=== PATIENT | female | born 1985 | race Caucasian/White ===

== ENCOUNTER → 2021-08-19 07:53 | Outpatient (BNVA) | payer BC, SELFPAY | PROVIDERS: Visit Provider Internal Medicine ==

== ENCOUNTER 2021-08-19 08:29 | Outpatient (REF) | payer BC, SELFPAY ==
[2021-08-19 10:55] LABS: Free T4 (Free Thyroxine) 0.94 ng/dL (0.71-1.85); Thyroid Stimulating Hormone 3.57 uIU/mL (0.32-4.0); Vitamin D 25-OH Total 35.8 ng/mL (>30)
[2021-08-20 10:11] LABS: Thyroglobulin Antibodies 13 IU/mL (< or = 1); Thyroid Peroxidase Antibodies 111 IU/mL (<9)
== END 2021-08-19 08:30 | disposition home or self-care (01) ==
LOC: HO.10HDL 08:29
PROVIDERS: Visit Provider Internal Medicine
DX: E03.9 Hypothyroidism, unspecified (principal); E55.9 Vitamin D deficiency, unspecified
CPT/HCPCS: 36415; 82306; 84439; 84443; 86376; 86800

== ENCOUNTER 2022-01-11 09:02 | Outpatient (REF) | payer BC, SELFPAY ==
[2022-01-11 19:19] LABS: CT PCR NOT DETECTED (Not Detect.); NG PCR NOT DETECTED (Not Detect.)
[2022-01-14 14:32] LABS: HPV mRNA E6/E7 rflx Not Detected (Not Detected)
== END 2022-01-11 09:03 | disposition home or self-care (01) ==
LOC: HO.LAB 09:02
PROVIDERS: Visit Provider Advanced Practice Midwife
DX: Z01.419 Encounter for gynecological examination (general) (routine) without abnormal findings (principal); R10.2 Pelvic and perineal pain; Z11.51 Encounter for screening for human papillomavirus (HPV); Z11.59 Encounter for screening for other viral diseases; Z11.4 Encounter for screening for human immunodeficiency virus [HIV]; Z11.3 Encounter for screening for infections with a predominantly sexual mode of transmission; Z11.8 Encounter for screening for other infectious and parasitic diseases
CPT/HCPCS: 87491; 87591; 87624; 88142

== ENCOUNTER 2022-01-25 08:08 | Outpatient (REF) | payer BC, SELFPAY ==
--- NOTE | ~2022-01-25 | US_ITS ---
EXAMINATION: US THYROID CLINICAL INFORMATION: Hypothyroidism, unspecified. COMPARISON: Previous thyroid ultrasound June 2019 TECHNIQUE: Linear transducer grayscale and color Doppler examination with attention to the region of the thyroid. FINDINGS: SIZE: Measurements of the thyroid lobes and nodules are given in sagittal, anteroposterior and transverse dimensions respectively. Right Thyroid Lobe: 4.2 x 1.9 x 1.8 cm, volume 7.1 mL. Parenchyma: The gland echotexture is heterogeneous. Thyroid vascularity is normal. Left Thyroid Lobe: 4.4 x 1.6 x 1.4 cm, volume 5.2 mL. Parenchyma: The gland echotexture is heterogeneous. Thyroid vascularity is normal. Isthmus: 0.4 cm in maximum AP dimension. There is question of numerous small hypoechoic nodules versus areas of gland heterogeneity. Estimated total number of nodules greater than or equal to 1 cm: 0. Refrigeration Installer nodules are described as follows: 1. Location: Left superior. Size: 0.6 x 0.2 x 0.4 cm, volume 0.03 mL. Nodule characteristics: Composition: Solid (2). Echogenicity: Isoechoic (1). Shape: Not taller than wide (0). Margins: Ill-defined (0). Echogenic Foci: None (0). ACR TI-RADS total points: 3 ACR TI-RADS category: 3 2. Location: Right mid. Size: 0.7 x 0.3 x 0.4 cm, volume 0.04 mL. Nodule characteristics: Composition: Solid (2). Echogenicity: Isoechoic (1). Shape: Not taller than wide (0). Margins: Ill-defined (0). Echogenic Foci: None (0). ACR TI-RADS total points: 3 ACR TI-RADS category: 3 NODES: No lymphadenopathy is seen in the tissue surrounding the thyroid gland. US/US thyroid IMPRESSION: Heterogeneous thyroid gland. Thyroid gland appears more heterogeneous than seen June 2019. Two newly appreciated small thyroid nodules. Previously identified small lymph nodes not appreciated. ACR TI-RADS RECOMMENDATION REFERENCE: Ultrasound-guided fine-needle aspiration, followup ultrasound, no further follow up. * TR1 (0 point) and TR 2 (2 points): No FNA or follow up * TR3 (3 points): FNA if more than or equal to 2.5 cm in maximum dimension, followup ultrasound in 1, 3 and 5 years if 1.5 to 2.4 cm in maximum dimension. * TR4 (4-6 points): FNA if more than or equal to 1.5 cm in maximum dimension, followup ultrasound in 1, 2, 3 and 5 years if 1 to 1.4 cm in maximum dimension. * TR5 (more than or equal to 7 points): FNA if more than or equal to 1 cm in maximum dimension, followup ultrasound every year for 5 years if 0.5 to 0.9 cm in maximum dimension. * TR3, TR4 or TR5 nodules that are below the size threshold for follow up receive no follow up.
== END 2022-01-25 08:09 | disposition home or self-care (01) ==
LOC: HO.US 08:08
PROVIDERS: Visit Provider Internal Medicine
DX: E03.9 Hypothyroidism, unspecified (principal)
CPT/HCPCS: 76536

== ENCOUNTER 2022-06-21 08:41 | Outpatient (REF) | payer BC, SELFPAY ==
[2022-06-21 12:36] LABS: Free T4 (Free Thyroxine) 0.89 ng/dL (0.71-1.85)
== END 2022-06-21 08:42 | disposition home or self-care (01) ==
LOC: HO.WFDLDS 08:41
PROVIDERS: Visit Provider Internal Medicine
DX: E03.9 Hypothyroidism, unspecified (principal)
CPT/HCPCS: 36415; 84439; 84443

== ENCOUNTER → 2022-06-28 07:58 | Outpatient (BNVA) | payer BC, SELFPAY | PROVIDERS: Visit Provider Internal Medicine | DX: E03.9 Hypothyroidism, unspecified (principal) ==

== ENCOUNTER 2022-09-07 10:08 | Outpatient (REF) | payer BC, SELFPAY ==
[2022-09-07 14:03] LABS: Free T4 (Free Thyroxine) 0.94 ng/dL (0.71-1.85); Thyroid Stimulating Hormone 3.49 uIU/mL (0.32-4.0)
== END 2022-09-07 10:09 | disposition home or self-care (01) ==
LOC: HO.WFDLDS 10:08
PROVIDERS: Visit Provider Internal Medicine
DX: E03.9 Hypothyroidism, unspecified (principal)
CPT/HCPCS: 36415; 84439; 84443

== ENCOUNTER → 2022-09-08 07:40 | Outpatient (BNVA) | payer BC, SELFPAY | PROVIDERS: Visit Provider Internal Medicine | DX: Z13.89 Encounter for screening for other disorder (principal) ==

== ENCOUNTER 2022-12-21 16:16 | Outpatient (REF) | payer BC, SELFPAY ==
[2022-12-21 18:39] LABS: Free T4 (Free Thyroxine) 0.88 ng/dL (0.71-1.85); Thyroid Stimulating Hormone 1.74 uIU/mL (0.32-4.0)
== END 2022-12-21 16:17 | disposition home or self-care (01) ==
LOC: HO.LAB 16:16
PROVIDERS: Visit Provider Internal Medicine
DX: E03.9 Hypothyroidism, unspecified (principal)
CPT/HCPCS: 36415; 84439; 84443

== ENCOUNTER 2022-12-22 07:22 | Outpatient (AMB) | payer BC, SELFPAY ==
--- NOTE | 2022-12-22 07:22 | MHC.OFFVIS ---
Intake Intake Visit Reasons: F/U Hypothyroidism Intake Note: Patient following up on Hypothyroidism. Allergies clindamycin [CLINDAMYCIN] Allergy (Unknown, Verified 12/22/22 07:36) UNKNOWN Medication List - Last Reconciled 12/22/22 by Anne Marie Koch DO cholecalciferol (vitamin D3) 2,000 units PO DAILY clobetasol 0.05% grams topical dextroamphetamine-amphetamine 50 mg ER (Mydayis) 50 mg PO DAILY levothyroxine (Tirosint) 50 mcg PO DAILY serdexmethylphen-dexmethylphen 52.3 mg- 10.4 mg (Azstarys) 1 tab PO QAM spironolactone 25 mg PO DAILY tapinarof 1% (Vtama) 1 appl topical DAILY HPI HPI Comments History of Present Illness Details 37 YO Female with PMHx Hypothyroidism who is seen in F/U. First diagnosed with Hypothyroidism in approximately 2011. After our initial visit we checked antibodies with both TPO and TG antibodies being positive. She had an US of the thyroid which was consistent with a jeanmarie gland, with no true nodules visualized, only pseudonodules. She was switched to Tirosint 50 mcg PO daily and labs reveal TSH at goal. She has no specific complaints today. Menses: She has the paraguard IUD, and reports heavy menses. Prior to paraguard menses were regular. Biotin: Denies Labs: Laboratory Tests 12/21/22 16:45 TSH 1.74 Free T4 0.88 PFSH Medical History Abnormal Pap smear of cervix ADD (attention deficit disorder) Depression Hypothyroidism IUD surveillance Psoriatic arthritis Vitamin D deficiency Surgical History H/O breast augmentation H/O LEEP Hx of knee surgery Family History Father Heart disease High cholesterol HTN (hypertension) Mother High cholesterol Hypothyroidism Social History Alcohol intake: current Alcohol intake frequency: holidays/special occasions only Patient Tobacco Use Status: Never used Tobacco Current occupational status: employed 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 TSH at goal on Tirosint 50 mcg PO daily, will continue. She will F/U with her PCP for further management of her hypothyroidism. We did review that if she is to become she must notify us immediately as her dose of levothyroxine will need to be increased by 25%, and that this is important for the cognitive development of the baby. She verbalizes understanding. US reveals only pseudnodules. No indication for repeat surveillance unless she develops a change in symptomatology. All of her questions were answered. She is in agreement with this plan of care. I spent 20 minutes in reviewing the record, seeing the patient and documenting in the medical record, including 5 minutes on the phone with the Patient. Telehealth Telehealth Location of provider rendering services: practice address Location of patient: address on file Patient Identification confirmed using: Name, : Yes Telehealth method: voice only Patient verbally consented to treatment: Yes Patient verbally consented to billing insurance company: Yes Patient informed of any privacy concerns related to visit: Yes Coding Level of Care Code Tele Est Pt Level 3 (53201) Diagnoses Hypothyroidism E03.9
== END 2022-12-22 08:12 | disposition home or self-care (01) ==
LOC: HO.ENCR 07:22
PROVIDERS: Visit Provider Internal Medicine
DX: E03.9 Hypothyroidism, unspecified (principal)
CPT/HCPCS: 99443

== ENCOUNTER → 2022-12-22 07:22 | Outpatient (BNVA) | payer BC, SELFPAY | PROVIDERS: Visit Provider Internal Medicine ==

== ENCOUNTER 2023-07-13 08:10 | Outpatient (AMB) | payer BC, SELFPAY ==
--- NOTE | 2023-07-13 08:12 | MHC.OFFVIS ---
Intake Vital Signs 07/13/23 08:18 Height 5 ft 2 in Weight 170 lb BMI 31.1 BP 100/62 Intake Visit Reasons: Annual Intake Note: 11/21 ramez 1 01/21 colpo ramez 1+2 05/23 neg 01/22 neg 08/23 neg 02/23 hgsil 07/27 leep ramez 2 01/24 colpo, pap lgsil 10/25 ascus neg hpv 02/25 colpo ramez 1 04/28 colpo Tank Terminal Gauger: Tank Terminal Gauger Present (Florecita) Allergies clindamycin [CLINDAMYCIN] Allergy (Unknown, Verified 07/13/23 08:18) UNKNOWN Is last menstrual period known: Yes Last menstrual period: 07/09/23 HPI HPI Comments History of Present Illness Details She is a premenopausal woman presenting for annual examination. Doing well with no concerns. She tries to eat healthy, includes vitamin-D supplements, and stays active with exercise. Regular monthly menses. Cycles are approximately 24 days apart, lasting 7 days heavy at times. Currently using a ParaGard IUD, not interested in hormonal options at this time. Admits to fatigue at times. Currently is sexually active. She denies vaginal itching and irritation. Currently has her menses. STI screening offered; she accepts. Denies family history of breast, ovarian or colon cancer. Last pap smear 2021, negative. Prior was 2017. History of RAMEZ 2, with LEEP. 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 Sexually active: Yes Sexual orientation: Straight/Heterosexual Gender identity: Female Female Reproductive History Menstrual Age of Menarche: 15 Duration of menses: 6-7 days Date of last menstrual period: 07/09/23 control method: copper IUCD (Paragard 09/2017) Total pregnancies: 0 Date of last pap smear: 01/11/22 (neg pap and hpv) History of abnormal pap smear: Yes (see intake note) Review of Systems Const All systems reviewed & are unremarkable except as noted in HPI and below Reports as per HPI Eyes Reports no additional complaints ENT Reports no additional complaints Card Reports no additional complaints Resp Reports no additional complaints GI Reports as per HPI and Reports no additional complaints Reports as per HPI Musc Reports no additional complaints Skin/Breast Reports as per HPI Neuro Reports no additional complaints Psych Reports no additional complaints Endo Reports no additional complaints Bhupendra/Lymph Reports no additional complaints Aller/Immun Reports no additional complaints Physical Exam Vital Signs: Last Vital Signs BP 100/62 07/13/23 08:18 BMI result Body Mass Index 31.1 Const General: cooperative, healthy appearing, no acute distress, well developed and alert Orientation/consciousness: patient oriented x3 HEENT Head: Yes normal to inspection Eyes General: appearance normal, both eyes and all related structures Neck Neck: Yes normal visual inspection Thyroid: Thyroid normal Chest Other: Bilateral implants and scars. Chest palpation & inspection: normal inspection of the chest and other (no puckering, dimpling, peau de orange, retraction, discharge, masses) Breast/axilla inspection: normal inspection of the breasts Breast/axilla palpation: normal palpation of the breasts Resp Effort & Inspection: normal respiratory effort GI Inspection: Yes normal to inspection Palpation (GI): Soft to palpation Rectal Exam - Female: deferred General: Yes bladder normal to palpation External Female Exam: normal external appearance and normal appearance of the urethra Speculum Exam - Vagina: normal appearance of the vagina, normal palpation, normal vaginal discharge and vaginal bleeding Speculum Exam - Cervix: normal appearance of the cervix, normal palpation and Other cervical findings present (ParaGard strings visible, post LEEP appearance) Bimanual exam- vagina & uterus: normal bimanual exam, normal palpation, uterine size normal, bladder normal to palpation, normal palpation and non-tender Bimanual Exam- Adnexa, other: no masses OB/external & speculum: vaginal bleeding Skin General skin exam: no rashes or lesions noted Rashes: no rashes Neuro General: patient oriented x3 Cognition (Neuro): normal cognition Extrem General: Yes normal to inspection Psych Attitude: cooperative Thought process: Normal thought process present Assessment & Plan Assessment & Plan (1) Encounter for well woman exam with routine gynecological exam: Code(s): Z01.419 - Encounter for gynecological examination (general) (routine) without abnormal findings (2) History of abnormal cervical Pap smear: Code(s): Z87.42 - Personal history of other diseases of the female genital tract Plan Discussed: Current recommendations for pap smears per ASCCP guidelines. Breast awareness and periodic breast exams. Maintain a healthy lifestyle including a well balanced diet and routine exercise. Plan ultrasound, lab work and follow-up tele visit for test results. Monitor menstrual cycles, report any unscheduled bleeding, bleeding episodes <21 days apart or heavy/prolonged menstrual bleeding. Call the office for a follow up for any concerns. Patient verbalizes understanding and agrees to the plan of care. She was given opportunity to ask questions and all questions were answered to the best of my ability. RTO in one year for annual sewing machine operator floorperson examination. This note is constructed using voice recognition software. While every effort has been made to ensure accuracy, building tech errors may have been included. Orders: Orders Complete Blood Count no Diff Today N92.0 - Excessive and frequent menstruation with regular cycle TSH reflex Free T4 Today N92.0 - Excessive and frequent menstruation with regular cycle US pelvic and transvaginal Today N92.0 - Excessive and frequent menstruation with regular cycle Pap Smear Today Z01.419 - Encounter for gynecological examination (general) (routine) without abnormal findings, Z87.42 - Personal history of other diseases of the female genital tract HIV Ab/Ag Today Z20.2 - Contact with and (suspected) exposure to infections with a predominantly sexual mode of transmission CT NG by PCR Today N92.0 - Excessive and frequent menstruation with regular cycle, T83.89XA - Other specified complication of genitourinary prosthetic devices, implants and grafts, initial encounter, Z20.2 - Contact with and (suspected) exposure to infections with a predominantly sexual mode of transmission Hepatitis C Antibody Today Z20.2 - Contact with and (suspected) exposure to infections with a predominantly sexual mode of transmission Hepatitis B Core Antibody Today Z20.2 - Contact with and (suspected) exposure to infections with a predominantly sexual mode of transmission Syphilis Screen Today Z20.2 - Contact with and (suspected) exposure to infections with a predominantly sexual mode of transmission Coding Level of Care Code Est Pt Prev Care 18-39y(27243) Diagnoses Encounter for well woman exam with routine gynecological exam Z01.419 History of abnormal cervical Pap smear Z87.42
[2023-07-13 08:18] VITALS: BP 100/62; BMI 31.1
== END 2023-07-13 08:52 | disposition home or self-care (01) ==
PROVIDERS: Visit Provider Advanced Practice Midwife
DX: Z01.419 Encounter for gynecological examination (general) (routine) without abnormal findings (principal); Z87.42 Personal history of other diseases of the female genital tract
CPT/HCPCS: 99395

== ENCOUNTER 2023-07-13 08:10 | Outpatient (REF) | payer BC, SELFPAY ==
[2023-07-13 14:30] LABS: CT PCR DETECTED (Not Detect.); NG PCR NOT DETECTED (Not Detect.)
[2023-07-18 23:49] LABS: HPV mRNA E6/E7 rflx Not Detected (Not Detected)
== END 2023-07-13 08:11 | disposition home or self-care (01) ==
LOC: HO.LNP 08:10
PROVIDERS: Visit Provider Advanced Practice Midwife
DX: Z01.419 Encounter for gynecological examination (general) (routine) without abnormal findings (principal); Z11.51 Encounter for screening for human papillomavirus (HPV); Z20.2 Contact with and (suspected) exposure to infections with a predominantly sexual mode of transmission; N92.0 Excessive and frequent menstruation with regular cycle
CPT/HCPCS: 0353U; 87624; 88142

== ENCOUNTER 2023-07-29 16:25 | Outpatient (REF) | payer BC, SELFPAY ==
--- NOTE | ~2023-07-29 | US_ITS ---
EXAMINATION: US PELVIS CLINICAL INFORMATION: Heavy menses, right pelvic pain, last menstrual period 07/09/2023. COMPARISON: None available. TECHNIQUE: Ultrasound of the pelvis is performed using both transabdominal and transvaginal transducers along with Doppler. Transvaginal imaging is performed due to inadequate visualization transabdominally. FINDINGS: The uterus measures 7.8 x 2.4 x 3.5 cm. 0.7 x 0.5 x 0.6 cm posterior uterine hypoechoic lesion is characteristic of a fibroid. IUD present in the endometrial cavity. Visualization of the endometrium is limited due to shadowing from the IUD. No significant free fluid. Left ovary measures 2.2 x 1.3 x 1.1 cm, volume 1.6 mL. Left ovary is grossly unremarkable, although visualization is severely limited due to bowel gas. Right ovary measures 3.5 x 2.8 x 2.1 cm, volume 10.8 mL. Limited visualization. Right ovarian 2.4 x 2.1 x 1.8 cm complex cyst with thick nodular hopkins and diffuse internal echoes. US/US pelvic and transvaginal IMPRESSION: 0.7 cm posterior uterine hypoechoic lesion is characteristic of a fibroid. IUD present in the endometrial cavity. Visualization of the endometrium is limited due to shadowing from the IUD. No significant free fluid. Left ovary is grossly unremarkable, although visualization is severely limited due to bowel gas. Right ovarian 2.4 x 2.1 x 1.8 cm complex cyst with thick nodular hopkins and diffuse internal echoes. Recommend follow-up ultrasound in 6-8 weeks.
== END 2023-07-29 16:26 | disposition home or self-care (01) ==
LOC: HO.US 16:25
PROVIDERS: PCP Internal Medicine; Visit Provider Advanced Practice Midwife
DX: N92.0 Excessive and frequent menstruation with regular cycle (principal)
CPT/HCPCS: 76830; 76856

== ENCOUNTER 2023-08-10 13:50 | Outpatient (REF) | payer BC, SELFPAY ==
[2023-08-10 17:35] LABS: Hematocrit 40.3 % (37.0-47.0); Hemoglobin 13.5 g/dl (12.0-16.0); Mean Corpuscular HGB Conc 33.5 g/dl (31.0-35.0); Mean Corpuscular Hemoglobin 30.3 pg (27.0-33.0); Mean Corpuscular Volume 90.4 fL (80.0-98.0); Mean Platelet Volume 9.4 fL (9.4-12.3); Platelet Count 362 X10*3/uL (160-400); Red Blood Count 4.46 X10*6/uL (4.20-5.50); Red Cell Distribution Width 12.8 % (11.0-16.0); White Blood Count 7.2 X10*3/uL (4.8-10.8)
[2023-08-10 18:15] LABS: TSH reflex Free T4 2.04 uIU/mL (0.32-4.0)
[2023-08-10 18:19] LABS: Free T4 (Free Thyroxine) 0.94 ng/dL (0.71-1.85)
[2023-08-11 04:11] LABS: Syphilis Screen Nonreactive (Nonreactive)
[2023-08-11 04:27] LABS: HBc Num1 0.08 S/CO (0.00-0.79); HIV AB/AG Nonreactive (Nonreactive); HIV Num 1 0.05 S/CO (0.00-0.99); Hepatitis B Core Antibody Nonreactive (Nonreactive); ~HepC Num1 0.12 S/CO (0.00-0.79); ~Hepatitis C Antibody Nonreactive (Nonreactive)
[2023-08-15 15:34] LABS: Thyroid Stimulating Immunoglob <89 % baseline (<140)
== END 2023-08-10 13:51 | disposition home or self-care (01) ==
LOC: HO.HKASLDS 13:50
PROVIDERS: Internal Medicine; Visit Provider Advanced Practice Midwife
DX: E03.9 Hypothyroidism, unspecified (principal); N92.0 Excessive and frequent menstruation with regular cycle; Z20.2 Contact with and (suspected) exposure to infections with a predominantly sexual mode of transmission
CPT/HCPCS: 36415; 84439; 84443; 84445; 85027; 86704; 86780; 86803; 87389

== ENCOUNTER 2023-08-12 12:47 | Outpatient (AMB) | payer BC, SELFPAY ==
--- NOTE | 2023-08-12 12:48 | A.OFFVIS_ITS ---
Intake Intake Visit Reasons: TV/US follow up Inbound Telemarketer Required: No Information Interpreted: non-clinical & clinical Plant Health Manager: Plant Health Manager Present Allergies clindamycin [CLINDAMYCIN] Allergy (Unknown, Verified 08/12/23 12:49) UNKNOWN Is last menstrual period known: Yes Last menstrual period: 08/06/23 HPI HPI Comments History of Present Illness Details Tele fields landing visit 1:00-1:07. Phone call due to Covid 19 Pandemic. I spent 7 minutes speaking with the patient on the phone plus an additional 5 minutes reviewing the chart and 5 minutes updating the medical record for a total of 17minutes. Patient presents via phone to discuss: Ultrasound finding, has a history of sharp right-sided pain with her menses, uses ParaGard IUD. [facility] Medical History (Updated 08/12/23 @ 13:08 by Mandie Houser CNM) Complex ovarian cyst Abnormal Pap smear of cervix IUD surveillance ADD (attention deficit disorder) Depression Vitamin D deficiency Psoriatic arthritis Hypothyroidism Surgical History H/O breast augmentation H/O LEEP Hx of knee surgery Family History Father Heart disease High cholesterol HTN (hypertension) Mother High cholesterol Hypothyroidism Social History Alcohol intake: current Alcohol intake frequency: holidays/special occasions only Patient Tobacco Use Status: Never used Tobacco Current occupational status: employed 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 Diagnostics Subcategory All Activity ??:?? All Time ??:?? All Subcategories Filter Laboratory Imaging Microbiology Pathology Blood Bank Tests Cardiovascular Other Specialty DATE TYPE STATUS REF RANGE/AUTHOR Hx 07/29/23 16:39 Pelvic/Transvag US Signed Lita Powers 08/15/22 08:26 Thyroid Ultrasound Signed Libby Martinez Katarzyna Amb 38, F?1985 MRN#? [id number] Exam video ok REG AMB,?HO.HWS??? Visit Date: 08/12/23 Resus Status Not Addressed No Hx Avail Historical Visits Allergies clindamycin (CLINDAMYCIN) UNKNOWN Medications Prescription Monitoring Program Active cholecalciferol (vitamin D3) 2,000 unitsPODAILY clobetasol 0.05% topical dextroamphetamine-amphetamine 30 mg ER 1 capPODAILY dextromethorphan-bupropion 45-105 mg ER(Auvelity) PO levothyroxine(Tirosint) 50 mcgPODAILY doxycycline hyclate 100 mgPOBID7 days Discontinued 08/12/23 Problems HCC IUD surveillance Depression Vitamin D deficiency Psoriatic arthritis 0.421 Hypothyroidism Vitals ? 09/08/22 07:41 07/13/23 08:18 Temp ? ? BP 100/60 100/62 Pulse 93 ? Resp Rate ? ? O2 Sat ? ? Height 5 ft 2 in 5 ft 2 in Weight 156 lb 8.451 oz 170 lb BMI 28.6 31.1 Outstanding Orders [facility] Body Mass Index (BMI) 31.1 kg/m? 07/13/23 Blood Pressure 100/62 mmHg (90/60 - 139/89) 07/13/23 Lab Results Last Value Most Recent Hematology WBC (4.8-10.8) 7.2 X10*3/uL 08/10/23 RBC (4.20-5.50) 4.46 X10*6/uL 08/10/23 Hgb (12.0-16.0) 13.5 g/dl 08/10/23 Hct (37.0-47.0) 40.3 % 08/10/23 MCV (80.0-98.0) 90.4 fL 08/10/23 MCH (27.0-33.0) 30.3 pg 08/10/23 MCHC (31.0-35.0) 33.5 g/dl 08/10/23 RDW (11.0-16.0) 12.8 % 08/10/23 Plt Count (160-400) 362 X10*3/uL 08/10/23 MPV (9.4-12.3) 9.4 fL 08/10/23 Absolute Nucleated RBC (0.0-0.012) 0.000 X10*3/uL 08/10/23 Nucleated RBC % (auto) (0.0-0.2) 0.0 /100WBC 08/10/23 Chemistry TSH (0.32-4.0) 2.04 uIU/mL 08/10/23 Free T4 (0.71-1.85) 0.94 ng/dL 08/10/23 Thyroid Stim Immunoglob Pending 08/10/23 Serology T.pallidum Ab (EIA) (Nonreactive) Nonreactive 08/10/23 Chlam trachomat DNA PCR (Not Detect.) DETECTED A 07/13/23 Hep B Core Total Ab (Nonreactive) Nonreactive 08/10/23 Hepatitis C Ab (EIA) (Nonreactive) Nonreactive? 08/10/23 HIV 1&2 Ab/P24 Ag 4thGn (Nonreactive) Nonreactive? 08/10/23 N.gonorrhoeae DNA (PCR) (Not Detect.) NOT DETECTED? 07/13/23 HPV E6/E7 mRNA (Not Detected) Not Detected? 07/13/23 HPV Type 16 TNP? 07/13/23 HPV Type 18/45 TNP? 07/13/23 Pathology Reports PTH Cytology Specimen 07/14/23 Lab Scanned Documents Most Recent No Data to Display Documents Most Recent Departmental Office Visit Today Consult Notes, External 07/08/21 Imaging Pelvic/Transvag US 07/29/23 Special Indicators Pharmacies Diagnostics Reports Angela Encarnacion??38??F??1985 ? Allergy/Adv: clindamycin Close Pelvic/Transvag US (Signed) Lita Powers - 07/29/23 Thyroid Ultrasound (Signed) Libby Martinez - 01/25/22 Launch?Image [address] [address] Ultrasound Report Signed Patient: Angela Encarnacion MR#: [id number] : 1985 Acct:[id number] Age/Sex: 38 / F ADM Date: 07/29/23 Loc: HO.US Attending Dr: Mandie Houser CNM Ordering Physician: Mandie Houser CNM Date of Service: 07/29/23 Procedure(s): US pelvic and transvaginal Accession Number(s): [id number] cc: Mandie Houser CNM; Christine Pack EXAMINATION: US PELVIS CLINICAL INFORMATION: Heavy menses, right pelvic pain, last menstrual period 07/09/2023. COMPARISON: None available. TECHNIQUE: Ultrasound of the pelvis is performed using both transabdominal and transvaginal transducers along with Doppler. Transvaginal imaging is performed due to inadequate visualization transabdominally. FINDINGS: The uterus measures 7.8 x 2.4 x 3.5 cm. 0.7 x 0.5 x 0.6 cm posterior uterine hypoechoic lesion is characteristic of a fibroid. IUD present in the endometrial cavity. Visualization of the endometrium is limited due to shadowing from the IUD. No significant free fluid. Left ovary measures 2.2 x 1.3 x 1.1 cm, volume 1.6 mL. Left ovary is grossly unremarkable, although visualization is severely limited due to bowel gas. Right ovary measures 3.5 x 2.8 x 2.1 cm, volume 10.8 mL. Limited visualization. Right ovarian 2.4 x 2.1 x 1.8 cm complex cyst with thick nodular hopkins and diffuse internal echoes. US/US pelvic and transvaginal IMPRESSION: 0.7 cm posterior uterine hypoechoic lesion is characteristic of a fibroid. IUD present in the endometrial cavity. Visualization of the endometrium is limited due to shadowing from the IUD. No significant free fluid. Left ovary is grossly unremarkable, although visualization is severely limited due to bowel gas. Right ovarian 2.4 x 2.1 x 1.8 cm complex cyst with thick nodular hopkins and diffuse internal echoes. Recommend follow-up ultrasound in 6-8 weeks. Assessment & Plan Assessment & Plan (1) Complex cyst of right ovary: Code(s): N83.291 - Other ovarian cyst, right side (2) Encounter to discuss test results: Code(s): Z71.2 - Person consulting for explanation of examination or test findings Plan Counseled regarding findings of: Complex ovarian cyst (right), which is often benign, and most resolve on their own overtime. Some develop into premalignant or malignant tumors. Further monitoring and evaluation is recommended with US, possible CT, or MRI study. If persists, or is indicated (Ca-125, Carbohydrate Antigen 19-9, & Carcinoembryonic Antigen) labs will be ordered and referral to [facility] or general gynecology for MD care if indicated for possible surgical consult. Repeat ultrasound in 6 weeks, Follow up in person for test results. Advised if any increase in pelvic pain to notify the office immediately for sooner evaluation. All of her questions and concerns were addressed to the best of my ability and shared decision making. She is agreeable to the plan of care. This note is constructed using voice recognition software. While every effort has been made to ensure accuracy, grain trimmer errors may have been included. Orders: Orders US pelvic and transvaginal 09/09/23 N83.291 - Other ovarian cyst, right side Telehealth Telehealth Location of provider rendering services: practice address Location of patient: address on file Patient Identification confirmed using: Name, : Yes Telehealth method: video Patient verbally consented to treatment: Yes Patient verbally consented to billing insurance company: Yes Patient informed of any privacy concerns related to visit: Yes Coding Level of Care Code Tele Est Pt Level 2 (33488) Diagnoses Complex cyst of right ovary N83.291 Encounter to discuss test results Z71.2
== END 2023-08-12 13:59 | disposition home or self-care (01) ==
LOC: HO.HWS 12:48
PROVIDERS: Visit Provider Advanced Practice Midwife
DX: N83.291 Other ovarian cyst, right side (principal); Z71.2 Person consulting for explanation of examination or test findings
CPT/HCPCS: 99212

== ENCOUNTER → 2023-08-12 12:47 | Outpatient (BNVA) | payer BC, SELFPAY | PROVIDERS: Visit Provider Advanced Practice Midwife ==

== ENCOUNTER 2023-09-09 10:53 | Outpatient (REF) | payer BC, SELFPAY ==
--- NOTE | ~2023-09-09 | US_ITS ---
EXAMINATION: US PELVIS CLINICAL INFORMATION: Ovarian cyst right side, last menstrual period a week ago. COMPARISON: 07/29/2023 TECHNIQUE: Ultrasound of the pelvis is performed using both transabdominal and transvaginal transducers along with Doppler. Transvaginal imaging is performed due to inadequate visualization transabdominally. FINDINGS: The uterus is anteverted and measures 6.8 x 2.6 x 3.[address] within the endometrial cavity. Endometrium poorly visualized due to shadowing from the IUD and uterine heterogeneity. No significant free fluid. Nabothian cyst is identified. 0.7 x 0.4 x 0.6 cm posterior uterine lesion characteristic of fibroid previously measured 0.7 x 0.5 x 0.6 cm. 0.4 x 0.4 x 0.4 cm left uterine hypoechoic lesion was not previously appreciated and is also characteristic of a fibroid. US/US pelvic and transvaginal IMPRESSION: Small uterine fibroids. IUD in place within the endometrial cavity. Unremarkable bilateral ovaries. Interval resolution of previously identified right ovarian cyst.
== END 2023-09-09 10:54 | disposition home or self-care (01) ==
LOC: HO.US 10:53
PROVIDERS: Visit Provider Advanced Practice Midwife
DX: N83.291 Other ovarian cyst, right side (principal)
CPT/HCPCS: 76830; 76856

== ENCOUNTER 2023-09-14 11:15 | Outpatient (AMB) | payer BC, SELFPAY ==
--- NOTE | 2023-09-14 11:15 | MHC.OFFVIS ---
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 Phone call due to Covid 19 Pandemic. I spent 4 minutes speaking with the patient on the phone plus an additional 5 minutes reviewing the chart and 5 minutes updating the medical record for a total of 14minutes. Patient presents via phone to discuss: Ultrasound test results, history of prior right ovarian complex cyst. [facility] Medical History (Updated 08/12/23 @ 13:08 by Mandie Houser CNM) Complex ovarian cyst Abnormal Pap smear of cervix IUD surveillance ADD (attention deficit disorder) Depression Vitamin D deficiency Psoriatic arthritis Hypothyroidism Surgical History H/O breast augmentation H/O LEEP Hx of knee surgery Family History Father Heart disease High cholesterol HTN (hypertension) Mother High cholesterol Hypothyroidism Social History Alcohol intake: current Alcohol intake frequency: holidays/special occasions only Patient Tobacco Use Status: Never used Tobacco Current occupational status: employed 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 Sexual orientation: Straight/Heterosexual Gender identity: Female Female Reproductive History Menstrual Age of Menarche: 15 Review of Systems Const All systems reviewed & are unremarkable except as noted in HPI and below Endo Reports no additional complaints Physical Exam Const General: cooperative, healthy appearing and no acute distress Psych Appearance: well kempt Attitude: cooperative Thought process: Normal thought process present Results Reviewed Results Reviewed: [address] [address] Ultrasound Report Signed Patient: Angela Encarnacion MR#: [id number] : 1985 Acct:[id number] Age/Sex: 38 / F ADM Date: 09/09/23 Loc: HO.US Attending Dr: Mandie Houser CNM Ordering Physician: Mandie Houser CNM Date of Service: 09/09/23 Procedure(s): US pelvic and transvaginal Accession Number(s): [id number] cc: Mandie Houser CNM~ EXAMINATION: US PELVIS CLINICAL INFORMATION: Ovarian cyst right side, last menstrual period a week ago. COMPARISON: 07/29/2023 TECHNIQUE: Ultrasound of the pelvis is performed using both transabdominal and transvaginal transducers along with Doppler. Transvaginal imaging is performed due to inadequate visualization transabdominally. FINDINGS: The uterus is anteverted and measures 6.8 x 2.6 x 3.[address] within the endometrial cavity. Endometrium poorly visualized due to shadowing from the IUD and uterine heterogeneity. No significant free fluid. Nabothian cyst is identified. 0.7 x 0.4 x 0.6 cm posterior uterine lesion characteristic of fibroid previously measured 0.7 x 0.5 x 0.6 cm. 0.4 x 0.4 x 0.4 cm left uterine hypoechoic lesion was not previously appreciated and is also characteristic of a fibroid. US/US pelvic and transvaginal IMPRESSION: Small uterine fibroids. IUD in place within the endometrial cavity. Unremarkable bilateral ovaries. Interval resolution of previously identified right ovarian cyst. Dictated By: Lita Powers MD Signed By: <Electronically signed by Lita Powers MD in OV> 09/14/23 0531 DD/ 1113 TD/TT: Steam Service Inspector: Assessment & Plan Assessment & Plan (1) Encounter to discuss test results: Code(s): Z71.2 - Person consulting for explanation of examination or test findings Plan Discussed: Ultrasound findings revealed right ovarian cyst was resolved. Small stable fibroid noted. Can plan to follow up as needed yearly for fibroid check for stability. Advised to call if any unusual bleeding patterns, pelvic pain bloating are experienced. All of her questions and concerns were addressed to the best of my ability and shared decision making. She is agreeable to the plan of care. This note is constructed using voice recognition software. While every effort has been made to ensure accuracy, loan processing supervisor errors may have been included. Telehealth Telehealth Location of provider rendering services: practice address Location of patient: other Patient Identification confirmed using: Name, : Yes Telehealth method: video Patient verbally consented to treatment: Yes Patient verbally consented to billing insurance company: Yes Patient informed of any privacy concerns related to visit: Yes Coding Level of Care Code Tele Est Pt Level 3 (89545) Diagnoses Encounter to discuss test results Z71.2
== END 2023-09-14 13:05 | disposition home or self-care (01) ==
LOC: HO.HWS 11:15
PROVIDERS: PCP Internal Medicine; Visit Provider Advanced Practice Midwife
DX: Z71.2 Person consulting for explanation of examination or test findings (principal)
CPT/HCPCS: 99213

== ENCOUNTER → 2023-09-14 11:15 | Outpatient (BNVA) | payer BC, SELFPAY | PROVIDERS: PCP Internal Medicine; Visit Provider Advanced Practice Midwife ==

== ENCOUNTER 2024-01-31 11:30 | Outpatient (REF) | payer BC, SELFPAY ==
[2024-01-31 16:36] LABS: Bacterial Vaginosis PCR POSITIVE (Negative); Candida Group PCR DETECTED (Not Detect); Candida glab krusei PCR NOT DETECTED (Not Detect); Trichomonas vaginalis PCR NOT DETECTED (Not Detect)
[2024-01-31 17:00] LABS: CT PCR NOT DETECTED (Not Detect.); NG PCR NOT DETECTED (Not Detect.)
== END 2024-01-31 11:31 | disposition home or self-care (01) ==
LOC: HO.LNP 11:30
PROVIDERS: PCP Internal Medicine; Visit Provider Advanced Practice Midwife
DX: D21.9 Benign neoplasm of connective and other soft tissue, unspecified (principal); Z20.2 Contact with and (suspected) exposure to infections with a predominantly sexual mode of transmission; Z97.5 Presence of (intrauterine) contraceptive device
CPT/HCPCS: 0352U; 87491; 87591

== ENCOUNTER 2024-01-31 11:30 | Outpatient (AMB) | payer BC, SELFPAY ==
[2024-01-31 11:32] VITALS: BMI 31.1
--- NOTE | 2024-01-31 11:32 | MHC.OFFVIS ---
Vital Signs 01/31/24 11:32 Height 5 ft 2 in Weight 170 lb BMI 31.1 Intake Visit Reasons: 3 month follow up Intake Note: Patient here for std check Outside Upholsterer Required: No Information Interpreted: non-clinical & clinical Maintenance Advisor: Maintenance Advisor Present (Jerri DEL ANGEL) Accompanied by: Self / Same As Patient Allergies clindamycin [CLINDAMYCIN] Allergy (Unknown, Verified 01/31/24 11:35) UNKNOWN Is last menstrual period known: Yes Last menstrual period: 01/19/24 HPI Comments Details: Patient is here today for LAZARO chlamydia. Completed all but one dose of medication due to nausea. Currently not sexually active, denies any discharge. Admits to pain on the right pelvis, ? midcyle and cylic. History of fibroids. [facility] Medical History (Updated 01/31/24 @ 12:33 by Mandie Houser CNM) IUD (intrauterine device) in place Fibroids Abnormal Pap smear of cervix ADD (attention deficit disorder) Depression Vitamin D deficiency Psoriatic arthritis Hypothyroidism Surgical History H/O breast augmentation H/O LEEP Hx of knee surgery Family History Father Heart disease High cholesterol HTN (hypertension) Mother High cholesterol Hypothyroidism Social History Alcohol intake: current Alcohol intake frequency: holidays/special occasions only Patient Tobacco Use Status: Never used Tobacco Current occupational status: employed 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 Sexual orientation: Straight/Heterosexual Gender identity: Female Female Reproductive History Menstrual Age of Menarche: 15 Duration of menses: 6-7 days Date of last menstrual period: 01/19/24 control method: copper IUCD (09/30/2017) Review of Systems Const All systems reviewed & are unremarkable except as noted in HPI and below Physical Exam Vital Signs: BMI result Body Mass Index 31.1 Const General: cooperative, healthy appearing and no acute distress Orientation/consciousness: patient oriented x3 GI Inspection: Yes normal to inspection Palpation (GI): Soft to palpation and Other GI palpation findings present (Nontender) Rectal Exam - Female: visual inspection normal General: Yes bladder normal to palpation External Female Exam: normal external appearance (psoriasis on vulva) and normal appearance of the urethra Speculum Exam - Vagina: normal appearance of the vagina, normal palpation and normal vaginal discharge Speculum Exam - Cervix: normal appearance of the cervix, normal palpation and Other cervical findings present (IUD strings at the os) Bimanual exam- vagina & uterus: normal bimanual exam, normal palpation, uterine size normal, bladder normal to palpation, normal palpation, uterine shape normal and non-tender Bimanual Exam- Adnexa, other: normal adnexae Neuro General: patient oriented x3 Results Reviewed Results Reviewed: [address] [address] Ultrasound Report Signed Patient: Angela Encarnacion MR#: [id number] : 1985 Acct:[id number] Age/Sex: 38 / F ADM Date: 09/09/23 Loc: .US Attending Dr: Mandie Houser CNM Ordering Physician: Mandie Houser CNM Date of Service: 09/09/23 Procedure(s): US pelvic and transvaginal Accession Number(s): [id number] cc: Mandie Houser CNM~ EXAMINATION: US PELVIS CLINICAL INFORMATION: Ovarian cyst right side, last menstrual period a week ago. COMPARISON: 07/29/2023 TECHNIQUE: Ultrasound of the pelvis is performed using both transabdominal and transvaginal transducers along with Doppler. Transvaginal imaging is performed due to inadequate visualization transabdominally. FINDINGS: The uterus is anteverted and measures 6.8 x 2.6 x 3.[address] within the endometrial cavity. Endometrium poorly visualized due to shadowing from the IUD and uterine heterogeneity. No significant free fluid. Nabothian cyst is identified. 0.7 x 0.4 x 0.6 cm posterior uterine lesion characteristic of fibroid previously measured 0.7 x 0.5 x 0.6 cm. 0.4 x 0.4 x 0.4 cm left uterine hypoechoic lesion was not previously appreciated and is also characteristic of a fibroid. US/US pelvic and transvaginal IMPRESSION: Small uterine fibroids. IUD in place within the endometrial cavity. Unremarkable bilateral ovaries. Interval resolution of previously identified right ovarian cyst. Dictated By: Lita Powers MD Signed By: <Electronically signed by Lita Powers MD in OV> 09/14/23 0531 DD/ 1113 TD/TT: Funeral Home Makeup Artist: Assessment & Plan Assessment & Plan (1) Fibroid: Code(s): D21.9 - Benign neoplasm of connective and other soft tissue, unspecified (2) IUD (intrauterine device) in place: Code(s): Z97.5 - Presence of (intrauterine) contraceptive device Category: Medical (3) Chlamydia contact, treated: Code(s): Z20.2 - Contact with and (suspected) exposure to infections with a predominantly sexual mode of transmission Plan Discussed: Ultrasound findings-complex ovarian cyst resolved, IUD in placed, new onset of fibroid. 0.7 x 0.4 x 0.6 cm posterior uterine lesion characteristic of fibroid previously measured 0.7 x 0.5 x 0.6 cm. 0.4 x 0.4 x 0.4 cm left uterine hypoechoic lesion was not previously appreciated and is also characteristic of a fibroid. Counseled re: Leiomyoma: common pelvic neoplasm. Differential diagnosis-may include but not limited to- leiomyosarcoma which is a rare uterine sarcoma 3-7/100,000, difficult to distinguish from fibroids on ultrasound from uterine sarcoma's. Unlikely any single test will have a highly positive predictive value. Hysterectomy is not recommended for sole purpose of excluding malignant neoplasm. Consult for surgical exploration, medical treatment, other treatments, verses expectant management, pros and cons, risks and benefits. Report any AUB. Pelvic pressure, bloating, or pain. Plan yearly follow up for stability check. Follow up pending results. Referral to MD if indicated for level of care if indicated. Test of cure for chlamydia completed and BV panel taken. Monitor symptoms for correlation whether timing of ovulation, if pain increases or persist to return to the office for immediate evaluation. Plan follow up to see your veneer sander for vulvar skin care treatment. Annual exam an ultrasound follow up in 2024. All of her questions and concerns were addressed to the best of my ability and shared decision making. She is agreeable to the plan of care. This note is constructed using voice recognition software. While every effort has been made to ensure accuracy, medical staff coordinator errors may have been included. Orders: Orders Bacterial Vaginosis Panel Today D21.9 - Benign neoplasm of connective and other soft tissue, unspecified, Z20.2 - Contact with and (suspected) exposure to infections with a predominantly sexual mode of transmission US pelvic and transvaginal 08/13/24 D21.9 - Benign neoplasm of connective and other soft tissue, unspecified CT NG by PCR Today D21.9 - Benign neoplasm of connective and other soft tissue, unspecified, Z20.2 - Contact with and (suspected) exposure to infections with a predominantly sexual mode of transmission Coding Level of Care Code Est Pt Level 3 (44689) Diagnoses Fibroid D21.9 IUD (intrauterine device) in place Z97.5 Chlamydia contact, treated Z20.2
== END 2024-01-31 12:13 | disposition home or self-care (01) ==
LOC: HO.HWS 11:30
PROVIDERS: PCP Internal Medicine; Visit Provider Advanced Practice Midwife
DX: D21.9 Benign neoplasm of connective and other soft tissue, unspecified (principal); Z97.5 Presence of (intrauterine) contraceptive device; Z20.2 Contact with and (suspected) exposure to infections with a predominantly sexual mode of transmission
CPT/HCPCS: 99213

== ENCOUNTER → 2024-07-19 13:56 | Outpatient (BNVA) | payer BC, SELFPAY | PROVIDERS: PCP Internal Medicine; Visit Provider Internal Medicine | DX: R00.0 Tachycardia, unspecified (principal); R00.2 Palpitations; G47.33 Obstructive sleep apnea (adult) (pediatric) | CPT/HCPCS: 93005 ==

== ENCOUNTER 2024-08-10 08:23 | Outpatient (REF) | payer OTHER, SELFPAY ==
--- OUTSIDE RECORDS SUMMARY | 2024-08-10 08:33 | XMS_ITS ---
Author Organization [facility] Address [address] [place] [address] Care Team Providers Care Hydraulic Strainer Operator Name Role Phone NIRANJANMARTHA GHASSAN Unavailable [phone] REASON FOR VISIT fax coronary calcium CT MEDICATIONS Medication SIG (Take, Route, Frequency, Duration) Notes Start Date End Date Status Rosuvastatin Calcium 5 MG 1 tablet Orall y Once a day for 90 days 08/07/2024 Active Encounters Encounter Location Date Provider Diagnosis [address] [place] [id number] 08/06/2024 GHASSAN LICEA PLAN OF TREATMENT Medication Medication Name Sig Start Date Stop Date Notes Rosuvastatin Calcium 5 MG 1 tablet Orall y Once a day for 90 days 08/07/2024 Next Appt Details Provider Name:GHASSAN LICEA , 10/02/2024 11:15:00 AM, [address] [facility], [facility] [address], [phone], Provider Name:GHASSAN LICEA , 04/16/2025 11:15:00 AM, [address] [facility], [facility] [address], [place], [address], Progress Notes * Сергей GARNERB:1984 (39 yo F)Acc No.[id number]:08/06/2024 Patient:??Angela GARNER :1985?Age:39 Y?Sex:Fe male Address:[address] [place] [id number] * Refills?? Start Rosuvastatin Calcium Tablet, 5 MG, Orally, 90 Tablet, 1 tablet, Once a day, 90 days, Refills=1 * true * Date:??
--- OUTSIDE RECORDS SUMMARY | 2024-08-10 08:33 | XMS_ITS | Data Portability ---
Author Organization [facility] [employer] Address [address] [address] Assessment No assessment recorded. Plan of Treatment Reminders Order Date Submit Date Provider Last Modified By Organization Details Last Modified Time Details Appointments FOLLOW UP 2024 02:00P M DR. URRUTIA Not available Not available Not available Lab None recorded . Referral None recorded . Procedures None recorded . Surgeries None recorded . Imaging None recorded . Medication Orders None recorded . Patient TargetsNo targets recorded. Patient InstructionsNo instructions recorded. Reason for Referral None Reported. Problems Name Problem SNOMED Code Status Onset Date Resolution Date Notes Provider Name and Address Organization Details Recorded Time Hypothyroidism [id number] Active 2020 Not Available [facility] 19:26:20 Attention deficit hyperactivity disorder, combined type [id number] Active 2020 Not Available [facility] 19:26:20 Problem Notes None recorded. Medical Equipment None Reported. Medications Name Sig Start Date Stop Date Status Note LastModified by Organization Details LastModified Time doxycycline hyclate 100 mg capsule TAKE 1 CAPSULE BY MOUTH TWICE A DAY FOR 7 DAYS 07/28 completed Not Available Not Available Not Available fluconazole 150 mg tablet TAKE 1 TABLET BY MOUTH ONCE FOR 1 DAY active Not Available Not Available No t Available tretinoin 0.025 % topical cream Apply ONCE DAILY AT BEDTIME three times WEEKLY, THEN increase TO nightly if tolerated active Not Available Not Available No t Available metronidazo le 0.75 % (37.5 mg/5 gram) vaginal gel INSERT 1 APPLICATO RFUL VAGINALLY AT BEDTIME FOR 5 DAYS active Not Available Not Available No t Available prednisone 20 mg tablet TAKE 2 TABLETS BY MOUTH EVERY DAY FOR 5 DAYS 09/03 completed Not Available Not Available Not Available dextroamphe tamine-amph etamine 10 mg tablet Take 1 tablet every day by oral route. 09/20 completed Not Available Not Available Not Available metronidazo le 500 mg tablet TAKE 1 TABLET BY MOUTH TWICE A DAY FOR 7 DAYS active Not Available Not Available No t Available spironolact one 25 mg tablet TAKE 1 TABLET BY MOUTH EVERY DAY active Not Available Not Available No t Available levothyroxi ne 25 mcg tablet TAKE 1 TABLET BY MOUTH EVERY DAY active Not Available Not Available No t Available dextroamphe tamine-amph etamine 30 mg tablet TAKE 1 TABLET BY MOUTH EVERY DAY DIRECTED active Not Available Not Available No t Available T[place]ord Thyroid 15 mg tablet TAKE 1 TABLET BY MOUTH EVERY DAY 08/20 completed Not Available Not Available Not Available amoxicillin 875 mg tablet TAKE 1 TABLET BY MOUTH EVERY 12 HOURS 09/03 completed Not Available Not Available Not Available methotrexat e sodium 2.5 mg tablet TAKE 6 TABLETS BY MOUTH WEEKLY 09/20 completed Not Available Not Available Not Available ciprofloxac in 0.3 % eye drops INSTILL TWO DROPS TO AFFECTED EYE EVERY FOUR HOURS FOR 10 DAYS 09/20 completed Not Available Not Available Not Available folic acid 1 mg tablet TAKE 1 TABLET BY MOUTH EVERY DAY 09/20 completed Not Available Not Available Not Available clobetasol 0.05 % topical ointment APPLY TWICE A DAY X 7 DAYS , OFF FOR 7 DAYS THEN REPEAT active Not Available Not Available No t Available hydroxychlo roquine 200 mg tablet TAKE 1 TABLET BY MOUTH EVERY DAY DIRECTED 2020 active Not Available Not Available Not Avai lable dextroamphe tamine-amph etamine ER 30 mg 24hr capsule,ext end release TAKE 1 CAPSULE BY MOUTH EVERY DAY DIRECTED FOR 30 DAYS active Not Available Not Available No t Available clobetasol 0.05 % scalp solution APPLY TO SCALP DAILY X 2 WEEKS THEN REDUCE TO 2-3 X WEEKLY FOR MAINTENAN CE active Not Available Not Available No t Available amoxicillin 875 mg-potassiu m clavulanate 125 mg tablet TAKE 1 TABLET BY MOUTH EVERY 12 HOURS FOR 7 DAYS 09/20 completed Not Available Not Available Not Available azithromyci n 500 mg tablet TAKE 2 TABLETS BY MOUTH AT ONCE active Not Available Not Available No t Available escitalopra m 10 mg tablet TAKE 1 TABLET BY MOUTH EVERY DAY 2023 active Not Available Not Available Not Avai lable rosuvastati n 10 mg tablet Take 1 tablet every day by oral route. 09/20 completed Not Available Not Available Not Available bupropion HCl XL 300 mg 24 hr tablet, extended release TAKE 1 TABLET BY MOUTH EVERY DAY WITH MEALS 09/20 completed Not Available Not Available Not Available bupropion HCl XL 150 mg 24 hr tablet, extended release TAKE 1 TABLET BY MOUTH EVERY DAY 09/03 completed Not Available Not Available Not Available fluocinolon e 0.01 % scalp oil and shower cap APPLY OIL TWICE A DAY 09/03 completed Not Available Not Available Not Available cyclosporin e modified 50 mg capsule TAKE 1 CAPSULE BY MOUTH TWICE DAILY DIRECTED 09/03 completed Not Available Not Available Not Available Vyvanse 30 mg capsule TAKE 1 CAPSULE BY MOUTH EVERY DAY 08/25 completed Not Available Not Available Not Available Vyvanse 50 mg capsule Take 1 capsule every day by oral route in the morning for 30 days. 09/20 completed Not Available Not Available Not Available Tirosint 50 mcg capsule TAKE ONE Capsule BY MOUTH EVERY DAY active Not Available Not Available No t Available Tirosint 75 mcg capsule TAKE ONE Capsule BY MOUTH EVERY DAY active Not Available Not Available No t Available Tirosint 25 mcg capsule Take 1 capsule every day by oral route. 2022 active Not Available Not Available Not Avai lable Trintellix 5 mg tablet Take 1 tablet every day by oral route. 09/20 completed Not Available Not Available Not Available Trintellix 20 mg tablet TAKE 1 TABLET BY MOUTH EVERY DAY 09/20 completed Not Available Not Available Not Available Mydayis 50 mg capsule extended release 24 hr TAKE 1 CAPSULE BY MOUTH EVERY DAY 07/28 completed Not Available Not Available Not Available Skyrizi 150 mg/mL subcutaneou s pen injector active Not Available Not Available Not Available Azstarys 52.3 mg-10.4 mg capsule TAKE 1 CAPSULE BY MOUTH EVERY DAY active Not Available Not Available No t Available Paxlovid 300 mg (150 mg x 2)-100 mg tablets in a dose pack TAKE 3 TABLETS BY MOUTH TWICE A DAY FOR 5 DAYS 09/20 completed Not Available Not Available Not Available Vtama 1 % topical cream APPLY TO AFFECTED AREA(S) ONCE A DAY active Not Available Not Available No t Available Auvelity 45 mg-105 mg tablet, extended release TAKE 1 TABLET BY MOUTH TWICE A DAY 07/17 completed Not Available Not Available Not Available Vitals None Recorded Social History None recorded. Functional Status None recorded. Mental Status None recorded. Family History Nothing Reported. Medical History No medical history recorded. Gynecological HistoryNo gynecological history recorded. Obstetrics History GPAL:G 0 P 0 0 0 0 Immunizations Vaccine Type Date Status Note Provider Nam e and Address Organization Details Recorded Time COVID-19, mRNA, LNP-S, PF, 30 mcg/0.3 mL dose 09/20/2020 completed Harpreet miranda [place] [facility] 11/07/2020 13:36:37 Past Encounters Encounter ID Performer Location Encounter Start Date Encounter Closed Date Diagnosis/Indication Diagnosis SNOMED-CT Code Diagnosis ICD10 Code Diagnosis Note [id number] Herson Urrutia MD Main Office [address] [address] 09/19/2023 10:35:09 09/19/2023 13:27:03 Attention deficit hyperactivity disorder, combined type [id number] F90.2 Patient has no complaints her ADHD is well managed. Depressive disorder [id number] F32.9 Patient states since starting Auvelity she noticed a major lack in sleep and weight gain. She has discontinu ed taking Auvelity. Patient states she has been on Lexapro in her early 20s which helped her depression . I will be starting her on 10 mg of Lexapro and then titrating to 20mg in 3-4 weeks. Patient states her depression has improved she feels it may be more seasonal depression . Health Concerns Section Related Observation LastModified by Organization Detai ls LastModified Time None Recorded Concern Status LastModified by Organization Details LastModified Time None Recorded Advance Directives Directive None Recorded Payers Encounter Date Sequence Insurance Name Policy Number Policy Jones Covered Member ID Jones Member ID Guarantor Name 09/19/2023 1 [place] [employer] [place] [id number] A Angela Encarnacion [id number] Angela Encarnacion Notes Date Note Type Note Provider Name and Address Organization Details Recorded Time 09/19/2023 text/html ADHD ([facility])Reported bypatient.Organiza tion:good organization Appetite:normal appetite; no binge eating Mood:stable Sleep:good; adequate sleep, not tired at school/work Attention:able to focus Hyperactivity:is not hyperactive; does not fidget/squirm Impulsivity:is not impulsive Tasking:able to initiate tasks; able to complete tasks; able to move on to the next task; multi-tasking Medication Side Effects:no fainting; no dizziness; no chest pain; no shortness of breath; no seizures; no change in exercise tolerance; no headaches; no tics Impairment(normal) activities of daily living; (normal) poor work performanceAnxiety /DepressionReporte d bypatient.Quality: symptoms improved Severity:denies suicidal ideations; able to maintain relationships; does not interfere with activities of daily living Duration:stablizin g Context:no major life stressors Modifying Factors:counsellin g; social support; medications as directed Associated Symptoms:denies homicidal ideations; no significant weight loss; no visual/auditory hallucinations; no delusions; no shortness of breath; mood good; no anxiety; no crying spells; no panic; no isolation; appetite good; energy good; no apathy; maintaining functionality;weig ht gain ( lbs)(Patient states after starting Auvelity she has noticed some minor weight gain.);insomnia(Pa mahinnt states since starting Auvelity she has been lacking sleep.) Herson Urrutia MD [address], [address], [facility] 09/21/2023 08:01:08 OBGyn Episode No OBEpisode recorded.
--- OUTSIDE RECORDS SUMMARY | 2024-08-10 08:33 | XMS_ITS ---
Author Name [facility] Organization Unknown History of Medication Use Medication Directions Dispensed Refills Start Date End Date Stat Tirosint 50 MCG Cap Take 1 capsule by mouth daily. 12/22/2022 active metroNIDAZOLE (FLAGYL) 500 MG tablet Take 1 tablet (500 mg total) by mouth 2 (two) times a day. Take with meals or food to reduce stomach upset. 11/25/2021 active thyroid (ARMOUR) 15 MG tablet Take 15 mg by mouth daily. 12/24/2022 aborted triamcinolone acetonide 40 mg/mL suspension for injection Take 20 mg by injection route. 02/09/2024 active lidocaine (PF) 10 mg/mL (1 %) injection solution Take 0.5 mL by injection route. 06/04/2024 active [facility] D3 1000 units capsule Take by mouth daily. 01/18/2019 active ciprofloxacin (CILOXAN) 0.3 % ophthalmic solution INSTILL 1-2 DROPS EVERY 4 HOURS INTO AFFECTED EYE 12/08/2018 12/24/2022 aborted Fluocinolone Acetonide Scalp 0.01 % Oil APPLY OIL TWICE A DAY 01/18/2019 12/24/2022 aborted cycloSPORINE MODIFIED (NEORAL) 100 MG capsule 03/10/2019 12/24/2022 aborted Azstarys 52.3-10.4 MG Cap Take 1 tablet by mouth daily. 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
--- OUTSIDE RECORDS SUMMARY | 2024-08-10 08:33 | XMS_ITS | Clinical Summary ---
Author Organization [facility] Address [address] [place] [address] Care Team Providers Care Medical Director Occupational Health Name Role Phone Herson Pack MD Primary Care Provide r Allergies Active Allergy Reactions Criticality Noted Date Comments Clindamycin Anaphylaxis,Hives High 12/19/2009 hives Medications Medication Sig Dispensed Refills Start Date End Date Status Cholecalciferol 50 MCG (1999) CHEW Chew by mouth. 0 Active Mydayis 50 MG CP24 Take 1 capsule by mouth daily. 0 09/16/2022 Active spironolactone (ALDACTONE) tablet 25 mg Take 1 tablet (25 mg total) by mouth daily. 0 08/17/2022 Active Levothyroxine Sodium 25 MCG CAPS 50 mg. 0 Active thyroid (ARMOUR) 15 MG tablet Take 50 mg by mouth. 0 Active Social History Tobacco Use Types Packs/Day Years Used Date Smoking Tobacco: Never Smokeless Tobacco: Never Alcohol Use Standard Drinks/Week Comments Yes 0 (1 standard drink = 0.6 oz pur e alcohol) twice a month Sex and Gender Information Value Date Recorded Sex Assigned at Not on file Gender Identity Not on file Sexual Orientation Not on file Job Start Date Occupation Industry Not on file Not on file Not on file Last Filed Vital Signs Vital Sign Reading Time Taken Comments Blood Pressure 173/100 09/20/2022 2:42 PM EDT Pulse - - Temperature - - Respiratory Rate - - Oxygen Saturation - - Inhaled Oxygen Concentration - - Weight 66.7 kg (147 lb) 09/20/2022 2:42 PM EDT Height 157.5 cm (5' 2 ) 09/20/2022 2:42 PM EDT Body Mass Index 26.89 09/20/2022 2:42 PM EDT Plan of Treatment Health Maintenance Due Date Last Done Comments Hepatitis B Vaccines (1 of 3 - 3-dose series) 1987 Hepatitis C Screening 1987 COVID-19 Vaccine (#1) 1987 Depression Screening 1999 Preventative Health Evaluation 2005 Cervical Cancer Screening (P ap Smear) 2008 DTap / Tdap / Td (2 - Td or Tdap) 09/20/2021 012 Influenza Vaccine (#1) 2024 Pneumococcal Vaccine Aged Out No long er eligible based on patient's age to complete this topic RSV Ped < 20 months Aged Out No longe r eligible based on patient's age to complete this topic Care Teams Medical Director Occupational Health Relationship Specialty Start Date End Date Herson Pack MD [address] [place] [id number] PCP - General License Distributor 09/20/22
--- OUTSIDE RECORDS SUMMARY | 2024-08-10 08:33 | XMS_ITS | Clinical Summary ---
Author Organization [facility] Address [address] [place] [address] Phone Care Team Providers Care Telecommunications Line Installer Name Role Phone Brenna Pack MD Primary Care Provider Allergies Active Allergy Reactions Criticality Noted Date Comments Clindamycin Anaphylaxis,Hives High 12/19/2009 hives Medications cholecalciferol , vitamin D3, 50 mcg (2,000 unit) tablet,chewable Chew by mouth. Active levothyroxine sodium (TIROSINT) 25 mcg capsule 50 mg. Active dextroamphetami ne-amphetamine (Mydayis) 50 mg 3-bead ER capsule Take 1 capsule (50 mg total) by mouth 1 (one) time each day. Max Daily Amount: 50 mg 09/16/2022 Active spironolactone (ALDACTONE) 25 mg tablet Take 1 tablet (25 mg total) by mouth 1 (one) time each day. 08/17/2022 Active thyroid, pork, (ARMOUR THYROID) 15 mg tablet Take 50 mg by mouth. Active Surgical History Surgery Date Site/Laterality Comments COLONOSCOPY 08/30/2007 PROCEDURE: [place] COLONOSCOPY FLX DX W/COLLJ SPEC WHEN PFRMD; COMMENT: Negative, for rectal bleeding OTHER SURGICAL HISTORY PROCEDURE: IMPLANT BREAST SILICONE/EQ; COMMENT: saline - b/l COLONOSCOPY PROCEDURE:COLONOSCOPY KNEE SURGERY PROCEDURE:KNEE SURGERY Medical History Medical History Date Comments Psoriasis DX:Psoriasis; CO MMENT: mild Papanicolaou smear of cervix with low grade squamous intraepithelial lesion (LGSIL) 01/13/2011 DX:Papanicolaou smear of cer vix with low grade squamous intraepithelial lesion (LGSIL) Historical Medical DX 02/23/13 DX:HSIL on Pap smear; COMMENT: LEEP shows RAMEZ II Hypothyroid DX:Hypothyroid ADD (attention deficit disorder) DX:ADD (attention deficit disorder) Family History Medical History Relation Name Comments Heart attack Father has had multipl e mis - 3 times since age 42 Hypertension Father Other: hyperlipidemia Father Other: hyperlipidemia Mother Other: kidney problems Paternal Grandfather Heart attack Paternal Grandmother Hypertension Paternal Grandmother Blindness Neg Hx Breast cancer Neg Hx Cataracts Neg Hx Glaucoma Neg Hx Macular degeneration Neg Hx Ovarian cancer Neg Hx Strabismus Neg Hx Uterine cancer Neg Hx Relation Name Status Comments Father Alive htn.mi Mother Alive Paternal Grandfather Paternal Grandmother Social History Tobacco Use Types Packs/Day Years Used Date Smoking Tobacco: Never Smokeless Tobacco: Never Alcohol Use Standard Drinks/Week Comments Yes 0 (1 standard drink = 0.6 oz pur e alcohol) Comments Unknown Sex and Gender Information Value Date Recorded Sex Assigned at Not on file Legal Sex Female 8:48 PM EST Gender Identity Not on file Sexual Orientation Not on file Obstetrics History Last Filed Vital Signs Vital Sign Reading [...] Hepatitis B Vaccines (1 of 3 - 19+ 3-dose series) 2006 Cervical Cancer Screening: P ap Smear 2008 DTaP,Tdap,and Td Vaccines (2 - Td or Tdap) 09/20/2021 09/21/2011 Depression Screening 07/15/2023 HIV Screening 07/15/2023 Hepatitis C Screening 07/15/2023 Social Influencers of Health Screening 07/15/2023 COVID-19 Vaccine (2023-2 5 season) 2024 Influenza Vaccine (#1) 2024 HPV Vaccines Completed 04/01/2008, 11/24/2007, 09/22/2007 MMR Vaccines Aged Out 10/13/2011 No longer eligi ble based on patient's age to complete this topic HIB Vaccines Aged Out No longer eligi ble based on patient's age to complete this topic Hepatitis A Vaccines Aged Out No long er eligible based on patient's age to complete this topic IPV Vaccines Aged Out No longer eligi ble based on patient's age to complete this topic Meningococcal ACWY Vaccine Aged Out N o longer eligible based on patient's age to complete this topic Meningococcal B Vacine Aged Out No lo nger eligible based on patient's age to complete this topic Pneumococcal Vaccine: Pediatrics (0 to 5 Years) and At-Risk Patients (6 to 64 Years) Aged Out No longer eligible b ased on patient's age to complete this topic RSV Immunization Patients Under 20 months Aged Out No longer eligible b ased on patient's age to complete this topic Varicella Vaccines Aged Out No longer eligible based on patient's age to complete this topic Care Teams Telecommunications Line Installer Relationship Specialty Start Date End Date Brenna Pack MD [address] [place] [id number] [place] [address] PCP - General 09/20/22
--- OUTSIDE RECORDS SUMMARY | 2024-08-10 08:33 | XMS_ITS ---
Author Organization [facility] Address [address] [place] [address] Care Team Providers Care Floor Plan Adjuster Name Role Phone GHASSAN LICEA Unavailable [phone] ALLERGIES Allergen (clinical drug ingredient) Drug/Non Drug Allergy documented on EMR Reaction Allergy Type Onset Date Status clindamycin Clindamycin hives Drug Allergy Act manfred REASON FOR VISIT pt here for wt mgt follow up MEDICATIONS Medication SIG (Take, Route, Frequency, Duration) Notes Start Date End Date Status Adderall 30 MG 1 tablet Orally Twice a day Active Tirosint 75 MCG 1 capsule in the mor kendy on an empty stomach Orally Once a day Active Clobetasol Propionate 0.05 % 1 application Externally Twice a day Active Vitamin D3 2400 UNIT/ML as directed Active Skyrizi 150 MG/ML 1 mL Subcutaneous Active SOCIAL HISTORY Sex Assigned At : Social History Observation Description Sex Assigned At Unknown Tobacco use other than smoking: Question Answer Notes Are you an other tobacco user? Yes PROBLEMS Problem Type ICD Code Onset Dates Problem Status W/U Status Risk SNOMED Code Notes Problem Moderate mixed hyperlipidemia not requiring statin therapy (E78.2) Active confirmed 046607693 Problem Psoriatic arthritis (L40.50) Active confirmed 467027128 VITAL SIGNS Heart Rate 95 /min 04/12/2024 Blood pressure systolic 120 mm Hg 04/12/20 24 Blood pressure diastolic 82 mm Hg 024 Weight 180 lbs 04/12/2024 BMI 34.01 kg/m2 04/12/2024 Height 61 in 04/12/2024 Oximetry 97 % 04/12/2024 Encounters Encounter Location Date Provider Diagnosis [facility] [address] [facility] [address] [place] [address] 04/12/2024 GHASSAN LICEA Adult general medica l exam Z00.00 ; Attention deficit disorder (ADD) in adult F98.8 ; Acquired hypothyroidism E03.9 ; Obesity (BMI 30-39.9) E66.9 ; Left upper quadrant pain R10.12 ; Moderate mixed hyperlipidemia not requiring statin therapy E78.2 and Psoriatic arthritis L40.50 ASSESSMENTS Encounter Date Diagnosis Assessment Notes Treatment Notes Treatment Clinical Notes Section Notes 04/12/2024 Adult general medical exam (ICD-10 - Z00.00) Patient seen and examined. Comprehensive discussion was done on the following. # Left upper quadrant pain: At previous visit patient reporting left upper side pain that began a few weeks ago in her abdomen described as a dull intermittent ache, no trauma or injury to the area, pain exacerbated with sitting up and moving [id number] while she is supine. Physical exam at that time demonstrated mild tenderness to palpation left upper quadrant. CT of the abdomen pelvis with contrast obtained which demonstrated no acute abnormality and no etiology for left upper quadrant pain. No evidence of abdominal wall hernia. Some generalized fatty changes of liver however no suspicious liver lesions. No gallstones or biliary dilation. No splenic lesions. No renal mass or stones or urinary dilation. At this time patient reports she feels better and has reduced occurrence of abdominal pain. Reports the pain is no longer waking her up from sleep. Will continue to monitor at this time for recurrence of pain. # Hyperlipidemia: Recent lipid panel obtained with values including cholesterol 261, HDL 72, triglycerides 98, and LDL 168. Patient reports strong family history of myocardial infarction in her father, he had his AR when he was 42 and to repeat heart attacks in his 50s. Patient will undergo coronary calcium CT scanning given hyperlipidemia and family history of heart disease. Educated on importance of diet and lifestyle and lowering cholesterol levels and preventing other cardiovascular disease. Discussed importance of omega-3 fatty acids to maintain high levels of HDL and lower LDL levels. According to ASCVD risk algorithm no recommendation for statin therapy at this time due to low risk of cardiovascular event and due to age being less than 40. Will continue to monitor at this time. # Psoriatic arthritis: Patient follows with [facility] in [place]. Recently started on Skyrizi 150 mg injection. Will continue to monitor. Please follow-up with dermatology. # Hypothyroidism: The patient follows with [facility] in [facility]. TSH drawn through endocrinology and is within normal limits. Continue Tirosint 75 mcg in the morning on an empty stomach. Advised on proper use of medication and expected side effect profile including but not limited to palpitations, increased appetite, tachycardia, nervousness, and tremor. Will continue to monitor. # ADD: Patient is prescribed Adderall through her previous PCP. Patient states that this practice also had a psychiatry facility and she would like to stay with this provider in terms of prescribing this medication. Will request records. Continue Adderall at this time, advised on proper use of medication and expected side effect profile including but not limited to low appetite, dry mouth, insomnia, headache, and weight loss. Controlled substance contract discussed with the patient and appropriately signed. Patient will follow-up in the office in 6 months. # Vitamin D deficiency: Will get repeated labs including vitamin D level. At this time continue vitamin D supplement once daily. Will continue to monitor. # Obesity: Weight 177.6 pounds, BMI 33.55. We discussed importance of diet and lifestyle including 1 that is high-protein, low carbohydrate, high-fiber, and includes a variety of fruits and vegetables. Discussed importance of exercise including cardio to reduce fat mass and resistance training to maintain a build muscle mass. Advised that this practice is also weight loss and obesity medicine trained. Will continue to monitor. 1. Nutrition: It is important to follow a healthy diet based on lots of vegetables and legumes and good fat. Avoid processed food and processed carbohydrates. Prepare your own meals. Read labels and avoid high fructose corn syrup, processed chemicals added to increase shelf life and preprepared meals. Avoid fast foods. Eat slowly and plan meals for a week. Try to count calories and be mindful off daily calorie intake. Get into the habit of keeping an eye on your weight by using an appropriate scale. Learn to log exercise and discussed fitness Apps like Lingueepal or HiFiKiddoometer which can help keep log off calories taken versus calories burned. Local food should be preferred. Discussed Dirty Dozen Versus Clean Fifteen. Discussed healthy supplements like fish oil, Tumeric, Curcumin, Melatonin, Resveratrol, Probiotics, Vitamin-D, Alpha-Lipoic acid, Vitamin-D and coconut oil. 2. It is important to exercise regularly. Is a good habit to walk at least 30 minutes a day. Gentle weightlifting with standard precautions to protect the back. Finding activity like cycling or hiking and get into the habit of engaging in it. Stretching before and after the exercises important. It is also important to contact me if there are any problems like shortness of breath, chest pain, back pain and joint or muscle pain associated with the exercise. 3. Discussed age appropriate screening guidelines. Colonoscopy needs to start at age 50 with stool for occult blood as appropriate. There is a new test that can test for genetic abnormalities in the stool sample, Cologuard. This would not replace a colonoscopy but could be used as a screening tool for patients who do not want a colonoscopy. We discussed the importance of early detection of colon cancer. 4. Discussed current guidelines with respect to breast examination, mammogram and pap smear for early detection of breast and cervical cancer. Patient advised to follow up with these appointments. 5. Discussed safe driving and no use of smart phone while driving 6. Age-appropriate immunizations were discussed. A tetanus booster is needed every 10 years. Flu vaccine is recommended every year just before the start of the flu season. Shingles vaccine is recommended after age 50 but not all insurances cover it. Pneumonia vaccine is given after age 65 unless there are certain comorbidities for which it is started earlier. 7. Diagnostic labs were discussed. These could include/not limited to CBC CMP and lipids with fasting blood glucose and insulin levels. Vitamin D and hemoglobin A1c testing might be appropriate. All questions have been answered to patient's satisfaction. Patient verbalized understanding of diagnosis and treatments explained. Advised to call sooner prior to next visit it any questions/concerns arise. Case discussed with collaborating physician Kelly Velázquez who reviewed the assessment and plan. Chart, medications, labs, vital signs reviewed. Dictation was accomplished with the use of [employer] voice recognition software, which is prone to medical misidentifications and grammatical errors. This are unintentional and the practitioner does try to identify and correct these, but some could still be present. Please do not hesitate to contact practitioner for clarification. 04/12/2024 Attention deficit disorder (ADD) in adult (ICD-10 - F98.8) Patient seen and examined. Comprehensive discussion was done on the following. # Left upper quadrant pain: At previous visit patient reporting left upper side pain that began a few weeks ago in her abdomen described as a dull intermittent ache, no trauma or injury to the area, pain exacerbated with sitting up and moving [id number] while she is supine. Physical exam at that time demonstrated mild tenderness to palpation left upper quadrant. CT of the abdomen pelvis with contrast obtained which demonstrated no acute abnormality and no etiology for left upper quadrant pain. No evidence of abdominal wall hernia. Some generalized fatty changes of liver however no suspicious liver lesions. No gallstones or biliary dilation. No splenic lesions. No renal mass or stones or urinary dilation. At this time patient reports she feels better and has reduced occurrence of abdominal pain. Reports the pain is no longer waking her up from sleep. Will continue to monitor at this time for recurrence of pain. # Hyperlipidemia: Recent lipid panel obtained with values including cholesterol 261, HDL 72, triglycerides 98, and LDL 168. Patient reports strong family history of myocardial infarction in her father, he had his AR when he was 42 and to repeat heart attacks in his 50s. Patient will undergo coronary calcium CT scanning given hyperlipidemia and family history of heart disease. Educated on importance of diet and lifestyle and lowering cholesterol levels and preventing other cardiovascular disease. Discussed importance of omega-3 fatty acids to maintain high levels of HDL and lower LDL levels. According to ASCVD risk algorithm no recommendation for statin therapy at this time due to low risk of cardiovascular event and due to age being less than 40. Will continue to monitor at this time. # Psoriatic arthritis: Patient follows with [facility] in [place]. Recently started on Skyrizi 150 mg injection. Will continue to monitor. Please follow-up with dermatology. # Hypothyroidism: The patient follows with [facility] in [facility]. TSH drawn through endocrinology and is within normal limits. Continue Tirosint 75 mcg in the morning on an empty stomach. Advised on proper use of medication and expected side effect profile including but not limited to palpitations, increased appetite, tachycardia, nervousness, and tremor. Will continue to monitor. # ADD: Patient is prescribed Adderall through her previous PCP. Patient states that this practice also had a psychiatry facility and she would like to stay with this provider in terms of prescribing this medication. Will request records. Continue Adderall at this time, advised on proper use of medication and expected side effect profile including but not limited to low appetite, dry mouth, insomnia, headache, and weight loss. Controlled substance contract discussed with the patient and appropriately signed. Patient will follow-up in the office in 6 months. # Vitamin D deficiency: Will get repeated labs including vitamin D level. At this time continue vitamin D supplement once daily. Will continue to monitor. # Obesity: Weight 177.6 pounds, BMI 33.55. We discussed importance of diet and lifestyle including 1 that is high-protein, low carbohydrate, high-fiber, and includes a variety of fruits and vegetables. Discussed importance of exercise including cardio to reduce fat mass and resistance training to maintain a build muscle mass. Advised that this practice is also weight loss and obesity medicine trained. Will continue to monitor. 1. Nutrition: It is important to follow a healthy diet based on lots of vegetables and legumes and good fat. Avoid processed food and processed carbohydrates. Prepare your own meals. Read labels and avoid high fructose corn syrup, processed chemicals added to increase shelf life and preprepared meals. Avoid fast foods. Eat slowly and plan meals for a week. Try to count calories and be mindful off daily calorie intake. Get into the habit of keeping an eye on your weight by using an appropriate scale. Learn to log exercise and discussed fitness Apps like GeaCom or Cronometer which can help keep log off calories taken versus calories burned. Local food should be preferred. Discussed Dirty Dozen Versus Clean Fifteen. Discussed healthy supplements like fish oil, Tumeric, Curcumin, Melatonin, Resveratrol, Probiotics, Vitamin-D, Alpha-Lipoic acid, Vitamin-D and coconut oil. 2. It is important to exercise regularly. Is a good habit to walk at least 30 minutes a day. Gentle weightlifting with standard precautions to protect the back. Finding activity like cycling or hiking and get into the habit of engaging in it. Stretching before and after the exercises important. It is also important to contact me if there are any problems like shortness of breath, chest pain, back pain and joint or muscle pain associated with the exercise. 3. Discussed age appropriate screening guidelines. Colonoscopy needs to start at age 50 with stool for occult blood as appropriate. There is a new test that can test for genetic abnormalities in the stool sample, Cologuard. This would not replace a colonoscopy but could be used as a screening tool for patients who do not want a colonoscopy. We discussed the importance of early detection of colon cancer. 4. Discussed current guidelines with respect to breast examination, mammogram and pap smear for early detection of breast and cervical cancer. Patient advised to follow up with these appointments. 5. Discussed safe driving and no use of smart phone while driving 6. Age-appropriate immunizations were discussed. A tetanus booster is needed every 10 years. Flu vaccine is recommended every year just before the start of the flu season. Shingles vaccine is recommended after age 50 but not all insurances cover it. Pneumonia vaccine is given after age 65 unless there are certain comorbidities for which it is started earlier. 7. Diagnostic labs were discussed. These could include/not limited to CBC CMP and lipids with fasting blood glucose and insulin levels. Vitamin D and hemoglobin A1c testing might be appropriate. All questions have been answered to patient's satisfaction. Patient verbalized understanding of diagnosis and treatments explained. Advised to call sooner prior to next visit it any questions/concerns arise. Case discussed with collaborating physician Kelly Velázquez who reviewed the assessment and plan. Chart, medications, labs, vital signs reviewed. Dictation was accomplished with the use of [employer] voice recognition software, which is prone to medical misidentifications and grammatical errors. This are unintentional and the practitioner does try to identify and correct these, but some could still be present. Please do not hesitate to contact practitioner for clarification. 04/12/2024 Acquired hypothyroidism (ICD-10 - E03.9) Patient seen and examined. Comprehensive discussion was done on the following. # Left upper quadrant pain: At previous visit patient reporting left upper side pain that began a few weeks ago in her abdomen described as a dull intermittent ache, no trauma or injury to the area, pain exacerbated with sitting up and moving [id number] while she is supine. Physical exam at that time demonstrated mild tenderness to palpation left upper quadrant. CT of the abdomen pelvis with contrast obtained which demonstrated no acute abnormality and no etiology for left upper quadrant pain. No evidence of abdominal wall hernia. Some generalized fatty changes of liver however no suspicious liver lesions. No gallstones or biliary dilation. No splenic lesions. No renal mass or stones or urinary dilation. At this time patient reports she feels better and has reduced occurrence of abdominal pain. Reports the pain is no longer waking her up from sleep. Will continue to monitor at this time for recurrence of pain. # Hyperlipidemia: Recent lipid panel obtained with values including cholesterol 261, HDL 72, triglycerides 98, and LDL 168. Patient reports strong family history of myocardial infarction in her father, he had his AR when he was 42 and to repeat heart attacks in his 50s. Patient will undergo coronary calcium CT scanning given hyperlipidemia and family history of heart disease. Educated on importance of diet and lifestyle and lowering cholesterol levels and preventing other cardiovascular disease. Discussed importance of omega-3 fatty acids to maintain high levels of HDL and lower LDL levels. According to ASCVD risk algorithm no recommendation for statin therapy at this time due to low risk of cardiovascular event and due to age being less than 40. Will continue to monitor at this time. # Psoriatic arthritis: Patient follows with [facility] in [place]. Recently started on Skyrizi 150 mg injection. Will continue to monitor. Please follow-up with dermatology. # Hypothyroidism: The patient follows with [facility] in [facility]. TSH drawn through endocrinology and is within normal limits. Continue Tirosint 75 mcg in the morning on an empty stomach. Advised on proper use of medication and expected side effect profile including but not limited to palpitations, increased appetite, tachycardia, nervousness, and tremor. Will continue to monitor. # ADD: Patient is prescribed Adderall through her previous PCP. Patient states that this practice also had a psychiatry facility and she would like to stay with this provider in terms of prescribing this medication. Will request records. Continue Adderall at this time, advised on proper use of medication and expected side effect profile including but not limited to low appetite, dry mouth, insomnia, headache, and weight loss. Controlled substance contract discussed with the patient and appropriately signed. Patient will follow-up in the office in 6 months. # Vitamin D deficiency: Will get repeated labs including vitamin D level. At this time continue vitamin D supplement once daily. Will continue to monitor. # Obesity: Weight 177.6 pounds, BMI 33.55. We discussed importance of diet and lifestyle including 1 that is high-protein, low carbohydrate, high-fiber, and includes a variety of fruits and vegetables. Discussed importance of exercise including cardio to reduce fat mass and resistance training to maintain a build muscle mass. Advised that this practice is also weight loss and obesity medicine trained. Will continue to monitor. 1. Nutrition: It is important to follow a healthy diet based on lots of vegetables and legumes and good fat. Avoid processed food and processed carbohydrates. Prepare your own meals. Read labels and avoid high fructose corn syrup, processed chemicals added to increase shelf life and preprepared meals. Avoid fast foods. Eat slowly and plan meals for a week. Try to count calories and be mindful off daily calorie intake. Get into the habit of keeping an eye on your weight by using an appropriate scale. Learn to log exercise and discussed fitness Apps like GeaCom or HiFiKiddoometer which can help keep log off calories taken versus calories burned. Local food should be preferred. Discussed Dirty Dozen Versus Clean Fifteen. Discussed healthy supplements like fish oil, Tumeric, Curcumin, Melatonin, Resveratrol, Probiotics, Vitamin-D, Alpha-Lipoic acid, Vitamin-D and coconut oil. 2. It is important to exercise regularly. Is a good habit to walk at least 30 minutes a day. Gentle weightlifting with standard precautions to protect the back. Finding activity like cycling or hiking and get into the habit of engaging in it. Stretching before and after the exercises important. It is also important to contact me if there are any problems like shortness of breath, chest pain, back pain and joint or muscle pain associated with the exercise. 3. Discussed age appropriate screening guidelines. Colonoscopy needs to start at age 50 with stool for occult blood as appropriate. There is a new test that can test for genetic abnormalities in the stool sample, Cologuard. This would not replace a colonoscopy but could be used as a screening tool for patients who do not want a colonoscopy. We discussed the importance of early detection of colon cancer. 4. Discussed current guidelines with respect to breast examination, mammogram and pap smear for early detection of breast and cervical cancer. Patient advised to follow up with these appointments. 5. Discussed safe driving and no use of smart phone while driving 6. Age-appropriate immunizations were discussed. A tetanus booster is needed every 10 years. Flu vaccine is recommended every year just before the start of the flu season. Shingles vaccine is recommended after age 50 but not all insurances cover it. Pneumonia vaccine is given after age 65 unless there are certain comorbidities for which it is started earlier. 7. Diagnostic labs were discussed. These could include/not limited to CBC CMP and lipids with fasting blood glucose and insulin levels. Vitamin D and hemoglobin A1c testing might be appropriate. All questions have been answered to patient's satisfaction. Patient verbalized understanding of diagnosis and treatments explained. Advised to call sooner prior to next visit it any questions/concerns arise. Case discussed with collaborating physician Kelly Velázquez who reviewed the assessment and plan. Chart, medications, labs, vital signs reviewed. Dictation was accomplished with the use of [employer] voice recognition software, which is prone to medical misidentifications and grammatical errors. This are unintentional and the practitioner does try to identify and correct these, but some could still be present. Please do not hesitate to contact practitioner for clarification. 04/12/2024 Obesity (BMI 30-39.9) (ICD-10 - E66.9) Patient seen and examined. Comprehensive discussion was done on the following. # Left upper quadrant pain: At previous visit patient reporting left upper side pain that began a few weeks ago in her abdomen described as a dull intermittent ache, no trauma or injury to the area, pain exacerbated with sitting up and moving [id number] while she is supine. Physical exam at that time demonstrated mild tenderness to palpation left upper quadrant. CT of the abdomen pelvis with contrast obtained which demonstrated no acute abnormality and no etiology for left upper quadrant pain. No evidence of abdominal wall hernia. Some generalized fatty changes of liver however no suspicious liver lesions. No gallstones or biliary dilation. No splenic lesions. No renal mass or stones or urinary dilation. At this time patient reports she feels better and has reduced occurrence of abdominal pain. Reports the pain is no longer waking her up from sleep. Will continue to monitor at this time for recurrence of pain. # Hyperlipidemia: Recent lipid panel obtained with values including cholesterol 261, HDL 72, triglycerides 98, and LDL 168. Patient reports strong family history of myocardial infarction in her father, he had his AR when he was 44 and to repeat heart attacks in his 50s. Patient will undergo coronary calcium CT scanning given hyperlipidemia and family history of heart disease. Educated on importance of diet and lifestyle and lowering cholesterol levels and preventing other cardiovascular disease. Discussed importance of omega-3 fatty acids to maintain high levels of HDL and lower LDL levels. According to ASCVD risk algorithm no recommendation for statin therapy at this time due to low risk of cardiovascular event and due to age being less than 40. Will continue to monitor at this time. # Psoriatic arthritis: Patient follows with [facility] in [place]. Recently started on Skyrizi 150 mg injection. Will continue to monitor. Please follow-up with dermatology. # Hypothyroidism: The patient follows with [facility] in [facility]. TSH drawn through endocrinology and is within normal limits. Continue Tirosint 75 mcg in the morning on an empty stomach. Advised on proper use of medication and expected side effect profile including but not limited to palpitations, increased appetite, tachycardia, nervousness, and tremor. Will continue to monitor. # ADD: Patient is prescribed Adderall through her previous PCP. Patient states that this practice also had a psychiatry facility and she would like to stay with this provider in terms of prescribing this medication. Will request records. Continue Adderall at this time, advised on proper use of medication and expected side effect profile including but not limited to low appetite, dry mouth, insomnia, headache, and weight loss. Controlled substance contract discussed with the patient and appropriately signed. Patient will follow-up in the office in 6 months. # Vitamin D deficiency: Will get repeated labs including vitamin D level. At this time continue vitamin D supplement once daily. Will continue to monitor. # Obesity: Weight 177.6 pounds, BMI 33.55. We discussed importance of diet and lifestyle including 1 that is high-protein, low carbohydrate, high-fiber, and includes a variety of fruits and vegetables. Discussed importance of exercise including cardio to reduce fat mass and resistance training to maintain a build muscle mass. Advised that this practice is also weight loss and obesity medicine trained. Will continue to monitor. 1. Nutrition: It is important to follow a healthy diet based on lots of vegetables and legumes and good fat. Avoid processed food and processed carbohydrates. Prepare your own meals. Read labels and avoid high fructose corn syrup, processed chemicals added to increase shelf life and preprepared meals. Avoid fast foods. Eat slowly and plan meals for a week. Try to count calories and be mindful off daily calorie intake. Get into the habit of keeping an eye on your weight by using an appropriate scale. Learn to log exercise and discussed fitness Apps like Lingueepal or Cronometer which can help keep log off calories taken versus calories burned. Local food should be preferred. Discussed Dirty Dozen Versus Clean Fifteen. Discussed healthy supplements like fish oil, Tumeric, Curcumin, Melatonin, Resveratrol, Probiotics, Vitamin-D, Alpha-Lipoic acid, Vitamin-D and coconut oil. 2. It is important to exercise regularly. Is a good habit to walk at least 30 minutes a day. Gentle weightlifting with standard precautions to protect the back. Finding activity like cycling or hiking and get into the habit of engaging in it. Stretching before and after the exercises important. It is also important to contact me if there are any problems like shortness of breath, chest pain, back pain and joint or muscle pain associated with the exercise. 3. Discussed age appropriate screening guidelines. Colonoscopy needs to start at age 50 with stool for occult blood as appropriate. There is a new test that can test for genetic abnormalities in the stool sample, Cologuard. This would not replace a colonoscopy but could be used as a screening tool for patients who do not want a colonoscopy. We discussed the importance of early detection of colon cancer. 4. Discussed current guidelines with respect to breast examination, mammogram and pap smear for early detection of breast and cervical cancer. Patient advised to follow up with these appointments. 5. Discussed safe driving and no use of smart phone while driving 6. Age-appropriate immunizations were discussed. A tetanus booster is needed every 10 years. Flu vaccine is recommended every year just before the start of the flu season. Shingles vaccine is recommended after age 50 but not all insurances cover it. Pneumonia vaccine is given after age 65 unless there are certain comorbidities for which it is started earlier. 7. Diagnostic labs were discussed. These could include/not limited to CBC CMP and lipids with fasting blood glucose and insulin levels. Vitamin D and hemoglobin A1c testing might be appropriate. All questions have been answered to patient's satisfaction. Patient verbalized understanding of diagnosis and treatments explained. Advised to call sooner prior to next visit it any questions/concerns arise. Case discussed with collaborating physician Kelly Velázquez who reviewed the assessment and plan. Chart, medications, labs, vital signs reviewed. Dictation was accomplished with the use of [employer] voice recognition software, which is prone to medical misidentifications and grammatical errors. This are unintentional and the practitioner does try to identify and correct these, but some could still be present. Please do not hesitate to contact practitioner for clarification. 04/12/2024 Left upper quadrant pain (ICD-10 - R10.12) Patient seen and examined. Comprehensive discussion was done on the following. # Left upper quadrant pain: At previous visit patient reporting left upper side pain that began a few weeks ago in her abdomen described as a dull intermittent ache, no trauma or injury to the area, pain exacerbated with sitting up and moving [id number] while she is supine. Physical exam at that time demonstrated mild tenderness to palpation left upper quadrant. CT of the abdomen pelvis with contrast obtained which demonstrated no acute abnormality and no etiology for left upper quadrant pain. No evidence of abdominal wall hernia. Some generalized fatty changes of liver however no suspicious liver lesions. No gallstones or biliary dilation. No splenic lesions. No renal mass or stones or urinary dilation. At this time patient reports she feels better and has reduced occurrence of abdominal pain. Reports the pain is no longer waking her up from sleep. Will continue to monitor at this time for recurrence of pain. # Hyperlipidemia: Recent lipid panel obtained with values including cholesterol 261, HDL 72, triglycerides 98, and LDL 168. Patient reports strong family history of myocardial infarction in her father, he had his AR when he was 42 and to repeat heart attacks in his 50s. Patient will undergo coronary calcium CT scanning given hyperlipidemia and family history of heart disease. Educated on importance of diet and lifestyle and lowering cholesterol levels and preventing other cardiovascular disease. Discussed importance of omega-3 fatty acids to maintain high levels of HDL and lower LDL levels. According to ASCVD risk algorithm no recommendation for statin therapy at this time due to low risk of cardiovascular event and due to age being less than 40. Will continue to monitor at this time. # Psoriatic arthritis: Patient follows with [facility] in [place]. Recently started on Skyrizi 150 mg injection. Will continue to monitor. Please follow-up with dermatology. # Hypothyroidism: The patient follows with [facility] in [facility]. TSH drawn through endocrinology and is within normal limits. Continue Tirosint 75 mcg in the morning on an empty stomach. Advised on proper use of medication and expected side effect profile including but not limited to palpitations, increased appetite, tachycardia, nervousness, and tremor. Will continue to monitor. # ADD: Patient is prescribed Adderall through her previous PCP. Patient states that this practice also had a psychiatry facility and she would like to stay with this provider in terms of prescribing this medication. Will request records. Continue Adderall at this time, advised on proper use of medication and expected side effect profile including but not limited to low appetite, dry mouth, insomnia, headache, and weight loss. Controlled substance contract discussed with the patient and appropriately signed. Patient will follow-up in the office in 6 months. # Vitamin D deficiency: Will get repeated labs including vitamin D level. At this time continue vitamin D supplement once daily. Will continue to monitor. # Obesity: Weight 177.6 pounds, BMI 33.55. We discussed importance of diet and lifestyle including 1 that is high-protein, low carbohydrate, high-fiber, and includes a variety of fruits and vegetables. Discussed importance of exercise including cardio to reduce fat mass and resistance training to maintain a build muscle mass. Advised that this practice is also weight loss and obesity medicine trained. Will continue to monitor. 1. Nutrition: It is important to follow a healthy diet based on lots of vegetables and legumes and good fat. Avoid processed food and processed carbohydrates. Prepare your own meals. Read labels and avoid high fructose corn syrup, processed chemicals added to increase shelf life and preprepared meals. Avoid fast foods. Eat slowly and plan meals for a week. Try to count calories and be mindful off daily calorie intake. Get into the habit of keeping an eye on your weight by using an appropriate scale. Learn to log exercise and discussed fitness Apps like [employer] or HiFi[employer]iddoometer which can help keep log off calories taken versus calories burned. Local food should be preferred. Discussed Dirty Dozen Versus Clean Fifteen. Discussed healthy supplements like fish oil, Tumeric, Curcumin, Melatonin, Resveratrol, Probiotics, Vitamin-D, Alpha-Lipoic acid, Vitamin-D and coconut oil. 2. It is important to exercise regularly. Is a good habit to walk at least 30 minutes a day. Gentle weightlifting with standard precautions to protect the back. Finding activity like cycling or hiking and get into the habit of engaging in it. Stretching before and after the exercises important. It is also important to contact me if there are any problems like shortness of breath, chest pain, back pain and joint or muscle pain associated with the exercise. 3. Discussed age appropriate screening guidelines. Colonoscopy needs to start at age 50 with stool for occult blood as appropriate. There is a new test that can test for genetic abnormalities in the stool sample, Cologuard. This would not replace a colonoscopy but could be used as a screening tool for patients who do not want a colonoscopy. We discussed the importance of early detection of colon cancer. 4. Discussed current guidelines with respect to breast examination, mammogram and pap smear for early detection of breast and cervical cancer. Patient advised to follow up with these appointments. 5. Discussed safe driving and no use of smart phone while driving 6. Age-appropriate immunizations were discussed. A tetanus booster is needed every 10 years. Flu vaccine is recommended every year just before the start of the flu season. Shingles vaccine is recommended after age 50 but not all insurances cover it. Pneumonia vaccine is given after age 65 unless there are certain comorbidities for which it is started earlier. 7. Diagnostic labs were discussed. These could include/not limited to CBC CMP and lipids with fasting blood glucose and insulin levels. Vitamin D and hemoglobin A1c testing might be appropriate. All questions have been answered to patient's satisfaction. Patient verbalized understanding of diagnosis and treatments explained. Advised to call sooner prior to next visit it any questions/concerns arise. Case discussed with collaborating physician Kelly Velázquez who reviewed the assessment and plan. Chart, medications, labs, vital signs reviewed. Dictation was accomplished with the use of [employer] voice recognition software, which is prone to medical misidentifications and grammatical errors. This are unintentional and the practitioner does try to identify and correct these, but some could still be present. Please do not hesitate to contact practitioner for clarification. 04/12/2024 Moderate mixed hyperlipidemia not requiring statin therapy (ICD-10 - E78.2) Patient seen and examined. Comprehensive discussion was done on the following. # Left upper quadrant pain: At previous visit patient reporting left upper side pain that began a few weeks ago in her abdomen described as a dull intermittent ache, no trauma or injury to the area, pain exacerbated with sitting up and moving [id number] while she is supine. Physical exam at that time demonstrated mild tenderness to palpation left upper quadrant. CT of the abdomen pelvis with contrast obtained which demonstrated no acute abnormality and no etiology for left upper quadrant pain. No evidence of abdominal wall hernia. Some generalized fatty changes of liver however no suspicious liver lesions. No gallstones or biliary dilation. No splenic lesions. No renal mass or stones or urinary dilation. At this time patient reports she feels better and has reduced occurrence of abdominal pain. Reports the pain is no longer waking her up from sleep. Will continue to monitor at this time for recurrence of pain. # Hyperlipidemia: Recent lipid panel obtained with values including cholesterol 261, HDL 72, triglycerides 98, and LDL 168. Patient reports strong family history of myocardial infarction in her father, he had his AR when he was 42 and to repeat heart attacks in his 50s. Patient will undergo coronary calcium CT scanning given hyperlipidemia and family history of heart disease. Educated on importance of diet and lifestyle and lowering cholesterol levels and preventing other cardiovascular disease. Discussed importance of omega-3 fatty acids to maintain high levels of HDL and lower LDL levels. According to ASCVD risk algorithm no recommendation for statin therapy at this time due to low risk of cardiovascular event and due to age being less than 40. Will continue to monitor at this time. # Psoriatic arthritis: Patient follows with [facility] in [place]. Recently started on Skyrizi 150 mg injection. Will continue to monitor. Please follow-up with dermatology. # Hypothyroidism: The patient follows with [facility] in [facility]. TSH drawn through endocrinology and is within normal limits. Continue Tirosint 75 mcg in the morning on an empty stomach. Advised on proper use of medication and expected side effect profile including but not limited to palpitations, increased appetite, tachycardia, nervousness, and tremor. Will continue to monitor. # ADD: Patient is prescribed Adderall through her previous PCP. Patient states that this practice also had a psychiatry facility and she would like to stay with this provider in terms of prescribing this medication. Will request records. Continue Adderall at this time, advised on proper use of medication and expected side effect profile including but not limited to low appetite, dry mouth, insomnia, headache, and weight loss. Controlled substance contract discussed with the patient and appropriately signed. Patient will follow-up in the office in 6 months. # Vitamin D deficiency: Will get repeated labs including vitamin D level. At this time continue vitamin D supplement once daily. Will continue to monitor. # Obesity: Weight 177.6 pounds, BMI 33.55. We discussed importance of diet and lifestyle including 1 that is high-protein, low carbohydrate, high-fiber, and includes a variety of fruits and vegetables. Discussed importance of exercise including cardio to reduce fat mass and resistance training to maintain a build muscle mass. Advised that this practice is also weight loss and obesity medicine trained. Will continue to monitor. 1. Nutrition: It is important to follow a healthy diet based on lots of vegetables and legumes and good fat. Avoid processed food and processed carbohydrates. Prepare your own meals. Read labels and avoid high fructose corn syrup, processed chemicals added to increase shelf life and preprepared meals. Avoid fast foods. Eat slowly and plan meals for a week. Try to count calories and be mindful off daily calorie intake. Get into the habit of keeping an eye on your weight by using an appropriate scale. Learn to log exercise and discussed fitness Apps like [employer] or HiFiKiddoometer which can help keep log off calories taken versus calories burned. Local food should be preferred. Discussed Dirty Dozen Versus Clean Fifteen. Discussed healthy supplements like fish oil, Tumeric, Curcumin, Melatonin, Resveratrol, Probiotics, Vitamin-D, Alpha-Lipoic acid, Vitamin-D and coconut oil. 2. It is important to exercise regularly. Is a good habit to walk at least 30 minutes a day. Gentle weightlifting with standard precautions to protect the back. Finding activity like cycling or hiking and get into the habit of engaging in it. Stretching before and after the exercises important. It is also important to contact me if there are any problems like shortness of breath, chest pain, back pain and joint or muscle pain associated with the exercise. 3. Discussed age appropriate screening guidelines. Colonoscopy needs to start at age 50 with stool for occult blood as appropriate. There is a new test that can test for genetic abnormalities in the stool sample, Cologuard. This would not replace a colonoscopy but could be used as a screening tool for patients who do not want a colonoscopy. We discussed the importance of early detection of colon cancer. 4. Discussed current guidelines with respect to breast examination, mammogram and pap smear for early detection of breast and cervical cancer. Patient advised to follow up with these appointments. 5. Discussed safe driving and no use of smart phone while driving 6. Age-appropriate immunizations were discussed. A tetanus booster is needed every 10 years. Flu vaccine is recommended every year just before the start of the flu season. Shingles vaccine is recommended after age 50 but not all insurances cover it. Pneumonia vaccine is given after age 65 unless there are certain comorbidities for which it is started earlier. 7. Diagnostic labs were discussed. These could include/not limited to CBC CMP and lipids with fasting blood glucose and insulin levels. Vitamin D and hemoglobin A1c testing might be appropriate. All questions have been answered to patient's satisfaction. Patient verbalized understanding of diagnosis and treatments explained. Advised to call sooner prior to next visit it any questions/concerns arise. Case discussed with collaborating physician Kelly Velázquez who reviewed the assessment and plan. Chart, medications, labs, vital signs reviewed. Dictation was accomplished with the use of [employer] voice recognition software, which is prone to medical misidentifications and grammatical errors. This are unintentional and the practitioner does try to identify and correct these, but some could still be present. Please do not hesitate to contact practitioner for clarification. 04/12/2024 Psoriatic arthritis (ICD-10 - L40.50) Patient seen and examined. Comprehensive discussion was done on the following. # Left upper quadrant pain: At previous visit patient reporting left upper side pain that began a few weeks ago in her abdomen described as a dull intermittent ache, no trauma or injury to the area, pain exacerbated with sitting up and moving [id number] while she is supine. Physical exam at that time demonstrated mild tenderness to palpation left upper quadrant. CT of the abdomen pelvis with contrast obtained which demonstrated no acute abnormality and no etiology for left upper quadrant pain. No evidence of abdominal wall hernia. Some generalized fatty changes of liver however no suspicious liver lesions. No gallstones or biliary dilation. No splenic lesions. No renal mass or stones or urinary dilation. At this time patient reports she feels better and has reduced occurrence of abdominal pain. Reports the pain is no longer waking her up from sleep. Will continue to monitor at this time for recurrence of pain. # Hyperlipidemia: Recent lipid panel obtained with values including cholesterol 261, HDL 72, triglycerides 98, and LDL 168. Patient reports strong family history of myocardial infarction in her father, he had his AR when he was 42 and to repeat heart attacks in his 50s. Patient will undergo coronary calcium CT scanning given hyperlipidemia and family history of heart disease. Educated on importance of diet and lifestyle and lowering cholesterol levels and preventing other cardiovascular disease. Discussed importance of omega-3 fatty acids to maintain high levels of HDL and lower LDL levels. According to ASCVD risk algorithm no recommendation for statin therapy at this time due to low risk of cardiovascular event and due to age being less than 40. Will continue to monitor at this time. # Psoriatic arthritis: Patient follows with [facility] in [place]. Recently started on Skyrizi 150 mg injection. Will continue to monitor. Please follow-up with dermatology. # Hypothyroidism: The patient follows with [facility] in [facility]. TSH drawn through endocrinology and is within normal limits. Continue Tirosint 75 mcg in the morning on an empty stomach. Advised on proper use of medication and expected side effect profile including but not limited to palpitations, increased appetite, tachycardia, nervousness, and tremor. Will continue to monitor. # ADD: Patient is prescribed Adderall through her previous PCP. Patient states that this practice also had a psychiatry facility and she would like to stay with this provider in terms of prescribing this medication. Will request records. Continue Adderall at this time, advised on proper use of medication and expected side effect profile including but not limited to low appetite, dry mouth, insomnia, headache, and weight loss. Controlled substance contract discussed with the patient and appropriately signed. Patient will follow-up in the office in 6 months. # Vitamin D deficiency: Will get repeated labs including vitamin D level. At this time continue vitamin D supplement once daily. Will continue to monitor. # Obesity: Weight 177.6 pounds, BMI 33.55. We discussed importance of diet and lifestyle including 1 that is high-protein, low carbohydrate, high-fiber, and includes a variety of fruits and vegetables. Discussed importance of exercise including cardio to reduce fat mass and resistance training to maintain a build muscle mass. Advised that this practice is also weight loss and obesity medicine trained. Will continue to monitor. 1. Nutrition: It is important to follow a healthy diet based on lots of vegetables and legumes and good fat. Avoid processed food and processed carbohydrates. Prepare your own meals. Read labels and avoid high fructose corn syrup, processed chemicals added to increase shelf life and preprepared meals. Avoid fast foods. Eat slowly and plan meals for a week. Try to count calories and be mindful off daily calorie intake. Get into the habit of keeping an eye on your weight by using an appropriate scale. Learn to log exercise and discussed fitness Apps like Lingueepal or Cronometer which can help keep log off calories taken versus calories burned. Local food should be preferred. Discussed Dirty Dozen Versus Clean Fifteen. Discussed healthy supplements like fish oil, Tumeric, Curcumin, Melatonin, Resveratrol, Probiotics, Vitamin-D, Alpha-Lipoic acid, Vitamin-D and coconut oil. 2. It is important to exercise regularly. Is a good habit to walk at least 30 minutes a day. Gentle weightlifting with standard precautions to protect the back. Finding activity like cycling or hiking and get into the habit of engaging in it. Stretching before and after the exercises important. It is also important to contact me if there are any problems like shortness of breath, chest pain, back pain and joint or muscle pain associated with the exercise. 3. Discussed age appropriate screening guidelines. Colonoscopy needs to start at age 50 with stool for occult blood as appropriate. There is a new test that can test for genetic abnormalities in the stool sample, Cologuard. This would not replace a colonoscopy but could be used as a screening tool for patients who do not want a colonoscopy. We discussed the importance of early detection of colon cancer. 4. Discussed current guidelines with respect to breast examination, mammogram and pap smear for early detection of breast and cervical cancer. Patient advised to follow up with these appointments. 5. Discussed safe driving and no use of smart phone while driving 6. Age-appropriate immunizations were discussed. A tetanus booster is needed every 10 years. Flu vaccine is recommended every year just before the start of the flu season. Shingles vaccine is recommended after age 50 but not all insurances cover it. Pneumonia vaccine is given after age 65 unless there are certain comorbidities for which it is started earlier. 7. Diagnostic labs were discussed. These could include/not limited to CBC CMP and lipids with fasting blood glucose and insulin levels. Vitamin D and hemoglobin A1c testing might be appropriate. All questions have been answered to patient's satisfaction. Patient verbalized understanding of diagnosis and treatments explained. Advised to call sooner prior to next visit it any questions/concerns arise. Case discussed with collaborating physician Kelly Velázquez who reviewed the assessment and plan. Chart, medications, labs, vital signs reviewed. Dictation was accomplished with the use of [employer] voice recognition software, which is prone to medical misidentifications and grammatical errors. This are unintentional and the practitioner does try to identify and correct these, but some could still be present. Please do not hesitate to contact practitioner for clarification. PLAN OF TREATMENT Next Appt Details Provider Name:GHASSAN LICEA , 10/02/2024 11:15:00 AM, [facility], [address], [id number], Provider Name:GHASSAN LICEA , 04/16/2025 11:15:00 AM, [facility], [facility], [place], [id number], Progress Notes * Сергей GARNERB:1984 (38 yo F)Acc No.[id number]:04/12/2024 CPE Patient:??Angela GARNER Provider:??GHASSAN LICEA :1985?Age:38 Y?Sex:Fe male Date:04/12/2024 Address:[address] [place], [place] [id number] Subjective: * Chief Complaints: * ?1. Pt here for wt mgt follow up. * HPI: ?Constitutional:? Angela is a 38-year-old female history of ADD, hypothyroidism, and vitamin D deficiency who presents for routine CPE. ?Medications, medical history, surgical history, allergies, hospitalizations, and changes in family history since time of last visit reviewed. ?Patient reports she feels well today and offers no acute concerns. Recently started on Skyrizi by dermatology for psoriatic arthritis. ?Labs obtained on 03/15/2024 including CMP within normal limits and CBC within normal limits. TSH within normal limits 1.64. Lipid panel obtained with values including cholesterol 261, HDL 72, triglycerides 98, and LDL 168. Patient is interested in a coronary calcium CT scanning given hyperlipidemia and strong family history of myocardial infarction, patient reports that her father has had 3 myocardial infarctions with the first occurring at age 42 and 2 heart attacks in his 50s. ?Patient had CT of abdomen pelvis with contrast on 03/28/2024 which showed generalized fatty changes in the liver however no suspicious liver lesion, no gallstones or biliary dilation, no splenic lesion, no pancreas abnormality. No suspicious renal mass or dilation of urinary collecting systems bilaterally. No urinary calculus. Contrast is present within normal caliber small bowel. There is some fluid in the distal small bowel which is nonspecific. Gas and fecal residue in the colon. Appendix is normal. No localized stranding in the abdomen or pelvis. No significant hernias appreciated. No obvious etiology for left upper quadrant pain appreciated. ?Specialists-- ?Dentist: Every 6-month cleanings ?Ophthalmology: Wears contact lenses, possible fractures once annually ?Women's health: [facility], Mandie Houser CNM ?Endocrine: [facility] in [place], [place] for management of hypothyroidism ?Dermatology: [facility] in [place], just started Elian. ?Other concerns addressed today: ?Immunizations-- ?Influenza: Due ?COVID: Primary series and 1 booster ?Tetanus: UTD ?Screening-- ?Mammogram: Not applicable. No history of breast cancer in first-degree relative. ?Colonoscopy: Underwent colonoscopy in 2020 rectal bleeding for rectal hemorrhoids. No history of colon cancer in first-degree relative. ?PAP: UTD ?Social History-- ?ETOH Use: Social use ?Tob Use: Denies use. Patient is never been a smoker. 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 She is currently living in [place] with her boyfriend. She feels safe in her relationship. * ROS:?Constitutional: Patient denies any excessive fatigue with exercise, no weight loss, no fever, no night sweats, no changes in sleep. ???Eyes: No eye discharge, no itching, no redness, no vision changes. Advised the significance of regular eye exams to screen for glaucoma and other eye problems. ???Ear nose throat: No ear pain, No sore throat, no postnasal drip, no runny nose, no sneezing, no hearing changes ???Cardiovascular: No chest pain, no dyspnea on exertion, no PND, no orthopnea, no irregular pulse, no palpitations, no claudication, no diaphoresis, no claudication. ???Respiratory: No chronic cough, no hemoptysis, no sputum, no wheezing, no SOB, no pleuritic pain. ???GI: No diarrhea, no constipation, no blood in the stools, no pain associated with eating, no indigestion, no difficulty swallowing, no appetite change. ???Genitourinary: No painful urination, no hesitancy, no blood in the urine, no incontinence, no frequency, no urgency, no abnormal discharge. ???Musculoskeletal: No back pain, no joint pain, no limitations to walking and running, no joint deformity, no joint stiffness, no muscle weakness ???Integumentary: No new skin rash. No new changes in skin moles, no pruritis, no color change. ???Neurological: No history of seizures, no memory loss, no language dysfunction, no inability to concentrate, no localized weakness, no sensation loss, no confusion, no dizziness, no tremor, no numbness, no tingling. ???Psychiatric: no anxiety, no depression, no suicidal thoughts, feels safe at home. ???Endocrine: No polyuria, no polyphagia, no polydipsia. No heat/cold intolerance, no excesss thirst. ???Hematological: No easy bruising or bleeding, no lymph node swelling. * Medical History:??High carol sterol, Weight gain/loss, Thyroid disease, Skin disease. * Surgical History:??Husseinies Vazquez escalante Surgical History. * Hospitalization/Major Diagno stic Procedure:??right knee arthroscopy 2014, breast argumentation 2012. * Family History:??Father: ali ve 60 yrs, type II diabetes, congestive heart failure, hypertension, diagnosed with Diabetes mellitus without mention of complication, type II or unspecified type, not stated as uncontrolled.??Mother: alive 60 yrs, migraines, hypertension.??1 brother(s) - healthy. .?? cancer; granfather heart diaease ; dad hypertension; mom and dad. * Social History:?Tobacco Use:??Tobacco use other than smoking??Are you an other tobacco user???Yes.?? * Medications:??Taking Skyrizi 150 MG/ML Solution Prefilled Syringe 1 mL Subcutaneous , Taking Clobetasol Propionate 0.05 % Ointment 1 application Externally Twice a day , Taking Vitamin D3 2400 UNIT/ML Liquid as directed , Taking Tirosint 75 MCG Capsule 1 capsule in the morning on an empty stomach Orally Once a day , Taking Adderall 30 MG Tablet 1 tablet Orally Twice a day , Medication List reviewed and reconciled with the patient * Allergies:??Clindamycin: hiv es. Objective: * Vitals:??HR:95/min, BP:120/8 2mm Hg, Wt:180lbs, BMI:34.01Index, Ht: 61 in, Oxygen sat %:97%. * Physical Examination:?General: Age appropriate 38-year-old female, well appearing, no acute distress, speaking in full sentences without respiratory compromise. Well groomed, well developed. Alert, Interactive. ?Skin: Warm, dry and intact. No lesions/rashes/erythema. ?HEENT: Normocephalic/atraumatic. EOMI intact. PERRLA. Vision intact. No ptosis or lid lag. Nares without discharge or inflammation. Oral cavity free of plaques or exudates. Dentition well maintained. No pharyngeal erythema. Ear canal without cerumen or discharge. Tympanic membrane visualized including bony structures and cone of light. ?Neck/Thyroid: Supple, with no lymphadenopathy. Full ROM. No carotid artery bruits auscultated. Thyroid free of nodules and nonenlarged. ?Lung: Clear to auscultation bilaterally, no wheezes, rales or rhonchi. No barrel chest. Equal chest rise and fall bilaterally. ?Cardiac: S1 and S2 appreciated. No murmurs/rubs or gallops. DP pulses intact 2+ bilaterally. Capillary refill <2 seconds. ?Abdomen: Soft, nontender, normoactive bowel sounds. No rebound/guarding. No CVA tenderness. No Masses. ?Extremities: Bilateral lower extremities with no edema or rubor. No evidence of varicose veins. Equal tone bilaterally. ?MSK: Bilateral upper and lower extremities 5/5 strength with flexion/extension. Lan Specialist strength 5/5. Sensation intact. ?Neuro: CN II-XI grossly intact. Steady gait with ambulation observed. Symmetric reflexes. ?Psych: Stable mood and affect. Assessment: * Assessment: 1.??Adult general medical ex am - Z00.00 (Primary)??2.??Attention deficit disorder (ADD) in adult - F98.8??3.??Acquired hypothyroidism - E03.9??4.??Obesity (BMI 30-39.9) - E66.9??5.??Left upper quadrant pain - R10.12??6.??Moderate mixed hyperlipidemia not requiring statin therapy - E78.2??7.??Psoriatic arthritis - L40.50?? Patient seen and examined. C omprehensive discussion was done on the following. # Left upper quadrant pain: At previous visit patient reporting left upper side pain that began a few weeks ago in her abdomen described as a dull intermittent ache, no trauma or injury to the area, pain exacerbated with sitting up and moving [id number] while she is supine. Physical exam at that time demonstrated mild tenderness to palpation left upper quadrant. CT of the abdomen pelvis with contrast obtained which demonstrated no acute abnormality and no etiology for left upper quadrant pain. No evidence of abdominal wall hernia. Some generalized fatty changes of liver however no suspicious liver lesions. No gallstones or biliary dilation. No splenic lesions. No renal mass or stones or urinary dilation. At this time patient reports she feels better and has reduced occurrence of abdominal pain. Reports the pain is no longer waking her up from sleep. Will continue to monitor at this time for recurrence of pain. # Hyperlipidemia: Recent lipid panel obtained with values including cholesterol 261, HDL 72, triglycerides 98, and LDL 168. Patient reports strong family history of myocardial infarction in her father, he had his AR when he was 42 and to repeat heart attacks in his 50s. Patient will undergo coronary calcium CT scanning given hyperlipidemia and family history of heart disease. Educated on importance of diet and lifestyle and lowering cholesterol levels and preventing other cardiovascular disease. Discussed importance of omega-3 fatty acids to maintain high levels of HDL and lower LDL levels. According to ASCVD risk algorithm no recommendation for statin therapy at this time due to low risk of cardiovascular event and due to age being less than 40. Will continue to monitor at this time. # Psoriatic arthritis: Patient follows with [facility] in [place]. Recently started on Skyrizi 150 mg injection. Will continue to monitor. Please follow-up with dermatology. # Hypothyroidism: The patient follows with [facility] in [facility]. TSH drawn through endocrinology and is within normal limits. Continue Tirosint 75 mcg in the morning on an empty stomach. Advised on proper use of medication and expected side effect profile including but not limited to palpitations, increased appetite, tachycardia, nervousness, and tremor. Will continue to monitor. # ADD: Patient is prescribed Adderall through her previous PCP. Patient states that this practice also had a psychiatry facility and she would like to stay with this provider in terms of prescribing this medication. Will request records. Continue Adderall at this time, advised on proper use of medication and expected side effect profile including but not limited to low appetite, dry mouth, insomnia, headache, and weight loss. Controlled substance contract discussed with the patient and appropriately signed. Patient will follow-up in the office in 6 months. # Vitamin D deficiency: Will get repeated labs including vitamin D level. At this time continue vitamin D supplement once daily. Will continue to monitor. # Obesity: Weight 177.6 pounds, BMI 33.55. We discussed importance of diet and lifestyle including 1 that is high-protein, low carbohydrate, high-fiber, and includes a variety of fruits and vegetables. Discussed importance of exercise including cardio to reduce fat mass and resistance training to maintain a build muscle mass. Advised that this practice is also weight loss and obesity medicine trained. Will continue to monitor. 1. Nutrition: It is important to follow a healthy diet based on lots of vegetables and legumes and good fat. Avoid processed food and processed carbohydrates. Prepare your own meals. Read labels and avoid high fructose corn syrup, processed chemicals added to increase shelf life and preprepared meals. Avoid fast foods. Eat slowly and plan meals for a week. Try to count calories and be mindful off daily calorie intake. Get into the habit of keeping an eye on your weight by using an appropriate scale. Learn to log exercise and discussed fitness Apps like Lingueepal or Cronometer which can help keep log off calories taken versus calories burned. Local food should be preferred. Discussed Dirty Dozen Versus Clean Fifteen. Discussed healthy supplements like fish oil, Tumeric, Curcumin, Melatonin, Resveratrol, Probiotics, Vitamin-D, Alpha-Lipoic acid, Vitamin-D and coconut oil. 2. It is important to exercise regularly. Is a good habit to walk at least 30 minutes a day. Gentle weightlifting with standard precautions to protect the back. Finding activity like cycling or hiking and get into the habit of engaging in it. Stretching before and after the exercises important. It is also important to contact me if there are any problems like shortness of breath, chest pain, back pain and joint or muscle pain associated with the exercise. 3. Discussed age appropriate screening guidelines. Colonoscopy needs to start at age 50 with stool for occult blood as appropriate. There is a new test that can test for genetic abnormalities in the stool sample, Cologuard. This would not replace a colonoscopy but could be used as a screening tool for patients who do not want a colonoscopy. We discussed the importance of early detection of colon cancer. 4. Discussed current guidelines with respect to breast examination, mammogram and pap smear for early detection of breast and cervical cancer. Patient advised to follow up with these appointments. 5. Discussed safe driving and no use of smart phone while driving 6. Age-appropriate immunizations were discussed. A tetanus booster is needed every 10 years. Flu vaccine is recommended every year just before the start of the flu season. Shingles vaccine is recommended after age 50 but not all insurances cover it. Pneumonia vaccine is given after age 65 unless there are certain comorbidities for which it is started earlier. 7. Diagnostic labs were discussed. These could include/not limited to CBC CMP and lipids with fasting blood glucose and insulin levels. Vitamin D and hemoglobin A1c testing might be appropriate. All questions have been answered to patient's satisfaction. Patient verbalized understanding of diagnosis and treatments explained. Advised to call sooner prior to next visit it any questions/concerns arise. Case discussed with collaborating physician Kelly Velázquez who reviewed the assessment and plan. Chart, medications, labs, vital signs reviewed. Dictation was accomplished with the use of [employer] voice recognition software, which is prone to medical misidentifications and grammatical errors. This are unintentional and the practitioner does try to identify and correct these, but some could still be present. Please do not hesitate to contact practitioner for clarification. Plan: * Treatment: * Images: Billing Information: * Visit Code:?? 52820 Preventive Care Est Pt. Age 18-39. * Procedure Codes:?? Care Plan Details* * Sign off status: Completed true * Provider:??GHASSAN LICEA Date:?? 024 History and Physical Notes * HPI (History of Present Illness) Category Sub-Category Detail Notes Category Not es Constitutional Angela is a 38-year-old female history of ADD, hypothyroidism, and vitamin D deficiency who presents for routine CPE. Medications, medical history, surgical history, allergies, hospitalizations, and changes in family history since time of last visit reviewed. Patient reports she feels well today and offers no acute concerns. Recently started on Skyrizi by dermatology for psoriatic arthritis. Labs obtained on 03/15/2024 including CMP within normal limits and CBC within normal limits. TSH within normal limits 1.64. Lipid panel obtained with values including cholesterol 261, HDL 72, triglycerides 98, and LDL 168. Patient is interested in a coronary calcium CT scanning given hyperlipidemia and strong family history of myocardial infarction, patient reports that her father has had 3 myocardial infarctions with the first occurring at age 42 and 2 heart attacks in his 50s. Patient had CT of abdomen pelvis with contrast on 03/28/2024 which showed generalized fatty changes in the liver however no suspicious liver lesion, no gallstones or biliary dilation, no splenic lesion, no pancreas abnormality. No suspicious renal mass or dilation of urinary collecting systems bilaterally. No urinary calculus. Contrast is present within normal caliber small bowel. There is some fluid in the distal small bowel which is nonspecific. Gas and fecal residue in the colon. Appendix is normal. No localized stranding in the abdomen or pelvis. No significant hernias appreciated. No obvious etiology for left upper quadrant pain appreciated. Specialists-- Dentist: Every 6-month cleanings Ophthalmology: Wears contact lenses, possible fractures once annually Women's health: [facility], Mandie Houser CNM Endocrine: [facility] in [place], [place] for management of hypothyroidism Dermatology: [facility] in [place], just started Elian. Other concerns addressed today: Immunizations-- Influenza: Due COVID: Primary series and 1 booster Tetanus: UTD Screening-- Mammogram: Not applicable. No history of breast cancer in first-degree relative. Colonoscopy: Underwent colonoscopy in 2020 rectal bleeding for rectal hemorrhoids. No history of colon cancer in first-degree relative. PAP: UTD Social History-- ETOH Use: Social use Tob Use: Denies use. Patient is never been a smoker. 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 She feels safe in her relationship. Physical Examination Category Sub-Category Detail Notes Section Note s General: Age appropriate 38-year-old female, well appearing, no acute distress, speaking in full sentences without respiratory compromise. Well groomed, well developed. Alert, Interactive. Skin: Warm, dry and intact. No lesions/rashes/erythema. HEENT: Normocephalic/atraumatic. EOMI intact. PERRLA. Vision intact. No ptosis or lid lag. Nares without discharge or inflammation. Oral cavity free of plaques or exudates. Dentition well maintained. No pharyngeal erythema. Ear canal without cerumen or discharge. Tympanic membrane visualized including bony structures and cone of light. Neck/Thyroid: Supple, with no lymphadenopathy. Full ROM. No carotid artery bruits auscultated. Thyroid free of nodules and nonenlarged. Lung: Clear to auscultation bilaterally, no wheezes, rales or rhonchi. No barrel chest. Equal chest rise and fall bilaterally. Cardiac: S1 and S2 appreciated. No murmurs/rubs or gallops. DP pulses intact 2+ bilaterally. Capillary refill <2 seconds. Abdomen: Soft, nontender, normoactive bowel sounds. No rebound/guarding. No CVA tenderness. No Masses. Extremities: Bilateral lower extremities with no edema or rubor. No evidence of varicose veins. Equal tone bilaterally. MSK: Bilateral upper and lower extremities 5/5 strength with flexion/extension. Lan Specialist strength 5/5. Sensation intact. Neuro: CN II-XI grossly intact. Steady gait with ambulation observed. Symmetric reflexes. Psych: Stable mood and affect
--- OUTSIDE RECORDS SUMMARY | 2024-08-10 08:33 | XMS_ITS | Patient Health Record ---
Author Organization [facility] Address [address] [place] [address] Care Team Providers Care Addictions Counselor Name Role Phone GHASSAN LICEA Unavailable [phone] ALLERGIES Allergen (clinical drug ingredient) Drug/Non Drug Allergy documented on EMR Reaction Allergy Type Onset Date Status clindamycin Clindamycin hives Drug Allergy Act manfred RESULTS Component Value Reference Range Notes COMPREHENSIVE METABOLIC PANE L Reviewed date:03/15/2024 01:10:23 PM Interpretation: Performing Lab:NL2, [facility] [id number] [place], [place] [id number] Julian Lemon Notes/Report: PATIENT UNABLE TO VOID; ADVISED TO RETURN FOR COLLECTION. GLUCOSE 83 65-99 mg/dL Fasting reference interval UREA NITROGEN (BUN) 13 7-25 mg/dL CREATININE 0.78 0.50-0.97 mg/dL EGFR 101 > OR = 60 mL/min/1.73m2 BUN/CREATININE RATIO SEE NOTE: 6-22 (calc) Not Reported: BUN and Creatinine are within reference range. SODIUM 135 135-146 mmol/L POTASSIUM 4.1 3.5-5.3 mmol/L CHLORIDE 100 98-110 mmol/L CARBON DIOXIDE 29 20-32 mmol/L CALCIUM 9.4 8.6-10.2 mg/dL PROTEIN, TOTAL 6.6 6.1-8.1 g/dL ALBUMIN 4.3 3.6-5.1 g/dL GLOBULIN 2.3 1.9-3.7 g/dL (calc) ALBUMIN/GLOBULIN RATIO 1.9 1.0-2.5 (calc) BILIRUBIN, TOTAL 0.5 0.2-1.2 mg/dL ALKALINE PHOSPHATASE 61 31-125 U/L AST 19 10-30 U/L ALT 19 6-29 U/L CBC (INCLUDES DIFF/PLT) Reviewed date:03/15/2024 01:10:03 PM Interpretation: Performing Lab:NL2, [facility] [id number] [id number] Julian Lemon Notes/Report: PATIENT UNABLE TO VOID; ADVISED TO RETURN FOR COLLECTION. WHITE BLOOD CELL COUNT 6.8 3.8-10.8 Thousand/ uL RED BLOOD CELL COUNT 4.70 3.80-5.10 Million/uL HEMOGLOBIN 13.9 11.7-15.5 g/dL HEMATOCRIT 42.8 35.0-45.0 % MCV 91.1 80.0-100.0 fL MCH 29.6 27.0-33.0 pg MCHC 32.5 32.0-36.0 g/dL For adults, a slight decrease in the calculated MCHC value (in the range of 30 to 32 g/dL) is most likely not clinically significant; however, it should be interpreted with caution in correlation with other red cell parameters and the patient's clinical condition. RDW 13.1 11.0-15.0 % PLATELET COUNT 377 140-400 Thousand/uL MPV 9.5 7.5-12.5 fL ABSOLUTE NEUTROPHILS 3686 3733-1189 cells/uL ABSOLUTE LYMPHOCYTES 2298 850-3900 cells/uL ABSOLUTE MONOCYTES 571 200-950 cells/uL ABSOLUTE EOSINOPHILS 184 15-500 cells/uL ABSOLUTE BASOPHILS 61 0-200 cells/uL NEUTROPHILS 54.2 LYMPHOCYTES 33.8 MONOCYTES 8.4 EOSINOPHILS 2.7 BASOPHILS 0.9 COPY(IES) SENT TO: Reviewed date:03/15/2024 01:10:29 PM Interpretation: Performing Lab: Notes/Report: PATIENT UNABLE TO VOID; ADVISED TO RETURN FOR COLLECTION. COPY(IES) SENT TO: PATSY CHAVEZ [address] [place] [address] CT Abdomen Pelvis W Cont Reviewed date:03/28/2024 02:21:20 PM Interpretation: Performing Lab: Notes/Report: Original Ordering Provider: GHASSAN LICEA PA-C [facility] REASON FOR REFERRAL Reason [facility] [place] Diagnosis 1 Tachycardia (R00.0) Referral Organization [place] [address] Referring Provider First Name GHASSAN Referring Provider Last Name ANUJA Referring Provider Speciality Internal M edicine Referred Provider Specialty Cardiology General Notes Jacquelyn Ortega 03/14/2024 01:22:21 PM > Referral faxed to [facility] [place], p: [phone] f: [phone] Clinical Notes Cristopher Mora 05/2024 04:19:39 PM > Scheduled for 05/21 at 4 pm. Pt aware Referral Priority Routine MEDICATIONS Medication SIG (Take, Route, Frequency, Duration) Notes Start Date End Date Status Adderall 30 MG 1 tablet Orally Twic e a day Active Tirosint 75 MCG 1 capsule in the mor kendy on an empty stomach Orally Once a day Active Clobetasol Propionate 0.05 % 1 application Externally Twice a day Active Vitamin D3 2400 UNIT/ML as directed Active Skyrizi 150 MG/ML 1 mL Subcutaneous Active Rosuvastatin Calcium 5 MG 1 tablet Orall y Once a day for 90 days 08/07/2024 Active SOCIAL HISTORY Sex Assigned At : Social History Observation Description Sex Assigned At Unknown Tobacco use other than smoking: Question Answer Notes Are you an other tobacco user? Yes PROBLEMS Problem Type ICD Code Onset Dates Problem Status W/U Status Risk SNOMED Code Notes Problem Left upper quadrant pain (R10.12) Active confirmed Left upper quadrant pain (418650518) Problem Encounter for screening for lipoid disorders (Z13.220) Active confirmed Lipid screening (032921470) Problem Acquired hypothyroidism (E03.9) Active confirmed 101860322 Problem Psoriatic arthritis (L40.50) Active confirmed 318798261 Problem Adult general medical exam (Z00.00) Active confirmed Adult health examination (638204981) Problem Vitamin D deficiency (E55.9) Active confirmed 26410498 Problem Obesity (BMI 30-39.9) (E66.9) Active confirmed 221488618 Problem Moderate mixed hyperlipidemia not requiring statin therapy (E78.2) Active confirmed 045381431 Problem Attention deficit disorder (ADD) in adult (F98.8) Active confirmed 276937906 Problem Tachycardia (R00.0) Active confirmed Tachycardia (5514153) Problem Encounter for screening for endocrine disorder (Z13.29) Active confirmed Endocrine/meta bolic screening (622611444) VITAL SIGNS Heart Rate 95 /min 04/12/2024 Oximetry 97 % 04/12/2024 Blood pressure diastolic 82 mm Hg 04/12/2024 Height 61 in 04/12/2024 Blood pressure systolic 120 mm Hg 04/12/2024 Weight 180 lbs 04/12/2024 BMI 34.01 kg/m2 04/12/2024 Encounters Encounter Location Date Provider Diagnosis [address] [facility] [address] [place] [address] 03/13/2024 GHASSAN LICAE Left upper quadrant pain R10.12 ; Attention deficit disorder (ADD) in adult F98.8 ; Acquired hypothyroidism E03.9 ; Vitamin D deficiency E55.9 and Obesity (BMI 30-39.9) E66.[address] [facility] [address] [place] [address] 04/12/2024 GHASSAN LICEA Adult general medica l exam Z00.00 ; Attention deficit disorder (ADD) in adult F98.8 ; Acquired hypothyroidism E03.9 ; Obesity (BMI 30-39.9) E66.9 ; Left upper quadrant pain R10.12 ; Moderate mixed hyperlipidemia not requiring statin therapy E78.2 and Psoriatic arthritis L40.50 [address] [facility] [facility] [address] [place] [address] 03/28/2024 GHASSAN UREÑAWV [address] [facility] [address] [place] [address] 05/02/2024 GHASSAN LICEA [address] [facility] [facility] [address] [place] [address] 08/06/2024 GHASSAN LICEA ASSESSMENTS Encounter Date Diagnosis Assessment Notes Treatment Notes Treatment Clinical Notes Section Notes 03/13/2024 Left upper quadrant pain (ICD-10 - R10.12) Angela is a [id number] who presents to the office today for new patient evaluation. Patient is welcomed to the practice. They are coming from [facility] in [place], [place]. Last complete physical exam with labs over 1 year ago. Medications, medical history, allergies, surgeries, hospitalizations, family history, and social history were reviewed. Problem list updated. Cardiopulmonary and abdominal exam unremarkable. Patient will follow-up in office. All patient questions answered at this time. # Left upper quadrant pain: Patient reports experiencing left upper side pain that began a few weeks ago in her abdomen. Describes a dull intermittent ache, denies any trauma or injury to the area, pain is exacerbated with sitting up and moving quzq-zg-zjse when she is lying down in bed. On physical exam the abdomen is soft and mildly tender to palpation in the left upper quadrant. Upon inspection there is a noticeable protuberance on the left upper quadrant as well that is soft and mildly tender to palpation. She denies fever, chills, chest pain, shortness of breath, vomiting, nausea, diarrhea, fatigue, or weakness. Will order CT of the abdomen and pelvis with contrast to evaluate for any hernia or other abdominal pathology. Will continue to monitor. # Hypothyroidism: The patient follows with [facility] in [facility]. Will order new TSH at this time and will request last office note. Continue Tirosint 75 mcg in the morning on an empty stomach. Advised on proper use of medication and expected side effect profile. Will continue to monitor. # ADD: Patient is prescribed Adderall through her previous PCP. Patient states that this practice also had a psychiatry facility and she would like to stay with this provider in terms of prescribing this medication. Will request records. Continue Adderall at this time, advised on proper use of medication and expected side effect profile. At next visit we will discuss controlled substance license. Will continue to follow. # Vitamin D deficiency: Will get repeated [...] obesity medicine trained. Will continue to monitor. All questions have been answered to patient's satisfaction. Patient verbalized understanding of diagnosis and treatments explained. Advised to call sooner prior to next visit it any questions/concerns arise. Case discussed with collaborating physician Kelly Velázquez who reviewed the assessment and plan. Chart, medications, labs, vital signs reviewed. Dictation was accomplished with the use of [employer] voice recognition software, which is prone to medical misidentifications and grammatical errors. This are unintentional and the practitioner does try to identify and correct these, but some could still be present. Please do not hesitate to contact practitioner for clarification. 03/13/2024 Attention deficit disorder (ADD) in adult (ICD-10 - F98.8) Angela is a [id number] who presents to the office today for new patient evaluation. Patient is welcomed to the practice. They are coming from [facility] in [place], [place]. Last complete physical exam with labs over 1 year ago. Medications, medical history, allergies, surgeries, hospitalizations, family history, and social history were reviewed. Problem list updated. Cardiopulmonary and abdominal exam unremarkable. Patient will follow-up in office. All patient questions answered at this time. # Left upper quadrant pain: Patient reports experiencing left upper side pain that began a few weeks ago in her abdomen. Describes a dull intermittent ache, denies any trauma or injury to the area, pain is exacerbated with sitting up and moving jbep-vc-[id number] when she is lying down in bed. On physical exam the abdomen is soft and mildly tender to palpation in the left upper quadrant. Upon inspection there is a noticeable protuberance on the left upper quadrant as well that is soft and mildly tender to palpation. She denies fever, chills, chest pain, shortness of breath, vomiting, nausea, diarrhea, fatigue, or weakness. Will order CT of the abdomen and pelvis with contrast to evaluate for any hernia or other abdominal pathology. Will continue to monitor. # Hypothyroidism: The patient follows with [facility] in [facility]. Will order new TSH at this time and will request last office note. Continue Tirosint 75 mcg in the morning on an empty stomach. Advised on proper use of medication and expected side effect profile. Will continue to monitor. # ADD: Patient is prescribed Adderall through her previous PCP. Patient states that this practice also had a psychiatry facility and she would like to stay with this provider in terms of prescribing this medication. Will request records. Continue Adderall at this time, advised on proper use of medication and expected side effect profile. At next visit we will discuss controlled substance license. Will continue to follow. # Vitamin D deficiency: Will get repeated [...] obesity medicine trained. Will continue to monitor. All questions have been answered to patient's satisfaction. Patient verbalized understanding of diagnosis and treatments explained. Advised to call sooner prior to next visit it any questions/concerns arise. Case discussed with collaborating physician Kelly Velázquez who reviewed the assessment and plan. Chart, medications, labs, vital signs reviewed. Dictation was accomplished with the use of [employer] voice recognition software, which is prone to medical misidentifications and grammatical errors. This are unintentional and the practitioner does try to identify and correct these, but some could still be present. Please do not hesitate to contact practitioner for clarification. 04/12/2024 Adult general medical exam (ICD-10 - Z00.00) Patient seen and examined. Comprehensive discussion was done on the following. # Left upper quadrant pain: At previous visit patient reporting left upper side pain that began a few weeks ago in her abdomen described as a dull intermittent ache, no trauma or injury to the area, pain exacerbated with sitting up and moving tiwc-an-qnpw while she is supine. Physical exam at [...] infarction in her father, he had his [place] when he was 42 and to repeat [...] time. # Psoriatic arthritis: Patient follows with [facility] in [place]. Recently started on Skyrizi 150 mg injection. Will continue to monitor. Please follow-up with dermatology. # Hypothyroidism: The patient follows with [facility] in [facility]. TSH drawn through endocrinology and [...] log exercise and discussed fitness Apps like [employer] or [employer] which can help keep log off calories [...] Dictation was accomplished with the use of [employer] voice recognition software, which is prone to [...] pain exacerbated with sitting up and moving tuch-rc-jfzg while she is supine. Physical exam at [...] infarction in her father, he had his [place] when he was 42 and to repeat [...] time. # Psoriatic arthritis: Patient follows with [facility] in [place]. Recently started on Skyrizi 150 mg injection. Will continue to monitor. Please follow-up with dermatology. # Hypothyroidism: The patient follows with [facility] in [facility]. TSH drawn through endocrinology and [...] log exercise and discussed fitness Apps like [employer] or [employer] which can help keep log [...] Dictation was accomplished with the use of [employer] voice recognition software, which is prone to [...] pain exacerbated with sitting up and moving vjil-pl-rljr while she is supine. Physical exam at [...] infarction in her father, he had his [place] when he was 44 and to repeat [...] time. # Psoriatic arthritis: Patient follows with [facility] in [place]. Recently started on Skyrizi 150 mg injection. Will continue to monitor. Please follow-up with dermatology. # Hypothyroidism: The patient follows with [facility] in [facility]. TSH drawn through endocrinology and [...] log exercise and discussed fitness Apps like [employer] or [employer] which can help keep log off calories [...] Dictation was accomplished with the use of [employer] voice recognition software, which is prone to medical misidentifications and grammatical errors. This are unintentional and the practitioner does try to identify and correct these, but some could still be present. Please do not hesitate to contact practitioner for clarification. 03/13/2024 Acquired hypothyroidism (ICD-10 - E03.9) Angela is a -fatw-giv who presents to the office today for new patient evaluation. Patient is welcomed to the practice. They are coming from [facility] in [place], [place]. Last complete physical exam with labs over 1 year ago. Medications, medical history, allergies, surgeries, hospitalizations, family history, and social history were reviewed. Problem list updated. Cardiopulmonary and abdominal exam unremarkable. Patient will follow-up in office. All patient questions answered at this time. # Left upper quadrant pain: Patient reports experiencing left upper side pain that began a few weeks ago in her abdomen. Describes a dull intermittent ache, denies any trauma or injury to the area, pain is exacerbated with sitting up and moving ppee-ub-psjq when she is lying down in bed. On physical exam the abdomen is soft and mildly tender to palpation in the left upper quadrant. Upon inspection there is a noticeable protuberance on the left upper quadrant as well that is soft and mildly tender to palpation. She denies fever, chills, chest pain, shortness of breath, vomiting, nausea, diarrhea, fatigue, or weakness. Will order CT of the abdomen and pelvis with contrast to evaluate for any hernia or other abdominal pathology. Will continue to monitor. # Hypothyroidism: The patient follows with [facility] in [facility]. Will order new TSH at this time and will request last office note. Continue Tirosint 75 mcg in the morning on an empty stomach. Advised on proper use of medication and expected side effect profile. Will continue to monitor. # ADD: Patient is prescribed Adderall through her previous PCP. Patient states that this practice also had a psychiatry facility and she would like to stay with this provider in terms of prescribing this medication. Will request records. Continue Adderall at this time, advised on proper use of medication and expected side effect profile. At next visit we will discuss controlled substance license. Will continue to follow. # Vitamin D deficiency: Will get repeated [...] obesity medicine trained. Will continue to monitor. All questions have been answered to patient's satisfaction. Patient verbalized understanding of diagnosis and treatments explained. Advised to call sooner prior to next visit it any questions/concerns arise. Case discussed with collaborating physician Kelly Velázquez who reviewed the assessment and plan. Chart, medications, labs, vital signs reviewed. Dictation was accomplished with the use of [employer] voice recognition software, which is prone to medical misidentifications and grammatical errors. This are unintentional and the practitioner does try to identify and correct these, but some could still be present. Please do not hesitate to contact practitioner for clarification. 03/13/2024 Vitamin D deficiency (ICD-10 - E55.9) Angela is a [id number]-luw who presents to the office today for new patient evaluation. Patient is welcomed to the practice. They are coming from [email or web address] in [place], [place]. Last complete physical exam with labs over 1 year ago. Medications, medical history, allergies, surgeries, hospitalizations, family history, and social history were reviewed. Problem list updated. Cardiopulmonary and abdominal exam unremarkable. Patient will follow-up in office. All patient questions answered at this time. # Left upper quadrant pain: Patient reports experiencing left upper side pain that began a few weeks ago in her abdomen. Describes a dull intermittent ache, denies any trauma or injury to the area, pain is exacerbated with sitting up and moving nhjb-co-xhgh when she is lying down in bed. On physical exam the abdomen is soft and mildly tender to palpation in the left upper quadrant. Upon inspection there is a noticeable protuberance on the left upper quadrant as well that is soft and mildly tender to palpation. She denies fever, chills, chest pain, shortness of breath, vomiting, nausea, diarrhea, fatigue, or weakness. Will order CT of the abdomen and pelvis with contrast to evaluate for any hernia or other abdominal pathology. Will continue to monitor. # Hypothyroidism: The patient follows with [facility] in [facility]. Will order new TSH at this time and will request last office note. Continue Tirosint 75 mcg in the morning on an empty stomach. Advised on proper use of medication and expected side effect profile. Will continue to monitor. # ADD: Patient is prescribed Adderall through her previous PCP. Patient states that this practice also had a psychiatry facility and she would like to stay with this provider in terms of prescribing this medication. Will request records. Continue Adderall at this time, advised on proper use of medication and expected side effect profile. At next visit we will discuss controlled substance license. Will continue to follow. # Vitamin D deficiency: Will get repeated [...] obesity medicine trained. Will continue to monitor. All questions have been answered to patient's satisfaction. Patient verbalized understanding of diagnosis and treatments explained. Advised to call sooner prior to next visit it any questions/concerns arise. Case discussed with collaborating physician Kelly Velázquez who reviewed the assessment and plan. Chart, medications, labs, vital signs reviewed. Dictation was accomplished with the use of [employer] voice recognition software, which is prone to [...] pain exacerbated with sitting up and moving rltl-bm-ygie while she is supine. Physical exam at [...] infarction in her father, he had his [place] when he was 42 and to repeat [...] time. # Psoriatic arthritis: Patient follows with [facility] in [place]. Recently started on Skyrizi 150 mg injection. Will continue to monitor. Please follow-up with dermatology. # Hypothyroidism: The patient follows with [facility] in [facility]. TSH drawn through endocrinology and [...] log exercise and discussed fitness Apps like [employer] or [employer] which can help keep log [...] Dictation was accomplished with the use of [employer] voice recognition software, which is prone to medical misidentifications and grammatical errors. This are unintentional and the practitioner does try to identify and correct these, but some could still be present. Please do not hesitate to contact practitioner for clarification. 03/13/2024 Obesity (BMI 30-39.9) (ICD-10 - E66.9) Angela is a rxgihg44-jruu-exk who presents to the office today for new patient evaluation. Patient is welcomed to the practice. They are coming from [facility] in [place], [place]. Last complete physical exam with labs over 1 year ago. Medications, medical history, allergies, surgeries, hospitalizations, family history, and social history were reviewed. Problem list updated. Cardiopulmonary and abdominal exam unremarkable. Patient will follow-up in office. All patient questions answered at this time. # Left upper quadrant pain: Patient reports experiencing left upper side pain that began a few weeks ago in her abdomen. Describes a dull intermittent ache, denies any trauma or injury to the area, pain is exacerbated with sitting up and moving athx-mj-zcpo when she is lying down in bed. On physical exam the abdomen is soft and mildly tender to palpation in the left upper quadrant. Upon inspection there is a noticeable protuberance on the left upper quadrant as well that is soft and mildly tender to palpation. She denies fever, chills, chest pain, shortness of breath, vomiting, nausea, diarrhea, fatigue, or weakness. Will order CT of the abdomen and pelvis with contrast to evaluate for any hernia or other abdominal pathology. Will continue to monitor. # Hypothyroidism: The patient follows with [facility] in [facility]. Will order new TSH at this time and will request last office note. Continue Tirosint 75 mcg in the morning on an empty stomach. Advised on proper use of medication and expected side effect profile. Will continue to monitor. # ADD: Patient is prescribed Adderall through her previous PCP. Patient states that this practice also had a psychiatry facility and she would like to stay with this provider in terms of prescribing this medication. Will request records. Continue Adderall at this time, advised on proper use of medication and expected side effect profile. At next visit we will discuss controlled substance license. Will continue to follow. # Vitamin D deficiency: Will get repeated [...] obesity medicine trained. Will continue to monitor. All questions have been answered to patient's satisfaction. Patient verbalized understanding of diagnosis and treatments explained. Advised to call sooner prior to next visit it any questions/concerns arise. Case discussed with collaborating physician Kelly Velázquez who reviewed the assessment and plan. Chart, medications, labs, vital signs reviewed. Dictation was accomplished with the use of [employer] voice recognition software, which is prone to [...] pain exacerbated with sitting up and moving [id number] while she is supine. Physical exam at [...] infarction in her father, he had his [place] when he was 44 and to repeat [...] time. # Psoriatic arthritis: Patient follows with [facility] in [place]. Recently started on Skyrizi 150 mg injection. Will continue to monitor. Please follow-up with dermatology. # Hypothyroidism: The patient follows with [facility] in [facility]. TSH drawn through endocrinology and [...] log exercise and discussed fitness Apps like [employer] Networkspal or Swiftcourtometer which can help keep log off calories [...] Dictation was accomplished with the use of [employer] voice recognition software, which is prone to [...] pain exacerbated with sitting up and moving [id number] while she is supine. Physical exam at [...] infarction in her father, he had his [place] when he was 42 and to repeat [...] time. # Psoriatic arthritis: Patient follows with [facility] in [place]. Recently started on Skyrizi 150 mg injection. Will continue to monitor. Please follow-up with dermatology. # Hypothyroidism: The patient follows with [facility] in [facility]. TSH drawn through endocrinology and [...] log exercise and discussed fitness Apps like We[employer] or Swiftcourtometer which can help keep log off calories [...] Dictation was accomplished with the use of [employer] voice recognition software, which is prone to [...] pain exacerbated with sitting up and moving [id number]-[id number] while she is supine. Physical exam at [...] infarction in her father, he had his [place] when he was 44 and to repeat [...] time. # Psoriatic arthritis: Patient follows with [facility] in [place]. Recently started on Skyrizi 150 mg injection. Will continue to monitor. Please follow-up with dermatology. # Hypothyroidism: The patient follows with [facility] in [facility]. TSH drawn through endocrinology and [...] log exercise and discussed fitness Apps like [employer] or Cronometer which can help keep log [...] Dictation was accomplished with the use of [employer] voice recognition software, which is prone to medical misidentifications and grammatical errors. This are unintentional and the practitioner does try to identify and correct these, but some could still be present. Please do not hesitate to contact practitioner for clarification. PLAN OF TREATMENT Pending Test Test Name Order Date CT Abd and Pelvis w Contrast 03/13/2024 LIPID PANEL, STANDARD 03/13/2024 URINALYSIS, COMPLETE 03/13/2024 TSH 03/13/2024 VITAMIN D,25-OH,TOTAL,IA 03/13/2024 Next Appt Details Provider Name:GHASSAN LICEA , 10/02/2024 11:15:00 AM, [address], [address], [place], [address], Provider Name:HGASSAN LICEA , 04/16/2025 11:15:00 AM, [address] [facility], [facility] [address], [place], [address], Insurance Providers Payer Name Payer Address Payer Phone Subscriber Number Group Number Insured Name Patient Relationship to Insured Coverage Start Date Coverage End Date [facility] [address] [place] [address] [phone] [id number] Angela Encarnacion Self - patient is the insured MEDICAL (GENERAL) HISTORY Medical History History ICD Code high cholesterol weight gain/loss thyroid disease skin disease Hospitalization History Reason Date(Month/Year) breast argumentation 2012 right knee arthroscopy 2014
--- OUTSIDE RECORDS SUMMARY | 2024-08-10 08:33 | XMS_ITS | Clinical Summary ---
Author Organization [facility] Address [address] [place] [address] Care Team Providers Care Supplemental Nurse Name Role Phone Herson Pack MD Primary Care Provide r Allergies Active Allergy Reactions Criticality Noted Date Comments Clindamycin Hives,Anaphylaxis High 12/19/2009 hives Medications Medication Sig Dispensed Refills Start Date End Date Status [facility] D3 1000 units capsule Take by mouth daily. 11 01/18/2019 Active fluconazole (diFLUcan) 150 MG tabletIndications:Can dida vaginitis Take 1 tablet (150 mg total) by mouth once. 1 tablet 11/25/2021 Active metroNIDAZOLE (FLAGYL) 500 MG tabletIndications:BV (bacterial vaginosis) Take 1 tablet (500 mg total) by mouth 2 (two) times a day. Take with meals or food to reduce stomach upset. 14 tablet 11/25/2021 Active Tirosint 50 MCG Cap Take 1 capsule by mouth daily. 12/22/2022 Active Azstarys 52.3-10.4 MG Cap Take 1 tablet by mouth daily. 12/09/2022 Active spironolactone (ALDACTONE) 25 MG tablet 12/23/2022 Active Social History Tobacco Use Types Packs/Day Years Used Date Smoking Tobacco: Never Assessed Sex and Gender Information Value Date Recorded Sex Assigned at Not on file Gender Identity Not on file Sexual Orientation Not on file Last Filed Vital Signs Vital Sign Reading Time Taken Comments Blood Pressure 142/91 12/24/2022 4:15 PM EDT Pulse 113 12/24/2022 4:15 PM EDT Temperature 36.9 ??C (98.4 ??F) 12/24/2022 4:15 PM ED T Respiratory Rate - - Oxygen Saturation 99% 12/24/2022 4:15 PM EDT Inhaled Oxygen Concentration - - Weight - - Height - - Body Mass Index - - Plan of Treatment Health Maintenance Due Date Last Done Comments Hepatitis C Virus Screening 1987 HIV Screening 2000 DTaP/Tdap/Td Vaccines (1 - Tdap) 2006 Hepatitis B Vaccines (1 of 3 - 19+ 3-dose series) 2006 Pap Smear (Ages 21-65) 2008 Influenza Vaccine 01/12/2024 COVID-19 Vaccine (2 - 2023-2 5 season) 2024 08/29/2020 HPV Vaccines Aged Out No longer eligi ble based on patient's age to complete this topic Pneumococcal Vaccine: Pediat jovanna (0-5 Years) and At-Risk Patients (6 to 49 Years) Aged Out No longer eligible b ased on patient's age to complete this topic Care Teams Supplemental Nurse Relationship Specialty Start Date End Date Herson Pack MD [address] [place] [address] [place] [id number] PCP - General 06/22/22
--- OUTSIDE RECORDS SUMMARY | 2024-08-10 08:34 | XMS_ITS | Data Portability ---
Author Organization [place] [facility] Address [address] [place] [address] Care Team Providers Care Diesel Bus Mechanic Name Role Phone DANIEL URRUTIA Primary Care Provider Assessment Encounter Date Assessment Date Assessment LastModified by Organization Details LastModified Time 02/09/2024 02/09/2024 38-year-old female with posttraumatic right knee osteoarthritis. She is 8 years status post right knee arthroscopy with patellar chondroplasty and lateral release. Findings today are consistent with acute flare. I reviewed all of this with her and treatment options were discussed. She was given a referral to return to physical therapy as she would like to work on strengthening and endurance. I also offered her a cortisone injection which she accepted. She tolerated this very well. Postinjection instructions reviewed. Icing protocol reviewed. She would prefer to return to the office as needed. Questions invited and answered. Patient verbalizes understanding and agreement with plan. Patient was seen and evaluated by Kei iFsher PA-C in indirect conjunction with Documenting Provider: Brandt Rojas MD He/She agrees with history, physical examination, tests/diagnostic imaging, and treatment plan. Not available 02/09/2024 14:19:15 06/04/2024 06/04/2024 Patient symptoms are consistent with trigger finger. The anatomy was discussed in detail. She responded to a corticosteroid injection in the past and eager for an injection on today's visit. We also discussed her previous trial of Voltaren gel, splinting and oral anti-inflammatori es. She was eager for the injection under ultrasound guidance. Patient tolerated the injection well. Postinjection instructions given. Frequency of injection was reviewed. Patient will follow-up in 3 to 4 weeks if symptoms have not improved, sooner for any complications. All questions answered to their satisfaction. Patient was seen and evaluated by Christiano Vergara PA-C in indirect conjunction with Dr. Milian. The provider agrees with the history, physical examination, recommended tests/diagnostic imaging, and treatment plan. [email or web address] Not available 06/04/2024 14:39:13 Plan of Treatment Reminders Order Date Submit Date Provider Last Modified By Organization Details Last Modified Time Details Appointments None recorded. Lab None recorded. Referral None recorded. Procedures None recorded. Surgeries None recorded. Imaging XR, knee, 3 view 2023 sol 2 [facility], [address], [place] [address], [place], [address], 4 12:22:04 Medication Orders lidocaine (PF) 10 mg/mL (1 %) injection solution [address]/Pharmacy #[id number], [address] [place], [address], 4 16:10:20 triamcinolo ne acetonide 40 mg/mL suspension for injection 2023 [facility] 21 [facility]/Pharmacy #[id number], [address] [place], [address], 4 16:10:20 lidocaine (PF) 100 mg/5 mL (2 %) injection syringe 2023 024 [facility]/Pharmacy #[id number], [address] [place], [address], 4 15:36:32 triamcinolo ne acetonide 40 mg/mL suspension for injection 2023 024 [facility]/Pharmacy #[id number], [address] [place], [address], 4 15:36:34 Patient TargetsNo targets recorded. Patient Instructions Encounter Date Encounter Id Patient Instructions Last Modified By Organization Details Last Modified Time 02/09/2024 [id number] views of the right knee were obtained today 02/09/2024 in the [facility] office. There are moderate degenerative postsurgical changes In the patellofemoral and medial compartments. Perhaps slight patella andrea. Patella tracks centrally. No acute fracture or dislocation appreciated. 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 Interpreted by: Kei Fisher PA-C Not available 02/09/2024 14:16:30 Reason for Referral None Reported. Results Created Date Observation Date Name Description Value Unit Range Abnormal Flag Note LastModifiedBy Organization Detail LastModifiedTime 02/10/20 24 MRI, knee, w/o contr ast No observ ation record ed. aamoro Not Available 2023 15:44:16 Result Notes None recorded. 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 Procedures Surgical History Date Name Laterality Status Provider Name and Address Organization Details Recorded Time 4 LES trigger finger/De Quervain's injection completed CHRISTIANO VERGARA PA-C [address], [place], [address], [place] [facility] 06/04/2024 14:37:49 4 SAB Knee Inj w/o-US completed KEI FISHER PA-C [address], [place], [address], [place] [facility] 02/09/2024 10:55:09 operative procedure on knee completed Lacy Suarez [place] [facility] 06/04/2024 14:05:00 Imaging Results Imaging Date Name Status LastModified by Organiz ation Details LastModified Time 02/10/2024 MRI, knee, w/o contrast completed aamoro Information not available 02/10/2024 15:44:16 Procedure Notes None recorded. Medical Equipment None Reported. Allergies Allergen ID Allergen Name Allergen Category Reaction Reaction Severity Criticality Documentation Date Start Date Code Code System Note Provider Name and Address Organization Details Recorded Time clindamyc in Not available Not available Not available Not available 06/04/2024 2582 [facility], 14:00:06 Medications Name Sig Start Date Stop Date Status Note LastModified by Organization Details LastModified Time triamcinolo ne acetonide 40 mg/mL suspension for injection Take 20 mg by injection route. 06/04 completed Not Available Not Available Not Available lidocaine (PF) 10 mg/mL (1 %) injection solution Take 0.5 mL by injection route. 06/04 completed Not Available Not Available Not Available lidocaine (PF) 100 mg/5 mL (2 %) injection syringe Take 3 mL by injection route. 06/04 completed Not Available Not Available Not Available Vitals None Recorded Social History Question Answer Notes LastModified by Organizat ion Details LastModified Time Tobacco Smoking Status Never Smoker [facility], 06/04/2024 14:00:50 What Is Your Level Of Alcohol Consumption? None Information not available 06/04/2024 Do You Use Any Illicit Or Recreational Drugs? No Information not available 06/04/2024 Do You Or Have You Ever Used Any Other Forms Of Tobacco Or Nicotine? No Information not available 06/04/2024 Sex: Unknown Functional Status None recorded. Mental Status None recorded. Family History Relationship Description Onset Age of this Age Resolved Age Notes LastModified by Organization Details LastModified Time Mother Arthritis Not available 06/04/2024 14:03:07 Mother Hypercholest erolemia Not available 2023 14:03:41 Father Diabetes mellitus Not available 2023 14:03:16 Father Heart disease Not available 2023 14:03:30 Father Hypercholest erolemia Not available 2023 14:03:41 Father Hypertensive disorder Not available 2023 14:03:56 Medical History No medical history recorded. Gynecological HistoryNo gynecological history recorded. Obstetrics History GPAL:G 0 P 0 0 0 0 Past Encounters Encounter ID Performer Location Encounter Start Date Encounter Closed Date Diagnosis/Indication Diagnosis SNOMED-CT Code Diagnosis ICD10 Code Diagnosis Note [id number] Brandt Rojas MD [facility] [address] [address] 02/09/2024 10:20:49 02/09/2024 11:00:35 Pain of right knee region 4537979759 82983 M25.561 Gonarthros is of right knee due to and following trauma 6131631657 M17.31 History of operative procedure on knee 838298536 Z98.890 right knee arthroscop ic lateral release, chondropla sty 2016, Dr. Zimmerman, [facility] [id number] Katie Milian MD [facility] 113 [facility],[address] [address] 06/04/2024 12:55:33 06/04/2024 14:24:56 Triggering of digit 448673554 M65.332 Health Concerns Section Related Observation LastModified by Organization Detai ls LastModified Time None Recorded Concern Status LastModified by Organization Details LastModified Time None Recorded Advance Directives Directive None Recorded Payers Encounter Date Sequence Insurance Name Policy Number Policy Jones Covered Member ID Jones Member ID Guarantor Name 02/09/2024 1 [place]: [facility] [id number] A Angela Encarnacion [id number] 35 Angela Encarnacion 06/04/2024 1 [place]: SAM[place]EL [place] [id number] A Angela Encarnacion [id number] Angela Alysha Notes Date Note Type Note Provider Name and Address Organization Details Recorded Time 02/09/2024 text/html Pleasant 38-year -old female presents to the urgent care today for evaluation of acute on chronic right knee pain and swelling. 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 She had surgery for this in [address] Zimmerman at [facility]. Operative report indicates a right knee arthroscopic chondroplasty and lateral release. She has done generally well since her surgery but she has pain that waxes and wanes depending on her activity level, however approximately 2-3 weeks ago she had a significantly worsened episode of pain that has improved however she continues to have notable nighttime pain and feels that it is difficult to straighten the knee in the morning. She notes she did recently 1 vacation and was walking a lot more than usual. She started treating with 600 mg of Advil twice daily over the last 3 days and notes this has been very helpful. She rates her pain as about a 1 throughout the day but can be as bad as a 7 or 8 in the morning for about 30 minutes. She denies instability. Endorses clicking and crunching. 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 Medical history includes psoriasis and thyroid disease. Never smoker. KEI FISHER PA-C [address], [place], [address], [place] [facility] 02/09/2024 14:20:18 06/04/2024 text/html Patient is a 39-year-old female who presents today with pain in the left long finger. Symptoms started approximately 1 month ago without specific injury or trauma. She admits that she does about [address] Day. She gets locking in her finger and at times have difficulty extending it. She will get a pop or a snap when her finger finally releases. She had trigger finger on her right hand in the past and did respond to an injection. She feels like her finger is slightly swollen and has discomfort on the dorsum of her long finger over the DIP joint. 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 Past medical history significant for psoriatic arthritis. She denies alcohol tobacco or recreational drug use. CHRISTIANO VERGARA PA-C [address], [place], [address], [facility] 06/04/2024 14:40:33 OBGyn Episode No OBEpisode recorded.
--- OUTSIDE RECORDS SUMMARY | 2024-08-10 08:34 | XMS_ITS ---
Author Organization [facility] Address [address] [place] [address] Care Team Providers Care Crna Name Role Phone NIRANJANMARTHAGHASSAN Unavailable [phone] REASON FOR VISIT close note Encounters Encounter Location Date Provider Diagnosis [address] [place] [address] 05/02/2024 GHASSAN LICEA PLAN OF TREATMENT Next Appt Details Provider Name:GHASSAN LICEA , 10/02/2024 11:15:00 AM, [address], [address], [place], [address], Provider Name:GHASSAN LICEA , 04/16/2025 11:15:00 AM, [address], [facility], [place], [address], Progress Notes * Carolina GARNERaDOB:1984 (38 yo F)Acc No.[id number]:05/02/2024 Patient:??Angela GARNER :1985?Age:38 Y?Sex:Fe male Address:[address] [place] [address] * true * Date:??
[2024-08-10 08:51] LABS: Alanine Aminotransferase 28 U/L (0-31); Albumin Level 4.3 g/dL (3.5-5.0); Alkaline Phosphatase 75 U/L (39-117); Aspartate Amino Transferase 22 U/L (5-31); Bilirubin Direct < 0.2 mg/dL (0.0-0.5); Bilirubin Total 0.2 mg/dL (0.0-1.0); Cholesterol 254 mg/dL (<200); HDL Cholesterol 56 mg/dL (>40); LDL Cholesterol Calculated 181 mg/dL (<100); Total Protein 7.6 g/dL (6.5-8.0); Triglycerides 87 mg/dL (<150)
== END 2024-08-10 08:24 | disposition home or self-care (01) ==
LOC: HO.LAB 08:23
PROVIDERS: PCP Internal Medicine; Visit Provider Internal Medicine
DX: R00.0 Tachycardia, unspecified (principal)
CPT/HCPCS: 36415; 80061; 80076

== ENCOUNTER → 2024-08-13 10:27 | Outpatient (REF) | payer OTHER, SELFPAY ==
--- OUTSIDE RECORDS SUMMARY | 2024-08-13 12:08 | XMS_ITS | Data Portability ---
Author Organization [facility]ut[facility] Address [address] [address] Assessment No assessment recorded. Plan of Treatment [...] and Address Organization Details Recorded Time Hypothyroidism 80946383 Active 2020 Not Available [facility] 19:26:20 Attention deficit hyperactivity disorder, combined type 20973151 Active 2020 Not Available [facility] 19:26:20 Problem Notes None recorded. Medical Equipment [...] Not Available Not Available No t Available [place] Thyroid 15 mg tablet TAKE 1 TABLET [...] mcg/0.3 mL dose 09/20/2020 completed Harpreet miranda [place] [facility] 11/07/2020 13:36:37 Past Encounters Encounter ID Performer Location Encounter Start Date Encounter Closed Date Diagnosis/Indication Diagnosis SNOMED-CT Code Diagnosis ICD10 Code Diagnosis Note [id number] Herson Urrutia MD Main Office [address] [address] 09/19/2023 10:35:09 09/19/2023 13:27:03 Attention deficit hyperactivity disorder, combined type 59860316 F90.2 Patient has no complaints her ADHD is well managed. Depressive disorder 7400 9005 F32.9 Patient states since starting Auvel[facility] she [...] Name 09/19/2023 1 [place]: [place]EL BCBS [place] [id number] A Angela Encarnacion [id number] 35 Angela Encarnacion Notes Date Note Type [...] lacking sleep.) Herson Urrutia MD [address], [address], [facility] [employer]one its learning 09/21/2023 08:01:08 OBGyn Episode No OBEpisode recorded.
--- OUTSIDE RECORDS SUMMARY | 2024-08-13 12:08 | XMS_ITS | Clinical Summary ---
Author Organization [facility] Address [address] [place] [address] Care Team Providers Care Construction Teacher Name Role Phone Herson Pack MD Primary [...] age to complete this topic Care Teams Construction Teacher Relationship Specialty Start Date End Date Herson Pack MD [address] [place] [address] PCP - General Casting Coordinator 09/20/22
--- OUTSIDE RECORDS SUMMARY | 2024-08-13 12:09 | XMS_ITS | Clinical Summary ---
Author Organization [facility] Address [address] [place] [address] Care Team Providers Care Ribbon Inker Name Role Phone Herson Pack MD Primary [...] age to complete this topic Care Teams Ribbon Inker Relationship Specialty Start Date End Date Herson Pack MD [address] [place] [address] [place] [address] PCP - General 06/22/22
--- OUTSIDE RECORDS SUMMARY | 2024-08-13 12:09 | XMS_ITS ---
Author Organization [facility] Address [address] [place] [address] Care Team Providers Care Emergency Response Officer Name Role Phone NIRANJANMARTHA GHASSAN Unavailable [phone] REASON FOR VISIT fax coronary calcium CT MEDICATIONS Medication SIG (Take, Route, Frequency, Duration) Notes Start Date End Date Status Rosuvastatin Calcium 5 MG 1 tablet Orall y Once a day for 90 days 08/07/2024 Active Encounters Encounter Location Date Provider Diagnosis [address] [place] [address] 08/06/2024 GHASSAN LICEA PLAN OF TREATMENT Medication Medication Name Sig Start Date Stop Date Notes Rosuvastatin Calcium 5 MG 1 tablet Orall y Once a day for 90 days 08/07/2024 Next Appt Details Provider Name:GHASSAN LICEA , 10/02/2024 11:15:00 AM, [address] [facility], [facility] [address], [place], [address], Provider Name:GHASSAN LICEA , 04/16/2025 11:15:00 AM, [address] [facility], [facility] [address], [place], [address], Progress Notes * Сергей GARNERB:1984 (39 yo F)Acc No.[id number]:08/06/2024 Patient:??Angela GARNER :1985?Age:39 Y?Sex:Fe male Address:[address] [place] [address] * Refills?? Start Rosuvastatin Calcium Tablet, 5 MG, Orally, 90 Tablet, 1 tablet, Once a day, 90 days, Refills=1 * true * Date:??
--- OUTSIDE RECORDS SUMMARY | 2024-08-13 12:09 | XMS_ITS | Clinical Summary ---
Author Organization [facility] Address [address] [place] [address] Phone Care Team Providers Care Private Branch Exchange Installer Name Role Phone Brenna Pack MD [...] Surgery Date Site/Laterality Comments COLONOSCOPY 08/30/2007 PROCEDURE: [place] COLONOSCOPY FLX DX W/COLLJ SPEC WHEN PFRMD; [...] age to complete this topic Care Teams Private Branch Exchange Installer Relationship Specialty Start Date End Date Brenna Pack MD [address] [place] [address] [place] [address] PCP - General 09/20/22
--- OUTSIDE RECORDS SUMMARY | 2024-08-13 12:09 | XMS_ITS ---
Author Organization [facility] Address [address] [place] [address] Care Team Providers Care Computer Systems Support Specialist Name Role Phone GHASSAN LICEA Unavailable [phone] ALLERGIES Allergen (clinical drug ingredient) Drug/Non Drug [...] not requiring statin therapy (E78.2) Active confirmed [id number] Problem Psoriatic arthritis (L40.50) Active confirmed [id number] VITAL SIGNS Blood pressure systolic 120 mm Hg 04/12/20 24 Blood pressure diastolic 82 mm Hg 024 Heart Rate 95 /min 04/12/2024 Height 61 in 04/12/2024 Weight 180 lbs 04/12/2024 BMI 34.01 kg/m2 04/12/2024 Oximetry 97 % 04/12/2024 Encounters Encounter Location Date Provider Diagnosis [facility] 119 [address] [facility] 119 [place] [address] 04/12/2024 GHASSAN LICEA Adult general medica l [...] pain exacerbated with sitting up and moving vrck-tf-zhjq while she is supine. Physical exam at [...] infarction in her father, he had his NV when he was 44 and to repeat [...] time. # Psoriatic arthritis: Patient follows with [facility] in [place]. Recently started on Skyrizi 150 mg injection. Will continue to monitor. Please follow-up with dermatology. # Hypothyroidism: The patient follows with [facility] in [facility]. TSH drawn through endocrinology and [...] log exercise and discussed fitness Apps like Jootapal or LeanWagonometer which can help keep log off calories [...] Dictation was accomplished with the use of [employer] voice recognition software, which is prone to [...] pain exacerbated with sitting up and moving hzvw-lr-omrw while she is supine. Physical exam at [...] infarction in her father, he had his NV when he was 42 and to repeat [...] time. # Psoriatic arthritis: Patient follows with [facility] in [place]. Recently started on Skyrizi 150 mg injection. Will continue to monitor. Please follow-up with dermatology. # Hypothyroidism: The patient follows with [facility] in [facility]. TSH drawn through endocrinology and [...] log exercise and discussed fitness Apps like MyGoodPoints or Cronometer which can help keep log [...] Dictation was accomplished with the use of [employer] voice recognition software, which is prone to [...] pain exacerbated with sitting up and moving dmyi-ez-xmfs while she is supine. Physical exam at [...] infarction in her father, he had his NV when he was 42 and to repeat [...] time. # Psoriatic arthritis: Patient follows with [facility] in [place]. Recently started on Skyrizi 150 mg injection. Will continue to monitor. Please follow-up with dermatology. # Hypothyroidism: The patient follows with [facility] in [facility]. TSH drawn through endocrinology and [...] log exercise and discussed fitness Apps like MyGoodPoints or LeanWagonometer which can help keep log off calories [...] Dictation was accomplished with the use of [employer] voice recognition software, which is prone to [...] pain exacerbated with sitting up and moving ilve-bl-bqam while she is supine. Physical exam at [...] infarction in her father, he had his NV when he was 44 and to repeat [...] time. # Psoriatic arthritis: Patient follows with [facility] in [place]. Recently started on Skyrizi 150 mg injection. Will continue to monitor. Please follow-up with dermatology. # Hypothyroidism: The patient follows with [facility] in [facility]. TSH drawn through endocrinology and [...] log exercise and discussed fitness Apps like Jootapal or Cronometer which can help keep log [...] Dictation was accomplished with the use of [employer] voice recognition software, which is prone to [...] pain exacerbated with sitting up and moving hnse-gb-xoih while she is supine. Physical exam at [...] infarction in her father, he had his NV when he was 42 and to repeat [...] time. # Psoriatic arthritis: Patient follows with [facility] in [place]. Recently started on Skyrizi 150 mg injection. Will continue to monitor. Please follow-up with dermatology. # Hypothyroidism: The patient follows with [facility] in [facility]. TSH drawn through endocrinology and [...] log exercise and discussed fitness Apps like MyGoodPoints or LeanWagonometer which can help keep log off calories [...] Dictation was accomplished with the use of [employer] voice recognition software, which is prone to [...] pain exacerbated with sitting up and moving vyzf-km-qyea while she is supine. Physical exam at [...] infarction in her father, he had his NV when he was 42 and to repeat [...] time. # Psoriatic arthritis: Patient follows with [facility] in [place]. Recently started on Skyrizi 150 mg injection. Will continue to monitor. Please follow-up with dermatology. # Hypothyroidism: The patient follows with [facility] in [facility]. TSH drawn through endocrinology and [...] log exercise and discussed fitness Apps like MyGoodPoints or LeanWagonometer which can help keep log off calories [...] Dictation was accomplished with the use of [employer] voice recognition software, which is prone to [...] pain exacerbated with sitting up and moving sofh-mg-sbrc while she is supine. Physical exam at [...] infarction in her father, he had his NV when he was 42 and to repeat [...] time. # Psoriatic arthritis: Patient follows with [facility] in [place]. Recently started on Skyrizi 150 mg injection. Will continue to monitor. Please follow-up with dermatology. # Hypothyroidism: The patient follows with [facility] in [facility]. TSH drawn through endocrinology and [...] log exercise and discussed fitness Apps like Jootapal or Cronometer which can help keep log [...] Dictation was accomplished with the use of [employer] voice recognition software, which is prone to medical misidentifications and grammatical errors. This are unintentional and the practitioner does try to identify and correct these, but some could still be present. Please do not hesitate to contact practitioner for clarification. PLAN OF TREATMENT Next Appt Details Provider Name:GHASSAN LICEA , 10/02/2024 11:15:00 AM, [address] [facility], [place], [address], [address], Provider Name:GHASSAN LICEA , 04/16/2025 11:15:00 AM, [address] [facility] [place], [facility] [address], [place], [address], Progress Notes * Сергей GARNERB:1984 (38 yo F)Acc No.[id number]:04/12/2024 CPE Patient:??Angela GARNER Provider:??GHASSAN LICEA :1985?Age:38 Y?Sex:Fe male Date:04/12/2024 Address:[address] [place], [place] [id number] Subjective: * Chief Complaints: * ?1. Pt [...] lenses, possible fractures once annually ?Women's health: [facility], Mandie Houser CNM ?Endocrine: [facility] in [place], [place] for management of hypothyroidism ?Dermatology: [facility] in [place], just started [facility]. 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 She feels safe in [...] and lower extremities 5/5 strength with flexion/extension. Electronic Imager strength 5/5. Sensation intact. ?Neuro: CN II-XI [...] pain exacerbated with sitting up and moving glcf-cd-ejgx while she is supine. Physical exam at [...] infarction in her father, he had his NV when he was 44 and to repeat [...] time. # Psoriatic arthritis: Patient follows with [facility] in [place]. Recently started on Skyrizi 150 mg injection. Will continue to monitor. Please follow-up with dermatology. # Hypothyroidism: The patient follows with [facility] in [facility]. TSH drawn through endocrinology and [...] log exercise and discussed fitness Apps like Jootapal or Cronometer which can help keep log [...] Dictation was accomplished with the use of [employer] voice recognition software, which is prone to medical misidentifications and grammatical errors. This are unintentional and the practitioner does try to identify and correct these, but some could still be present. Please do not hesitate to contact practitioner for clarification. Plan: * Treatment: * Images: Billing Information: * Visit Code:?? 37629 Preventive Care Est Pt. Age 18-39. * [...] lenses, possible fractures once annually Women's health: [facility], Mandie Houser CNM Endocrine: [facility] in [place], [place] for management of hypothyroidism Dermatology: [facility] in [place], just started [facility]. 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 She feels safe in [...] and lower extremities 5/5 strength with flexion/extension. Electronic Imager strength 5/5. Sensation intact. Neuro: CN II-XI grossly intact. Steady gait with ambulation observed. Symmetric reflexes. Psych: Stable mood and affect
--- OUTSIDE RECORDS SUMMARY | 2024-08-13 12:09 | XMS_ITS ---
Author Organization [facility] Address [address] [place] [address] Care Team Providers Care Hotel Or Motel Manager Name Role Phone NIRANJANMARTHAGHASSAN Unavailable [phone] REASON FOR VISIT close note Encounters Encounter Location Date Provider Diagnosis [address] [facility] [address] [place] [address] 05/02/2024 GHASSAN LICEA PLAN OF TREATMENT Next Appt Details Provider Name:GHASSAN LICEA , 10/02/2024 11:15:00 AM, [address], [facility] [address], [place], [address], Provider Name:GHASSAN LICEA , 04/16/2025 11:15:00 AM, [address], [facility] [address], [place], [address], Progress Notes * Carolina GARNERaDOB:1984 (38 yo F)Acc No.[id number]:05/02/2024 Patient:??Angela GARNER :1985?Age:38 Y?Sex:Fe male Address:[address] [place] [id number] * true * Date:??
== END ==
LOC: HO.CARD 10:27
PROVIDERS: PCP Internal Medicine; Visit Provider Internal Medicine
DX: R00.0 Tachycardia, unspecified (principal); R00.2 Palpitations
CPT/HCPCS: 93242

== ENCOUNTER → 2024-08-13 10:31 | Outpatient (BNV) | payer OTHER, SELFPAY | PROVIDERS: PCP Internal Medicine; Visit Provider Internal Medicine | DX: R00.0 Tachycardia, unspecified (principal) | CPT/HCPCS: 93244 ==

== ENCOUNTER → 2024-08-17 08:04 | Outpatient (REF) | payer OTHER, SELFPAY ==
--- NOTE | 2024-08-17 08:07 | CA_ITS ---
Transthoracic Echocardiogram Patient (Last, First, Middle): Angela Encarnacion, Gender: Female Date of : 1985 Age: 39 Procedure Date: 08/17/2024 Procedure Type: Transthoracic Echocardiogram Location: OP Height: 160.02 cm Weight: 81.65 kg BSA: 1.85 m2 Heart Rate: bpm BP: 124 / 80 mmHg Integrity Engineer: Anthony MD: Paolo Leiva MD Elementary Education Tutor: Rob Harper MD Symptoms: R00.0 - Tachycardia, unspecified Study Quality: Fair/contrast ECG Rhythm: Sinus Conclusions: - 1. Technically limited study 2. Hyperdynamic LVEF of greater than 70% 3. Normal cardiac valvular Dopplers Findings Procedure Information Contrast agent, definity, is being given per protocol without apparent complications. Left Ventricle The left ventricle was not well visualized. Normal left ventricular cavity size. The left ventricular systolic function is hyperdynamic. The visually estimated ejection fraction is >70%. Diastolic function is indeterminate on the basis of available data. Right Ventricle Normal right ventricular cavity size. Atria The left atrium was not well visualized. Interatrial shunt cannot be excluded. The right atrium was not well visualized. Aortic Valve The aortic valve structure and function is likely normal. There is no aortic valve stenosis. There is no aortic valve regurgitation. Mitral Valve Likely normal mitral valve structure and function. There is no mitral valve regurgitation. There is no mitral valve stenosis. Pulmonic Valve The pulmonic valve was not well visualized. Tricuspid Valve The tricuspid valve was not well visualized. Tricuspid regurgitation envelope is inadequate for calculation of right ventricular systolic pressure. Normal right atrial pressure. Great Vessels The aorta was not well visualized. The pulmonary artery was not well visualized. Venous The inferior vena cava was not well visualized. Pericardium/Pleural The pericardium was not well visualized. Prior Study Comparison No prior study available for comparison. Measurements 2D Linear Measurements IVSd: 1.12 0.6-0.9/0.6-1.0 cm LVIDd: 3.67 3.9-5.3/4.2-5.9 cm LVIDd Index: 1.98 2.4-3.2/2.2-3.1 cm/m2 LVIDs: 2.05 2.0-3.6 cm LVPWd: 1.02 0.7-1.1 cm Ao Root: 2.90 2.1-3.5 cm LA Diam: 3.70 2.7-3.8/3.0-4.0 cm LAIDs Index: 2.00 1.5-2.3 cm/m2 LV Mass: 152.56 67-162/88-224 g LV Mass Index: 82.46 43-95/49-115 g/m2 LVOT Diam: 2.20 3.0+(-)1.3 cm Mitral Valve MV Pk E: 0.95 MV Decel Time: 138.00 E'Lateral: 15.20 E'Medial: 18.30 E/E' Med: 5.20 E/E' Lat: 6.20 PHT: 40.00 MVA PHT: 5.50 Decel Cow[place]: 6.86 Aortic Valve AoV Pk Darron: 1.19 AoV Mn Darron: 0.78 AoV VTI: 0.22 AoV Pk Grad: 6.00 Aov Mn Grad: 3.00 ARELIS Cont.VTI: 2.77 LVOT LVOT Pk Darron: 0.86 LVOT Mn Darron: 0.56 LVOT VTI: 0.16 LVOT Pk Grad: 3.00 LVOT Mn Grad: 2.00 LVOT Diam: 2.20 LVOT Area: 3.80 Diastolic Function MV Pk E: 0.95 E'Medial: 18.30 E/E' Med: 5.20 E' Laterial: 15.20 E/E' Lat: 6.20 Right Ventricle TAPSE (mm): 26.40 TVS' Darron: 15.20 Tricuspid Valve TR Pk Darron: 1.57 TR Pk Grad: 10.00 Great Vessels Aorta Ao Root-2D: 2.90 2.0-3.7 cm Ao Asc: 3.20 2.1-3.4 cm Pulmonary Valve PV Pk Darron: 1.12 Peak PV Grad: 5.00 Updated in Other Vendor System with Status of Final Rob Harper MD electronically signed on 08/18/2024 1:40:38 PM with status of Final
--- OUTSIDE RECORDS SUMMARY | 2024-08-17 08:10 | XMS_ITS | Clinical Summary ---
Author Organization [facility] Address [address] [place] [address] Care Team Providers Care Laser Machine Operator Name Role Phone Herson Pack MD Primary [...] age to complete this topic Care Teams Laser Machine Operator Relationship Specialty Start Date End Date Herson Pack MD [address] [place] [address] [place] [address] PCP - General 06/22/22
--- OUTSIDE RECORDS SUMMARY | 2024-08-17 08:10 | XMS_ITS ---
[...] Dictation was accomplished with the use of [employer] voice recognition software, which is prone to [...] pain exacerbated with sitting up and moving gfsr-ki-kssh while she is supine. Physical exam at [...] infarction in her father, he had his NH when he was 42 and to repeat [...] time. # Psoriatic arthritis: Patient follows with [facility] in [place]. Recently started on Skyrizi 150 mg injection. Will continue to monitor. Please follow-up with dermatology. # Hypothyroidism: The patient follows with [facility] in [facility]. TSH drawn through endocrinology and is within [...] log exercise and discussed fitness Apps like zerobound or Liquid Stateometer which can help keep log off calories [...] Dictation was accomplished with the use of [employer] voice recognition software, which is prone to [...] pain exacerbated with sitting up and moving iiau-ya-blwj while she is supine. Physical exam at [...] infarction in her father, he had his NH when he was 42 and to repeat [...] time. # Psoriatic arthritis: Patient follows with [facility] in [place]. Recently started on Skyrizi 150 mg injection. Will continue to monitor. Please follow-up with dermatology. # Hypothyroidism: The patient follows with [facility] in [facility]. TSH drawn through endocrinology and is within [...] log exercise and discussed fitness Apps like [employer] or Cronometer which can help keep log [...] Dictation was accomplished with the use of [employer] voice recognition software, which is prone to [...] pain exacerbated with sitting up and moving rmdj-dr-cdol while she is supine. Physical exam at [...] infarction in her father, he had his NH when he was 42 and to repeat [...] time. # Psoriatic arthritis: Patient follows with [facility] in [place]. Recently started on Skyrizi 150 mg injection. Will continue to monitor. Please follow-up with dermatology. # Hypothyroidism: The patient follows with [facility] in [facility]. TSH drawn through endocrinology and is within [...] log exercise and discussed fitness Apps like zerobound or Liquid Stateometer which can help keep log off calories [...] Dictation was accomplished with the use of [employer] voice recognition software, which is prone to [...] pain exacerbated with sitting up and moving vwnf-sk-sxlb while she is supine. Physical exam at [...] infarction in her father, he had his NH when he was 42 and to repeat [...] time. # Psoriatic arthritis: Patient follows with [facility] in [place]. Recently started on Skyrizi 150 mg injection. Will continue to monitor. Please follow-up with dermatology. # Hypothyroidism: The patient follows with [facility] in [facility]. TSH drawn through endocrinology and is within [...] log exercise and discussed fitness Apps like [employer] or Liquid Stateometer which can help keep log off calories [...] Dictation was accomplished with the use of [employer] voice recognition software, which is prone to medical misidentifications and grammatical errors. This are unintentional and the practitioner does try to identify and correct these, but some could still be present. Please do not hesitate to contact practitioner for clarification. PLAN OF TREATMENT Next Appt Details Provider Name:GHASSAN LICEA , 10/02/2024 11:15:00 AM, [address] [facility], [facility] [address], [place], [address], Provider Name:GHASSAN LICEA , 04/16/2025 11:15:00 AM, [address] [facility], [facility] [address], [place], [address], Progress Notes * Carolina GARNERaDOB:1984 (38 yo F)Acc No.[id number]:04/12/2024 CPE Patient:??Angela GARNER Provider:??GHASSAN LICEA :1985?Age:38 Y?Sex:Fe male Date:04/12/2024 Address:[address] [place], [place] [id number] Subjective: * Chief Complaints: * ?1. Pt [...] lenses, possible fractures once annually ?Women's health: [facility], Mandie Houser, CNM ?Endocrine: [facility] in [place], [place] for management of hypothyroidism ?Dermatology: [facility] in [place], just started [facility]. 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 She feels safe in [...] gain/loss, Thyroid disease, Skin disease. * Surgical History:??Denies Vazquez escalante Surgical History. * Hospitalization/Major Diagno [...] and lower extremities 5/5 strength with flexion/extension. Magnet Placer strength 5/5. Sensation intact. ?Neuro: CN II-XI [...] pain exacerbated with sitting up and moving zvur-sh-omui while she is supine. Physical exam at [...] infarction in her father, he had his NH when he was 42 and to repeat [...] time. # Psoriatic arthritis: Patient follows with [facility] in [place]. Recently started on Skyrizi 150 mg injection. Will continue to monitor. Please follow-up with dermatology. # Hypothyroidism: The patient follows with [facility] in [facility]. TSH drawn through endocrinology and is within [...] log exercise and discussed fitness Apps like zerobound or Liquid Stateometer which can help keep log off calories [...] Dictation was accomplished with the use of [employer] voice recognition software, which is prone to medical misidentifications and grammatical errors. This are unintentional and the practitioner does try to identify and correct these, but some could still be present. Please do not hesitate to contact practitioner for clarification. Plan: * Treatment: * Images: Billing Information: * Visit Code:?? 61997 Preventive Care Est Pt. Age 18-39. * [...] lenses, possible fractures once annually Women's health: [facility], Mandie Houser CNM Endocrine: [facility] in [place], [place] for management of hypothyroidism Dermatology: [facility] in [place], just started [facility]. 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 She feels safe in [...] and lower extremities 5/5 strength with flexion/extension. Magnet Placer strength 5/5. Sensation intact. Neuro: CN II-XI grossly intact. Steady gait with ambulation observed. Symmetric reflexes. Psych: Stable mood and affect Progress note - 04/12/2024 Created on: August 17, 2024 Angela Garnre : 1985 Sex: Female Author Organization [facility] Address [address] [place] [address] Care Team Providers Care Sales Marketing Coordinator Name Role Phone GHASSAN LICEA Unavailable [phone] ALLERGIES Allergen (clinical drug ingredient) Drug/Non Drug [...] not requiring statin therapy (E78.2) Active confirmed [id number] Problem Psoriatic arthritis (L40.50) Active confirmed [id number] VITAL SIGNS Heart Rate 95 /min 04/12/2024 Blood pressure systolic 120 mm Hg 04/12/20 24 Blood pressure diastolic 82 mm Hg 024 Weight 180 lbs 04/12/2024 BMI 34.01 kg/m2 04/12/2024 Height 61 in 04/12/2024 Oximetry 97 % 04/12/2024 Encounters Encounter Location Date Provider Diagnosis [facility] [address] [facility] [address] [place] [address] [place] [address] 04/12/2024 GHASSAN LICEA Adult general medica l [...] pain exacerbated with sitting up and moving qnsn-ih-ybwo while she is supine. Physical exam at [...] infarction in her father, he had his NH when he was 42 and to repeat [...] time. # Psoriatic arthritis: Patient follows with [facility] in [place]. Recently started on Skyrizi 150 mg injection. Will continue to monitor. Please follow-up with dermatology. # Hypothyroidism: The patient follows with [facility] in [facility]. TSH drawn through endocrinology and is within [...] log exercise and discussed fitness Apps like [employer] or Cronometer which can help keep log [...] Dictation was accomplished with the use of [employer] voice recognition software, which is prone to [...] pain exacerbated with sitting up and moving enpf-tk-djwc while she is supine. Physical exam at [...] infarction in her father, he had his NH when he was 42 and to repeat [...] time. # Psoriatic arthritis: Patient follows with [facility] in [place]. Recently started on Skyrizi 150 mg injection. Will continue to monitor. Please follow-up with dermatology. # Hypothyroidism: The patient follows with [facility] in [facility]. TSH drawn through endocrinology and is within [...] log exercise and discussed fitness Apps like [employer] or Cronometer which can help keep log [...] Dictation was accomplished with the use of [employer] voice recognition software, which is prone to [...] pain exacerbated with sitting up and moving irfo-br-kqrs while she is supine. Physical exam at [...] infarction in her father, he had his NH when he was 44 and to repeat [...] time. # Psoriatic arthritis: Patient follows with [facility] in [place]. Recently started on Skyrizi 150 mg injection. Will continue to monitor. Please follow-up with dermatology. # Hypothyroidism: The patient follows with [facility] in [facility]. TSH drawn through endocrinology and is within [...] log exercise and discussed fitness Apps like zerobound or [employer] which can help keep log off calories [...]
--- OUTSIDE RECORDS SUMMARY | 2024-08-17 08:10 | XMS_ITS | Clinical Summary ---
Author Organization [facility] Address [address] [place] [address] Care Team Providers Care Bread Distributor Name Role Phone Herson Pack MD Primary [...] age to complete this topic Care Teams Bread Distributor Relationship Specialty Start Date End Date Herson Pack MD [address] [place] [id number] PCP - General Blueberry Grower 09/20/22
--- OUTSIDE RECORDS SUMMARY | 2024-08-17 08:10 | XMS_ITS | Data Portability ---
Author Organization GIBRAN - Ramone Lanyrd, [employer] Address [address] [address] Assessment No assessment recorded. Plan of Treatment [...] instructions recorded. Reason for Referral None Reported. Results Created Date Observation Date Name Description Value Unit Range Abnormal Flag Note LastModifiedBy Organization Detail LastModifiedTime Result Notes None recorded. Problems Name Problem SNOMED Code Status Onset Date Resolution Date Notes Provider Name and Address Organization Details Recorded Time Hypothyroidism 33163377 Active 2020 Not Available [facility] 19:26:20 Attention deficit hyperactivity disorder, combined type 23857562 Active 2020 Not Available [facility] 19:26:20 Problem Notes None recorded. Medical Equipment [...] BY MOUTH EVERY DAY FOR 5 DAYS 03/24 /2021 completed Not Available Not Available Not Available [...] Not Available Not Available No t Available [facility] 15 mg tablet TAKE 1 TABLET [...] PF, 30 mcg/0.3 mL dose 09/20/2020 completed GIBRAN Llamas Ramone Celletra 11/07/2020 13:36:37 Past Encounters Encounter ID Performer Location Encounter Start Date Encounter Closed Date Diagnosis/Indication Diagnosis SNOMED-CT Code Diagnosis ICD10 Code Diagnosis Note [id number] Herson Urrutia MD Main Office [address] [address] 09/19/2023 10:35:09 09/19/2023 13:27:03 Attention deficit hyperactivity disorder, combined type 66830400 F90.2 Patient has no complaints her ADHD is well managed. Depressive disorder 7995 4267 F32.9 Patient states since starting Au[facility] she [...] Name 09/19/2023 1 [place]: SAMUEL BCBS ([place]) [id number] A Angela Encarnacion [id number] 35 Angela Encarnacion Notes Date Note Type [...] she has noticed some minor weight gain.);insomnia(Pa mague states since starting [facility] she has been lacking sleep.) Herson Urrutia MD [address], [address], [facility] 09/21/2023 08:01:08 OBGyn Episode No OBEpisode recorded.
--- OUTSIDE RECORDS SUMMARY | 2024-08-17 08:11 | XMS_ITS | Data Portability ---
Author Organization [place] [facility] [place] Address [address] [place] [address] Care Team Providers Care Tank Crewmember Name Role Phone DANIEL URRUTIA Primary Care [...] Patient was seen and evaluated by Kei Fisher PA-C in indirect conjunction with Documenting Provider: [...] examination, recommended tests/diagnostic imaging, and treatment plan. [email or web address] Not available 06/04/2024 14:39:13 Plan of Treatment Reminders Order Date Submit Date Provider Last Modified By Organization Details Last Modified Time Details Appointments None recorded. Lab None recorded. Referral None recorded. Procedures None recorded. Surgeries None recorded. Imaging XR, knee, 3 view 2023 sol 2 [facility], [address], [place] [address], [place], [address], 4 12:22:04 Medication Orders lidocaine (PF) 10 mg/mL (1 %) injection solution [address]/Pharmacy #[id number], [address] [place], [address], 4 16:10:20 triamcinolo ne acetonide 40 mg/mL suspension for injection 2023 [facility] 21 [facility]/Pharmacy #[id number], [address] [place], [address], 4 16:10:20 lidocaine (PF) 100 mg/5 mL (2 %) injection syringe 2023 024 [facility]/Pharmacy #[id number], [address] [place], [address], 4 15:36:32 triamcinolo ne acetonide 40 mg/mL suspension for injection 2023 024 [facility]/Pharmacy #[id number], [address] [place], [address], 4 15:36:34 Patient TargetsNo targets recorded. Patient Instructions Encounter Date Encounter Id Patient Instructions Last Modified By Organization Details Last Modified Time 02/09/2024 [id number] views of the right knee were obtained today 02/09/2024 in the [place] office. There are moderate degenerative postsurgical changes [...] right knee due to and following trauma 5897882121 Active 2023 KEI FISHER PA-C [address], [place], [address], [place] [facility] 4 13:58:42 Problem Notes None recorded. Procedures Surgical History Date Name Laterality Status Provider Name and Address Organization Details Recorded Time 4 LES trigger finger/De Quervain's injection completed CHRISTIANO VERGARA PA-C [address], [place], [address], [place] [facility] 06/04/2024 14:37:49 4 SAB Knee Inj w/o-US completed KEI FISHER PA-C [address], [place], [address], [place] [facility] 02/09/2024 10:55:09 operative procedure on knee completed Lacy Suarez [place] [facility] 06/04/2024 14:05:00 Imaging Results Imaging Date [...] Not available Not available 06/04/2024 [id number] [facility], 14:[facility]:06 Medications Name Sig Start Date Stop [...] LastModified Time Tobacco Smoking Status Never Smoker [facility], 06/04/2024 14:00:50 What Is Your Level Of [...] SNOMED-CT Code Diagnosis ICD10 Code Diagnosis Note [id number] Brandt Rojas MD [facility] [address] [address] 02/09/2024 10:20:49 02/09/2024 11:00:35 Pain of right knee region 7572759135 76926 M25.561 Gonarthros is of right knee due to and following trauma 4350684667 M17.31 History of operative procedure on knee 032838765 Z98.890 right knee arthroscop ic lateral release, chondropla sty 2016, Dr. Zimmerman, [facility] [id number] Katie Milian MD [facility] 113 [facility],[address] [address] 06/04/2024 12:55:33 06/04/2024 14:24:56 Triggering of digit 879523981 M65.332 Health Concerns Section Related Observation LastModified by Organization Detai ls LastModified Time None Recorded Concern Status LastModified by Organization Details LastModified Time None Recorded Advance Directives Directive None Recorded Payers Encounter Date Sequence Insurance Name Policy Number Policy Jones Covered Member ID Jones Member ID Guarantor Name 02/09/2024 1 BS-[place]: SAMUEL [facility] [id number] A Angela Encarnacion [id number] Angela Encarnacion 06/04/2024 1 [place]: SAMUEL BS [id number] A Angela Encarnacion [id number] Angela Alysha Notes Date Note Type [...] this in [address] Zimmerman at [facility]. Operative report indicates a right knee [...] KEI FISHER PA-C [address], [place], [address], [place] [facility] 02/09/2024 14:20:18 06/04/2024 text/html Patient is [...] CHRISTIANO VERGARA PA-C [address], [place], [address], [facility] - [facility] 06/04/2024 14:40:33 OBGyn Episode No OBEpisode recorded.
--- OUTSIDE RECORDS SUMMARY | 2024-08-17 08:11 | XMS_ITS | Clinical Summary ---
Author Organization [facility] ter Address [address] [place] [address] Phone Care Team Providers Care Sales And Marketing Assistant Name Role Phone Brenna Pack MD Primary [...] Surgery Date Site/Laterality Comments COLONOSCOPY 08/30/2007 PROCEDURE: NC COLONOSCOPY FLX DX W/COLLJ SPEC WHEN PFRMD; [...] age to complete this topic Care Teams Sales And Marketing Assistant Relationship Specialty Start Date End Date Brenna Pack MD [address] [place] [address] [place] [address] PCP - General 09/20/22
--- OUTSIDE RECORDS SUMMARY | 2024-08-17 08:11 | XMS_ITS | Patient Health Record ---
Author Organization [facility] Address [address] [place] [address] Care Team Providers Care Seal Delivery Vehicle Officer Name Role Phone GHASSAN LICEA Unavailable [phone] ALLERGIES Allergen (clinical drug ingredient) Drug/Non Drug Allergy documented on EMR Reaction Allergy Type Onset Date Status clindamycin Clindamycin hives Drug Allergy Act manfred RESULTS Component Value Reference Range Notes COMPREHENSIVE METABOLIC PANE L Reviewed date:03/15/2024 01:10:23 PM Interpretation: Performing Lab:NL2, Activity [facility] [address] [place], [place] [address] Julian Lemon Notes/Report: PATIENT UNABLE TO VOID; [...] Reviewed date:03/15/2024 01:10:03 PM Interpretation: Performing Lab:NL2, Activity [facility] [address] [facility] Julian Lemon Notes/Report: PATIENT UNABLE TO VOID; [...] MPV 9.5 7.5-12.5 fL ABSOLUTE NEUTROPHILS 3686 6820-9711 cells/uL ABSOLUTE LYMPHOCYTES 2298 850-3900 cells/uL ABSOLUTE MONOCYTES 571 200-950 cells/uL ABSOLUTE EOSINOPHILS 184 15-500 cells/uL ABSOLUTE BASOPHILS 61 0-200 cells/uL NEUTROPHILS 54.2 LYMPHOCYTES 33.8 MONOCYTES 8.4 EOSINOPHILS 2.7 BASOPHILS 0.9 COPY(IES) SENT TO: Reviewed date:03/15/2024 01:10:29 PM Interpretation: Performing Lab: Notes/Report: PATIENT UNABLE TO VOID; ADVISED TO RETURN FOR COLLECTION. COPY(IES) SENT TO: PATSY CHAVEZ [address] [place] [address] CT Abdomen Pelvis W Cont Reviewed date:03/28/2024 02:21:20 PM Interpretation: Performing Lab: Notes/Report: Original Ordering Provider: GHASSAN LICEA PA-C [facility] REASON FOR REFERRAL Reason [facility] [place] Diagnosis 1 Tachycardia (R00.0) Referral Organization [place] [address] Referring Provider First Name GHASSAN Referring Provider Last Name ANUJA Referring Provider Speciality Internal M edicine Referred Provider Specialty Cardiology General Notes Jacquelyn Ortega 03/14/2024 01:22:21 PM > Referral faxed to [facility] [place], p: [phone] f: [phone] Clinical Notes Cristopher Mora 05/2024 04:19:39 PM [...] (R10.12) Active confirmed Left upper quadrant pain (982288960) Problem Encounter for screening for lipoid disorders (Z13.220) Active confirmed Lipid screening (112422133) Problem Acquired hypothyroidism (E03.9) Active confirmed 713967819 Problem Psoriatic arthritis (L40.50) Active confirmed 849033212 Problem Adult general medical exam (Z00.00) Active confirmed Adult health examination (434740646) Problem Vitamin D deficiency (E55.9) Active confirmed 78071835 Problem Obesity (BMI 30-39.9) (E66.9) Active confirmed 135712543 Problem Moderate mixed hyperlipidemia not requiring statin therapy (E78.2) Active confirmed 642586676 Problem Attention deficit disorder (ADD) in adult (F98.8) Active confirmed 153970294 Problem Tachycardia (R00.0) Active confirmed Tachycardia (5052150) Problem Encounter for screening for endocrine disorder (Z13.29) Active confirmed Endocrine/meta bolic screening (977406445) VITAL SIGNS Heart Rate 95 /min 04/12/2024 Oximetry 97 % 04/12/2024 Blood pressure diastolic 82 mm Hg 04/12/2024 Height 61 in 04/12/2024 Blood pressure systolic 120 mm Hg 04/12/2024 Weight 180 lbs 04/12/2024 BMI 34.01 kg/m2 04/12/2024 Encounters Encounter Location Date Provider Diagnosis [address] [facility] [address] [place] [address] 03/13/2024 GHASSAN LICEA Left upper quadrant pain R10.12 ; Attention deficit disorder (ADD) in adult F98.8 ; Acquired hypothyroidism E03.9 ; Vitamin D deficiency E55.9 and Obesity (BMI 30-39.9) E66.[address] [facility] [address] [place] [address] 04/12/2024 GHASSAN LICEA Adult general medica l exam Z00.00 ; Attention deficit disorder (ADD) in adult F98.8 ; Acquired hypothyroidism E03.9 ; Obesity (BMI 30-39.9) E66.9 ; Left upper quadrant pain R10.12 ; Moderate mixed hyperlipidemia not requiring statin therapy E78.2 and Psoriatic arthritis L40.50 [address] [facility] [address] [facility] [address] [place] [address] 03/28/2024 GHASSAN UREÑAUT [address] [facility] [address] [place] [address] 05/02/2024 GHASSAN LICEA [address] [facility] [address] [facility] [address] [place] [address] 08/06/2024 GHASSAN LICEA ASSESSMENTS Encounter Date Diagnosis Assessment Notes Treatment Notes Treatment Clinical Notes Section Notes 03/13/2024 Left upper quadrant pain (ICD-10 - R10.12) Angela is a -xlgf-rwm who presents to the office today for new patient evaluation. Patient is welcomed to the practice. They are coming from [facility] in [place], [place]. Last complete physical exam with labs [...] is exacerbated with sitting up and moving dssh-hp-wmqc when she is lying down in bed. [...] monitor. # Hypothyroidism: The patient follows with [facility] in [facility]. Will order new TSH at this time [...] Dictation was accomplished with the use of [employer] voice recognition software, which is prone to medical misidentifications and grammatical errors. This are unintentional and the practitioner does try to identify and correct these, but some could still be present. Please do not hesitate to contact practitioner for clarification. 03/13/2024 Attention deficit disorder (ADD) in adult (ICD-10 - F98.8) Angela is a pyqjll06-ajfx-aep who presents to the office today for new patient evaluation. Patient is welcomed to the practice. They are coming from [facility] in [place], [place]. Last complete physical exam with labs [...] is exacerbated with sitting up and moving oulq-yw-kmfm when she is lying down in bed. [...] monitor. # Hypothyroidism: The patient follows with [facility] in [facility]. Will order new TSH at this time [...] Dictation was accomplished with the use of [employer] voice recognition software, which is prone to [...] pain exacerbated with sitting up and moving dtlq-mj-tsxd while she is supine. Physical exam at [...] infarction in her father, he had his FL when he was 42 and to repeat [...] time. # Psoriatic arthritis: Patient follows with [facility] in [place]. Recently started on Skyrizi 150 mg injection. Will continue to monitor. Please follow-up with dermatology. # Hypothyroidism: The patient follows with [facility] in [facility]. TSH drawn through endocrinology and is [...] log exercise and discussed fitness Apps like [employer] or Medikidzometer which can help keep log off calories [...] Dictation was accomplished with the use of [employer] voice recognition software, which is prone to [...] pain exacerbated with sitting up and moving tixc-ew-ckqc while she is supine. Physical exam at [...] infarction in her father, he had his [place] when he was 42 and to repeat [...] time. # Psoriatic arthritis: Patient follows with [facility] in [place]. Recently started on Skyrizi 150 mg injection. Will continue to monitor. Please follow-up with dermatology. # Hypothyroidism: The patient follows with [facility] in [facility]. TSH drawn through endocrinology and is [...] log exercise and discussed fitness Apps like [employer] or Cronometer which can help keep log [...] Dictation was accomplished with the use of [employer] voice recognition software, which is prone to [...] pain exacerbated with sitting up and moving jnhb-fo-slaz while she is supine. Physical exam at [...] infarction in her father, he had his [place] when he was 42 and to repeat [...] time. # Psoriatic arthritis: Patient follows with [facility] in [place]. Recently started on Skyrizi 150 mg injection. Will continue to monitor. Please follow-up with dermatology. # Hypothyroidism: The patient follows with [facility] in [facility]. TSH drawn through endocrinology and is [...] log exercise and discussed fitness Apps like [employer] or Medikid[employer]ometer which can help keep log off calories [...] Dictation was accomplished with the use of [employer] voice recognition software, which is prone to medical misidentifications and grammatical errors. This are unintentional and the practitioner does try to identify and correct these, but some could still be present. Please do not hesitate to contact practitioner for clarification. 03/13/2024 Acquired hypothyroidism (ICD-10 - E03.9) Angela is a uycskn74-hygm-thg who presents to the office today for new patient evaluation. Patient is welcomed to the practice. They are coming from [facility] in [place], [place]. Last complete physical exam with labs [...] is exacerbated with sitting up and moving ozul-rs-chpp when she is lying down in bed. [...] monitor. # Hypothyroidism: The patient follows with [facility] in [facility]. Will order new TSH at this time [...] Dictation was accomplished with the use of [employer] voice recognition software, which is prone to medical misidentifications and grammatical errors. This are unintentional and the practitioner does try to identify and correct these, but some could still be present. Please do not hesitate to contact practitioner for clarification. 03/13/2024 Vitamin D deficiency (ICD-10 - E55.9) Angela is a lxewah76-rgyq-bhs who presents to the office today for new patient evaluation. Patient is welcomed to the practice. They are coming from [facility] in [place], [place]. Last complete physical exam with labs [...] is exacerbated with sitting up and moving fnxo-ce-nkwu when she is lying down in bed. [...] monitor. # Hypothyroidism: The patient follows with [facility] in [facility]. Will order new TSH at this time [...] Dictation was accomplished with the use of [employer] voice recognition software, which is prone to [...] pain exacerbated with sitting up and moving mpxb-oe-oyrq while she is supine. Physical exam at [...] infarction in her father, he had his [place] when he was 42 and to repeat [...] time. # Psoriatic arthritis: Patient follows with [facility] in [place]. Recently started on Skyrizi 150 mg injection. Will continue to monitor. Please follow-up with dermatology. # Hypothyroidism: The patient follows with [facility] in [facility]. TSH drawn through endocrinology and is [...] log exercise and discussed fitness Apps like [employer] or Cronometer which can help keep log [...] Dictation was accomplished with the use of [employer] voice recognition software, which is prone to medical misidentifications and grammatical errors. This are unintentional and the practitioner does try to identify and correct these, but some could still be present. Please do not hesitate to contact practitioner for clarification. 03/13/2024 Obesity (BMI 30-39.9) (ICD-10 - E66.9) Angela is a hnqjos99-tyre-het who presents to the office today for new patient evaluation. Patient is welcomed to the practice. They are coming from [facility] in [place], [place]. Last complete physical exam with labs [...] is exacerbated with sitting up and moving pszv-jl-bewr when she is lying down in bed. [...] monitor. # Hypothyroidism: The patient follows with [facility] in [facility]. Will order new TSH at this time [...] Dictation was accomplished with the use of [employer] voice recognition software, which is prone to [...] pain exacerbated with sitting up and moving fdkw-dg-wcbf while she is supine. Physical exam at [...] infarction in her father, he had his [place] when he was 44 and to repeat [...] time. # Psoriatic arthritis: Patient follows with [facility] in [place]. Recently started on Skyrizi 150 mg injection. Will continue to monitor. Please follow-up with dermatology. # Hypothyroidism: The patient follows with [facility] in [facility]. TSH drawn through endocrinology and is [...] log exercise and discussed fitness Apps like P[employer]Carepal or Medikidzometer which can help keep log off calories [...] Dictation was accomplished with the use of [employer] voice recognition software, which is prone to [...] pain exacerbated with sitting up and moving risq-od-rzdo while she is supine. Physical exam at [...] infarction in her father, he had his [place] when he was 44 and to repeat [...] time. # Psoriatic arthritis: Patient follows with [facility] in [place]. Recently started on Skyrizi 150 mg injection. Will continue to monitor. Please follow-up with dermatology. # Hypothyroidism: The patient follows with [facility] in [facility]. TSH drawn through endocrinology and is [...] log exercise and discussed fitness Apps like [employer] or Medikidzometer which can help keep log off calories [...] Dictation was accomplished with the use of [employer] voice recognition software, which is prone to [...] pain exacerbated with sitting up and moving wixz-yj-yoos while she is supine. Physical exam at [...] infarction in her father, he had his [place] when he was 44 and to repeat [...] time. # Psoriatic arthritis: Patient follows with [facility] in [place]. Recently started on Skyrizi 150 mg injection. Will continue to monitor. Please follow-up with dermatology. # Hypothyroidism: The patient follows with [facility] in [facility]. TSH drawn through endocrinology and is [...] log exercise and discussed fitness Apps like [employer] or Cronometer which can help keep log [...] Dictation was accomplished with the use of [employer] voice recognition software, which is prone to [...] Name:GHASSAN LICEA , 10/02/2024 11:15:00 AM, [address] [facility] [address], [address], [place], [address], Provider Name:GHASSAN LICEA , 04/16/2025 11:15:00 AM, [address] [facility], [facility], [place], [address], Insurance Providers Payer Name Payer Address Payer Phone Subscriber Number Group Number Insured Name Patient Relationship to Insured Coverage Start Date Coverage End Date [facility] [address] [place] [address] [phone] [id number] Angela Encarnacion Self - patient is the insured MEDICAL (GENERAL) HISTORY Medical History History ICD Code high cholesterol weight gain/loss thyroid disease skin disease Hospitalization History Reason Date(Month/Year) breast argumentation 2012 right knee arthroscopy 2014
--- OUTSIDE RECORDS SUMMARY | 2024-08-17 08:11 | XMS_ITS ---
Author Organization [facility] Address [address] [place] [address] Care Team Providers Care Finishing Wire Sawyer Name Role Phone NIRANJANMARTHAGHASSAN Unavailable [phone] REASON FOR VISIT close note Encounters Encounter Location Date Provider Diagnosis [address] [place] [address] 05/02/2024 GHASSAN LICEA PLAN OF TREATMENT Next Appt Details Provider Name:GHASSAN LICEA , 10/02/2024 11:15:00 AM, [address], [address], [place], [address], Provider Name:GHASSAN LICEA , 04/16/2025 11:15:00 AM, [address], [facility], [place], [address], Progress Notes * Carolina GARNERaDOB:1984 (38 yo F)Acc No.[id number]:05/02/2024 Patient:??Angela GARNER :1985?Age:38 Y?Sex:Fe male Address:[address] [place] [id number] * true * Date:??
--- OUTSIDE RECORDS SUMMARY | 2024-08-17 08:11 | XMS_ITS ---
Author Organization [facility] Address [address] [place] [address] Care Team Providers Care Marketer Name Role Phone NIRANJANMARTHA GHASSAN Unavailable [phone] REASON FOR VISIT fax coronary calcium CT MEDICATIONS Medication SIG (Take, Route, Frequency, Duration) Notes Start Date End Date Status Rosuvastatin Calcium 5 MG 1 tablet Orall y Once a day for 90 days 08/07/2024 Active Encounters Encounter Location Date Provider Diagnosis [address] [place] [address] 08/06/2024 GHASSAN LICEA PLAN OF TREATMENT Medication Medication Name Sig Start Date Stop Date Notes Rosuvastatin Calcium 5 MG 1 tablet Orall y Once a day for 90 days 08/07/2024 Next Appt Details Provider Name:GHASSAN LICEA , 10/02/2024 11:15:00 AM, [address] [facility], [facility] [address], [address], Provider Name:GHASSAN LICEA , 04/16/2025 11:15:00 AM, [address] [facility], [facility] [address], [place], [address], Progress Notes * Сергей GARNERB:1984 (39 yo F)Acc No.[id number]:08/06/2024 Patient:??Angela GARNER :1985?Age:39 Y?Sex:Fe male Address:[address] [place] [address] * Refills?? Start Rosuvastatin Calcium Tablet, 5 MG, Orally, 90 Tablet, 1 tablet, Once a day, 90 days, Refills=1 * true * Date:??
== END ==
LOC: HO.CARD 08:04
PROVIDERS: PCP Internal Medicine; Visit Provider Internal Medicine
DX: R00.0 Tachycardia, unspecified (principal)
CPT/HCPCS: 93306; Q9957

== ENCOUNTER → 2024-08-17 08:07 | Outpatient (BNV) | payer OTHER, SELFPAY | PROVIDERS: PCP Internal Medicine; Visit Provider Internal Medicine Cardiovascular Disease | DX: I42.8 Other cardiomyopathies (principal) | CPT/HCPCS: 93306 ==

== ENCOUNTER 2024-09-11 15:22 | Outpatient (REF) | payer OTHER, SELFPAY ==
--- NOTE | ~2024-09-11 | US_ITS ---
EXAMINATION: US PELVIS TRANSABDOMINAL AND TRANSVAGINAL HISTORY: D21.9 - Benign neoplasm of connective and other soft tissue, unspecified COMPARISON: Comparison is made with the prior examination dated 09/09/2023. TECHNIQUE: Transabdominal and endovaginal real-time 2D romo-scale ultrasound was performed. FINDINGS: Uterus: The uterus is normal in size, measuring 7.0 x 3.2 x 4.2 cm. Myometrium has a normal echotexture. There is a 7 x 7 x 6 mm left-sided fibroid without change. Endometrium: The endometrial stripe measures 4 mm in thickness. An IUD is seen in the appropriate position in the endometrial cavity. Right ovary: The right ovary measures 2.5 x 2.3 x 1.5 cm. The right ovary is normal in size and echotexture. Left ovary: The left ovary is not visualized. Pelvic fluid: none. US/US pelvic and transvaginal IMPRESSION: Subcentimeter left-sided uterine fibroid. IUD in the appropriate position in the endometrial cavity. The left ovary is not identified. Electronically signed by: Randy Lucero MD 09/12/2024 08:33 AM EDT
--- OUTSIDE RECORDS SUMMARY | 2024-09-11 18:13 | XMS_ITS | Clinical Summary ---
Author Organization [facility] Address [address] [place] [address] Care Team Providers Care Film Casting Operator Name Role Phone Herson Pack MD [...] age to complete this topic Care Teams Film Casting Operator Relationship Specialty Start Date End Date Herson Pack MD [address] [place] [id number] PCP - General Carbon Sequestration Plant Engineer 09/20/22
--- OUTSIDE RECORDS SUMMARY | 2024-09-11 18:14 | XMS_ITS ---
Author Organization [facility] Address [address] [place] [address] Care Team Providers Care Environmental Studies Program Director Name Role Phone GHASSAN LICEA Unavailable [phone] REASON FOR VISIT Follow up appointment Encounters Encounter Location Date Provider Diagnosis [address] [place] [address] 08/29/2024 GHASSAN LICEA PLAN OF TREATMENT Next Appt Details Provider Name:GHASSAN LICEA , 10/02/2024 11:15:00 AM, [address], [address], [place], [address], Provider Name:GHASSAN LICEA , 10/09/2024 09:30:00 AM, [address], [address], [place], [address], Provider Name:GHASSAN LICEA , 04/16/2025 11:15:00 AM, [address], [address], [place], [address], Progress Notes * Carolina GARNREaDOB:1984 (39 yo F)Acc No.[id number]:08/29/2024 Patient:??Angela GARNER :1985?Age:39 Y?Sex:Fe male Address:[address] [place] [address] * true * Date:??
--- OUTSIDE RECORDS SUMMARY | 2024-09-11 18:14 | XMS_ITS ---
Author Organization [facility] Address [address] [place] [address] Care Team Providers Care Hand Tapper Name Role Phone GHASSAN LICEA Unavailable [phone] REASON FOR VISIT RE:Follow up appointment Encounters Encounter Location Date Provider Diagnosis [address] [place] [address] 08/30/2024 GHASSAN LICEA PLAN OF TREATMENT Next Appt Details Provider Name:GHASSAN LICEA , 10/02/2024 11:15:00 AM, [address], [address], [place], [address], Provider Name:GHASSAN LICEA , 10/09/2024 09:30:00 AM, [address], [address], [place], [address], Provider Name:GHASSAN LICEA , 04/16/2025 11:15:00 AM, [address], [address], [place], [address], Progress Notes * Сергей GARNERB:1984 (39 yo F)Acc No.[id number]:08/30/2024 Patient:??Angela GARNER :1985?Age:39 Y?Sex:Fe male Address:[address] [place] [address] * true * Date:??
--- OUTSIDE RECORDS SUMMARY | 2024-09-11 18:14 | XMS_ITS ---
Author Organization [facility] Address [address] [place] [address] Care Team Providers Care Ux Consultant Name Role Phone ANUJA GHASSAN Unavailable [phone] MEDICATIONS Medication SIG (Take, Route, Frequency, Duration) Notes Start Date End Date Status Rosuvastatin Calcium 5 MG 1 tablet Orall y Once a day for 90 days 08/07/2024 Active Adderall 30 MG 1 tablet Orally Twic e a day Active Tirosint 75 MCG 1 capsule in the mor kendy on an empty stomach Orally Once a day Active Vitamin D3 2400 UNIT/ML as directed Active Clobetasol Propionate 0.05 % 1 application Externally Twice a day Active Skyrizi 150 MG/ML 1 mL Subcutaneous Active Encounters Encounter Location Date Provider Diagnosis [address] [address] 09/11/2024 GHASSAN LICEA ASSESSMENTS Encounter Date Diagnosis Assessment Notes Treatment Notes Treatment Clinical Notes Section Notes 09/11/2024 Angela is a 39-year-old female with history of ADD, hypothyroidism, hyperlipidemia, and vitamin D deficiency who presents today for routine follow-up. # Hyperlipidemia: Lipid panel on 03/15/2024 with total cholesterol 261, HDL 72, triglycerides 98, LDL 160. Patient has history of several myocardial infarctions in first-degree relative. Underwent coronary calcium CT scan on 07/24/2024 demonstrating score of 175.6 consistent with moderate evidence of coronary artery disease. Continue rosuvastatin 5 mg once daily. Discussed lifestyle modifications to lower cholesterol and prevent other comorbidities. # Psoriatic arthritis: Patient follows with [facility] in [place]. Recently started on Skyrizi 150 mg injection. Will continue to monitor. Please follow-up with dermatology. # Hypothyroidism: The patient follows with [facility] in [facility]. TSH drawn through endocrinology and is within [...] discussed with the patient and appropriately signed. All questions have been answered to patient's satisfaction. Patient verbalized understanding of diagnosis and treatments explained. Advised to call sooner prior to next visit it any questions/concerns arise. Case discussed with collaborating physician Kelly Velázquez who reviewed the assessment and plan. Chart, medications, labs, vital signs reviewed. Dictation was accomplished with the use of [employer] voice recognition software, which is prone to medical misidentifications and grammatical errors. This are unintentional and the practitioner does try to identify and correct these, but some could still be present. Please do not hesitate to contact practitioner for clarification. PLAN OF TREATMENT Next Appt Details Provider Name:GHASSAN ANUJA , 10/02/2024 11:15:00 AM, [address] , [address], [address], Provider Name:GHASSAN LICEA , 10/09/2024 09:30:00 AM, [address], [address], [address], Provider Name:GHASSAN LICEA , 04/16/2025 11:15:00 AM, [address], [address], [address], Progress Notes * Lavern GARNER:1984 (39 yo F)Acc No.[id number]:09/11/2024 Progress Notes Patient:??Angela GARNER Provider:??GHASSAN LICEA :1985?Age:39 Y?Sex:Fe male Date:09/11/2024 Address:[address] [place], [place] [id number] Subjective: * Chief Complaints: * ? * HPI: ?Constitutional:? Angela is a 39-year-old female with history of ADD, hypothyroidism, and vitamin D deficiency who presents today for follow-up. ? Labs obtained on 03/15/2024 including CMP within normal limits and CBC within normal limits. TSH within normal limits 1.64. Lipid panel obtained with values including cholesterol 261, HDL 72, triglycerides 98, and LDL 168. Patient reports strong family history of cardiovascular disease, reports that her father has suffered from 3 myocardial infarctions with the first incidence occurring at age 42 and 2 incidences during his 50s. Patient underwent coronary calcium CT scan on 07/24/2024 demonstrating a score of 175.6 consistent with moderate evidence of coronary artery disease. Has now been taking rosuvastatin 5 mg once daily. ?Patient has been following up with [facility] with Dr. Paolo Leiva for workup of tachycardia. * ROS:?Constitutional: Patient denies any excessive fatigue with exercise, no weight loss, no fever, no night sweats, no changes in sleep. Eyes: No eye discharge, no itching, no redness, no vision changes. Advised the significance of regular eye exams to screen for glaucoma and other eye problems. Ear nose throat: No ear pain, No sore throat, no postnasal drip, no runny nose, no sneezing, no hearing changes Cardiovascular: No chest pain, no dyspnea on exertion, no PND, no orthopnea, no irregular pulse, no palpitations, no claudication, no diaphoresis, no claudication. Respiratory: No chronic cough, no hemoptysis, no sputum, no wheezing, no SOB, no pleuritic pain. GI: No diarrhea, no constipation, no blood in the stools, no pain associated with eating, no indigestion, no difficulty swallowing, no appetite change. Genitourinary: No painful urination, no hesitancy, no blood in the urine, no incontinence, no frequency, no urgency, no abnormal discharge. Musculoskeletal: No back pain, no joint pain, no limitations to walking and running, no joint deformity, no joint stiffness, no muscle weakness Integumentary: No new skin rash. No new changes in skin moles, no pruritis, no color change. Neurological: No history of seizures, no memory loss, no language dysfunction, no inability to concentrate, no localized weakness, no sensation loss, no confusion, no dizziness, no tremor, no numbness, no tingling. Psychiatric: no anxiety, no depression, no suicidal thoughts, feels safe at home. Endocrine: No polyuria, no polyphagia, no polydipsia. No heat/cold intolerance, no excesss thirst. Hematological: No easy bruising or bleeding, no lymph node swelling. * Medical History:?? * Medications:??Taking Skyrizi 150 MG/ML Solution Prefilled [...] 1 tablet Orally Twice a day , Taking Rosuvastatin Calcium 5 MG Tablet 1 tablet Orally Once a day Objective: Assessment: * Assessment: Angela is a 39-year-old f emale with history of ADD, hypothyroidism, hyperlipidemia, and vitamin D deficiency who presents today for routine follow- up. # Hyperlipidemia: Lipid panel on 03/15/2024 with total cholesterol 261, HDL 72, triglycerides 98, LDL 160. Patient has history of several myocardial infarctions in first-degree relative. Underwent coronary calcium CT scan on 07/24/2024 demonstrating score of 175.6 consistent with moderate evidence of coronary artery disease. Continue rosuvastatin 5 mg once daily. Discussed lifestyle modifications to lower cholesterol and prevent other comorbidities. # Psoriatic arthritis: Patient follows with [facility] in [place]. Recently started on Skyrizi 150 mg injection. Will continue to monitor. Please follow-up with dermatology. # Hypothyroidism: The patient follows with [facility] in [facility]. TSH drawn through endocrinology and is within [...] discussed with the patient and appropriately signed. All questions have been answered to patient's satisfaction. Patient verbalized understanding of diagnosis and treatments explained. Advised to call sooner prior to next visit it any questions/concerns arise. Case discussed with collaborating physician Kelly Velázquez who reviewed the assessment and plan. Chart, medications, labs, vital signs reviewed. Dictation was accomplished with the use of [employer] voice recognition software, which is prone to medical misidentifications and grammatical errors. This are unintentional and the practitioner does try to identify and correct these, but some could still be present. Please do not hesitate to contact practitioner for clarification. Plan: * Treatment: * Procedure Codes:??37387 NO S HOW OFFICE VISIT * Images: Billing Information: * Visit Code:?? * Procedure Codes:?? 98079 NO SHOW OFFICE VISIT. Care Plan Details* * Sign off status: Pending * Provider:??GHASSAN LICEA Date:?? 025 History and Physical Notes * HPI (History of Present Illness) Category Sub-Category Detail Notes Category Not es Constitutional Angela is a 39-year-old female with history of ADD, hypothyroidism, and vitamin D deficiency who presents today for follow-up. Labs obtained on 03/15/2024 including CMP within normal limits and CBC within normal limits. TSH within normal limits 1.64. Lipid panel obtained with values including cholesterol 261, HDL 72, triglycerides 98, and LDL 168. Patient reports strong family history of cardiovascular disease, reports that her father has suffered from 3 myocardial infarctions with the first incidence occurring at age 42 and 2 incidences during his 50s. Patient underwent coronary calcium CT scan on 07/24/2024 demonstrating a score of 175.6 consistent with moderate evidence of coronary artery disease. Has now been taking rosuvastatin 5 mg once daily. Patient has been following up with [facility] with Dr. Paolo Leiva for workup of tachycardia.
--- OUTSIDE RECORDS SUMMARY | 2024-09-11 18:14 | XMS_ITS | Clinical Summary ---
Author Organization [facility] Address [address] [place] [address] Care Team Providers Care Mat Man Name Role Phone Herson Pack MD Primary [...] spironolactone (ALDACTONE) 25 MG tablet 12/23/2022 Active Encounters Date Type Department Care Team Description 08/27/2024 Scanned Document [facility] [address] [facility] [address] [place] [id number] Radiology, Scan from Last 3 Months Social History Tobacco Use Types Packs/Day Years [...] Mass Index - - Plan of Treatment Upcoming Encounters Date Type Department Care Team (Late st Contact Info) Description 10/09/2024 10:00 AM EDT Appointment [facility] [address] [place] [address] Health Maintenance Due Date Last Done Comments [...] on patient's age to complete this topic Procedures Procedure Name Priority Date/Time Associated Diagnosis Comments HX OUTSIDE ORDER 08/27/2024 12:19 PM EDT from Last 3 Months Results * OUTSIDE ORDER (08/27/2024 12:19 PM EDT) Scan Radiology HX AMB PROCEDURES from Last 3 Months Care Teams Mat Man Relationship Specialty Start Date End Date Herson Pack MD [address] [place] [address] [address] [facility] [place] [address] PCP - General 06/22/22
--- OUTSIDE RECORDS SUMMARY | 2024-09-11 18:14 | XMS_ITS | Data Portability ---
Author Organization [employer] Address [address] [address] Assessment No assessment recorded. Plan of Treatment Reminders Order Date Submit Date Provider Last Modified By Organization Details Last Modified Time Details Appointments None record ed. Lab None record ed. Referral None record ed. Procedures None record ed. Surgeries None record ed. Imaging None record ed. Medication Orders None record ed. Patient TargetsNo targets recorded. Patient InstructionsNo instructions recorded. Reason for Referral None Reported. Results Created Date Observation Date Name Description Value Unit Range Abnormal Flag Note LastModifiedBy Organization Detail LastModifiedTime Result Notes None recorded. Problems Name Problem SNOMED Code Status Onset Date Resolution Date Notes Provider Name and Address Organization Details Recorded Time Hypothyroidism 33130913 Active 2020 Not Available [facility] 19:26:20 Attention deficit hyperactivity disorder, combined type 13381207 Active 2020 Not Available [facility] 19:26:20 Problem Notes None recorded. Medical Equipment [...] Available dextroamphe tamine-amph etamine 30 mg tablet Take 1 tablet every day by oral route as directed for 30 days. 2024 active Not Available Not Available Not Avai lable [place] Thyroid 15 mg tablet TAKE 1 TABLET [...] ER 30 mg 24hr capsule,ext end release Take 1 capsule every day by oral route as directed for 30 days. 2024 active Not Available Not Available Not Avai lable clobetasol 0.05 % scalp solution APPLY TO [...] mcg/0.3 mL dose 09/20/2020 completed GIBRAN [facility]lam[facility] - [id number] 11/07/2020 13:36:37 Past Encounters Encounter ID Performer Location Encounter Start Date Encounter Closed Date Diagnosis/Indication Diagnosis SNOMED-CT Code Diagnosis ICD10 Code Diagnosis Note [id number] Herson Pack MD Main Office [address] [address] 09/19/2023 10:35:09 09/19/2023 13:27:03 Attention deficit hyperactivity disorder, combined type 63069559 F90.2 Patient has no complaints her ADHD is well managed. Depressive disorder 2769 9007 F32.9 Patient states since starting [employer] she [...] Name 09/19/2023 1 [place]: [place] [id number] A Angela Encarnacion [id number] 35 Angela Encarnacion Notes Date Note Type [...] she has noticed some minor weight gain.);insomnia(Pa tient states since starting [employer] she has been lacking sleep.) Herson Pack MD [address], [address], [facility] [employer] 09/21/2023 08:01:08 OBGyn Episode No OBEpisode recorded.
--- OUTSIDE RECORDS SUMMARY | 2024-09-11 18:14 | XMS_ITS | Clinical Summary ---
Author Organization [facility] Address [address] [place] [address] Phone Care Team Providers Care Gusset Edger Name Role Phone Brenna Pack MD Primary [...] Surgery Date Site/Laterality Comments COLONOSCOPY 08/30/2007 PROCEDURE: MS COLONOSCOPY FLX DX W/COLLJ SPEC WHEN PFRMD; [...] age to complete this topic Care Teams Gusset Edger Relationship Specialty Start Date End Date Brenna Pack MD [address] [place] [address] [place] [address] PCP - General 09/20/22
--- OUTSIDE RECORDS SUMMARY | 2024-09-11 18:14 | XMS_ITS | Patient Health Record ---
Author Organization [facility] Address [address] [place] [address] Care Team Providers Care Energy Specialist Name Role Phone GHASSAN LICEA Unavailable [phone] ALLERGIES Allergen (clinical drug ingredient) Drug/Non Drug Allergy documented on EMR Reaction Allergy Type Onset Date Status clindamycin Clindamycin hives Drug Allergy Act manfred RESULTS Component Value Reference Range Notes COMPREHENSIVE METABOLIC PANE L Reviewed date:03/15/2024 01:10:23 PM Interpretation: Performing Lab:NL2, [facility] [id number] [place], [place] [address] Julian Lemon Notes/Report: PATIENT UNABLE TO VOID; [...] Reviewed date:03/15/2024 01:10:03 PM Interpretation: Performing Lab:NL2, [facility] [id number] [facility] Julian Lemon Notes/Report: PATIENT UNABLE TO VOID; [...] MPV 9.5 7.5-12.5 fL ABSOLUTE NEUTROPHILS 3686 9414-6122 cells/uL ABSOLUTE LYMPHOCYTES 2298 850-3900 cells/uL ABSOLUTE MONOCYTES 571 200-950 cells/uL ABSOLUTE EOSINOPHILS 184 15-500 cells/uL ABSOLUTE BASOPHILS 61 0-200 cells/uL NEUTROPHILS 54.2 LYMPHOCYTES 33.8 MONOCYTES 8.4 EOSINOPHILS 2.7 BASOPHILS 0.9 COPY(IES) SENT TO: Reviewed date:03/15/2024 01:10:29 PM Interpretation: Performing Lab: Notes/Report: PATIENT UNABLE TO VOID; ADVISED TO RETURN FOR COLLECTION. COPY(IES) SENT TO: PATSY CHAVEZ [address] [place] [address] CT Abdomen Pelvis W Cont Reviewed date:03/28/2024 02:21:20 PM Interpretation: Performing Lab: Notes/Report: Original Ordering Provider: GHASSAN LICEA PA-C [facility] REASON FOR REFERRAL Reason [facility] [place] Diagnosis 1 Tachycardia (R00.0) Referral Organization [place] [address] Referring Provider First Name GHASSAN Referring Provider Last Name ANUJA Referring Provider Speciality Internal M edicine Referred Provider Specialty Cardiology General Notes Jacquelyn Ortega 03/14/2024 01:22:21 PM > Referral faxed to [facility] [place], p: [phone] f: [phone] Clinical Notes Cristopher Mora 05/2024 04:19:39 PM [...] (R10.12) Active confirmed Left upper quadrant pain (934916864) Problem Encounter for screening for lipoid disorders (Z13.220) Active confirmed Lipid screening (800559802) Problem Acquired hypothyroidism (E03.9) Active confirmed 104916957 Problem Psoriatic arthritis (L40.50) Active confirmed 991582376 Problem Adult general medical exam (Z00.00) Active confirmed Adult health examination (566782241) Problem Vitamin D deficiency (E55.9) Active confirmed 85787927 Problem Obesity (BMI 30-39.9) (E66.9) Active confirmed 890922881 Problem Moderate mixed hyperlipidemia not requiring statin therapy (E78.2) Active confirmed 107538708 Problem Attention deficit disorder (ADD) in adult (F98.8) Active confirmed 551937863 Problem Tachycardia (R00.0) Active confirmed Tachycardia (7260221) Problem Encounter for screening for endocrine disorder (Z13.29) Active confirmed Endocrine/meta bolic screening (969736278) VITAL SIGNS Heart Rate 95 /min 04/12/2024 Oximetry 97 % 04/12/2024 Blood pressure diastolic 82 mm Hg 04/12/2024 Height 61 in 04/12/2024 Blood pressure systolic 120 mm Hg 04/12/2024 Weight 180 lbs 04/12/2024 BMI 34.01 kg/m2 04/12/2024 Encounters Encounter Location Date Provider Diagnosis [address] [place] [address] 09/11/[address] [place] [address] 03/13/2024 GHASSAN LICEA Left upper quadrant pain R10.12 ; Attention deficit disorder (ADD) in adult F98.8 ; Acquired hypothyroidism E03.9 ; Vitamin D deficiency E55.9 and Obesity (BMI 30-39.9) E66.[address] [place] [address] 04/12/2024 GHASSAN LICEA Adult general medica l exam Z00.00 ; Attention deficit disorder (ADD) in adult F98.8 ; Acquired hypothyroidism E03.9 ; Obesity (BMI 30-39.9) E66.9 ; Left upper quadrant pain R10.12 ; Moderate mixed hyperlipidemia not requiring statin therapy E78.2 and Psoriatic arthritis L40.[address] [place] [address] 03/28/2024 GHASSAN NIRANJANMARTHA [address] [place] [address] 05/02/2024 GHASSAN LICEA [address] [place] [address] 08/06/2024 GHASSAN LICEA [address] [place] [address] 08/29/2024 GHASSAN UREÑAMARTHA [address] [place] [address] 08/30/2024 GHASSAN LICEA ASSESSMENTS Encounter Date Diagnosis Assessment Notes Treatment Notes Treatment Clinical Notes Section Notes 03/13/2024 Left upper quadrant pain (ICD-10 - R10.12) Angela is a -ofxm-wou who presents to the office today for new patient evaluation. Patient is welcomed to the practice. They are coming from [facility] in [place], [place]. Last complete physical exam with [...] is exacerbated with sitting up and moving vxod-sl-rqib when she is lying down in bed. [...] monitor. # Hypothyroidism: The patient follows with [facility] in [facility]. Will order new TSH at this [...] Dictation was accomplished with the use of [employer] voice recognition software, which is prone to medical misidentifications and grammatical errors. This are unintentional and the practitioner does try to identify and correct these, but some could still be present. Please do not hesitate to contact practitioner for clarification. 03/13/2024 Attention deficit disorder (ADD) in adult (ICD-10 - F98.8) Angela is a -nibe-cfx who presents to the office today for new patient evaluation. Patient is welcomed to the practice. They are coming from [facility] in [place], [place]. Last complete physical exam with [...] is exacerbated with sitting up and moving votb-sx-mgjm when she is lying down in bed. [...] monitor. # Hypothyroidism: The patient follows with [facility] in [facility]. Will order new TSH at this [...] Dictation was accomplished with the use of [employer] voice recognition software, which is prone to [...] pain exacerbated with sitting up and moving usut-pj-mgkb while she is supine. Physical exam at [...] infarction in her father, he had his CA when he was 42 and to repeat [...] time. # Psoriatic arthritis: Patient follows with [facility] in [place]. Recently started on Skyrizi 150 mg injection. Will continue to monitor. Please follow-up with dermatology. # Hypothyroidism: The patient follows with [facility] in [facility]. TSH drawn through endocrinology and is [...] log exercise and discussed fitness Apps like Appear or GT Solarometer which can help keep log off calories [...] Dictation was accomplished with the use of [employer] voice recognition software, which is prone to [...] pain exacerbated with sitting up and moving zkov-lo-yxiu while she is supine. Physical exam at [...] infarction in her father, he had his CA when he was 42 and to repeat [...] time. # Psoriatic arthritis: Patient follows with [facility] in [place]. Recently started on Skyrizi 150 mg injection. Will continue to monitor. Please follow-up with dermatology. # Hypothyroidism: The patient follows with [facility] in [facility]. TSH drawn through endocrinology and is [...] log exercise and discussed fitness Apps like M-DISCpal or GT Solarometer which can help keep log off calories [...] Dictation was accomplished with the use of [employer] voice recognition software, which is prone to [...] pain exacerbated with sitting up and moving bfsq-sf-uxoa while she is supine. Physical exam at [...] infarction in her father, he had his CA when he was 42 and to repeat [...] time. # Psoriatic arthritis: Patient follows with [facility] in [place]. Recently started on Skyrizi 150 mg injection. Will continue to monitor. Please follow-up with dermatology. # Hypothyroidism: The patient follows with [facility] in [facility]. TSH drawn through endocrinology and is [...] log exercise and discussed fitness Apps like M-DISCpal or Cronometer which can help keep log [...] Dictation was accomplished with the use of [employer] voice recognition software, which is prone to medical misidentifications and grammatical errors. This are unintentional and the practitioner does try to identify and correct these, but some could still be present. Please do not hesitate to contact practitioner for clarification. 03/13/2024 Acquired hypothyroidism (ICD-10 - E03.9) Angela is a hymuzv56-ngjo-pbq who presents to the office today for new patient evaluation. Patient is welcomed to the practice. They are coming from [facility] in [place]. Last complete physical exam with [...] is exacerbated with sitting up and moving twpi-vg-lrmj when she is lying down in bed. [...] monitor. # Hypothyroidism: The patient follows with [facility] in [facility]. Will order new TSH at this [...] Dictation was accomplished with the use of [employer] voice recognition software, which is prone to medical misidentifications and grammatical errors. This are unintentional and the practitioner does try to identify and correct these, but some could still be present. Please do not hesitate to contact practitioner for clarification. 03/13/2024 Vitamin D deficiency (ICD-10 - E55.9) Angela is a phoazi08-pglv-nfs who presents to the office today for new patient evaluation. Patient is welcomed to the practice. They are coming from [facility] in [place], [place]. Last complete physical exam with [...] is exacerbated with sitting up and moving bufi-og-kciy when she is lying down in bed. [...] monitor. # Hypothyroidism: The patient follows with [facility] in [facility]. Will order new TSH at this [...] Dictation was accomplished with the use of [employer] voice recognition software, which is prone to [...] pain exacerbated with sitting up and moving mdlr-mx-oygq while she is supine. Physical exam at [...] infarction in her father, he had his CA when he was 42 and to repeat [...] time. # Psoriatic arthritis: Patient follows with [facility] in [place]. Recently started on Skyrizi 150 mg injection. Will continue to monitor. Please follow-up with dermatology. # Hypothyroidism: The patient follows with [facility] in [facility]. TSH drawn through endocrinology and is [...] log exercise and discussed fitness Apps like Appear or GT Solarometer which can help keep log off calories [...] Dictation was accomplished with the use of [employer] voice recognition software, which is prone to medical misidentifications and grammatical errors. This are unintentional and the practitioner does try to identify and correct these, but some could still be present. Please do not hesitate to contact practitioner for clarification. 03/13/2024 Obesity (BMI 30-39.9) (ICD-10 - E66.9) Angela is a lefukz59-azro-fxw who presents to the office today for new patient evaluation. Patient is welcomed to the practice. They are coming from [facility] in [place]. Last complete physical exam with [...] is exacerbated with sitting up and moving ywiu-do-gkxf when she is lying down in bed. [...] monitor. # Hypothyroidism: The patient follows with [facility] in [facility]. Will order new TSH at this [...] Dictation was accomplished with the use of [employer] voice recognition software, which is prone to [...] pain exacerbated with sitting up and moving igeq-yj-bekx while she is supine. Physical exam at [...] infarction in her father, he had his CA when he was 42 and to repeat [...] time. # Psoriatic arthritis: Patient follows with [facility] in [place]. Recently started on Skyrizi 150 mg injection. Will continue to monitor. Please follow-up with dermatology. # Hypothyroidism: The patient follows with [facility] in [facility]. TSH drawn through endocrinology and is [...] log exercise and discussed fitness Apps like M-DISCpal or Cronometer which can help keep log [...] Dictation was accomplished with the use of [employer] voice recognition software, which is prone to [...] pain exacerbated with sitting up and moving vhhf-fk-mcge while she is supine. Physical exam at [...] infarction in her father, he had his CA when he was 42 and to repeat [...] time. # Psoriatic arthritis: Patient follows with [facility] in [place]. Recently started on Skyrizi 150 mg injection. Will continue to monitor. Please follow-up with dermatology. # Hypothyroidism: The patient follows with [facility] in [facility]. TSH drawn through endocrinology and is [...] log exercise and discussed fitness Apps like Appear or GT Solarometer which can help keep log off calories [...] Dictation was accomplished with the use of [employer] voice recognition software, which is prone to [...] pain exacerbated with sitting up and moving tsxw-os-xsvt while she is supine. Physical exam at [...] infarction in her father, he had his CA when he was 42 and to repeat [...] time. # Psoriatic arthritis: Patient follows with [facility] in [place]. Recently started on Skyrizi 150 mg injection. Will continue to monitor. Please follow-up with dermatology. # Hypothyroidism: The patient follows with [facility] in [facility]. TSH drawn through endocrinology and is [...] log exercise and discussed fitness Apps like Appear or GT Solarometer which can help keep log off calories [...] Dictation was accomplished with the use of [employer] voice recognition software, which is prone to medical misidentifications and grammatical errors. This are unintentional and the practitioner does try to identify and correct these, but some could still be present. Please do not hesitate to contact practitioner for clarification. 09/11/2024 Angela is a 39-year-old female with [...] comorbidities. # Psoriatic arthritis: Patient follows with [facility] in [place]. Recently started on Skyrizi 150 mg injection. Will continue to monitor. Please follow-up with dermatology. # Hypothyroidism: The patient follows with [facility] in [facility]. TSH drawn through endocrinology and is [...] Dictation was accomplished with the use of [employer] voice recognition software, which is prone to [...] , 10/02/2024 11:15:00 AM, [address], [address], [place], [address], Provider Name:GHASSAN LICEA , 10/09/2024 09:30:00 AM, [address], [address], [place], [address], Provider Name:GHASSAN LICEA , 04/16/2025 11:15:00 AM, [address], [address], [place], [address], Insurance Providers Payer Name Payer Address Payer Phone Subscriber Number Group Number Insured Name Patient Relationship to Insured Coverage Start Date Coverage End Date [facility] [address] [place] [address] [phone] [id number] Angela Encarnacion Self - patient is the insured MEDICAL (GENERAL) HISTORY Medical History History ICD Code high cholesterol weight gain/loss thyroid disease skin disease Hospitalization History Reason Date(Month/Year) breast argumentation 2012 right knee arthroscopy 2014
--- OUTSIDE RECORDS SUMMARY | 2024-09-11 18:15 | XMS_ITS | Encounter Summary ---
Author Organization [facility] Address [address] [place] [address] Care Team Providers Care Wind Energy Mechanic Name Role Phone Herson Pack MD Primary Care Provide r Encounter Details Date Type Department Care Team (Late Contact Info) Description 08/27/2024 Scanned Document [facility] HIM 80 [facility] [address] [place] [address] Radiology, Scan Social History Tobacco Use Types Packs/Day Years Used Date Smoking Tobacco: Never Assessed Sex and Gender Information Value Date Recorded Sex Assigned at Not on file Gender Identity Not on file Sexual Orientation Not on file documented as of this encounter Plan of Treatment Upcoming Encounters Date Type Department Care Team (Late st Contact Info) Description 10/09/2024 10:00 AM EDT Appointment [facility] Radiology [address] [place] [address] documented as of this encounter Procedures Procedure Name Priority Date/Time Associated Diagnosis Comments HX OUTSIDE ORDER 08/27/2024 12:19 PM EDT documented in this encounter Results * OUTSIDE ORDER (08/27/2024 12:19 PM EDT) Scan Radiology HX AMB PROCEDURES documented in this encounter Visit Diagnoses Not on filedocumented in this encounter Care Teams Wind Energy Mechanic Relationship Specialty Start Date End Date Herson Pack MD [address] [place] [address] 1 [facility] [place] [address] PCP - General 06/22/22 documented as of this encounter
--- OUTSIDE RECORDS SUMMARY | 2024-09-11 18:15 | XMS_ITS | Data Portability ---
Author Organization [place] [facility] Address [address] [place] [address] Care Team Providers Care Recreation Adviser Name Role Phone DANIEL URRUTIA Primary Care [...] examination, recommended tests/diagnostic imaging, and treatment plan. [email or web address] Not available 06/04/2024 14:39:13 Plan of Treatment Reminders Order Date Submit Date Provider Last Modified By Organization Details Last Modified Time Details Appointments None recorded. Lab None recorded. Referral None recorded. Procedures None recorded. Surgeries None recorded. Imaging XR, knee, 3 view 2023 sol 2 [facility], [address], [place] [address], [place], [address], 4 12:22:04 Medication Orders lidocaine (PF) 10 mg/mL (1 %) injection solution [address]/Pharmacy #2476, [address] [place], [address], 4 16:10:20 triamcinolo ne acetonide 40 mg/mL suspension for injection 2023 [facility] 21 [facility]/Ph[facility]acy #2476, [address] [place], [address], 4 16:10:20 lidocaine (PF) 100 mg/5 mL (2 %) injection syringe 2023 024 [facility]/Ph[facility]acy #2476, [address] [place], [address], 4 15:36:32 triamcinolo ne acetonide 40 mg/mL suspension for injection 2023 024 [facility]/Pharmacy #2476, [address] [place], [address], 4 15:36:34 Patient TargetsNo targets recorded. Patient Instructions Encounter Date Encounter Id Patient Instructions Last Modified By Organization Details Last Modified Time 02/09/2024 [id number] views of the right knee were obtained today 02/09/2024 in the [place] office. There are moderate degenerative postsurgical changes [...] right knee due to and following trauma [id number] Active 2023 KEI FISHER PA-C [address], [place], [address], [place] [facility] 4 13:58:42 Problem Notes None recorded. Procedures Surgical History Date Name Laterality Status Provider Name and Address Organization Details Recorded Time 4 LES trigger finger/De Quervain's injection completed CHRISTIANO VERGARA PA-C [address], [place], [address], [place] [facility] 06/04/2024 14:37:49 4 SAB Knee Inj w/o-US completed KEI FISHER PA-C [address], [place], [address], [place] [facility] 02/09/2024 10:55:09 operative procedure on knee completed Lacy Suarez [place] [facility] 06/04/2024 14:05:00 Imaging Results Imaging Date [...] Not available Not available 06/04/2024 [id number] 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 Zimmerman, [facility] [id number] Katie Milian MD [facility] 113 [facility],[address] [address] 06/04/2024 12:55:33 06/04/2024 14:24:56 Triggering of digit 776129728 M65.332 Health Concerns Section Related Observation LastModified by Organization Detai ls LastModified Time None Recorded Concern Status LastModified by Organization Details LastModified Time None Recorded Advance Directives Directive None Recorded Payers Encounter Date Sequence Insurance Name Policy Number Policy Jones Covered Member ID Jones Member ID Guarantor Name 02/09/2024 1 [place]: [facility] [id number] A Angela Encarnacion [id number] Angela Encarnacion 06/04/2024 1 [place]: SAMUEL BS [id number] A Angela Encarnacion [id number] Nagela Alysha Notes Date Note Type Note Provider Name and Address Organization Details Recorded Time 02/09/2024 text/html Pleasant 38-year -old female presents to the urgent care today for evaluation of acute on chronic right knee pain and swelling. 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 She had surgery for this in [address] Zimmerman at [facility]. Operative report indicates a right knee [...] KEI FISHER PA-C [address], [place], [address], [place] [facility] 02/09/2024 14:20:18 06/04/2024 text/html Patient is [...] CHRISTIANO VERGARA PA-C [address], [place], [address], [facility] - [facility] 06/04/2024 14:40:33 OBGyn Episode No OBEpisode recorded.
== END 2024-09-11 15:23 | disposition home or self-care (01) ==
LOC: HO.US 15:22
PROVIDERS: PCP Internal Medicine; Visit Provider Advanced Practice Midwife
DX: D21.9 Benign neoplasm of connective and other soft tissue, unspecified (principal)
CPT/HCPCS: 76830; 76856

== ENCOUNTER → 2024-09-11 15:24 | Outpatient (BNV) | payer OTHER, SELFPAY | PROVIDERS: PCP Internal Medicine; Visit Provider Radiology Diagnostic Radiology | DX: D25.9 Leiomyoma of uterus, unspecified (principal) | CPT/HCPCS: 76830; 76856 ==

== ENCOUNTER → 2024-09-19 07:34 | Outpatient (REF) | payer OTHER, SELFPAY ==
--- OUTSIDE RECORDS SUMMARY | 2024-09-19 07:37 | XMS_ITS ---
Author Organization [facility] Address [address] [place] [address] Care Team Providers Care Special Forces Communications Sergeant Name Role Phone GHASSAN LICEA Unavailable [phone] REASON FOR VISIT RE:Follow up appointment Encounters Encounter Location Date Provider Diagnosis [address] [place] [address] 08/30/2024 GHASSAN LICEA PLAN OF TREATMENT Next Appt Details Provider Name:GHASSAN LICEA , 10/02/2024 11:15:00 AM, [address], [place], [address], Provider Name:GHASSAN LIECA , 10/09/2024 09:30:00 AM, [address], [address], [place], [address], Provider Name:GHASSAN LICEA , 04/16/2025 11:15:00 AM, [address], [address], [place], [address], Progress Notes * Сергей GARNERB:1984 (39 yo F)Acc No.[id number]:08/30/2024 Patient:??Angela GARNER :1985?Age:39 Y?Sex:Fe male Address:[address] [place] [id number] * true * Date:??
--- OUTSIDE RECORDS SUMMARY | 2024-09-19 07:37 | XMS_ITS ---
Author Organization [facility] Address [address] [place] [address] Care Team Providers Care Land Resource Specialist Name Role Phone ANUJA GHASSAN Unavailable [phone] MEDICATIONS Medication SIG (Take, Route, Frequency, Duration) [...] Active Encounters Encounter Location Date Provider Diagnosis [address] [address] 09/11/2024 GHASSAN LICEA ASSESSMENTS Encounter Date Diagnosis [...] comorbidities. # Psoriatic arthritis: Patient follows with [facility] in [place]. Recently started on Skyrizi 150 mg injection. Will continue to monitor. Please follow-up with dermatology. # Hypothyroidism: The patient follows with [facility] in [facility]. TSH drawn through endocrinology and [...] Dictation was accomplished with the use of [employer] voice recognition software, which is prone to medical misidentifications and grammatical errors. This are unintentional and the practitioner does try to identify and correct these, but some could still be present. Please do not hesitate to contact practitioner for clarification. PLAN OF TREATMENT Next Appt Details Provider Name:GHASSAN ANUJA , 10/02/2024 11:15:00 AM, [address] , [address], [address], Provider Name:GHASSAN LICEA , 10/09/2024 09:30:00 AM, [address], [address], [address], Provider Name:GHASSAN LICEA , 04/16/2025 11:15:00 AM, [address], [address], [address], Progress Notes * Lavern GARNER:1984 (39 yo F)Acc No.[id number]:09/11/2024 Progress Notes Patient:??Angela GARNER Provider:??GHASSAN LICEA :1985?Age:39 Y?Sex:Fe male Date:09/11/2024 Address:[address] [place], [place] [id number] Subjective: * Chief Complaints: * ? * [...] daily. ?Patient has been following up with [facility] with Dr. Paolo Leiva for workup [...] comorbidities. # Psoriatic arthritis: Patient follows with [facility] in [place]. Recently started on Skyrizi 150 mg injection. Will continue to monitor. Please follow-up with dermatology. # Hypothyroidism: The patient follows with [facility] in [facility]. TSH drawn through endocrinology and [...] Dictation was accomplished with the use of [employer] voice recognition software, which is prone to medical misidentifications and grammatical errors. This are unintentional and the practitioner does try to identify and correct these, but some could still be present. Please do not hesitate to contact practitioner for clarification. Plan: * Treatment: * Procedure Codes:??09733 NO S HOW OFFICE VISIT * Images: Billing Information: * Visit Code:?? * Procedure Codes:?? 94765 NO SHOW OFFICE VISIT. Care Plan Details* [...] daily. Patient has been following up with [facility] with Dr. Paolo Leiva for workup of tachycardia.
--- OUTSIDE RECORDS SUMMARY | 2024-09-19 07:37 | XMS_ITS | Clinical Summary ---
Author Organization [facility] Address [address] [place] [address] Care Team Providers Care Medical Sociologist Name Role Phone Herson Pack MD Primary [...] Document [facility] [address] [facility] [address] [place] [address] Radiology, Scan from Last 3 Months Social [...] Info) Description 10/09/2024 10:00 AM EDT Appointment [facility] Radiology [address] [place] [address] Health Maintenance Due Date Last [...] PROCEDURES from Last 3 Months Care Teams Medical Sociologist Relationship Specialty Start Date End Date Herson Pack MD [address] [place] [address] 1 [facility] [place] [address] PCP - General 06/22/22
--- OUTSIDE RECORDS SUMMARY | 2024-09-19 07:37 | XMS_ITS | Patient Health Record ---
Author Organization [facility] Address [address] [place] [address] Care Team Providers Care Managed Care Director Name Role Phone GHASSAN LICEA Unavailable [phone] ALLERGIES Allergen (clinical drug ingredient) Drug/Non Drug Allergy documented on EMR Reaction Allergy Type Onset Date Status clindamycin Clindamycin hives Drug Allergy Act manfred RESULTS Component Value Reference Range Notes COMPREHENSIVE METABOLIC PANE L Reviewed date:03/15/2024 01:10:23 PM Interpretation: Performing Lab:NL2, [facility] [id number] [place], [place] [address] Julian Lemon Notes/Report: PATIENT UNABLE TO VOID; [...] Reviewed date:03/15/2024 01:10:03 PM Interpretation: Performing Lab:NL2, [facility] [id number] [facility] Julian Lemon Notes/Report: PATIENT UNABLE [...] MPV 9.5 7.5-12.5 fL ABSOLUTE NEUTROPHILS [phone] cells/uL ABSOLUTE LYMPHOCYTES 2298 850-3900 cells/uL ABSOLUTE MONOCYTES 571 200-950 cells/uL ABSOLUTE EOSINOPHILS 184 15-500 cells/uL ABSOLUTE BASOPHILS 61 0-200 cells/uL NEUTROPHILS 54.2 LYMPHOCYTES 33.8 MONOCYTES 8.4 EOSINOPHILS 2.7 BASOPHILS 0.9 COPY(IES) SENT TO: Reviewed date:03/15/2024 01:10:29 PM Interpretation: Performing Lab: Notes/Report: PATIENT UNABLE TO VOID; ADVISED TO RETURN FOR COLLECTION. COPY(IES) SENT TO: PATSY CHAVEZ [address] [place] [address] CT Abdomen Pelvis W Cont Reviewed date:03/28/2024 02:21:20 PM Interpretation: Performing Lab: Notes/Report: Original Ordering Provider: GHASSAN LICEA PA-C [facility] REASON FOR REFERRAL Reason [facility] [place] Diagnosis 1 Tachycardia (R00.0) Referral Organization [place] [address] Referring Provider First Name GHASSAN Referring Provider Last Name ANUJA Referring Provider Speciality Internal M edicine Referred Provider Specialty Cardiology General Notes Jacquelyn Ortega 03/14/2024 01:22:21 PM > Referral faxed to [facility] [place], p: [phone] f: [phone] Clinical Notes Cristopher Mora 05/2024 04:19:39 PM [...] (R10.12) Active confirmed Left upper quadrant pain (806543025) Problem Encounter for screening for lipoid disorders (Z13.220) Active confirmed Lipid screening (117587184) Problem Acquired hypothyroidism (E03.9) Active confirmed 954672433 Problem Psoriatic arthritis (L40.50) Active confirmed 616281754 Problem Adult general medical exam (Z00.00) Active confirmed Adult health examination (951800359) Problem Vitamin D deficiency (E55.9) Active confirmed 99484483 Problem Obesity (BMI 30-39.9) (E66.9) Active confirmed 026618842 Problem Moderate mixed hyperlipidemia not requiring statin therapy (E78.2) Active confirmed 436914286 Problem Attention deficit disorder (ADD) in adult (F98.8) Active confirmed 021183671 Problem Tachycardia (R00.0) Active confirmed Tachycardia (9894467) Problem Encounter for screening for endocrine disorder (Z13.29) Active confirmed Endocrine/meta bolic screening (555497929) VITAL SIGNS Heart Rate 95 /min 04/12/2024 Oximetry 97 % 04/12/2024 Blood pressure diastolic 82 mm Hg 04/12/2024 Height 61 in 04/12/2024 Blood pressure systolic 120 mm Hg 04/12/2024 Weight 180 lbs 04/12/2024 BMI 34.01 kg/m2 04/12/2024 Encounters Encounter Location Date Provider Diagnosis [address] [place] [address] 03/28/2024 GHASSANGRETCHEN UREÑAMARTHA [address] [place] [address] 05/02/2024 GHASSAN LICEA [address] [place] [address] 08/06/2024 GHASSAN LICEA [address] [place] [address] 08/29/2024 GHASSAN LICEA [address] [place] [address] 08/30/[address] [place] [address] 03/13/2024 GHASSAN LICEA Left upper quadrant pain R10.12 ; Attention deficit disorder (ADD) in adult F98.8 ; Acquired hypothyroidism E03.9 ; Vitamin D deficiency E55.9 and Obesity (BMI 30-39.9) E66.[address] [place] [address] 09/11/[address] [place] [address] 04/12/2024 GHASSAN LICEA Adult general medica l [...] pain (ICD-10 - R10.12) Angela is a kkjatd28-karn-ltp who presents to the office today for new patient evaluation. Patient is welcomed to the practice. They are coming from [facility] in [place], [place]. Last complete physical exam with labs [...] is exacerbated with sitting up and moving fpir-oh-wiub when she is lying down in bed. [...] monitor. # Hypothyroidism: The patient follows with [facility] in [facility]. Will order new TSH at this [...] Dictation was accomplished with the use of [employer] voice recognition software, which is prone to medical misidentifications and grammatical errors. This are unintentional and the practitioner does try to identify and correct these, but some could still be present. Please do not hesitate to contact practitioner for clarification. 03/13/2024 Attention deficit disorder (ADD) in adult (ICD-10 - F98.8) Angela is a ojrptz68-keei-qzp who presents to the office today for new patient evaluation. Patient is welcomed to the practice. They are coming from [facility] in [place], [place]. Last complete physical exam with labs [...] is exacerbated with sitting up and moving oskc-sn-dynt when she is lying down in bed. [...] monitor. # Hypothyroidism: The patient follows with [facility] in [facility]. Will order new TSH at this [...] Dictation was accomplished with the use of [employer] voice recognition software, which is prone to [...] pain exacerbated with sitting up and moving hcnd-yc-apeq while she is supine. Physical exam at [...] infarction in her father, he had his IA when he was 42 and to repeat [...] time. # Psoriatic arthritis: Patient follows with [facility] in [place]. Recently started on Skyrizi 150 mg injection. Will continue to monitor. Please follow-up with dermatology. # Hypothyroidism: The patient follows with [facility] in [facility]. TSH drawn through endocrinology and is [...] log exercise and discussed fitness Apps like [employer] or [employer] which can help keep log off calories [...] Dictation was accomplished with the use of Kindara voice recognition software, which is prone to [...] pain exacerbated with sitting up and moving enxb-jm-xluq while she is supine. Physical exam at [...] infarction in her father, he had his IA when he was 42 and to repeat [...] time. # Psoriatic arthritis: Patient follows with [facility] in [place]. Recently started on Skyrizi 150 mg injection. Will continue to monitor. Please follow-up with dermatology. # Hypothyroidism: The patient follows with [facility] in [facility]. TSH drawn through endocrinology and is [...] log exercise and discussed fitness Apps like [employer] or [employer] which can help keep log off calories [...] Dictation was accomplished with the use of Kindara voice recognition software, which is prone to [...] pain exacerbated with sitting up and moving fydg-bv-kqow while she is supine. Physical exam at [...] infarction in her father, he had his IA when he was 42 and to repeat [...] time. # Psoriatic arthritis: Patient follows with [facility] in [place]. Recently started on Skyrizi 150 mg injection. Will continue to monitor. Please follow-up with dermatology. # Hypothyroidism: The patient follows with [facility] in [facility]. TSH drawn through endocrinology and is [...] log exercise and discussed fitness Apps like [employer] or [employer] which can help keep log [...] Dictation was accomplished with the use of Kindara voice recognition software, which is prone to medical misidentifications and grammatical errors. This are unintentional and the practitioner does try to identify and correct these, but some could still be present. Please do not hesitate to contact practitioner for clarification. 03/13/2024 Acquired hypothyroidism (ICD-10 - E03.9) Angela is a cjhean04-usku-rdl who presents to the office today for new patient evaluation. Patient is welcomed to the practice. They are coming from [facility] in [place], [place]. Last complete physical exam with labs [...] is exacerbated with sitting up and moving fsee-iz-zszl when she is lying down in bed. [...] monitor. # Hypothyroidism: The patient follows with [facility] in [facility]. Will order new TSH at this [...] Dictation was accomplished with the use of Kindara voice recognition software, which is prone to medical misidentifications and grammatical errors. This are unintentional and the practitioner does try to identify and correct these, but some could still be present. Please do not hesitate to contact practitioner for clarification. 03/13/2024 Vitamin D deficiency (ICD-10 - E55.9) Angela is a agwsun98-bzws-dnw who presents to the office today for new patient evaluation. Patient is welcomed to the practice. They are coming from [facility] in [place], [place]. Last complete physical exam with labs [...] is exacerbated with sitting up and moving teyh-ce-idet when she is lying down in bed. [...] monitor. # Hypothyroidism: The patient follows with [facility] in [facility]. Will order new TSH at this [...] Dictation was accomplished with the use of Kindara voice recognition software, which is prone to [...] pain exacerbated with sitting up and moving ewls-nh-jjgn while she is supine. Physical exam at [...] infarction in her father, he had his IA when he was 42 and to repeat [...] time. # Psoriatic arthritis: Patient follows with [facility] in [place]. Recently started on Skyrizi 150 mg injection. Will continue to monitor. Please follow-up with dermatology. # Hypothyroidism: The patient follows with [facility] in [facility]. TSH drawn through endocrinology and is [...] log exercise and discussed fitness Apps like [employer] or [employer] which can help keep log off calories [...] Dictation was accomplished with the use of Kindara voice recognition software, which is prone to medical misidentifications and grammatical errors. This are unintentional and the practitioner does try to identify and correct these, but some could still be present. Please do not hesitate to contact practitioner for clarification. 03/13/2024 Obesity (BMI 30-39.9) (ICD-10 - E66.9) Angela is a bouqlh16-srbv-cid who presents to the office today for new patient evaluation. Patient is welcomed to the practice. They are coming from [facility] in [place], [place]. Last complete physical exam with labs [...] is exacerbated with sitting up and moving qlte-fx-jfkw when she is lying down in bed. [...] monitor. # Hypothyroidism: The patient follows with [facility] in [facility]. Will order new TSH at this [...] Dictation was accomplished with the use of [employer] voice recognition software, which is prone to [...] pain exacerbated with sitting up and moving afpw-gx-schn while she is supine. Physical exam at [...] infarction in her father, he had his IA when he was 42 and to repeat [...] time. # Psoriatic arthritis: Patient follows with [facility] in [place]. Recently started on Skyrizi 150 mg injection. Will continue to monitor. Please follow-up with dermatology. # Hypothyroidism: The patient follows with [facility] in [facility]. TSH drawn through endocrinology and is [...] log exercise and discussed fitness Apps like [employer] or [employer] which can help keep log [...] Dictation was accomplished with the use of Kindara voice recognition software, which is prone to [...] pain exacerbated with sitting up and moving uokd-qf-udfk while she is supine. Physical exam at [...] infarction in her father, he had his IA when he was 42 and to repeat [...] time. # Psoriatic arthritis: Patient follows with [facility] in [place]. Recently started on Skyrizi 150 mg injection. Will continue to monitor. Please follow-up with dermatology. # Hypothyroidism: The patient follows with [facility] in [facility]. TSH drawn through endocrinology and is [...] log exercise and discussed fitness Apps like [employer] or [employer] which can help keep log off calories [...] Dictation was accomplished with the use of Kindara voice recognition software, which is prone to [...] pain exacerbated with sitting up and moving ffwg-qv-csio while she is supine. Physical exam at [...] infarction in her father, he had his IA when he was 42 and to repeat [...] time. # Psoriatic arthritis: Patient follows with [facility] in [place]. Recently started on Skyrizi 150 mg injection. Will continue to monitor. Please follow-up with dermatology. # Hypothyroidism: The patient follows with [facility] in [facility]. TSH drawn through endocrinology and is [...] log exercise and discussed fitness Apps like [employer] or [employer] which can help keep log off calories [...] Dictation was accomplished with the use of Kindara voice recognition software, which is prone to [...] comorbidities. # Psoriatic arthritis: Patient follows with [facility] in [place]. Recently started on Skyrizi 150 mg injection. Will continue to monitor. Please follow-up with dermatology. # Hypothyroidism: The patient follows with [facility] in [facility]. TSH drawn through endocrinology and is [...] Dictation was accomplished with the use of [employer] voice recognition software, which is prone to [...] 11:15:00 AM, [address], [address], [place], [address], Provider Name:GHASSAN LICEA , 10/09/2024 09:30:00 AM, [address], [address], [place], [address], Provider Name:GHASSAN LICEA , 04/16/2025 11:15:00 AM, [address], [address], [place], [address], Insurance Providers Payer Name Payer Address Payer Phone Subscriber Number Group Number Insured Name Patient Relationship to Insured Coverage Start Date Coverage End Date [facility] [address] [place] [address] [phone] [id number] Angela Encarnacion Self - patient is the insured MEDICAL (GENERAL) HISTORY Medical History History ICD Code high cholesterol weight gain/loss thyroid disease skin disease Hospitalization History Reason Date(Month/Year) breast argumentation 2012 right knee arthroscopy 2014
--- OUTSIDE RECORDS SUMMARY | 2024-09-19 07:37 | XMS_ITS ---
Author Organization [facility] Address [address] [place] [address] Care Team Providers Care Jacker Name Role Phone GHASSAN LICEA Unavailable [phone] REASON FOR VISIT Follow up appointment Encounters Encounter Location Date Provider Diagnosis [address] [place] [address] 08/29/2024 GHASSAN LICEA PLAN OF TREATMENT Next Appt Details Provider Name:GHASSAN LICEA , 10/02/2024 11:15:00 AM, [address], [address], [place], [address], Provider Name:GHASSAN LICEA , 10/09/2024 09:30:00 AM, [address], [address], [place], [address], Provider Name:GHASSAN LICEA , 04/16/2025 11:15:00 AM, [address], [address], [place], [address], Progress Notes * Сергей GARNERB:1984 (39 yo F)Acc No.[id number]:08/29/2024 Patient:??Angela GARNER :1985?Age:39 Y?Sex:Fe male Address:[address] [place] [id number] * true * Date:??
--- OUTSIDE RECORDS SUMMARY | 2024-09-19 07:37 | XMS_ITS | Clinical Summary ---
Author Organization [facility] Address [address] [place] [address] Care Team Providers Care Tower Control Operator Name Role Phone Herson Pack MD [...] age to complete this topic Care Teams Tower Control Operator Relationship Specialty Start Date End Date Herson Pack MD [address] [place] [address] PCP - General Loan Review Manager 09/20/22
--- OUTSIDE RECORDS SUMMARY | 2024-09-19 07:37 | XMS_ITS | Clinical Summary ---
Author Organization [facility] Address [address] [place] [address] Phone Care Team Providers Care Inside Sales Consultant Name Role Phone Brenna Pack MD Primary [...] Surgery Date Site/Laterality Comments COLONOSCOPY 08/30/2007 PROCEDURE: WA COLONOSCOPY FLX DX W/COLLJ SPEC WHEN PFRMD; [...] Vaccine (2023-2 5 season) 2024 Influenza Vaccine (Season Ended) 2025 HPV Vaccines Completed 04/01/2008, 11/24/2007, 09/22/2007 MMR [...] age to complete this topic Meningococcal B Vaccine Aged Out No l onger eligible based on patient's age to complete [...] age to complete this topic Care Teams Inside Sales Consultant Relationship Specialty Start Date End Date Brenna Pack MD [address] [place] [address] [place] [address] PCP - General 09/20/22
--- OUTSIDE RECORDS SUMMARY | 2024-09-19 07:37 | XMS_ITS | Data Portability ---
Author Organization [facility] [employer] Address [address] [address] Assessment No assessment recorded. Plan of Treatment [...] Abnormal Flag Note LastModifiedBy Organization Detail LastModifiedTime 09/13/1909/11/2024 US, pelvi s No observ ation record ed. [address], [address], 09/17/2024 15:15:22 Result Notes None recorded. Problems Name Problem SNOMED Code Status Onset Date Resolution Date Notes Provider Name and Address Organization Details Recorded Time Hypothyroidism 81295352 Active 2020 Not Available [facility] 19:26:20 Attention deficit hyperactivity disorder, combined type 90278027 Active 2020 Not Available [facility] 19:26:20 Problem Notes None recorded. Procedures Surgical History None recorded. Imaging Results Imaging Date Name Status LastModified by Organiz ation Details LastModified Time 09/11/2024 US, pelvis completed [address], [address], 09/17/2024 15:15:22 Procedure Notes None recorded. Medical Equipment None [...] Not Available Not Available Not Avai lable Ragland Thyroid 15 mg tablet TAKE 1 TABLET [...] TABLET BY MOUTH EVERY 12 HOURS FOR 10 DAYS active Not Available Not Available No t Available azithromyci n 500 mg tablet TAKE [...] mcg/0.3 mL dose 09/20/2020 completed [facility]IB[facility] 11/07/2020 13:36:37 Past Encounters Encounter ID Performer Location Encounter Start Date Encounter Closed Date Diagnosis/Indication Diagnosis SNOMED-CT Code Diagnosis ICD10 Code Diagnosis Note [id number] Herson Pack MD Main Office [address] [address] 09/19/2023 10:35:09 09/19/2023 13:27:03 Attention deficit hyperactivity disorder, combined type 33133145 F90.2 Patient has no complaints her ADHD is well managed. Depressive disorder 6901 0914 F32.9 Patient states since starting [employer] she [...] Name 09/19/2023 1 [place]: [place]EL [place]BS [place] [id number] A Angela Robertsjamarcus [id number] Angela Alysha Notes Date Note Type [...] Auvelity she has noticed some minor weight gain.);insomnia(Vazquez bowser states since starting [employer] she has been lacking sleep.) Herson Pack MD [address], [place], [address], [facility] 09/21/2023 08:01:08 OBGyn Episode No OBEpisode recorded.
--- OUTSIDE RECORDS SUMMARY | 2024-09-19 07:38 | XMS_ITS | Encounter Summary ---
Author Organization [facility] Address [address] [place] [address] Care Team Providers Care Dye Range Feeder Name Role Phone Herson Pack MD Primary Care Provide r Encounter Details Date Type Department Care Team (Late Contact Info) Description 08/27/2024 Scanned Document [facility] HIM 80 [facility] [address] [place] [address] Radiology, Scan Social History Tobacco Use [...] Info) Description 10/09/2024 10:00 AM EDT Appointment [facility] [address] [place] [address] documented as of this encounter Procedures Procedure Name Priority Date/Time Associated Diagnosis Comments HX OUTSIDE ORDER 08/27/2024 12:19 PM EDT documented in this encounter Results * OUTSIDE ORDER (08/27/2024 12:19 PM EDT) Scan Radiology HX AMB PROCEDURES documented in this encounter Visit Diagnoses Not on filedocumented in this encounter Care Teams Dye Range Feeder Relationship Specialty Start Date End Date Herson Pack MD [address] [place] [address] 1 [facility] [place] [address] PCP - General 06/22/22 documented as of this encounter
== END ==
LOC: HO.SL 07:34
PROVIDERS: PCP Internal Medicine; Visit Provider Internal Medicine
DX: G47.33 Obstructive sleep apnea (adult) (pediatric) (principal)
CPT/HCPCS: 95806

== ENCOUNTER 2024-09-20 08:04 | Outpatient (REF) | payer OTHER, SELFPAY ==
--- OUTSIDE RECORDS SUMMARY | 2024-09-20 08:53 | XMS_ITS | Clinical Summary ---
Author Organization [facility] Address [address] [place] [address] Care Team Providers Care Shell Grader Name Role Phone Herson Pack MD Primary [...] Department Care Team Description 08/27/2024 Scanned Document [facility] 80 [facility] [address] [place] [address] Radiology, Scan from Last 3 Months Social [...] Info) Description 10/09/2024 10:00 AM EDT Appointment [facility] Radiology [address] [place] [address] Health Maintenance Due Date Last [...] PROCEDURES from Last 3 Months Care Teams Shell Grader Relationship Specialty Start Date End Date Herson Pack MD [address] [place] [address] 1 [facility] [place] [address] PCP - General 06/22/22
--- OUTSIDE RECORDS SUMMARY | 2024-09-20 08:53 | XMS_ITS | Clinical Summary ---
Author Organization [facility] Address [address] [place] [address] Care Team Providers Care Labeling Associate Name Role Phone Herson Pack MD Primary [...] age to complete this topic Care Teams Labeling Associate Relationship Specialty Start Date End Date Herson Pack MD [address] [place] [address] PCP - General Physician Advisor 09/20/22
--- OUTSIDE RECORDS SUMMARY | 2024-09-20 08:53 | XMS_ITS | Clinical Summary ---
Author Organization [facility] Address [address] [place] [address] Phone Care Team Providers Care Animal Caregiver Name Role Phone Brenna Pack MD Primary [...] Surgery Date Site/Laterality Comments COLONOSCOPY 08/30/2007 PROCEDURE: TX COLONOSCOPY FLX DX W/COLLJ SPEC WHEN PFRMD; [...] age to complete this topic Care Teams Animal Caregiver Relationship Specialty Start Date End Date Brenna Pack MD [address] [place] [address] [place] [address] PCP - General 09/20/22
--- OUTSIDE RECORDS SUMMARY | 2024-09-20 08:54 | XMS_ITS | Data Portability ---
Author Organization [facility] Address [address] [place] [address] Care Team Providers Care Judge Name Role Phone DANIEL URRUTIA Primary Care [...] examination, recommended tests/diagnostic imaging, and treatment plan. [email or web address] Not available 06/04/2024 14:39:13 Plan of Treatment Reminders Order Date Submit Date Provider Last Modified By Organization Details Last Modified Time Details Appointments None recorded. Lab None recorded. Referral None recorded. Procedures None recorded. Surgeries None recorded. Imaging XR, knee, 3 view 2023 sol 2 [facility], [address], [place] [address], [place], [address], 4 12:22:04 Medication Orders lidocaine (PF) 10 mg/mL (1 %) injection solution [address]/Pharmacy #[id number], [address] [place], [address], 4 16:10:20 triamcinolo ne acetonide 40 mg/mL suspension for injection 2023 [facility] 21 [facility]/Pharmacy #[id number], [address] [place], [address], 4 16:10:20 lidocaine (PF) 100 mg/5 mL (2 %) injection syringe 2023 024 [facility]/Pharmacy #[id number], [address] [place], [address], 4 15:36:32 triamcinolo ne acetonide 40 mg/mL suspension for injection 2023 024 [facility]/Pharmacy #[id number], [address] [place], [address], 4 15:36:34 Patient TargetsNo targets recorded. Patient Instructions Encounter Date Encounter Id Patient Instructions Last Modified By Organization Details Last Modified Time 02/09/2024 [id number] views of the right knee were obtained today 02/09/2024 in the [place] office. There are moderate degenerative postsurgical changes [...] right knee due to and following trauma [id number] Active 2023 KEI FISHER PA-C [address], [place], [address], [place] [facility] 4 13:58:42 Problem Notes None recorded. Procedures Surgical History Date Name Laterality Status Provider Name and Address Organization Details Recorded Time 4 LES trigger finger/De Quervain's injection completed CHRISTIANO VERGARA PA-C [address], [place], [address], [place] [facility] 06/04/2024 14:37:49 4 SAB Knee Inj w/o-US completed KEI FISHER PA-C [address], [place], [address], [place] [facility] 02/09/2024 10:55:09 operative procedure on knee completed Lacy Suarez [place] - [facility] 06/04/2024 14:05:00 Imaging Results Imaging Date [...] Not available Not available 06/04/2024 [id number] 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 Zimmerman, [facility] [address] Katie Milian MD [facility] 113 [facility],[address] [address] 06/04/2024 12:55:33 06/04/2024 14:24:56 Triggering of digit 683450083 M65.332 Health Concerns Section Related Observation LastModified by Organization Detai ls LastModified Time None Recorded Concern Status LastModified by Organization Details LastModified Time None Recorded Advance Directives Directive None Recorded Payers Encounter Date Sequence Insurance Name Policy Number Policy Jones Covered Member ID Jones Member ID Guarantor Name 02/09/2024 1 [place]: [facility] [id number] A Angela Encarnacion [id number] 35 Angela Encarnacion 06/04/2024 1 [place]: [place]EL [place] [id number] A Angela Encarnacion [id number] Angela Alysha Notes Date Note Type [...] this in [address] Zimmerman at [facility]. Operative report indicates a right knee [...] KEI FISHER PA-C [address], [place], [address], [place] [facility] 02/09/2024 14:20:18 06/04/2024 text/html Patient is [...] CHRISTIANO VERGARA PA-C [address], [place], [address], [facility] - [facility] 06/04/2024 14:40:33 OBGyn Episode No OBEpisode recorded.
--- OUTSIDE RECORDS SUMMARY | 2024-09-20 08:54 | XMS_ITS | Encounter Summary ---
Author Organization [facility] Address [address] [place] [address] Care Team Providers Care Coating Machine Operator Name Role Phone Herson Pack MD Primary Care Provide r Encounter Details Date Type Department Care Team (Late Contact Info) Description 08/27/2024 Scanned Document [facility] HIM 80 [facility] [address] [place] [address] Radiology, Scan Social History Tobacco Use [...] Info) Description 10/09/2024 10:00 AM EDT Appointment [facility] Radiology [address] [place] [address] documented as of this encounter Procedures Procedure Name Priority Date/Time Associated Diagnosis Comments HX OUTSIDE ORDER 08/27/2024 12:19 PM EDT documented in this encounter Results * OUTSIDE ORDER (08/27/2024 12:19 PM EDT) Scan Radiology HX AMB PROCEDURES documented in this encounter Visit Diagnoses Not on filedocumented in this encounter Care Teams Coating Machine Operator Relationship Specialty Start Date End Date Herson Pack MD [address] [place] [address] 1 [facility] [place] [address] PCP - General 06/22/22 documented as of this encounter
[2024-09-20 13:21] LABS: Bacterial Vaginosis PCR NEGATIVE (Negative); Candida Group PCR DETECTED (Not Detect); Candida glab krusei PCR NOT DETECTED (Not Detect); Trichomonas vaginalis PCR NOT DETECTED (Not Detect)
== END 2024-09-20 08:05 | disposition home or self-care (01) ==
LOC: HO.LAB 08:04
PROVIDERS: PCP Internal Medicine; Visit Provider Advanced Practice Midwife
DX: N89.8 Other specified noninflammatory disorders of vagina (principal)
CPT/HCPCS: 81515

== ENCOUNTER 2024-09-20 08:04 | Outpatient (AMB) | payer OTHER, SELFPAY ==
--- OUTSIDE RECORDS SUMMARY | 2024-09-20 08:07 | XMS_ITS | Clinical Summary ---
Author Organization [facility] Address [address] [place] [address] Phone Care Team Providers Care Filter Tender Jelly Name Role Phone Brenna Pack MD Primary Care Provider [phone] Allergies Active Allergy Reactions Criticality Noted Date [...] Surgery Date Site/Laterality Comments COLONOSCOPY 08/30/2007 PROCEDURE: MT COLONOSCOPY FLX DX W/COLLJ SPEC WHEN PFRMD; [...] age to complete this topic Care Teams Filter Tender Jelly Relationship Specialty Start Date End Date Brenna Pack MD [address] [place] [address] [place] [address] PCP - General 09/20/22
--- OUTSIDE RECORDS SUMMARY | 2024-09-20 08:07 | XMS_ITS ---
Author Organization [facility] Address [address] [place] [address] Care Team Providers Care Brake Repair Mechanic Name Role Phone GHASSAN LICEA Unavailable [phone] REASON FOR VISIT Follow up appointment Encounters Encounter Location Date Provider Diagnosis [address] [place] [address] 08/29/2024 GHASSAN LICEA PLAN OF TREATMENT Next Appt Details Provider Name:GHASSAN LICEA , 10/02/2024 11:15:00 AM, [address], [address], [place], [address], Provider Name:GHASSAN LICEA , 10/09/2024 09:30:00 AM, [address], [address], [place], [address], Provider Name:GHASSAN LICEA , 04/16/2025 11:15:00 AM, [address], [address], [place], [address], Progress Notes * Carolina GARNERaDOB:1984 (39 yo F)Acc No.[id number]:08/29/2024 Patient:??Angela GARNER :1985?Age:39 Y?Sex:Fe male Address:[address] [place] [address] * true * Date:??
--- OUTSIDE RECORDS SUMMARY | 2024-09-20 08:07 | XMS_ITS | Data Portability ---
Author Organization [employer] Address [address] [address] Assessment No assessment recorded. Plan of Treatment [...] pelvi s No observ ation record ed. [address], [address], 09/17/2024 15:15:22 Result Notes None recorded. Problems Name Problem SNOMED Code Status Onset Date Resolution Date Notes Provider Name and Address Organization Details Recorded Time Hypothyroidism 05443642 Active 2020 Not Available [facility] 19:26:20 Attention deficit hyperactivity disorder, combined type 62422001 Active 2020 Not Available [facility] 19:26:20 Problem Notes None recorded. Procedures Surgical History None recorded. Imaging Results Imaging Date Name Status LastModified by Organiz ation Details LastModified Time 09/11/2024 US, pelvis completed [address], [address], 09/17/2024 15:15:22 Procedure Notes None recorded. Medical [...] Not Available Not Available Not Avai lable [place] Thyroid 15 mg tablet TAKE 1 TABLET [...] mcg/0.3 mL dose 09/20/2020 completed GIBRAN Llamas [facility] 11/07/2020 13:36:37 Past Encounters Encounter ID Performer Location Encounter Start Date Encounter Closed Date Diagnosis/Indication Diagnosis SNOMED-CT Code Diagnosis ICD10 Code Diagnosis Note [id number] Herson Pack MD Main Office [address] [address] 09/19/2023 10:35:09 09/19/2023 13:27:03 Attention deficit hyperactivity disorder, combined type 82711488 F90.2 Patient has no complaints her ADHD is well managed. Depressive disorder 2496 1695 F32.9 Patient states since starting [facility] she [...] Name 09/19/2023 1 [place]: [place] BCBS [place]) [id number] A Angela Robertsjamarcus [id number] Angela Alysha Notes Date Note Type [...] Pack MD [address], [place], [address], [facility] Ramone [facility] 09/21/2023 08:01:08 OBGyn Episode No OBEpisode recorded.
--- OUTSIDE RECORDS SUMMARY | 2024-09-20 08:07 | XMS_ITS | Clinical Summary ---
Author Organization [facility] Address [address] [place] [address] Care Team Providers Care Garnett Mechanic Name Role Phone Herson Pack MD [...] Document [facility] 80 [facility] [address] [place] [address] Radiology, Scan from Last 3 Months Social [...] Description 10/09/2024 10:00 AM EDT Appointment [facility] Radiology [address] [place] [address] Health Maintenance Due Date Last [...] PROCEDURES from Last 3 Months Care Teams Garnett Mechanic Relationship Specialty Start Date End Date Herson Pack MD [address] [place] [address] 1 [place] [address] PCP - General 06/22/22
--- OUTSIDE RECORDS SUMMARY | 2024-09-20 08:07 | XMS_ITS | Clinical Summary ---
Author Organization [facility] Address [address] [place] [address] Care Team Providers Care Remote Broadcast Engineer Name Role Phone Herson Pack MD Primary [...] age to complete this topic Care Teams Remote Broadcast Engineer Relationship Specialty Start Date End Date Herson Pack MD [address] [place] [address] PCP - General Cloth Booker 09/20/22
--- OUTSIDE RECORDS SUMMARY | 2024-09-20 08:08 | XMS_ITS ---
Author Organization [facility] Address [address] [place] [address] Care Team Providers Care Sub Plant Manager Name Role Phone GHASSAN LICEA Unavailable [phone] REASON FOR VISIT RE:Follow up appointment Encounters Encounter Location Date Provider Diagnosis [address] [place] [address] 08/30/2024 GHASSAN LICEA PLAN OF TREATMENT Next Appt Details Provider Name:GHASSAN LICEA , 10/02/2024 11:15:00 AM, [address], [address], [place], [address], Provider Name:GHASSAN LICEA , 10/09/2024 09:30:00 AM, [address], [address], [place], [address], Provider Name:GHASSAN LICEA , 04/16/2025 11:15:00 AM, [address], [address], [place], [address], Progress Notes * Сергей GARNERB:1984 (39 yo F)Acc No.[id number]:08/30/2024 Patient:??Angela GARNER :1985?Age:39 Y?Sex:Fe male Address:[address] [place] [id number] * true * Date:??
--- OUTSIDE RECORDS SUMMARY | 2024-09-20 08:08 | XMS_ITS | Patient Health Record ---
Author Organization [facility] Address [address] [place] [address] Care Team Providers Care Electric Drill Operator Name Role Phone GHASSAN LICEA Unavailable [phone] ALLERGIES Allergen (clinical drug ingredient) Drug/Non Drug Allergy documented on EMR Reaction Allergy Type Onset Date Status clindamycin Clindamycin hives Drug Allergy Act manfred RESULTS Component Value Reference Range Notes COMPREHENSIVE METABOLIC PANE L Reviewed date:03/15/2024 01:10:23 PM Interpretation: Performing Lab:NL2, [facility] [id number] [place], [place] [address] Julian Lemon Notes/Report: PATIENT UNABLE TO VOID; [...] Reviewed date:03/15/2024 01:10:03 PM Interpretation: Performing Lab:NL2, [facility] [id number] [facility] Julian Lemon Notes/Report: PATIENT UNABLE [...] MPV 9.5 7.5-12.5 fL ABSOLUTE NEUTROPHILS 3686 6158-2064 cells/uL ABSOLUTE LYMPHOCYTES 2298 850-3900 cells/uL ABSOLUTE MONOCYTES 571 200-950 cells/uL ABSOLUTE EOSINOPHILS 184 15-500 cells/uL ABSOLUTE BASOPHILS 61 0-200 cells/uL NEUTROPHILS 54.2 LYMPHOCYTES 33.8 MONOCYTES 8.4 EOSINOPHILS 2.7 BASOPHILS 0.9 COPY(IES) SENT TO: Reviewed date:03/15/2024 01:10:29 PM Interpretation: Performing Lab: Notes/Report: PATIENT UNABLE TO VOID; ADVISED TO RETURN FOR COLLECTION. COPY(IES) SENT TO: PATSY CHAVEZ [address] [place] [address] CT Abdomen Pelvis W Cont Reviewed date:03/28/2024 02:21:20 PM Interpretation: Performing Lab: Notes/Report: Original Ordering Provider: GHASSAN LICEA PA-C REASON FOR REFERRAL Reason [facility] [place] Diagnosis 1 Tachycardia (R00.0) Referral Organization [place] [address] Referring Provider First Name GHASSAN Referring Provider Last Name ANUJA Referring Provider Speciality Internal M edicine Referred Provider Specialty Cardiology General Notes Jacquelyn Ortega 03/14/2024 01:22:21 PM > Referral faxed to [facility] [place], p: [phone] f: [phone] Clinical Notes Cristopher Mora 05/2024 04:19:39 PM [...] (R10.12) Active confirmed Left upper quadrant pain (512524012) Problem Encounter for screening for lipoid disorders (Z13.220) Active confirmed Lipid screening (274171802) Problem Acquired hypothyroidism (E03.9) Active confirmed 188726921 Problem Psoriatic arthritis (L40.50) Active confirmed 073248378 Problem Adult general medical exam (Z00.00) Active confirmed Adult health examination (989176858) Problem Vitamin D deficiency (E55.9) Active confirmed 47006409 Problem Obesity (BMI 30-39.9) (E66.9) Active confirmed 305411056 Problem Moderate mixed hyperlipidemia not requiring statin therapy (E78.2) Active confirmed 692512184 Problem Attention deficit disorder (ADD) in adult (F98.8) Active confirmed 323158370 Problem Tachycardia (R00.0) Active confirmed Tachycardia (1595544) Problem Encounter for screening for endocrine disorder (Z13.29) Active confirmed Endocrine/meta bolic screening (653671921) VITAL SIGNS Heart Rate 95 /min 04/12/2024 Blood pressure diastolic 82 mm Hg 04/12/2024 Oximetry 97 % 04/12/2024 Height 61 in 04/12/2024 Blood pressure systolic 120 mm Hg 04/12/2024 Weight 180 lbs 04/12/2024 BMI 34.01 kg/m2 04/12/2024 Encounters Encounter Location Date Provider Diagnosis [address] [place] [address] 09/11/[address] [place] [address] 03/13/2024 GHASSAN LICEA Left upper quadrant pain R10.12 ; Attention deficit disorder (ADD) in adult F98.8 ; Acquired hypothyroidism E03.9 ; Vitamin D deficiency E55.9 and Obesity (BMI 30-39.9) E66.[address] [place] [address] 04/12/2024 GHASSAN LICEA Adult general medica l exam Z00.00 ; Attention deficit disorder (ADD) in adult F98.8 ; Acquired hypothyroidism E03.9 ; Obesity (BMI 30-39.9) E66.9 ; Left upper quadrant pain R10.12 ; Moderate mixed hyperlipidemia not requiring statin therapy E78.2 and Psoriatic arthritis L40.50 [address] [place] [address] 03/28/2024 GHASSAN NIRANJANMARTHA [address] [place] [address] 05/02/2024 GHASSAN LICEA [address] [place] [address] 08/06/2024 GHASSAN LICEA [address] [place] [address] 08/29/2024 GHASSAN UREÑAMARTHA [address] [place] [address] 08/30/2024 GHASSAN LICEA ASSESSMENTS Encounter Date Diagnosis Assessment Notes Treatment Notes Treatment Clinical Notes Section Notes 03/13/2024 Left upper quadrant pain (ICD-10 - R10.12) Angela is a -uolh-qoe who presents to the office today for new patient evaluation. Patient is welcomed to the practice. They are coming from [facility] in [place], [place]. Last complete physical exam with labs [...] is exacerbated with sitting up and moving ziyh-ml-zxhf when she is lying down in bed. [...] monitor. # Hypothyroidism: The patient follows with [facility] in [facility]. Will order new TSH at this [...] Dictation was accomplished with the use of [employer] voice recognition software, which is prone to medical misidentifications and grammatical errors. This are unintentional and the practitioner does try to identify and correct these, but some could still be present. Please do not hesitate to contact practitioner for clarification. 03/13/2024 Attention deficit disorder (ADD) in adult (ICD-10 - F98.8) Angela is a -rbfx-oro who presents to the office today for new patient evaluation. Patient is welcomed to the practice. They are coming from [facility] in [place], [place]. Last complete physical exam with labs [...] is exacerbated with sitting up and moving kagw-rm-krfu when she is lying down in bed. [...] monitor. # Hypothyroidism: The patient follows with [facility] in [facility]. Will order new TSH at this [...] Dictation was accomplished with the use of [employer] voice recognition software, which is prone to [...] pain exacerbated with sitting up and moving yvlh-rq-nfmn while she is supine. Physical exam at [...] infarction in her father, he had his GA when he was 42 and to repeat [...] time. # Psoriatic arthritis: Patient follows with [facility] in [place]. Recently started on Skyrizi 150 mg injection. Will continue to monitor. Please follow-up with dermatology. # Hypothyroidism: The patient follows with [facility] in [facility]. TSH drawn through endocrinology and is [...] log exercise and discussed fitness Apps like [employer] or [employer] which can help keep log off calories [...] Dictation was accomplished with the use of [employer] voice recognition software, which is prone to [...] pain exacerbated with sitting up and moving xxow-hp-vygs while she is supine. Physical exam at [...] infarction in her father, he had his GA when he was 42 and to repeat [...] time. # Psoriatic arthritis: Patient follows with [facility] in [place]. Recently started on Skyrizi 150 mg injection. Will continue to monitor. Please follow-up with dermatology. # Hypothyroidism: The patient follows with [facility] in [facility]. TSH drawn through endocrinology and is [...] log exercise and discussed fitness Apps like [employer] or [employer] which can help keep log off calories [...] Dictation was accomplished with the use of [employer] voice recognition software, which is prone to [...] pain exacerbated with sitting up and moving nluv-ck-rsrj while she is supine. Physical exam at [...] infarction in her father, he had his GA when he was 42 and to repeat [...] time. # Psoriatic arthritis: Patient follows with [facility] in [place]. Recently started on Skyrizi 150 mg injection. Will continue to monitor. Please follow-up with dermatology. # Hypothyroidism: The patient follows with [facility] in [facility]. TSH drawn through endocrinology and is [...] log exercise and discussed fitness Apps like [employer]ep[employer] or [employer] which can help keep log [...] Dictation was accomplished with the use of [employer] voice recognition software, which is prone to medical misidentifications and grammatical errors. This are unintentional and the practitioner does try to identify and correct these, but some could still be present. Please do not hesitate to contact practitioner for clarification. 03/13/2024 Acquired hypothyroidism (ICD-10 - E03.9) Angela is a aekwsw92-tulg-dcy who presents to the office today for new patient evaluation. Patient is welcomed to the practice. They are coming from [facility] in [place]. Last complete physical exam with labs [...] is exacerbated with sitting up and moving lsor-ut-krmt when she is lying down in bed. [...] monitor. # Hypothyroidism: The patient follows with [facility] in [facility]. Will order new TSH at this [...] Dictation was accomplished with the use of [employer] voice recognition software, which is prone to medical misidentifications and grammatical errors. This are unintentional and the practitioner does try to identify and correct these, but some could still be present. Please do not hesitate to contact practitioner for clarification. 03/13/2024 Vitamin D deficiency (ICD-10 - E55.9) Angela is a szebwq38-snvv-idl who presents to the office today for new patient evaluation. Patient is welcomed to the practice. They are coming from [facility] in [place], [place]. Last complete physical exam with labs [...] is exacerbated with sitting up and moving wrgq-pl-ktzy when she is lying down in bed. [...] monitor. # Hypothyroidism: The patient follows with [facility] in [facility]. Will order new TSH at this [...] Dictation was accomplished with the use of [employer] voice recognition software, which is prone to [...] pain exacerbated with sitting up and moving sfis-xn-ighh while she is supine. Physical exam at [...] infarction in her father, he had his GA when he was 42 and to repeat [...] time. # Psoriatic arthritis: Patient follows with [facility] in [place]. Recently started on Skyrizi 150 mg injection. Will continue to monitor. Please follow-up with dermatology. # Hypothyroidism: The patient follows with [facility] in [facility]. TSH drawn through endocrinology and is [...] log exercise and discussed fitness Apps like [employer] or [employer] which can help keep log off calories [...] Dictation was accomplished with the use of [employer] voice recognition software, which is prone to medical misidentifications and grammatical errors. This are unintentional and the practitioner does try to identify and correct these, but some could still be present. Please do not hesitate to contact practitioner for clarification. 03/13/2024 Obesity (BMI 30-39.9) (ICD-10 - E66.9) Angela is a kistsl83-funp-jkz who presents to the office today for new patient evaluation. Patient is welcomed to the practice. They are coming from [facility] in [place], [place]. Last complete physical exam with labs [...] is exacerbated with sitting up and moving cqqt-kb-mmjn when she is lying down in bed. [...] monitor. # Hypothyroidism: The patient follows with [facility] in [facility]. Will order new TSH at this [...] Dictation was accomplished with the use of [employer] voice recognition software, which is prone to [...] pain exacerbated with sitting up and moving bbsu-cl-svgl while she is supine. Physical exam at [...] infarction in her father, he had his GA when he was 42 and to repeat [...] time. # Psoriatic arthritis: Patient follows with [facility] in [place]. Recently started on Skyrizi 150 mg injection. Will continue to monitor. Please follow-up with dermatology. # Hypothyroidism: The patient follows with [facility] in [facility]. TSH drawn through endocrinology and is [...] log exercise and discussed fitness Apps like [employer] or [employer] which can help keep log [...] Dictation was accomplished with the use of [employer] voice recognition software, which is prone to [...] pain exacerbated with sitting up and moving iirl-bl-wdtf while she is supine. Physical exam at [...] infarction in her father, he had his GA when he was 42 and to repeat [...] time. # Psoriatic arthritis: Patient follows with [facility] in [place]. Recently started on Skyrizi 150 mg injection. Will continue to monitor. Please follow-up with dermatology. # Hypothyroidism: The patient follows with [facility] in [facility]. TSH drawn through endocrinology and is [...] log exercise and discussed fitness Apps like [employer] or [employer] which can help keep log off calories [...] Dictation was accomplished with the use of [employer] voice recognition software, which is prone to [...] pain exacerbated with sitting up and moving qwfs-jm-evtn while she is supine. Physical exam at [...] infarction in her father, he had his GA when he was 42 and to repeat [...] time. # Psoriatic arthritis: Patient follows with [facility] in [place]. Recently started on Skyrizi 150 mg injection. Will continue to monitor. Please follow-up with dermatology. # Hypothyroidism: The patient follows with [facility] in [facility]. TSH drawn through endocrinology and is [...] log exercise and discussed fitness Apps like [employer] or [employer] which can help keep log off calories [...] Dictation was accomplished with the use of [employer] voice recognition software, which is prone to [...] comorbidities. # Psoriatic arthritis: Patient follows with [facility] in [place]. Recently started on Skyrizi 150 mg injection. Will continue to monitor. Please follow-up with dermatology. # Hypothyroidism: The patient follows with [facility] in [facility]. TSH drawn through endocrinology and is [...] Dictation was accomplished with the use of [employer] voice recognition software, which is prone to [...] 11:15:00 AM, [address], [address], [place], [address], Provider Name:GHASSAN LICEA , 10/09/2024 09:30:00 AM, [address], [address], [place], [address], Provider Name:GHASSAN LICEA , 04/16/2025 11:15:00 AM, [address], [address], [place], [address], Insurance Providers Payer Name Payer Address Payer Phone Subscriber Number Group Number Insured Name Patient Relationship to Insured Coverage Start Date Coverage End Date [facility] [address] [place] [address] [phone] [id number] Angela Encarnacion Self - patient is the insured MEDICAL (GENERAL) HISTORY Medical History History ICD Code high cholesterol weight gain/loss thyroid disease skin disease Hospitalization History Reason Date(Month/Year) breast argumentation 2012 right knee arthroscopy 2014
--- OUTSIDE RECORDS SUMMARY | 2024-09-20 08:08 | XMS_ITS ---
Author Organization [employer] [facility] Address [address] [place] [address] Care Team Providers Care Wire Annealer Name Role Phone ANUJA GHASSAN Unavailable [phone] MEDICATIONS Medication SIG (Take, Route, Frequency, Duration) [...] Active Encounters Encounter Location Date Provider Diagnosis [address] [address] 09/11/2024 GHASSAN LICEA ASSESSMENTS Encounter Date Diagnosis [...] comorbidities. # Psoriatic arthritis: Patient follows with [facility] in [place]. Recently started on Skyrizi 150 mg injection. Will continue to monitor. Please follow-up with dermatology. # Hypothyroidism: The patient follows with [facility] in [facility]. TSH drawn through endocrinology and is [...] Dictation was accomplished with the use of [employer] voice recognition software, which is prone to medical misidentifications and grammatical errors. This are unintentional and the practitioner does try to identify and correct these, but some could still be present. Please do not hesitate to contact practitioner for clarification. PLAN OF TREATMENT Next Appt Details Provider Name:GHASSAN ANUJA , 10/02/2024 11:15:00 AM, [address] , [address], [address], Provider Name:GHASSAN LICEA , 10/09/2024 09:30:00 AM, [address], [address], [address], Provider Name:GHASSAN LICEA , 04/16/2025 11:15:00 AM, [address], [address], [address], Progress Notes * Lavern GARNER:1984 (39 yo F)Acc No.[id number]:09/11/2024 Progress Notes Patient:??Angela GARNER Provider:??GHASSAN LICEA :1985?Age:39 Y?Sex:Fe male Date:09/11/2024 Address:[address] [place], [place] [id number] Subjective: * Chief Complaints: * ? * [...] daily. ?Patient has been following up with [facility] with Dr. Paolo Leiva for workup [...] comorbidities. # Psoriatic arthritis: Patient follows with [facility] in [place]. Recently started on Skyrizi 150 mg injection. Will continue to monitor. Please follow-up with dermatology. # Hypothyroidism: The patient follows with [facility] in [facility]. TSH drawn through endocrinology and is [...] Dictation was accomplished with the use of [employer] voice recognition software, which is prone to medical misidentifications and grammatical errors. This are unintentional and the practitioner does try to identify and correct these, but some could still be present. Please do not hesitate to contact practitioner for clarification. Plan: * Treatment: * Procedure Codes:??88042 NO S HOW OFFICE VISIT * Images: Billing Information: * Visit Code:?? * Procedure Codes:?? 89547 NO SHOW OFFICE VISIT. Care Plan Details* [...] daily. Patient has been following up with [facility] with Dr. Paolo Leiva for workup of tachycardia.
--- OUTSIDE RECORDS SUMMARY | 2024-09-20 08:08 | XMS_ITS | Encounter Summary ---
Author Organization [facility] Address [address] [place] [address] Care Team Providers Care Orthotic Fitter Name Role Phone Herson Pack MD Primary Care Provide r Encounter Details Date Type Department Care Team (Late Contact Info) Description 08/27/2024 Scanned Document [facility] HIM 80 [facility] [address] [place] [address] Radiology, Scan Social History Tobacco Use [...] Appointment [facility] Radiology [address] [place] [address] documented as of this encounter Procedures Procedure Name Priority Date/Time Associated Diagnosis Comments HX OUTSIDE ORDER 08/27/2024 12:19 PM EDT documented in this encounter Results * OUTSIDE ORDER (08/27/2024 12:19 PM EDT) Scan Radiology HX AMB PROCEDURES documented in this encounter Visit Diagnoses Not on filedocumented in this encounter Care Teams Orthotic Fitter Relationship Specialty Start Date End Date Herson Pack MD [address] [place] [address] 1 [facility] [place] [address] PCP - General 06/22/22 documented as of this encounter
--- NOTE | 2024-09-20 08:10 | A.OFFVIS_ITS ---
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 Doing well with jig operator concerns: itching externally, recently treated with Augmentin. Regular monthly menses with the ParaGard, reports menses are heavy 2/7 days and cramping on her right ovary with onset of menses. Uses ibuprofen for relief. Currently is sexually active. She denies vaginal itching and irritation. STI screening offered; she accepts. She tries to eat healthy and stays active with exercise. Concerned about her weight gain in the last 6 months due to her medication reaction despite working out more. Denies family history of breast, ovarian or colon cancer. Last pap smear 2023, negative. History of LEEP. Considering a future after her wedding in March and would like to expedite a consult with [facility] at that time. [facility] Medical History IUD (intrauterine device) in place Fibroids Abnormal Pap smear of cervix ADD (attention deficit disorder) Depression Vitamin D deficiency Psoriatic arthritis Hypothyroidism Surgical History H/O breast augmentation H/O LEEP Hx of knee surgery Family History Father Heart disease High cholesterol HTN (hypertension) Mother High cholesterol Hypothyroidism Social History (Updated 09/20/24 @ 08:29 by Mandie Houser CNM) Alcohol intake: current Alcohol intake frequency: holidays/special occasions only Patient Tobacco Use Status: Never used Tobacco Current occupational status: employed 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 Sexual orientation: Straight/Heterosexual Gender identity: Female Female Reproductive History Menstrual Age of Menarche: 15 Duration of menses: 6-7 days Date of last menstrual period: 09/03/24 control method: copper IUCD (09/2017) Total pregnancies: 0 Date of last pap smear: 07/14/23 (neg pap and hpv) History of abnormal pap smear: Yes (see intake note) Review of Systems Const All systems reviewed & are unremarkable except as noted in HPI and below Reports as per HPI Eyes Reports no additional complaints ENT Reports no additional complaints Card Reports no additional complaints Resp Reports no additional complaints GI Reports as per HPI and Reports no additional complaints Reports as per HPI Musc Reports no additional complaints Skin/Breast Reports as per HPI Neuro Reports no additional complaints Psych Reports no additional complaints Endo Reports no additional complaints Bhupendra/Lymph Reports no additional complaints Aller/Immun Reports no additional complaints Physical Exam Vital Signs: Last Vital Signs BP 120/84 09/20/24 08:12 BMI result Body Mass Index 34.0 Const General: cooperative, healthy appearing, no acute distress, well developed and alert Orientation/consciousness: patient oriented x3 HEENT Head: Yes normal to inspection Eyes General: appearance normal, both eyes and all related structures Neck Neck: Yes normal visual inspection Thyroid: Thyroid normal Chest Chest palpation & inspection: normal inspection of the chest and other (no puckering, dimpling, peau de orange, retraction, discharge, masses) Breast/axilla inspection: normal inspection of the breasts Breast/axilla palpation: normal palpation of the breasts Resp Effort & Inspection: normal respiratory effort GI Inspection: Yes normal to inspection Palpation (GI): Soft to palpation Rectal Exam - Female: deferred General: Yes bladder normal to palpation External Female Exam: normal external appearance and normal appearance of the urethra Speculum Exam - Vagina: normal appearance of the vagina, normal palpation and normal vaginal discharge Speculum Exam - Cervix: normal appearance of the cervix, normal palpation and Other cervical findings present (IUD strings at the os) Bimanual exam- vagina & uterus: normal bimanual exam, normal palpation, uterine size normal, bladder normal to palpation, normal palpation and non-tender Bimanual Exam- Adnexa, other: no masses Skin General skin exam: no rashes or lesions noted Rashes: no rashes Neuro General: patient oriented x3 Cognition (Neuro): normal cognition Extrem General: Yes normal to inspection Psych Attitude: cooperative Thought process: Normal thought process present Results Reviewed Results Reviewed: [address] [address] Ultrasound Report Signed Patient: Angela Encarnacion MR#: [id number] : 1985 Acct:[id number] Age/Sex: 39 / F ADM Date: 09/11/24 Loc: HO.US Attending Dr: Mandie Houser CNM Ordering Physician: Mandie Houser CNM Date of Service: 09/11/24 Procedure(s): US pelvic and transvaginal Accession Number(s): [id number] cc: Mandie Houser CNM; Herson Pack MD~ EXAMINATION: US PELVIS TRANSABDOMINAL AND TRANSVAGINAL HISTORY: D21.9 - Benign neoplasm of connective and other soft tissue, unspecified COMPARISON: Comparison is made with the prior examination dated 09/09/2023. TECHNIQUE: Transabdominal and endovaginal real-time 2D romo-scale ultrasound was performed. FINDINGS: Uterus: The uterus is normal in size, measuring 7.0 x 3.2 x 4.2 cm. Myometrium has a normal echotexture. There is a 7 x 7 x 6 mm left-sided fibroid without change. Endometrium: The endometrial stripe measures 4 mm in thickness. An IUD is seen in the appropriate position in the endometrial cavity. Right ovary: The right ovary measures 2.5 x 2.3 x 1.5 cm. The right ovary is normal in size and echotexture. Left ovary: The left ovary is not visualized. Pelvic fluid: none. US/US pelvic and transvaginal IMPRESSION: Subcentimeter left-sided uterine fibroid. IUD in the appropriate position in the endometrial cavity. The left ovary is not identified. Electronically signed by: Randy Lucero MD 09/12/2024 08:33 AM EDT Dictated By: Randy Lucero MD Signed By: <Electronically signed by Randy Lucero MD in OV> 09/12/24 0833 DD/ 1538 TD/TT: 09/11/24 3861 Bar Gauger And Lubricator Tender: Assessment & Plan Assessment & Plan (1) Encounter for well woman exam with routine gynecological exam: Code(s): Z01.419 - Encounter for gynecological examination (general) (routine) without abnormal findings Category: Medical Plan: Discussed: Current recommendations for pap smears per ASCCP guidelines. Breast awareness and periodic breast exams. Maintain a healthy lifestyle including a well balanced diet and routine exercise. Return to the office when ready to remove ParaGard. Prepregnancy planning with healthy diet and regular exercise, evaluating medication use in titrating off as needed with providers assistance. Initiate vitamins or women's vitamins with folic acid several months before for the benefits of folic acid in prevention of neural tube defects. Consider [facility] referral at that visit, or sooner if desired. Patient verbalizes understanding and agrees to the plan of care. She was given opportunity to ask questions and all questions were answered to the best of my ability. RTO in one year for annual jig operator examination. This note is constructed using voice recognition software. While every effort has been made to ensure accuracy, oriental rug repairer errors may have been included. (2) Fibroid: Code(s): D21.9 - Benign neoplasm of connective and other soft tissue, unspecified Plan: Discussed ultrasound findings: FINDINGS: Uterus: The uterus is normal in size, measuring 7.0 x 3.2 x 4.2 cm. Myometrium has a normal echotexture. There is a 7 x 7 x 6 mm left-sided fibroid without change. Endometrium: The endometrial stripe measures 4 mm in thickness. An IUD is seen in the appropriate position in the endometrial cavity. Right ovary: The right ovary measures 2.5 x 2.3 x 1.5 cm. The right ovary is normal in size and echotexture. Left ovary: The left ovary is not visualized. Pelvic fluid: none. Plan Counseled re: Leiomyoma: common pelvic neoplasm. Differential diagnosis-may incl ude but not limited to- leiomyosarcoma which is a rare uterine sarcoma 3- 7/100,000, difficult to distinguish from fibroids on ultrasound from uterine sarcoma's. Unlikely any single test will have a highly positive predictive value. Hysterectomy is not recommended for sole purpose of excluding malignant neoplasm. Consult for surgical exploration, medical treatment, other treatments, verses expectant management, pros and cons, risks and benefits. Expectant management follow up in 6 months, then yearly for stability. Patient prefers to proceed with expectant management. Report any AUB, pelvic pressure, bloating, or pain. Referral to MD if indicated for level of care if indicated. Orders: Orders Bacterial Vaginosis Panel Today N89.8 - Other specified noninflammatory disorders of vagina US pelvic and transvaginal 03/18/25 D21.9 - Benign neoplasm of connective and other soft tissue, unspecified Coding Level of Care Code Est Pt Prev Care 18-39y(17885) Diagnoses Encounter for well woman exam with routine gynecological exam Z01.419 Fibroid D21.9
[2024-09-20 08:12] VITALS: BP 120/84; BMI 34.0
== END 2024-09-20 09:13 | disposition home or self-care (01) ==
LOC: HO.HWSW 08:04
PROVIDERS: PCP Internal Medicine; Visit Provider Advanced Practice Midwife
DX: Z01.419 Encounter for gynecological examination (general) (routine) without abnormal findings (principal); D21.9 Benign neoplasm of connective and other soft tissue, unspecified
CPT/HCPCS: 99395; 99459

== ENCOUNTER → 2024-09-22 08:11 | Outpatient (BNV) | payer OTHER, SELFPAY | PROVIDERS: PCP Internal Medicine; Visit Provider Internal Medicine | DX: R06.83 Snoring (principal) | CPT/HCPCS: 95806 ==

== ENCOUNTER 2024-10-22 10:33 | Outpatient (REF) | payer OTHER, SELFPAY ==
--- OUTSIDE RECORDS SUMMARY | 2024-10-22 11:22 | XMS_ITS | Data Portability ---
Author Organization [employer] Address [address] [address] Assessment No assessment recorded. Plan of Treatment [...] Abnormal Flag Note LastModifiedBy Organization Detail LastModifiedTime 09/13/19 25 09/11/2024 US, pelvi s No observ ation record ed. [address], [address], 09/17/2024 15:15:22 09/21/19 25 09/11/2024 US, abdom en + pelvi s No observ ation record ed. [address], [address], 09/25/2024 12:14:07 Result Notes None recorded. Problems Name Problem SNOMED Code Status Onset Date Resolution Date Notes Provider Name and Address Organization Details Recorded Time Hypothyroidism 92335173 Active 2020 Not Available [employer] 19:26:20 Attention deficit hyperactivity disorder, combined type 43818402 Active 2020 Not Available [facility] 19:26:20 Problem Notes None recorded. Procedures Surgical History None recorded. Imaging Results Imaging Date Name Status LastModified by Organiz ation Details LastModified Time 09/11/2024 US, pelvis completed [facility] [address] [place], [address], 09/17/2024 15:15:22 09/11/2024 US, abdomen + pelvis completed [facility] [address] [place], [address], 09/25/2024 12:14:07 Procedure Notes None recorded. Medical Equipment None [...] Not Available Not Available Not Avai lable [place] Thyroid 15 mg tablet TAKE 1 TABLET [...] mcg/0.3 mL dose 09/20/2020 completed Harpreet miranda [facility] [employer] [facility] 11/07/2020 13:36:37 Past Encounters Encounter ID Performer Location Encounter Start Date Encounter Closed Date Diagnosis/Indication Diagnosis SNOMED-CT Code Diagnosis ICD10 Code Diagnosis Note [id number] Herson Pack MD Main Office [address] [place] [address] 09/19/2023 10:35:09 09/19/2023 13:27:03 Attention deficit hyperactivity disorder, combined type 29507511 F90.2 Patient has no complaints her ADHD is well managed. Depressive disorder 2652 9002 F32.9 Patient states since starting [employer] [...] Name 09/19/2023 1 [place] [employer] [place] [id number] A Angela Encarnacion [id number] [address] Angela Encarnacion Notes Date Note Type [...] lacking sleep.) Herson Pack MD [address], [address], [facility] 09/21/2023 08:01:08 OBGyn Episode No OBEpisode recorded.
--- OUTSIDE RECORDS SUMMARY | 2024-10-22 11:22 | XMS_ITS ---
Author Organization [facility] Address [address] [place] [address] Care Team Providers Care Flute Polisher Name Role Phone GHASSAN LICEA Unavailable [phone] REASON FOR VISIT PA [facility] Encounters Encounter Location Date Provider Diagnosis [address] [place] [address] 10/02/2024 GHASSAN LICEA PLAN OF TREATMENT Next Appt Details Provider Name:GHASSAN LICEA , 10/30/2024 01:15:00 PM, [address], [facility], [place], [address], Provider Name:GHASSAN LICEA , 04/16/2025 11:15:00 AM, [address], [facility], [place], [address], Progress Notes * Carolina GARNERaDOB:1984 (39 yo F)Acc No.[id number]:10/02/2024 Patient:??Angela GARNER :1985?Age:39 Y?Sex:Fe male Address:[address] [place] [id number] * true * Date:??
--- OUTSIDE RECORDS SUMMARY | 2024-10-22 11:22 | XMS_ITS | Patient Health Record ---
Author Organization [facility] Address [address] [place] [address] Care Team Providers Care Automotive Painter Name Role Phone GHASSAN LICEA Unavailable [phone] ALLERGIES Allergen (clinical drug ingredient) Drug/Non Drug Allergy documented on EMR Reaction Allergy Type Onset Date Status clindamycin Clindamycin hives Drug Allergy Act manfred RESULTS Component Value Reference Range Notes COMPREHENSIVE METABOLIC PANE L Reviewed date:03/15/2024 01:10:23 PM Interpretation: Performing Lab:NL2, [facility] [id number] [place], [place] [id number] Julian Lemon Notes/Report: PATIENT UNABLE TO VOID; [...] Reviewed date:03/15/2024 01:10:03 PM Interpretation: Performing Lab:NL2, [facility] [id number] [id number] Julian Lemon Notes/Report: PATIENT UNABLE TO [...] MPV 9.5 7.5-12.5 fL ABSOLUTE NEUTROPHILS [id number] cells/uL ABSOLUTE LYMPHOCYTES 2298 850-3900 cells/uL ABSOLUTE MONOCYTES 571 200-950 cells/uL ABSOLUTE EOSINOPHILS 184 15-500 cells/uL ABSOLUTE BASOPHILS 61 0-200 cells/uL NEUTROPHILS 54.2 LYMPHOCYTES 33.8 MONOCYTES 8.4 EOSINOPHILS 2.7 BASOPHILS 0.9 COPY(IES) SENT TO: Reviewed date:03/15/2024 01:10:29 PM Interpretation: Performing Lab: Notes/Report: PATIENT UNABLE TO VOID; ADVISED TO RETURN FOR COLLECTION. COPY(IES) SENT TO: PATSY CHAVEZ [address] [place] [address] CT Abdomen Pelvis W Cont Reviewed date:03/28/2024 02:21:20 PM Interpretation: Performing Lab: Notes/Report: Original Ordering Provider: GHASSAN LICEA PA-C [facility] REASON FOR REFERRAL Reason [facility] [place] Diagnosis 1 Tachycardia (R00.0) Referral Organization [place] [address] Referring Provider First Name GHASSAN Referring Provider Last Name ANJUA Referring Provider Speciality Internal M edicine Referred Provider Specialty Cardiology General Notes Jacquelyn Ortega 03/14/2024 01:22:21 PM > Referral faxed to [facility] [place], p: [phone] f: [phone] Clinical Notes Cristopher Mora 05/2024 04:19:39 PM > Scheduled for 05/21 at 4 pm. Pt aware Referral Priority Routine MEDICATIONS Medication SIG (Take, Route, Frequency, Duration) Notes Start Date End Date Status Clobetasol Propionate 0.05 % 1 application Externally Twice a day Active Skyrizi 150 MG/ML 1 mL Subcutaneous Active Tirosint 75 MCG 1 capsule in the mor kendy on an empty stomach Orally Once a day Active Vitamin D3 2400 UNIT/ML as directed Active Rosuvastatin Calcium 5 MG 1 tablet Orall y Once a day for 90 days 08/07/2024 Active Adderall 30 MG 1 tablet Orally Twic e a day Active Metoprolol Tartrate 25 MG Oral for 90 Days Active Zepbound 5 MG/0.5ML Inject 5 mg Subcutan eous weekly for 28 days 10/02/2024 Active SOCIAL HISTORY Sex Assigned At : Social History Observation Description Sex Assigned At Unknown Tobacco use other than smoking: Question Answer Notes Are you an other tobacco user? Yes PROBLEMS Problem Type ICD Code Onset Dates Problem Status W/U Status Risk SNOMED Code Notes Problem Mixed hyperlipidemia (E78.2) Active confirmed 941755473 Problem Left upper quadrant pain (R10.12) Active confirmed Left upper quadrant pain (006721189) Problem Encounter for screening for lipoid disorders (Z13.220) Active confirmed Lipid screening (081734466) Problem Acquired hypothyroidism (E03.9) Active confirmed 026420035 Problem Psoriatic arthritis (L40.50) Active confirmed 909526529 Problem Adult general medical exam (Z00.00) Active confirmed Adult health examination (126317925) Problem Vitamin D deficiency (E55.9) Active confirmed 37387802 Problem Obesity (BMI 30-39.9) (E66.9) Active confirmed 293665873 Problem Coronary artery disease involving [place] coronary artery of [place] heart without angina pectoris (I25.10) Active confirmed 43260420 Problem BMI 35.0-35.9,adult (Z68.35) Active confirmed 553244060 Problem Attention deficit disorder (ADD) in adult (F98.8) Active confirmed 330417728 Problem Tachycardia (R00.0) Active confirmed Tachycardia (6874107) Problem Encounter for screening for endocrine disorder (Z13.29) Active confirmed Endocrine/meta bolic screening (182847372) VITAL SIGNS Heart Rate 113 /min 10/02/2024 Oximetry 99 % 10/02/2024 Blood pressure diastolic 94 mm Hg 10/02/2024 Height 61 in 10/02/2024 Blood pressure systolic 146 mm Hg 10/02/2024 Weight 190 lbs 10/02/2024 BMI 35.9 kg/m2 10/02/2024 Encounters Encounter Location Date Provider Diagnosis [facility] [address] [address] [facility] [address] [address] 09/11/[address] [place] [address] [facility] [address] [address] 10/09/2024 GHASSAN LICEA [facility] [address] [place] [address] [facility] [address] [address] 03/13/2024 GHASSAN LICEA Left upper quadrant pain R10.12 ; Attention deficit disorder (ADD) in adult F98.8 ; Acquired hypothyroidism E03.9 ; Vitamin D deficiency E55.9 and Obesity (BMI 30-39.9) E66.[address] [place] [address] [facility] [address] [address] 04/12/2024 GHASSAN LICEA Adult general medica l exam Z00.00 ; Attention deficit disorder (ADD) in adult F98.8 ; Acquired hypothyroidism E03.9 ; Obesity (BMI 30-39.9) E66.9 ; Left upper quadrant pain R10.12 ; Moderate mixed hyperlipidemia not requiring statin therapy E78.2 and Psoriatic arthritis L40.[address] [place] [address] [facility] [address] [address] 10/02/2024 GHASSAN LICEA Mixed hyperlipidemia E78.2 ; Coronary artery disease involving [place] coronary artery of [place] heart without angina pectoris I25.10 ; Tachycardia R00.0 ; Acquired hypothyroidism E03.9 ; Psoriatic arthritis L40.50 ; Attention deficit disorder (ADD) in adult F98.8 ; Obesity (BMI 30-39.9) E66.9 and BMI 35.0-35.9,adult Z68.35 [address] [address] [place] [address] 03/28/2024 GHASSAN BIRKS [address] [place] [address] 05/02/2024 GHASSAN BIRKS [address] [place] [address] 08/06/[address] [place] [address] [address] [place] [address] 10/02/2024 GHASSAN BIRKS [address] [address] [place] [address] 08/29/2024 GHASSAN BIRKS [address] [address] [place] [address] 08/30/2024 GHASSAN BIRKS [address] [address] [place] [address] 10/02/2024 GHASSAN BIRKS [address] [place] [address] [place] [address] 10/12/2024 GHASSAN ANUJA Obesity (BMI 30-39.9 ) E66.9 ASSESSMENTS Encounter Date Diagnosis Assessment Notes Treatment Notes Treatment Clinical Notes Section Notes 03/13/2024 Left upper quadrant pain (ICD-10 - R10.12) Angela is a [id number] who presents to the office today for new patient evaluation. Patient is welcomed to the practice. They are coming from [facility] in [place], [place]. Last complete physical exam with labs [...] is exacerbated with sitting up and moving ynap-[id number]-wkma when she is lying down in bed. [...] monitor. # Hypothyroidism: The patient follows with [facility] in [facility]. Will order new TSH at this time [...] Dictation was accomplished with the use of [employer] voice recognition software, which is prone to medical misidentifications and grammatical errors. This are unintentional and the practitioner does try to identify and correct these, but some could still be present. Please do not hesitate to contact practitioner for clarification. 03/13/2024 Attention deficit disorder (ADD) in adult (ICD-10 - F98.8) Angela is a [id number] who presents to the office today for new patient evaluation. Patient is welcomed to the practice. They are coming from [facility] in [place], [place]. Last complete physical exam with labs [...] is exacerbated with sitting up and moving hlik-ph-fsbg when she is lying down in bed. [...] monitor. # Hypothyroidism: The patient follows with [facility] in [facility]. Will order new TSH at this time [...] Dictation was accomplished with the use of [employer] voice recognition software, which is prone to [...] pain exacerbated with sitting up and moving madg-cv-hbry while she is supine. Physical exam at [...] time. # Psoriatic arthritis: Patient follows with [facility] in [place]. Recently started on Skyrizi 150 mg injection. Will continue to monitor. Please follow-up with dermatology. # Hypothyroidism: The patient follows with [facility] in [facility]. TSH drawn through endocrinology and is within [...] log exercise and discussed fitness Apps like Viveraepal or Shared Performanceometer which can help keep log off calories [...] Dictation was accomplished with the use of [employer] voice recognition software, which is prone to medical misidentifications and grammatical errors. This are unintentional and the practitioner does try to identify and correct these, but some could still be present. Please do not hesitate to contact practitioner for clarification. 10/02/2024 Mixed hyperlipidemia (ICD-10 - E78.2) Patient is a 39-year-old female with history of ADD, hypothyroidism, hyperlipidemia, psoriasis, and vitamin D deficiency who presents today for follow-up. Cardiopulmonary exam unremarkable. All patient questions answered at this time. # Hyperlipidemia: Lipid panel on 03/15/2024 with total cholesterol 261, HDL 72, triglycerides 98, and LDL 160. Extensive history of cardiovascular disease in first degree relatives. Underwent coronary calcium CT scan with total score of 0.70 5.6 indicating moderate CAD. Scores of 175.5 in the left anterior descending and 0.1 in the right coronary artery. For secondary prevention continue rosuvastatin 5 mg 1 tablet daily. # Tachycardia: Patient follows with [facility] for ongoing management of tachycardia. Patient had Holter monitor performed, patient reports primary rhythm of sinus tachycardia, no evidence of SVT or atrial fibrillation. She is now on metoprolol tartrate 25 mg once daily. Reports baseline heart rate between 99 to [address] angio stress test next week in [place]. Following up with cardiology next month. Will request last office notes and diagnostics. Blood pressure is elevated in office today 146/94 with heart rate of 113. Patient reports increased stress at this time, typically she is normotensive. Without chest pain or shortness of breath in office. Will continue to monitor. # Hypothyroidism: Patient follows with [facility]. Diagnosed with hypothyroidism in her early 20s. TSH on 03/15/2024 at 1.64 within normal limits. Continue levothyroxine 75 mcg 1 capsule in the morning on empty stomach before other medications. # Psoriatic arthritis: Patient follows with [facility]. Continue Skyrizi 150 mg subcutaneous injection weekly. Continue clobetasol appropriate 0.05% ointment apply twice daily. # ADD:-Current controlled substance contract agreement. Medication as prescribed by psychiatry from her previous PCP. Continue Adderall 30 mg 1 tablet twice daily. Will continue to monitor. # Obesity: Weight 190 pounds, BMI 35.9. Patient reports weight has been progressively increasing since February. We discussed lifestyle modifications, patient has been following a caloric deficit as well as increasing physical activity and following well-balanced diet. Based on comorbidities of hyperlipidemia, coronary artery disease, and hypothyroidism she would be a good candidate for GLP-1 medication. Specifically we discussed use of Zepbound. Will create prior authorization for Zepbound 2.5 mg weekly for treatment of obesity. Discussed proper use of the medication and potential side effects. Patient will schedule weight management consultation for further evaluation and monitoring. All questions have been answered to patient's satisfaction. Patient verbalized understanding of diagnosis and treatments explained. Advised to call sooner prior to next visit it any questions/concerns arise. Case discussed with collaborating physician Kelly Velázquez who reviewed the assessment and plan. Chart, medications, labs, vital signs reviewed. Dictation was accomplished with the use of [employer] voice recognition software, which is prone to [...] pain exacerbated with sitting up and moving ikko-ok-bogg while she is supine. Physical exam at [...] time. # Psoriatic arthritis: Patient follows with [facility] in [place]. Recently started on Skyrizi 150 mg injection. Will continue to monitor. Please follow-up with dermatology. # Hypothyroidism: The patient follows with [facility] in [facility]. TSH drawn through endocrinology and is within [...] log exercise and discussed fitness Apps like Viveraepal or Shared Performanceometer which can help keep log off calories [...] Dictation was accomplished with the use of [employer] voice recognition software, which is prone to medical misidentifications and grammatical errors. This are unintentional and the practitioner does try to identify and correct these, but some could still be present. Please do not hesitate to contact practitioner for clarification. 10/02/2024 Coronary artery disease involving [place] coronary artery of [place] heart without angina pectoris (ICD-10 - I25.10) Patient is a 39-year-old female with history of ADD, hypothyroidism, hyperlipidemia, psoriasis, and vitamin D deficiency who presents today for follow-up. Cardiopulmonary exam unremarkable. All patient questions answered at this time. # Hyperlipidemia: Lipid panel on 03/15/2024 with total cholesterol 261, HDL 72, triglycerides 98, and LDL 160. Extensive history of cardiovascular disease in first degree relatives. Underwent coronary calcium CT scan with total score of 0.70 5.6 indicating moderate CAD. Scores of 175.5 in the left anterior descending and 0.1 in the right coronary artery. For secondary prevention continue rosuvastatin 5 mg 1 tablet daily. # Tachycardia: Patient follows with [facility] for ongoing management of tachycardia. Patient had Holter monitor performed, patient reports primary rhythm of sinus tachycardia, no evidence of SVT or atrial fibrillation. She is now on metoprolol tartrate 25 mg once daily. Reports baseline heart rate between 99 to [address] angio stress test next week in [place]. Following up with cardiology next month. Will request last office notes and diagnostics. Blood pressure is elevated in office today 146/94 with heart rate of 113. Patient reports increased stress at this time, typically she is normotensive. Without chest pain or shortness of breath in office. Will continue to monitor. # Hypothyroidism: Patient follows with [facility]. Diagnosed with hypothyroidism in her early 20s. TSH on 03/15/2024 at 1.64 within normal limits. Continue levothyroxine 75 mcg 1 capsule in the morning on empty stomach before other medications. # Psoriatic arthritis: Patient follows with [facility]. Continue Skyrizi 150 mg subcutaneous injection weekly. Continue clobetasol appropriate 0.05% ointment apply twice daily. # ADD:-Current controlled substance contract agreement. Medication as prescribed by psychiatry from her previous PCP. Continue Adderall 30 mg 1 tablet twice daily. Will continue to monitor. # Obesity: Weight 190 pounds, BMI 35.9. Patient reports weight has been progressively increasing since February. We discussed lifestyle modifications, patient has been following a caloric deficit as well as increasing physical activity and following well-balanced diet. Based on comorbidities of hyperlipidemia, coronary artery disease, and hypothyroidism she would be a good candidate for GLP-1 medication. Specifically we discussed use of Zepbound. Will create prior authorization for Zepbound 2.5 mg weekly for treatment of obesity. Discussed proper use of the medication and potential side effects. Patient will schedule weight management consultation for further evaluation and monitoring. All questions have been answered to patient's satisfaction. Patient verbalized understanding of diagnosis and treatments explained. Advised to call sooner prior to next visit it any questions/concerns arise. Case discussed with collaborating physician Kelly Velázquez who reviewed the assessment and plan. Chart, medications, labs, vital signs reviewed. Dictation was accomplished with the use of [employer] voice recognition software, which is prone to medical misidentifications and grammatical errors. This are unintentional and the practitioner does try to identify and correct these, but some could still be present. Please do not hesitate to contact practitioner for clarification. 10/12/2024 Obesity (BMI 30-39.9) (ICD-10 - E66.9) 10/02/2024 Tachycardia (ICD-10 - R00.0) Patient is a 39-year-old female with history of ADD, hypothyroidism, hyperlipidemia, psoriasis, and vitamin D deficiency who presents today for follow-up. Cardiopulmonary exam unremarkable. All patient questions answered at this time. # Hyperlipidemia: Lipid panel on 03/15/2024 with total cholesterol 261, HDL 72, triglycerides 98, and LDL 160. Extensive history of cardiovascular disease in first degree relatives. Underwent coronary calcium CT scan with total score of 0.70 5.6 indicating moderate CAD. Scores of 175.5 in the left anterior descending and 0.1 in the right coronary artery. For secondary prevention continue rosuvastatin 5 mg 1 tablet daily. # Tachycardia: Patient follows with [facility] for ongoing management of tachycardia. Patient had Holter monitor performed, patient reports primary rhythm of sinus tachycardia, no evidence of SVT or atrial fibrillation. She is now on metoprolol tartrate 25 mg once daily. Reports baseline heart rate between 99 to [address] angio stress test next week in [place]. Following up with cardiology next month. Will request last office notes and diagnostics. Blood pressure is elevated in office today 146/94 with heart rate of 113. Patient reports increased stress at this time, typically she is normotensive. Without chest pain or shortness of breath in office. Will continue to monitor. # Hypothyroidism: Patient follows with [facility]. Diagnosed with hypothyroidism in her early 20s. TSH on 03/15/2024 at 1.64 within normal limits. Continue levothyroxine 75 mcg 1 capsule in the morning on empty stomach before other medications. # Psoriatic arthritis: Patient follows with [facility]. Continue Skyrizi 150 mg subcutaneous injection weekly. Continue clobetasol appropriate 0.05% ointment apply twice daily. # ADD:-Current controlled substance contract agreement. Medication as prescribed by psychiatry from her previous PCP. Continue Adderall 30 mg 1 tablet twice daily. Will continue to monitor. # Obesity: Weight 190 pounds, BMI 35.9. Patient reports weight has been progressively increasing since February. We discussed lifestyle modifications, patient has been following a caloric deficit as well as increasing physical activity and following well-balanced diet. Based on comorbidities of hyperlipidemia, coronary artery disease, and hypothyroidism she would be a good candidate for GLP-1 medication. Specifically we discussed use of Zepbound. Will create prior authorization for Zepbound 2.5 mg weekly for treatment of obesity. Discussed proper use of the medication and potential side effects. Patient will schedule weight management consultation for further evaluation and monitoring. All questions have been answered to patient's satisfaction. Patient verbalized understanding of diagnosis and treatments explained. Advised to call sooner prior to next visit it any questions/concerns arise. Case discussed with collaborating physician Kelly Velázquez who reviewed the assessment and plan. Chart, medications, labs, vital signs reviewed. Dictation was accomplished with the use of [employer] voice recognition software, which is prone to [...] pain exacerbated with sitting up and moving xnib-bn-ilhv while she is supine. Physical exam at [...] time. # Psoriatic arthritis: Patient follows with [facility] in [place]. Recently started on Skyrizi 150 mg injection. Will continue to monitor. Please follow-up with dermatology. # Hypothyroidism: The patient follows with [facility] in [facility]. TSH drawn through endocrinology and is within [...] log exercise and discussed fitness Apps like Viveraepal or Shared Performanceometer which can help keep log off calories [...] Dictation was accomplished with the use of [employer] voice recognition software, which is prone to medical misidentifications and grammatical errors. This are unintentional and the practitioner does try to identify and correct these, but some could still be present. Please do not hesitate to contact practitioner for clarification. 03/13/2024 Acquired hypothyroidism (ICD-10 - E03.9) Angela is a -ompu-onv who presents to the office today for new patient evaluation. Patient is welcomed to the practice. They are coming from [facility] in [place], [place]. Last complete physical exam with labs [...] is exacerbated with sitting up and moving [id number]-[id number] when she is lying down in bed. [...] monitor. # Hypothyroidism: The patient follows with [facility] in [facility]. Will order new TSH at this time [...] Dictation was accomplished with the use of [employer] voice recognition software, which is prone to medical misidentifications and grammatical errors. This are unintentional and the practitioner does try to identify and correct these, but some could still be present. Please do not hesitate to contact practitioner for clarification. 03/13/2024 Vitamin D deficiency (ICD-10 - E55.9) Angela is a mhewge38-nsis-fly who presents to the office today for new patient evaluation. Patient is welcomed to the practice. They are coming from [facility] in [place], [place]. Last complete physical exam with labs [...] is exacerbated with sitting up and moving ploo-pm-qzxp when she is lying down in bed. [...] monitor. # Hypothyroidism: The patient follows with [facility] in [facility]. Will order new TSH at this time [...] Dictation was accomplished with the use of [employer] voice recognition software, which is prone to [...] pain exacerbated with sitting up and moving squf-xl-nuat while she is supine. Physical exam at [...] time. # Psoriatic arthritis: Patient follows with [facility] in [place]. Recently started on Skyrizi 150 mg injection. Will continue to monitor. Please follow-up with dermatology. # Hypothyroidism: The patient follows with [facility] in [facility]. TSH drawn through endocrinology and is within [...] log exercise and discussed fitness Apps like Viveraepal or Cronometer which can help keep log [...] Dictation was accomplished with the use of [employer] voice recognition software, which is prone to medical misidentifications and grammatical errors. This are unintentional and the practitioner does try to identify and correct these, but some could still be present. Please do not hesitate to contact practitioner for clarification. 10/02/2024 Acquired hypothyroidism (ICD-10 - E03.9) Patient is a 39-year-old female with history of ADD, hypothyroidism, hyperlipidemia, psoriasis, and vitamin D deficiency who presents today for follow-up. Cardiopulmonary exam unremarkable. All patient questions answered at this time. # Hyperlipidemia: Lipid panel on 03/15/2024 with total cholesterol 261, HDL 72, triglycerides 98, and LDL 160. Extensive history of cardiovascular disease in first degree relatives. Underwent coronary calcium CT scan with total score of 0.70 5.6 indicating moderate CAD. Scores of 175.5 in the left anterior descending and 0.1 in the right coronary artery. For secondary prevention continue rosuvastatin 5 mg 1 tablet daily. # Tachycardia: Patient follows with [facility] for ongoing management of tachycardia. Patient had Holter monitor performed, patient reports primary rhythm of sinus tachycardia, no evidence of SVT or atrial fibrillation. She is now on metoprolol tartrate 25 mg once daily. Reports baseline heart rate between 99 to [address] angio stress test next week in [place]. Following up with cardiology next month. Will request last office notes and diagnostics. Blood pressure is elevated in office today 146/94 with heart rate of 113. Patient reports increased stress at this time, typically she is normotensive. Without chest pain or shortness of breath in office. Will continue to monitor. # Hypothyroidism: Patient follows with [facility]. Diagnosed with hypothyroidism in her early 20s. TSH on 03/15/2024 at 1.64 within normal limits. Continue levothyroxine 75 mcg 1 capsule in the morning on empty stomach before other medications. # Psoriatic arthritis: Patient follows with [facility]. Continue Skyrizi 150 mg subcutaneous injection weekly. Continue clobetasol appropriate 0.05% ointment apply twice daily. # ADD:-Current controlled substance contract agreement. Medication as prescribed by psychiatry from her previous PCP. Continue Adderall 30 mg 1 tablet twice daily. Will continue to monitor. # Obesity: Weight 190 pounds, BMI 35.9. Patient reports weight has been progressively increasing since February. We discussed lifestyle modifications, patient has been following a caloric deficit as well as increasing physical activity and following well-balanced diet. Based on comorbidities of hyperlipidemia, coronary artery disease, and hypothyroidism she would be a good candidate for GLP-1 medication. Specifically we discussed use of Zepbound. Will create prior authorization for Zepbound 2.5 mg weekly for treatment of obesity. Discussed proper use of the medication and potential side effects. Patient will schedule weight management consultation for further evaluation and monitoring. All questions have been answered to patient's satisfaction. Patient verbalized understanding of diagnosis and treatments explained. Advised to call sooner prior to next visit it any questions/concerns arise. Case discussed with collaborating physician Kelly Velázquez who reviewed the assessment and plan. Chart, medications, labs, vital signs reviewed. Dictation was accomplished with the use of [employer] voice recognition software, which is prone to medical misidentifications and grammatical errors. This are unintentional and the practitioner does try to identify and correct these, but some could still be present. Please do not hesitate to contact practitioner for clarification. 10/02/2024 Psoriatic arthritis (ICD-10 - L40.50) Patient is a 39-year-old female with history of ADD, hypothyroidism, hyperlipidemia, psoriasis, and vitamin D deficiency who presents today for follow-up. Cardiopulmonary exam unremarkable. All patient questions answered at this time. # Hyperlipidemia: Lipid panel on 03/15/2024 with total cholesterol 261, HDL 72, triglycerides 98, and LDL 160. Extensive history of cardiovascular disease in first degree relatives. Underwent coronary calcium CT scan with total score of 0.70 5.6 indicating moderate CAD. Scores of 175.5 in the left anterior descending and 0.1 in the right coronary artery. For secondary prevention continue rosuvastatin 5 mg 1 tablet daily. # Tachycardia: Patient follows with [facility] for ongoing management of tachycardia. Patient had Holter monitor performed, patient reports primary rhythm of sinus tachycardia, no evidence of SVT or atrial fibrillation. She is now on metoprolol tartrate 25 mg once daily. Reports baseline heart rate between 99 to [address] angio stress test next week in [place]. Following up with cardiology next month. Will request last office notes and diagnostics. Blood pressure is elevated in office today 146/94 with heart rate of 113. Patient reports increased stress at this time, typically she is normotensive. Without chest pain or shortness of breath in office. Will continue to monitor. # Hypothyroidism: Patient follows with [facility]. Diagnosed with hypothyroidism in her early 20s. TSH on 03/15/2024 at 1.64 within normal limits. Continue levothyroxine 75 mcg 1 capsule in the morning on empty stomach before other medications. # Psoriatic arthritis: Patient follows with [facility]. Continue Skyrizi 150 mg subcutaneous injection weekly. Continue clobetasol appropriate 0.05% ointment apply twice daily. # ADD:-Current controlled substance contract agreement. Medication as prescribed by psychiatry from her previous PCP. Continue Adderall 30 mg 1 tablet twice daily. Will continue to monitor. # Obesity: Weight 190 pounds, BMI 35.9. Patient reports weight has been progressively increasing since February. We discussed lifestyle modifications, patient has been following a caloric deficit as well as increasing physical activity and following well-balanced diet. Based on comorbidities of hyperlipidemia, coronary artery disease, and hypothyroidism she would be a good candidate for GLP-1 medication. Specifically we discussed use of Zepbound. Will create prior authorization for Zepbound 2.5 mg weekly for treatment of obesity. Discussed proper use of the medication and potential side effects. Patient will schedule weight management consultation for further evaluation and monitoring. All questions have been answered to patient's satisfaction. Patient verbalized understanding of diagnosis and treatments explained. Advised to call sooner prior to next visit it any questions/concerns arise. Case discussed with collaborating physician Kelly Velázquez who reviewed the assessment and plan. Chart, medications, labs, vital signs reviewed. Dictation was accomplished with the use of [employer] voice recognition software, which is prone to medical misidentifications and grammatical errors. This are unintentional and the practitioner does try to identify and correct these, but some could still be present. Please do not hesitate to contact practitioner for clarification. 03/13/2024 Obesity (BMI 30-39.9) (ICD-10 - E66.9) Angela is a -jgfv-caw who presents to the office today for new patient evaluation. Patient is welcomed to the practice. They are coming from [facility] in [place], [place]. Last complete physical exam with labs [...] is exacerbated with sitting up and moving [id number] when she is lying down in bed. [...] monitor. # Hypothyroidism: The patient follows with [facility] in [facility]. Will order new TSH at this time [...] Dictation was accomplished with the use of [employer] voice recognition software, which is prone to [...] pain exacerbated with sitting up and moving [id number] while she is supine. Physical exam at [...] time. # Psoriatic arthritis: Patient follows with [facility] in [place]. Recently started on Skyrizi 150 mg injection. Will continue to monitor. Please follow-up with dermatology. # Hypothyroidism: The patient follows with [facility] in [facility]. TSH drawn through endocrinology and is within [...] log exercise and discussed fitness Apps like [employer] or Shared Performance[employer] which can help keep log off calories [...] Dictation was accomplished with the use of [employer] voice recognition software, which is prone to [...] pain exacerbated with sitting up and moving [id number] while she is supine. Physical exam at [...] time. # Psoriatic arthritis: Patient follows with [facility] in [place]. Recently started on Skyrizi 150 mg injection. Will continue to monitor. Please follow-up with dermatology. # Hypothyroidism: The patient follows with [facility] in [facility]. TSH drawn through endocrinology and is within [...] log exercise and discussed fitness Apps like Viveraepal or [employer] which can help keep log [...] Dictation was accomplished with the use of [employer] voice recognition software, which is prone to medical misidentifications and grammatical errors. This are unintentional and the practitioner does try to identify and correct these, but some could still be present. Please do not hesitate to contact practitioner for clarification. 10/02/2024 Attention deficit disorder (ADD) in adult (ICD-10 - F98.8) Patient is a 39-year-old female with history of ADD, hypothyroidism, hyperlipidemia, psoriasis, and vitamin D deficiency who presents today for follow-up. Cardiopulmonary exam unremarkable. All patient questions answered at this time. # Hyperlipidemia: Lipid panel on 03/15/2024 with total cholesterol 261, HDL 72, triglycerides 98, and LDL 160. Extensive history of cardiovascular disease in first degree relatives. Underwent coronary calcium CT scan with total score of 0.70 5.6 indicating moderate CAD. Scores of 175.5 in the left anterior descending and 0.1 in the right coronary artery. For secondary prevention continue rosuvastatin 5 mg 1 tablet daily. # Tachycardia: Patient follows with [facility] for ongoing management of tachycardia. Patient had Holter monitor performed, patient reports primary rhythm of sinus tachycardia, no evidence of SVT or atrial fibrillation. She is now on metoprolol tartrate 25 mg once daily. Reports baseline heart rate between 99 to [address] angio stress test next week in [place]. Following up with cardiology next month. Will request last office notes and diagnostics. Blood pressure is elevated in office today 146/94 with heart rate of 113. Patient reports increased stress at this time, typically she is normotensive. Without chest pain or shortness of breath in office. Will continue to monitor. # Hypothyroidism: Patient follows with [facility]. Diagnosed with hypothyroidism in her early 20s. TSH on 03/15/2024 at 1.64 within normal limits. Continue levothyroxine 75 mcg 1 capsule in the morning on empty stomach before other medications. # Psoriatic arthritis: Patient follows with [facility]. Continue Skyrizi 150 mg subcutaneous injection weekly. Continue clobetasol appropriate 0.05% ointment apply twice daily. # ADD:-Current controlled substance contract agreement. Medication as prescribed by psychiatry from her previous PCP. Continue Adderall 30 mg 1 tablet twice daily. Will continue to monitor. # Obesity: Weight 190 pounds, BMI 35.9. Patient reports weight has been progressively increasing since February. We discussed lifestyle modifications, patient has been following a caloric deficit as well as increasing physical activity and following well-balanced diet. Based on comorbidities of hyperlipidemia, coronary artery disease, and hypothyroidism she would be a good candidate for GLP-1 medication. Specifically we discussed use of Zepbound. Will create prior authorization for Zepbound 2.5 mg weekly for treatment of obesity. Discussed proper use of the medication and potential side effects. Patient will schedule weight management consultation for further evaluation and monitoring. All questions have been answered to patient's satisfaction. Patient verbalized understanding of diagnosis and treatments explained. Advised to call sooner prior to next visit it any questions/concerns arise. Case discussed with collaborating physician Kelly Velázquez who reviewed the assessment and plan. Chart, medications, labs, vital signs reviewed. Dictation was accomplished with the use of [employer] voice recognition software, which is prone to medical misidentifications and grammatical errors. This are unintentional and the practitioner does try to identify and correct these, but some could still be present. Please do not hesitate to contact practitioner for clarification. 10/02/2024 Obesity (BMI 30-39.9) (ICD-10 - E66.9) Patient is a 39-year-old female with history of ADD, hypothyroidism, hyperlipidemia, psoriasis, and vitamin D deficiency who presents today for follow-up. Cardiopulmonary exam unremarkable. All patient questions answered at this time. # Hyperlipidemia: Lipid panel on 03/15/2024 with total cholesterol 261, HDL 72, triglycerides 98, and LDL 160. Extensive history of cardiovascular disease in first degree relatives. Underwent coronary calcium CT scan with total score of 0.70 5.6 indicating moderate CAD. Scores of 175.5 in the left anterior descending and 0.1 in the right coronary artery. For secondary prevention continue rosuvastatin 5 mg 1 tablet daily. # Tachycardia: Patient follows with [facility] for ongoing management of tachycardia. Patient had Holter monitor performed, patient reports primary rhythm of sinus tachycardia, no evidence of SVT or atrial fibrillation. She is now on metoprolol tartrate 25 mg once daily. Reports baseline heart rate between 99 to [address] angio stress test next week in [place]. Following up with cardiology next month. Will request last office notes and diagnostics. Blood pressure is elevated in office today 146/94 with heart rate of 113. Patient reports increased stress at this time, typically she is normotensive. Without chest pain or shortness of breath in office. Will continue to monitor. # Hypothyroidism: Patient follows with [facility]. Diagnosed with hypothyroidism in her early 20s. TSH on 03/15/2024 at 1.64 within normal limits. Continue levothyroxine 75 mcg 1 capsule in the morning on empty stomach before other medications. # Psoriatic arthritis: Patient follows with [facility]. Continue Skyrizi 150 mg subcutaneous injection weekly. Continue clobetasol appropriate 0.05% ointment apply twice daily. # ADD:-Current controlled substance contract agreement. Medication as prescribed by psychiatry from her previous PCP. Continue Adderall 30 mg 1 tablet twice daily. Will continue to monitor. # Obesity: Weight 190 pounds, BMI 35.9. Patient reports weight has been progressively increasing since February. We discussed lifestyle modifications, patient has been following a caloric deficit as well as increasing physical activity and following well-balanced diet. Based on comorbidities of hyperlipidemia, coronary artery disease, and hypothyroidism she would be a good candidate for GLP-1 medication. Specifically we discussed use of Zepbound. Will create prior authorization for Zepbound 2.5 mg weekly for treatment of obesity. Discussed proper use of the medication and potential side effects. Patient will schedule weight management consultation for further evaluation and monitoring. All questions have been answered to patient's satisfaction. Patient verbalized understanding of diagnosis and treatments explained. Advised to call sooner prior to next visit it any questions/concerns arise. Case discussed with collaborating physician Kelly Velázquez who reviewed the assessment and plan. Chart, medications, labs, vital signs reviewed. Dictation was accomplished with the use of [employer] voice recognition software, which is prone to [...] pain exacerbated with sitting up and moving [id number] while she is supine. Physical exam at [...] time. # Psoriatic arthritis: Patient follows with [facility] in [place]. Recently started on Skyrizi 150 mg injection. Will continue to monitor. Please follow-up with dermatology. # Hypothyroidism: The patient follows with [facility] in [facility]. TSH drawn through endocrinology and is within [...] log exercise and discussed fitness Apps like Viveraepal or [employer] which can help keep log off calories [...] Dictation was accomplished with the use of [employer] voice recognition software, which is prone to medical misidentifications and grammatical errors. This are unintentional and the practitioner does try to identify and correct these, but some could still be present. Please do not hesitate to contact practitioner for clarification. 10/02/2024 BMI 35.0-35.9,adult (ICD-10 - Z68.35) Patient is a 39-year-old female with history of ADD, hypothyroidism, hyperlipidemia, psoriasis, and vitamin D deficiency who presents today for follow-up. Cardiopulmonary exam unremarkable. All patient questions answered at this time. # Hyperlipidemia: Lipid panel on 03/15/2024 with total cholesterol 261, HDL 72, triglycerides 98, and LDL 160. Extensive history of cardiovascular disease in first degree relatives. Underwent coronary calcium CT scan with total score of 0.70 5.6 indicating moderate CAD. Scores of 175.5 in the left anterior descending and 0.1 in the right coronary artery. For secondary prevention continue rosuvastatin 5 mg 1 tablet daily. # Tachycardia: Patient follows with [facility] for ongoing management of tachycardia. Patient had Holter monitor performed, patient reports primary rhythm of sinus tachycardia, no evidence of SVT or atrial fibrillation. She is now on metoprolol tartrate 25 mg once daily. Reports baseline heart rate between 99 to [address] angio stress test next week in [place]. Following up with cardiology next month. Will request last office notes and diagnostics. Blood pressure is elevated in office today 146/94 with heart rate of 113. Patient reports increased stress at this time, typically she is normotensive. Without chest pain or shortness of breath in office. Will continue to monitor. # Hypothyroidism: Patient follows with [facility]. Diagnosed with hypothyroidism in her early 20s. TSH on 03/15/2024 at 1.64 within normal limits. Continue levothyroxine 75 mcg 1 capsule in the morning on empty stomach before other medications. # Psoriatic arthritis: Patient follows with [facility]. Continue Skyrizi 150 mg subcutaneous injection weekly. Continue clobetasol appropriate 0.05% ointment apply twice daily. # ADD:-Current controlled substance contract agreement. Medication as prescribed by psychiatry from her previous PCP. Continue Adderall 30 mg 1 tablet twice daily. Will continue to monitor. # Obesity: Weight 190 pounds, BMI 35.9. Patient reports weight has been progressively increasing since February. We discussed lifestyle modifications, patient has been following a caloric deficit as well as increasing physical activity and following well-balanced diet. Based on comorbidities of hyperlipidemia, coronary artery disease, and hypothyroidism she would be a good candidate for GLP-1 medication. Specifically we discussed use of Zepbound. Will create prior authorization for Zepbound 2.5 mg weekly for treatment of obesity. Discussed proper use of the medication and potential side effects. Patient will schedule weight management consultation for further evaluation and monitoring. All questions have been answered to patient's satisfaction. Patient verbalized understanding of diagnosis and treatments explained. Advised to call sooner prior to next visit it any questions/concerns arise. Case discussed with collaborating physician Kelly Velázquez who reviewed the assessment and plan. Chart, medications, labs, vital signs reviewed. Dictation was accomplished with the use of [employer] voice recognition software, which is prone to [...] comorbidities. # Psoriatic arthritis: Patient follows with [facility] in [place]. Recently started on Skyrizi 150 mg injection. Will continue to monitor. Please follow-up with dermatology. # Hypothyroidism: The patient follows with [facility] in [facility]. TSH drawn through endocrinology and is within [...] Dictation was accomplished with the use of [employer] voice recognition software, which is prone to [...] Name:GHASSAN LICEA , 10/30/2024 01:15:00 PM, [address], [facility], [place], [address], Provider Name:GHASSAN LICEA , 04/16/2025 11:15:00 AM, [address], [address], [place], [address], Insurance Providers Payer Name Payer Address Payer Phone Subscriber Number Group Number Insured Name Patient Relationship to Insured Coverage Start Date Coverage End Date [employer] [place] [address] [address] [place] [address] [id number] Angela Encarnacion Self - patient is the insured MEDICAL (GENERAL) HISTORY Medical History History ICD Code high cholesterol weight gain/loss thyroid disease skin disease Hospitalization History Reason Date(Month/Year) breast argumentation 2012 right knee arthroscopy 2014
--- OUTSIDE RECORDS SUMMARY | 2024-10-22 11:22 | XMS_ITS ---
Author Organization [facility] Address [address] [place] [address] Care Team Providers Care Collar Packer Name Role Phone GHASSAN LICEA Unavailable [phone] REASON FOR VISIT Zepbound MEDICATIONS Medication SIG (Take, Route, Fr equency, Duration) Notes Start Date End Date Status Zepbound 5 MG/0.5ML Inject 5 mg Subcutan eous weekly for 28 days 10/02/2024 Active Encounters Encounter Location Date Provider Diagnosis [address] [place] [address] [address] [place] [address] 10/12/2024 GHASSAN LICEA Obesity (BMI 30-39.9 ) E66.9 ASSESSMENTS Encounter Date Diagnosis Assessment Notes Treatment Notes Treatment Clinical Notes Section Notes 10/12/2024 Obesity (BMI 30-39.9) (ICD-10 - E66.9) PLAN OF TREATMENT Medication Medication Name Sig Start Date Stop Date Notes Zepbound 5 MG/0.5ML Inject 5 mg Subcutan eous weekly for 28 days 10/02/2024 Next Appt Details Provider Name:GHASSAN LICEA , 10/30/2024 01:15:00 PM, [address] [facility], [facility] [address], [place], [address], Provider Name:GHASSAN LICEA , 04/16/2025 11:15:00 AM, [address], [address], Progress Notes * Сергей GARNERB:1984 (39 yo F)Acc No.[id number]:10/12/2024 Patient:??Angela GARNER :1985?Age:39 Y?Sex:Fe male Address:[address] [place] [id number] * Refills?? Refill Zepbound Solution, 5 MG/0.5ML, Subcutaneous, 4, Inject 5 mg, weekly, 28 days, Refills=1 * true * Date:??
--- OUTSIDE RECORDS SUMMARY | 2024-10-22 11:22 | XMS_ITS | Clinical Summary ---
Author Organization [facility] Address [address] [place] [address] Phone Care Team Providers Care Barge Captain Name Role Phone Brenna Pack MD Primary Care Provider [phone] Allergies Active Allergy Reactions Criticality Noted Date [...] age to complete this topic Care Teams Barge Captain Relationship Specialty Start Date End Date Brenna Pack MD [address] [place] [address] [place] [address] PCP - General 09/20/22
--- OUTSIDE RECORDS SUMMARY | 2024-10-22 11:22 | XMS_ITS | Clinical Summary ---
Author Organization [facility] Address [address] [place] [address] Care Team Providers Care Ios Software Engineer Name Role Phone Herson Pack MD [...] age to complete this topic Care Teams Ios Software Engineer Relationship Specialty Start Date End Date Herson Pack MD [address] [place] [id number] PCP - General Surface Hydrologist 09/20/22
--- OUTSIDE RECORDS SUMMARY | 2024-10-22 11:22 | XMS_ITS ---
Author Organization [facility] Address [address] [place] [address] Care Team Providers Care Saddle Lining Stitcher Name Role Phone GHASSAN LICEA Unavailable [phone] Encounters Encounter Location Date Provider Diagnosis [address] [facility] [address] [place] [address] 10/09/2024 GHASSAN LICEA PLAN OF TREATMENT Next Appt Details Provider Name:GHASSAN LICEA , 10/30/2024 01:15:00 PM, [address] [facility] [address], [facility] [address], [place], [address], Provider Name:GHASSAN LICEA , 04/16/2025 11:15:00 AM, [address] [facility] [address], [facility] [address], [place], [address], Progress Notes * PATSY CarolinaaDOB:1984 (39 yo F)Acc No.[id number]:10/09/2024 Progress Notes Patient:??PATSYMarcelinaAngela Provider:??GHASSAN LICEA :1985?Age:39 Y?Sex:Fe male Date:10/09/2024 Address:[address] [place], [place] [id number] Subjective: * Chief Complaints: * ? * Medical History:?? Objective: Assessment: Plan: * Treatment: * Images: Billing Information: * Visit Code:?? * Procedure Codes:?? Care Plan Details* * Sign off status: Pending * Provider:??GHASSAN LICEA Date:?? 025
--- OUTSIDE RECORDS SUMMARY | 2024-10-22 11:22 | XMS_ITS | Clinical Summary ---
Author Organization [facility] Address [address] [place] [address] Care Team Providers Care Urologic Surgeon Name Role Phone Herson Pack MD Primary Care Provide r Allergies Active Allergy Reactions Criticality Noted Date Comments Clindamycin Hives,Anaphylaxis High 12/19/2009 hives Medications [facility] D3 1000 units capsule Take by mouth daily. 11 01/18/2019 Active fluconazole (diFLUcan) 150 MG tabletIndicatio ns:Aubrie vaginitis Take 1 tablet (150 mg total) by mouth once. 1 tablet 11/25/2021 Active metroNIDAZOLE (FLAGYL) 500 MG tabletIndicatio ns:BV (bacterial vaginosis) Take 1 tablet (500 mg [...] Encounters Date Type Department Care Team Description 10/09/2024 1:40 PM EDT - 10/09/2024 11:59 PM EDT Hospital Encounter [facility] Radiology [address] [place] [address] Abnormal findings diagnostic imaging of heart and coronary circulation Discharge Disposition: Home or Self Care 10/09/2024 8:36 AM EDT - 10/09/2024 1:39 PM EDT Hospital Encounter [facility] Radiology [address] [place] [phone] Precordial pain Discharge Disposition: Home or Self Care 10/09/2024 Travel 08/27/2024 Scanned Document [facility] [address] [facility] [address] [place] [phone] Radiology, Scan from Last 3 Months Social History Tobacco Use Types Packs/Day Years Used Date Smoking Tobacco: Never Assessed Comments Unknown Sex and Gender Information Value Date Recorded Sex Assigned at Female 10/09/2024 8:31 AM EDT Legal Sex Female 2:44 PM EDT Gender Identity Female 10/09/2024 8:31 AM EDT Sexual Orientation Heterosexual (straight) 10/09 8:31 AM EDT Last Filed Vital Signs Vital Sign Reading Time Taken Comments Blood Pressure 126/77 10/09/2024 8:45 AM EDT Pulse 66 10/09/2024 8:45 AM EDT Temperature 36.9 ??C (98.4 ??F) 12/24/2022 4:15 PM ED T Respiratory Rate 18 10/09/2024 8:45 AM EDT Oxygen Saturation 98% 10/09/2024 8:45 AM EDT Inhaled Oxygen Concentration - - Weight 81.6 kg (180 lb) 10/09/2024 8:45 AM EDT Height 160 cm (5' 3 ) 10/09/2024 8:45 AM EDT Body Mass Index 31.89 10/09/2024 8:45 AM EDT Plan of Treatment Health Maintenance Due Date Last Done Comments Hepatitis C Virus Screening 1987 HIV Screening 2000 DTaP/Tdap/Td Vaccines (1 - Tdap) 2006 Hepatitis B Vaccines (1 of 3 - 19+ 3-dose series) 2006 Pap Smear (Ages 21-65) 2008 COVID-19 Vaccine ( - 2023-2 5 season) 2024 09/20/2020, 08/29/2020 Influenza Vaccine 01/11/2025 HPV Vaccines Aged Out No longer eligi ble based on patient's age to complete this topic Pneumococcal Vaccine: Pediatric (0-5 Years) and At-Risk Patients (6 to 49 Years) Aged Out No longer eligible b ased on patient's age to complete this topic Procedures Procedure Name Priority Date/Time Associated Diagnosis Comments CTA HEARTFLOW FFRCT ANALYSIS Routine 10/09/2024 1:40 PM EDT Abnormal findings diagnostic imaging of heart and coronary circulation CTA HEART RADIOLOGIST INTERPRETATION Routine 10/09/2024 9:30 AM EDT Precordial pain CTA HEART COROARTERIAL+GRAFTS W/CONTRAST Routine 10/09/2024 9:30 AM EDT Precordial pain HX OUTSIDE ORDER 08/27/2024 12:1 9 PM EDT from Last 3 Months Results * CTA Heartflow FFRCT Analysis (10/09/2024 1:40 PM EDT) Anatomical Region Laterality Modality Heart Computed Tomogra phy Narrative 10/09/2024 4:33 PM EDT FFRCT Coronary Analysis CT fractional flow reserve (FFRCT) analysis was performed on the original cardiac CT angiogram dataset acquired on 10/09/2024. Diagrammatic representation of the FFRCT analysis is provided in a separate PDF document in PACS. This report was created using the PDF document and an interactive 3D model of the results. The 3D model is not available in the EMR/PACS. FFRCT Values: >0.80: Low likelihood of flow limitation. 0.75-0.80: Borderline for flow-limitation. <0.75: High likelihood for flow-limitation. Indications for Testing The cardiac CT angiogram was performed to evaluate chest pain in a 39 y.o. year old female with family history of coronary disease. The cardiac CT angiogram found potentially flow limiting CAD in the first obtuse marginal branch. FFRCT Results FFRCT values were evaluated corresponding to cardiac CT angiogram identified lesions. Study quality was good. Left Anterior Descending Artery: There is a low likelihood of flow-limiting stenosis with an FFRCT value of 0.85 corresponding to a mild stenosis in the proximal to mid left anterior descending artery. Left Circumflex Artery: There is a low likelihood of flow-limiting stenosis with an FFRCT value of 0.89 corresponding to moderate stenosis in the proximal first obtuse marginal. Right Coronary Artery: There is a low likelihood of flow-limiting stenosis with an FFRCT value of 0.93 corresponding to mild stenosis in the proximal to mid right coronary artery. Conclusions Normal FFRCT analysis with no evidence of flow-limiting coronary artery stenosis. Recommendations Given the cardiac CT angiogram and FFRCT findings, consider optimal medical therapy and risk factor modification FFRCT is an FDA-approved non-invasive technique for defining the probability of flow-limiting coronary artery stenosis that correlates with invasive FFR measurements. All protocol recommendations are subject to the clinical judgement of the requesting attending physicians, at whose discretion management decisions should be made based on all available clinical evidence. Paolo Leiva MD IM CT ORDERABLES Final Result * CTA Heart Extracardiac Structured Radiologist Interpretation (10/09/2024 9:30 AM EDT) Anatomical Region Laterality Modality Heart Computed Tomogra phy 10/09/2024 9:00 AM EDT Impressions 10/11/2024 2:48 PM EDT No acute extracardiac findings. Narrative 10/11/2024 2:48 PM EDT EXAMINATION: ?? EXTRACARDIAC READ BY RADIOLOGIST CLINICAL INFORMATION: Precordial pain; CAD assessment. Tachycardia, family history of NH. ? COMPARISON: Chest x-ray 08/29/2014. TECHNIQUE: The included extracardiac anatomy was reviewed for extracardiac findings. This report is only for the extracardiac findings. Please see the separately dictated report by Cardiology for further details. This CT examination was performed using dose optimization techniques as appropriate, variously including the following: *Automated exposure control *Adjustment of mA and/or kV according to patient size (this includes techniques or standardized protocols for targeted exams where dose is matched to indication/reason for exam; i.e. extremities or head) *Use of iterative reconstruction technique DLP: 395.01 mGy-cm FINDINGS: Review of the extracardiac anatomy demonstrates: Lungs: No focal consolidation or pleural effusion. MSK: Visualized musculoskeletal structures are unremarkable. Upper abdomen: No abnormality seen. Procedure Note Wilmer Daley MD - 10/11/2024 EXAMINATION: EXTRACARDIAC READ BY RADIOLOGIST CLINICAL INFORMATION: Precordial pain; CAD assessment. Tachycardia, family history of NH. COMPARISON: Chest x-ray 08/29/2014. TECHNIQUE: The included extracardiac anatomy was reviewed for extracardiac findings. This report is only for the extracardiac findings. Please see the separately dictated report by Cardiology for further details. This CT examination was performed using dose optimization techniques as appropriate, variously including the following: *Automated exposure control *Adjustment of mA and/or kV according to patient size (this includes techniques or standardized protocols for targeted exams where dose is matched to indication/reason for exam; i.e. extremities or head) *Use of iterative reconstruction technique DLP: 395.01 mGy-cm FINDINGS: Review of the extracardiac anatomy demonstrates: Lungs: No focal consolidation or pleural effusion. MSK: Visualized musculoskeletal structures are unremarkable. Upper abdomen: No abnormality seen. IMPRESSION: No acute extracardiac findings. Paolo Leiva MD IM CT ORDERABLES Final Result * CTA Heart Coroarterial + Grafts w/contrast (10/09/2024 9:30 AM EDT) Pathologist [facility] Resting HR 57 bpm [place] LM 0 [place] [address] [place] [address] [place] CALACX 1 [place] [address] Ascending aorta at PA bifurcation [address] Aortic root annulus 30 mm [place] Main pulmonary artery dimension 23 mm [place] LV Sys Vol (mL) 31.0 mL [place] LV Redman Vol (mL) 102.0 mL [place] LV Calc EF (%) 70 % [place] Anatomical Region Laterality Modality Heart Computed Tomogra phy Narrative 10/09/2024 12:40 PM EDT Images from the original result were not included. ?The patient's total coronary artery calcium score was 159. ?There is an eccentric predominantly calcified plaque located in the distal left main and extending into the proximal left anterior descending resulting in a minimal luminal obstruction of less than 25%. ?There is an eccentric predominantly calcified plaque located in the proximal left anterior descending artery resulting in a mild luminal obstruction with a range of 25% to 49%. There is a non-calcified plaque located in the proximal to mid left anterior descending artery at the origin of the first large diagonal branch resulting in a mild luminal obstruction with a range of 25% to 49%. There is an eccentric non-calcified plaque located in the mid left anterior descending artery resulting in a minimal luminal obstruction with a range of less than 25%. ?There is a predominantly non-calcified plaque located in the proximal obtuse marginal 1 resulting in a moderate luminal obstruction of 50% to 69%. There is some diffuse non-calcified plaque located in the left circumflex resulting in a minimal luminal obstruction of less than 10%. ?The right coronary artery is and dominant. There are several scattered predominantly non-calcified plaques located in the proximal to mid right coronary artery resulting in minimal luminal obstruction of less than 25%. ?The left ventricle is normal in size. The left ventricular ejection fraction is normal (55-69%). The calculated EF is 70%. ?CCTA imaging demonstrates a CAD-RADS score of 3: 50 - 69% stenosis, indicating moderate stenosis. ?The abnormal results of the Cardiac CT warrant FFRCT Coronary Analysis to define the extent of lesion-specific ischemia in the left circumflex. ?A formal radiology overread of the non-cardiac structures was performed. Please see the separate report. Calcium Scoring The patient's total coronary artery calcium score was 159. The total calcium score of 159 is above the 90th percentile for women under the age of 40 (exact percentrile calculated to be 99%). Pericardium There is no pericardial effusion. Study Details Indication(s) for exam include chest pain. A coronary CT angiography and calcium scoring study was performed on a Senscient revolution dual energy CT 256-slice scanner. Acquisition techniques include wide-cone cardiac axial prospectively triggered, retrospectively gated images, using dose modulation and iterative reconstruction techniques. Images were evaluated on an independent dedicated 3D workstation where they were reconstructed and subsequently interpreted. Dose optimization techniques including automated exposure control and adjustment of mA and/or kV according to patient size were utilized as indicated. The tube voltage recorded for the coronary angiography procedure was 100 kV. The tube voltage recorded for the calcium scoring procedure was 120 kV. The tube current was set to auto adjust. The dose-length product was 395 mGy-cm. The patient was injected with a dose totaling 80 ml of omnipaque 350 contrast at a rate of 7 ml/sec. Additional medication(s) including sublingual nitroglycerin were administered per protocol. The patient's baseline heart rate was 57 beats per minute. The study quality was good. There were no artifacts. Prior Study There is no prior study available for comparison. Imaging Conclusion CCTA imaging demonstrates a CAD-RADS score of 3: 50 - 69% stenosis, indicating moderate stenosis. Ventricular Function The left ventricle is normal in size. The left ventricular ejection fraction is normal (55-69%). The calculated EF is 70%. Valves The aortic valve is tricuspid. Left Main The left main coronary vessel is normal in size. There is focal disease present. There is an eccentric predominantly calcified plaque located in the distal left main and extending into the proximal left anterior descending resulting in a minimal luminal obstruction of less than 25%. Left Anterior Descending Four (4) diagonals were visualized. Diagonal 1 is small in size, diagonal 2 is normal in size, diagonal 3 is normal in size and diagonal 4 is small in size. There is focal disease present. There is an eccentric predominantly calcified plaque located in the proximal left anterior descending artery resulting in a mild luminal obstruction with a range of 25% to 49%. There is a non-calcified plaque located in the proximal to mid left anterior descending artery at the origin of the first large diagonal branch resulting in a mild luminal obstruction with a range of 25% to 49%. There is an eccentric non-calcified plaque located in the mid left anterior descending artery resulting in a minimal luminal obstruction with a range of less than 25%. Left Circumflex The left circumflex coronary artery is normal in size and non-dominant.Three (3) obtuse marginal branches were visualized. Obtuse marginal 1 is large, obtuse marginal 2 is normal and obtuse marginal 3 is normal in size. There is focal disease present.There is a predominantly non-calcified plaque located in the proximal obtuse marginal 1 resulting in a moderate luminal obstruction of 50% to 69%. There is some diffuse non-calcified plaque located in the left circumflex resulting in a minimal luminal obstruction of less than 10%. Right Coronary Artery The right coronary artery is and dominant.Two (2) acute marginal branches were visualized. Acute marginal 1 is normal and acute marginal 2 is normal in size. One (1) posterolateral vessel was visualized. Posterolateral vessel 1 is normal in size. The posterior descending artery is normal in size.There is focal disease present. There are several scattered predominantly non-calcified plaques located in the proximal to mid right coronary artery resulting in minimal luminal obstruction of less than 25%. Non-Coronary Vessels The aortic root is normal in size. It measures 30 mm. The ascending aorta is normal in size. It measures 26 mm. The main pulmonary artery is normal in size with a maximum dimension of 23 mm. There are two left pulmonary veins and there are two right pulmonary veins. FFRCT Coronary Analysis The abnormal results of the Cardiac CT warrant FFRCT Coronary Analysis to define the extent of lesion-specific ischemia in the left circumflex. Paolo Leiva MD IMG CT ORDERABLES Final Result * OUTSIDE ORDER (08/27/2024 12:19 PM EDT) Scan Radiology HX AMB PROCEDURES Final Result from Last 3 Months Insurance Tracks.by [facility] Tracks.by OUT OF [facility] Care Teams Urologic Surgeon Relationship Specialty Start Date End Date Herson Pack MD [address] [place] [address] [address] [place] [address] PCP - General 06/22/22
--- OUTSIDE RECORDS SUMMARY | 2024-10-22 11:23 | XMS_ITS | Data Portability ---
Author Organization [place] [facility] [place] Address [address] [place] [address] Assessment Encounter Date Assessment Date Assessment LastModified [...] physical examination, tests/diagnostic imaging, and treatment plan. [email or web address] Not available 02/09/2024 14:19:15 06/04/2024 06/04/2024 Patient [...] examination, recommended tests/diagnostic imaging, and treatment plan. [email or web address] Not available 06/04/2024 14:39:13 10/06/2024 10/06/2024 39-year-old female with right third finger complaint. History and exam are consistent with trigger finger. After discussion of treatment options she wishes to proceed with cortisone injection today. Follow-up with our hand specialist in approximately 1 month. Patient was seen and evaluated by Kaity Roberson MS, BENJI in indirect conjuction with Documenting Provider: Katie Milian MD . He/She agrees with history, physical examination, tests/diagnostic imaging, and treatment plan. This document was generated using voice recognition software. As a result, there may be unintended spelling, grammatical and/or textual errors. Not available 10/06/2024 09:40:15 Plan of Treatment Reminders Order Date Submit Date Provider Last Modified By Organization Details Last Modified Time Details Appointments ESTABLISH ED/AONE REFERRAL 2024 11:15A M Katie valerio MD Not available Not available Not available Lab None recorded. Referral None recorded. Procedures None recorded. Surgeries None recorded. Imaging XR, finger(s) , 2 or more view 2024 025 [email or web address] [facility], [address], [place], [address], 10/06/2024 10:03:23 XR, knee, 3 view 2023 024 [email or web address] [facility], [address], [place], [address], 02/09/2024 12:22:04 Medication Orders lidocaine (PF) 10 mg/mL (1 %) injection solution 2024 025 [email or web address] [id number], [address] [facility], [place], [address], 10/06/2024 10:03:23 [email or web address] lone acetonide 40 mg/mL suspensio n for injection 2024 025 [email or web address] [id number], [address] [place], [address], 10/06/2024 10:03:23 lidocaine (PF) 10 mg/mL (1 %) injection solution 2023 024 [id number], [address] [place], [address], 06/04/2024 16:10:20 [email or web address] lone acetonide 40 mg/mL suspensio n for injection 2023 024 [email or web address] 1 [id number], [address] [place], [address], 06/04/2024 16:10:20 lidocaine (PF) 100 mg/5 mL (2 %) injection syringe 2023 024 [id number], [address] [place], [address], 06/04/2024 15:36:32 [email or web address] lone acetonide 40 mg/mL suspensio n for injection 2023 024 [email or web address] [id number], [address] [place], [address], 06/04/2024 15:36:34 Patient TargetsNo targets recorded. Patient Instructions Encounter Date Encounter Id Patient Instructions Last Modified By Organization Details Last Modified Time 02/09/2024 [id number] views of the right knee were obtained today 02/09/2024 in the [place] office. There are moderate degenerative postsurgical changes In the patellofemoral and medial compartments. Perhaps slight patella andrea. Patella tracks centrally. No acute fracture or dislocation appreciated. 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 Interpreted by: BENJI Coe Not available 02/09/2024 14:16:30 10/06/2024 [id number] Three-view x-ray study of right third finger obtained during today's urgent care encounter shows no acute or chronic osseous abnormalities. Not available 10/06/2024 10:02:42 Reason for Referral None Reported. Results Created [...] right knee due to and following trauma 0887368198 Active [address], [place], [address], [place] [facility], [facility] 4 13:58:42 Triggering of digit 681882611 Active [address], [place], [address], [place] [facility], P 5 09:40:44 Problem Notes None recorded. Procedures Surgical History Date Name Laterality Status Provider Name and Address Organization Details Recorded Time 5 BLW Trigger Finger Injection completed [address], [place], [address], [place] [facility] 10/06/2024 09:39:19 4 LES trigger finger/De Quervain's injection completed [address], [place], [address], [place] [facility] 06/04/2024 14:37:49 4 SAB Knee Inj w/o-US completed [address]ENJ[address], [place], [address], [place] [facility] 02/09/2024 10:55:09 operative procedure on knee completed [facility] 06/04/2024 14:05:00 Imaging Results Imaging Date [...] Not available Not available 06/04/2024 2582 RxNorm [facility], [place] [facility] 14:00:06 Medications Name Sig Start Date Stop Date Status Note LastModified by Organization Details LastModified Time triamcinolo ne acetonide 40 mg/mL suspension for injection Take 40 mg by injection route. 2024 active Not Available Not Available Not Avai lable Vitamin D active Not Available Not Paloma ilable Not Available Adderall active Not Available Not Avai lable Not Available lidocaine (PF) 10 mg/mL (1 %) injection solution Take 1 mL by injection route. 2024 active Not Available Not Available Not Avai lable Tirosint active Not Available Not Avai lable Not Available lidocaine (PF) 100 mg/5 mL (2 %) injection syringe Take 3 mL by injection route. 06/04 completed Not Available Not Available Not Available Skyrizi active Not Available Not Avail able Not Available Vitals Date Recorded Body height Body mass index (BMI) Body weight Provider Name and Address Organization Details Last Updated DateTime 10/06/2024 160.02 cm 31.9 kg/m2 05602.63 g Georgiana Lopez [place] [facility] 10/06/2024 09:07:56 Social History None recorded. Functional Status Question Answer Note LastModified by Organizat ion Details LastModified Time Do you use any illicit or recreational drugs? No Information not available 06/04/2024 Do you or have you ever used any other forms of tobacco or nicotine? No Information not available 06/04/2024 What is your level of alcohol consumption? None Information not available 06/04/2024 Mental Status None recorded. Family History Relationship [...] SNOMED-CT Code Diagnosis ICD10 Code Diagnosis Note [id number] KEI FISHER PA-C [facility] [address] [place] [phone] 02/09/2024 10:20:49 02/09/2024 11:00:35 Pain of right knee region 0069439428 43762 M25.561 Gonarthros is of right knee due to and following trauma 7125111298 M17.31 History of operative procedure on knee 391028360 Z98.890 right knee arthroscop ic lateral release, chondropla sty 2016, Dr. Zimmerman, [facility] [id number] CHRISTIANO VERGARA PA-C [facility] [address] [place] [phone] 06/04/2024 12:55:33 06/04/2024 14:24:56 Triggering of digit 467973693 M65.332 [id number] KAITY ROBERSON PA-C [facility] [address] [place] [address] 10/06/2024 08:57:05 10/06/2024 09:48:07 Pain in finger of right hand 2662923297 41977 M79.644 Triggering of digit 2399 83893 M65.331 Health Concerns Section Related Observation LastModified by Organization Detai ls LastModified Time None Recorded Concern Status LastModified by Organization Details LastModified Time None Recorded Advance Directives Directive None Recorded Payers Encounter Date Sequence Insurance Name Policy Number Policy Jones Covered Member ID Jones Member ID Guarantor Name 02/09/2024 1 [place] [id number] A Angela Swistak [id number] Angela Swistak 06/04/2024 1 [place] [id number] A Angela Swistak [id number] 35 Angela Swistak 10/06/2024 1 [place] [id number] Angela Swistak [id number] Angela Swistak Notes Date Note Type Note Provider Name and Address Organization Details Recorded Time 02/09/2024 text/html Pleasant 38-year -old female presents to the urgent care today for evaluation of acute on chronic right knee pain and swelling. 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 She had surgery for this in [address] Zimmerman at [facility]. Operative report indicates a right knee [...] KEI FISHER PA-C [address], [place], [address], [place] [facility] 02/09/2024 14:20:18 06/04/2024 text/html Patient is [...] CHRISTIANO VERGARA PA-C [address], [place], [address], [place] [facility] 06/04/2024 14:40:33 10/06/2024 text/html 39-year-old [place] et[place] presents to orthopedic urgent care with chief complaints of right third finger. She reports the onset of symptoms approximately a year ago. She reports that she wakes up in the morning with her finger stuck in a flexed position. She has to use the other hand to straighten out the finger. She reports that throughout the course of her waking day it has a tendency of catching but is usually relieved by forcing the finger out into extension. She complains of worsening sensitivity at the palm of the hand. She also states that the experience of catching is becoming more frequent. She reports a history of a trigger finger on the opposite hand in the past that responded nicely to a cortisone injection. KAITY ROBERSON PA-C [address], [place], [address], [place] [facility] 10/06/2024 10:03:20 OBGyn Episode No OBEpisode recorded.
--- OUTSIDE RECORDS SUMMARY | 2024-10-22 11:23 | XMS_ITS | Encounter Summary ---
Author Organization [facility] Address [address] [place] [address] Care Team Providers Care Commercial Photographer Name Role Phone Herson Pack MD Primary Care Provide r Encounter Details Date Type Department Care Team (Late st Contact Info) Description 08/27/2024 Scanned Document [address] [place] [phone] Radiology, Scan Social History Tobacco Use Types Packs/Day Years Used Date Smoking Tobacco: Never Assessed Comments Unknown Sex and Gender Information Value Date Recorded Sex Assigned at Female 10/09/2024 8:31 AM EDT Legal Sex Female 2:44 PM EDT Gender Identity Female 10/09/2024 8:31 AM EDT Sexual Orientation Heterosexual (straight) 10/09 8:31 AM EDT documented as of this encounter Plan of Treatment Not on file documented as of this encounter Procedures Procedure Name Priority Date/Time Associated Diagnosis Comments HX OUTSIDE ORDER 08/27/2024 12:19 PM EDT documented in this encounter Results * OUTSIDE ORDER (08/27/2024 12:19 PM EDT) us Scan Radiology HX AMB PROCEDURES Final Result documented in this encounter Visit Diagnoses Not on filedocumented in this encounter Care Teams Commercial Photographer Relationship Specialty Start Date End Date Herson Pack MD [address] [facility] 1 [facility] [place] [address] PCP - General 06/22/22 documented as of this encounter
[2024-10-22 11:29] LABS: Free T4 (Free Thyroxine) 1.04 ng/dL (0.71-1.85); Thyroid Stimulating Hormone 1.55 uIU/mL (0.32-4.0)
== END 2024-10-22 10:34 | disposition home or self-care (01) ==
LOC: HO.LAB 10:33
PROVIDERS: Visit Provider Internal Medicine
DX: E03.9 Hypothyroidism, unspecified (principal)
CPT/HCPCS: 36415; 84439; 84443

== ENCOUNTER 2024-10-30 13:39 | Outpatient (AMB) | payer OTHER, SELFPAY ==
[2024-10-30 13:51] VITALS: BP 120/82; PULSE 89; BMI 32.9
--- NOTE | 2024-10-30 13:51 | A.OFFVIS_ITS ---
Vital Signs 10/30/24 13:51 Height 5 ft 2 in Weight 179 lb 14.355 oz BMI 32.9 BP 120/82 Blood Pressure Location Lt brachial Position Sitting Pulse 89 Pulse Source Pulse Oximeter Intake Visit Reasons: follow up/ holter/echo/sleep study Medical Records Field Technician Required: No Allergies clindamycin [CLINDAMYCIN] Allergy (Unknown, Verified 10/30/24 13:53) UNKNOWN Medication List - Last Reconciled 10/30/24 by Sixto Wasserman NP cholecalciferol (vitamin D3) 2,000 units PO DAILY copper (ParaGard T 380A) intrauterine dextroamphetamine-amphetamine 30 mg ER 1 cap PO DAILY levothyroxine (Tirosint) 75 mcg PO DAILY metoprolol tartrate 25 mg PO BID miconazole nitrate 2% (Monistat 7) 1 appful vaginal BEDTIME 7 days risankizumab-rzaa (Skyrizi) 150 mg subcut Q12W rosuvastatin 5 mg PO DAILY HPI Comments Details: This is a 39-year-old female patient presenting for a follow-up visit. Patient was previously evaluated for sinus tachycardia. Since that time, she has undergone further evaluation including coronary calcium score which was elevated and therefore had a subsequent coronary CTA, Holter monitoring, sleep study, and echocardiogram. Patient reports that since starting her metoprolol, her symptoms of palpitations have significantly improved and are now well- controlled. Patient is reporting feeling well overall and denies any cardiac symptoms including exertional chest pain, shortness of breath, dizziness, orthopnea, PND, leg edema, presyncope, or syncope. Patient's however requesting change in her medication from metoprolol tartrate to succinate for convenience and consistency. 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 Sexual orientation: Straight/Heterosexual Gender identity: Female Female Reproductive History Menstrual Age of Menarche: 15 Review of Systems ENT Reports dizziness Card Denies chest pain, Denies chest pain at rest, Denies chest pain with activity, Denies rapid heart rate, Denies pedal edema, Denies edema, Denies leg edema, Denies lightheadedness, Denies palpitations, Denies dyspnea, Denies dyspnea on exertion and Denies orthopnea Resp Denies cough, Denies dyspnea and Denies dyspnea on exertion GI Denies hematochezia and Denies change in stool character Musc Denies abnormal gait, Reports limited range of motion, Reports muscle cramps, Denies muscle weakness, Denies numbness, Denies radiating pain into limb, Denies stiffness and Denies tingling Neuro Denies abnormal gait, Reports dizziness, Denies numbness and Denies tingling Endo Denies palpitations Physical Exam Vital Signs: Last Vital Signs Pulse 89 10/30/24 13:51 BP 120/82 10/30/24 13:51 BMI result Body Mass Index 32.9 Const General: cooperative, healthy appearing, comfortable and no acute distress Orientation/consciousness: patient oriented x3 HEENT Head: Yes normal to inspection Neck Neck: Yes normal visual inspection, Yes trachea midline and Yes supple Chest Chest palpation & inspection: normal inspection of the chest Resp Effort & Inspection: normal respiratory effort Auscultation: clear to auscultation bilaterally, no crackles, no rales, no rhonchi and no wheezes Cardio Jugular venous distension: no JVD Palpation: normal PMI Rate: regular rate Rhythm: regular rhythm Heart sounds: S1 normal heart sound present, S2 normal heart sound present, no click, no gallops, no murmurs and no rubs Peripheral pulses: Peripheral pulses 2+ throughout GI Inspection: Yes normal to inspection Palpation (GI): Soft to palpation Auscultation: normal bowel sounds Skin General skin exam: no rashes or lesions noted Neuro General: patient oriented x3 Extrem General: Yes normal to inspection, No no pedal edema and No calf tenderness Psych Appearance: grossly normal Mental Status: mental status grossly normal Speech and movement: Normal speech and movement present Assessment & Plan Assessment & Plan (1) Sinus tachycardia: Code(s): R00.0 - Tachycardia, unspecified Category: Medical Plan: 08/13/2024-Holter study showed underlying normal sinus rhythm at an average rate of 96 beats per minute. About 45% what sinus tachycardia and rare supraventricular and ventricular ectopies. 08/17/2024-echo study showed hyperdynamic LV EF greater than 70%, otherwise in no valvular or wall motion abnormality. 09/26/2024-sleep study also was negative for sleep apnea. Given her improvement in symptoms, patient to continue with metoprolol therapy. We will switch her metoprolol from tartrate to succinate. We can titrate as needed. (2) Hyperlipidemia: Code(s): E78.5 - Hyperlipidemia, unspecified Category: Medical Plan: 07/24/2024-coronary calcium score of 175.6. 10/09/2024-patient had a coronary CTA that showed no evidence of flow-limiting coronary artery stenosis. Most recent LDL at 181. Continue rosuvastatin therapy. We will repeat a lipid profile in 3 months. Ideally, LDL goal less than 70. Advised heart healthy diet, regular exercise, losing weight, adequate hydration, med compliance, and management of vascular risk factors. Follow up in 1 year, sooner if needed. In the interim, patient will call the office with any concerns or change in symptoms. This note was generated using voice recognition software. While every effort has been made to ensure accuracy and proper house supervisor, there may be occasional errors that could affect the content or meaning of the described symptoms. Orders: Orders Lipid Panel 3 Months E78.5 - Hyperlipidemia, unspecified Liver Panel 3 Months E78.5 - Hyperlipidemia, unspecified Medications: New metoprolol succinate ER 25 mg PO DAILY 90 tabs 3RF Discontinued metoprolol tartrate Discontinued Reason: Doctor's Order 25 mg PO BID 60 tabs 5RF Coding Level of Care Code Est Pt Level 4 (78881) Complex EM visit Add On G2211 Diagnoses Sinus tachycardia R00.0 Hyperlipidemia E78.5 Time Spent (min) 31 Comment Time spent in reviewing the chart, test results, assessment, counseling and documentation.
--- OUTSIDE RECORDS SUMMARY | 2024-10-30 14:48 | XMS_ITS | Clinical Summary ---
Author Organization [facility] Address [address] [place] [address] Phone Care Team Providers Care Fire Regulator Name Role Phone Brenna Pack MD Primary [...] Surgery Date Site/Laterality Comments COLONOSCOPY 08/30/2007 PROCEDURE: MO COLONOSCOPY FLX DX W/COLLJ SPEC WHEN PFRMD; [...] age to complete this topic Care Teams Fire Regulator Relationship Specialty Start Date End Date Brenna Pack MD [address] [place] [address] [place] [address] PCP - General 09/20/22
--- OUTSIDE RECORDS SUMMARY | 2024-10-30 14:48 | XMS_ITS | Clinical Summary ---
Author Organization [facility] Address [address] [place] [address] Care Team Providers Care Solar System Installer Name Role Phone Herson Pack MD Primary [...] - 10/09/2024 11:59 PM EDT Hospital Encounter [facility] [address] [place] [address] Abnormal findings diagnostic imaging of heart and coronary circulation Discharge Disposition: Home or Self Care 10/09/2024 8:36 AM EDT - 10/09/2024 1:39 PM EDT Hospital Encounter [facility] [address] [place] [phone] Precordial pain Discharge Disposition: Home or Self Care 10/09/2024 Travel 08/27/2024 Scanned Document [facility] [address] [facility] [address] [place] [address] Radiology, Scan from Last 3 Months Social [...] pain; CAD assessment. Tachycardia, family history of VA. ? COMPARISON: Chest x-ray 08/29/2014. TECHNIQUE: The [...] pain; CAD assessment. Tachycardia, family history of VA. COMPARISON: Chest x-ray 08/29/2014. TECHNIQUE: The included [...] Grafts w/contrast (10/09/2024 9:30 AM EDT) Pathologist [facility] Resting HR 57 bpm RODESSA LM 0 RODESSA [address]AT[address] RODESSA CALACX [address] Ascending aorta at PA bifurcation [address] Aortic root annulus 30 mm RODESSA Main pulmonary artery dimension 23 mm RODESSA LV Sys Vol (mL) 31.0 mL RODESSA LV Redman Vol (mL) 102.0 mL RODESSA LV Calc EF (%) 70 % RODESSA Anatomical Region Laterality Modality Heart Computed Tomogra [...] calcium scoring study was performed on a Intersect [employer] revolution dual energy CT 256-slice scanner. Acquisition [...] Final Result from Last 3 Months Insurance [employer] [facility] Hithru OUT OF [facility] Care Teams Solar System Installer Relationship Specialty Start Date End Date Herson Pack MD [address] [place] [address] [address] [place] [address] PCP - General 06/22/22
--- OUTSIDE RECORDS SUMMARY | 2024-10-30 14:48 | XMS_ITS | Data Portability ---
Author Organization [employer] [facility] Address [address] [address] Assessment No assessment recorded. Plan of Treatment [...] pelvi s No observ ation record ed. [address], [address], 09/17/2024 15:15:22 09/21/19 25 09/11/2024 US, abdom en + pelvi s No observ ation record ed. [address], [address], 09/25/2024 12:14:07 Result Notes None recorded. Problems Name Problem SNOMED Code Status Onset Date Resolution Date Notes Provider Name and Address Organization Details Recorded Time Hypothyroidism 66311662 Active 2020 Not Available [facility] 19:26:20 Attention deficit hyperactivity disorder, combined type 03418977 Active 2020 Not Available [facility] 19:26:20 Problem Notes None recorded. Procedures Surgical History None recorded. Imaging Results Imaging Date Name Status LastModified by Organiz ation Details LastModified Time 09/11/2024 US, pelvis completed [facility] [address] [place], [address], 09/17/2024 15:15:22 09/11/2024 US, abdomen + pelvis completed [facility] [address] [place], [address], 09/25/2024 12:14:07 Procedure Notes None recorded. Medical [...] Not Available Not Available Not Avai lable [place] Thyroid 15 mg tablet TAKE 1 TABLET [...] mcg/0.3 mL dose 09/20/2020 completed Harpreet miranda [facility] [employer] [facility] 11/07/2020 13:36:37 Past Encounters Encounter ID Performer Location Encounter Start Date Encounter Closed Date Diagnosis/Indication Diagnosis SNOMED-CT Code Diagnosis ICD10 Code Diagnosis Note [id number] Herson Pack MD Main Office [address] [place] [address] 09/19/2023 10:35:09 09/19/2023 13:27:03 Attention deficit hyperactivity disorder, combined type [id number] F90.2 Patient has no complaints her ADHD is well managed. Depressive disorder 6658 9008 F32.9 Patient states since starting Auvelity she [...] Name 09/19/2023 1 [place] [id number] A Angela Encarnacion [id number] 35 Angela Encarnacion Notes Date Note Type [...] lacking sleep.) Herson Pack MD [address], [address], [employer] 09/21/2023 08:01:08 OBGyn Episode No OBEpisode recorded.
--- OUTSIDE RECORDS SUMMARY | 2024-10-30 14:48 | XMS_ITS | Clinical Summary ---
Author Organization [facility] Address [address] [place] [address] Care Team Providers Care Printed Circuit Layout Taper Name Role Phone Herson Pack MD Primary [...] age to complete this topic Care Teams Printed Circuit Layout Taper Relationship Specialty Start Date End Date Herson Pack MD [address] [place] [address] PCP - General [employer] 09/20/22
--- OUTSIDE RECORDS SUMMARY | 2024-10-30 14:49 | XMS_ITS | Patient Health Record ---
Author Organization [facility] Address [address] [place] [address] Care Team Providers Care Agricultural Engineer Name Role Phone GHASSAN LICEA Unavailable [phone] Allergies Allergen (clinical drug ingredient) Drug/Non Drug Allergy documented on EMR Reaction Allergy Type Onset Date Status clindamycin Clindamycin hives Drug Allergy Act manfred Results Component Value Reference Range Notes CT Abdomen Pelvis W Cont Reviewed date:03/28/2024 02:21:20 PM Interpretation: Performing Lab: Notes/Report: Original Ordering Provider: GHASSAN LICEA PA-C [facility] COPY(IES) SENT TO: Reviewed date:03/15/2024 01:10:29 PM Interpretation: Performing Lab: Notes/Report: PATIENT UNABLE TO VOID; ADVISED TO RETURN FOR COLLECTION. COPY(IES) SENT TO: ALYSHA HCAVEZ [address] [place] [id number] CBC (INCLUDES DIFF/PLT) Reviewed date:03/15/2024 01:10:03 PM Interpretation: Performing Lab:NL2, [facility] [id number] [place], [place] [id number] Julian Lemon Notes/Report: PATIENT UNABLE TO VOID; [...] MPV 9.5 7.5-12.5 fL ABSOLUTE NEUTROPHILS 3686 1756-5709 cells/uL ABSOLUTE LYMPHOCYTES 2298 850-3900 cells/uL ABSOLUTE MONOCYTES 571 200-950 cells/uL ABSOLUTE EOSINOPHILS 184 15-500 cells/uL ABSOLUTE BASOPHILS 61 0-200 cells/uL NEUTROPHILS 54.2 LYMPHOCYTES 33.8 MONOCYTES 8.4 EOSINOPHILS 2.7 BASOPHILS 0.9 COMPREHENSIVE METABOLIC PANE L Reviewed date:03/15/2024 01:10:23 PM Interpretation: Performing Lab:NL2, [facility] [id number] [facility] Julian Lemon Notes/Report: PATIENT UNABLE TO [...] 19 10-30 U/L ALT 19 6-29 U/L Reason For Referral Reason [facility] Diagnosis 1 Tachycardia (R00.0) Referral Organization [facility] 119 Referring Provider First Name GHASSAN Referring Provider Last Name ANUJA Referring Provider Speciality Internal M edicine Referred Provider Specialty Cardiology General Notes Jacquelyn Ortega 03/14/2024 01:22:21 PM > Referral faxed to [facility], p: [phone] f: [phone] Clinical Notes Cristopher Mora 05/2024 04:19:39 PM > Scheduled for 05/21 at 4 pm. Pt aware Referral Priority Routine Medications Medication SIG (Take, Route, Frequency, Duration) Notes [...] eous weekly for 28 days 10/02/2024 Active Social History Tobacco use other than smoking: Question Answer Notes Are you an other tobacco user? Yes Problems Problem Type SNOMED Code ICD Code Onset Dates Problem Status W/U Status Risk Notes Problem 718647194 Mixed hyperlipidemia (E78.2) Active confirmed Problem Left upper quadrant pain (623972562) Left upper quadrant pain (R10.12) Active confirmed Problem Lipid screening (716881428) Encounter for screening for lipoid disorders (Z13.220) Active confirmed Problem 642003806 Acquired hypothyroidism (E03.9) Active confirmed Problem 972505864 Psoriatic arthritis (L40.50) Active confirmed Problem Adult health examination (424474479) Adult general medical exam (Z00.00) Active confirmed Problem 23361053 Vitamin D deficiency (E55.9) Active confirmed Problem 787980777 Obesity (BMI 30-39.9) (E66.9) Active confirmed Problem 82502056 Coronary artery disease involving [place] coronary artery of [place] heart without angina pectoris (I25.10) Active confirmed Problem 905790489 BMI 35.0-35.9,adult (Z68.35) Active confirmed Problem 746272354 Attention defici t disorder (ADD) in adult (F98.8) Active confirmed Problem Tachycardia (5291759) Tachycardia (R00.0) Active confirmed Problem Endocrine/metab olic screening (290095638) Encounter for screening for endocrine disorder (Z13.29) Active confirmed Vital Signs Heart Rate 113 /min 10/02/2024 Blood pressure diastolic 94 mm Hg 10/02/2024 Oximetry 99 % 10/02/2024 Height 61 in 10/02/2024 Blood pressure systolic 146 mm Hg 10/02/2024 Weight 190 lbs 10/02/2024 BMI 35.9 kg/m2 10/02/2024 Encounters Encounter Location Date Provider Diagnosis [facility] [address] [address] 03/13/2024 GHASSAN LICEA Left upper quadrant pain R10.12 ; Attention deficit disorder (ADD) in adult F98.8 ; Acquired hypothyroidism E03.9 ; Vitamin D deficiency E55.9 and Obesity (BMI 30-39.9) E66.[address] [facility] [address] [facility] [address] [address] 04/12/2024 GHASSAN LICEA Adult general medica l exam Z00.00 ; Attention deficit disorder (ADD) in adult F98.8 ; Acquired hypothyroidism E03.9 ; Obesity (BMI 30-39.9) E66.9 ; Left upper quadrant pain R10.12 ; Moderate mixed hyperlipidemia not requiring statin therapy E78.2 and Psoriatic arthritis L40.[address] [facility] [address] [address] 10/02/2024 GHASSAN LICEA Mixed hyperlipidemia E78.2 ; Coronary artery disease involving [place] coronary artery of [place] heart without angina pectoris I25.10 ; Tachycardia R00.0 ; Acquired hypothyroidism E03.9 ; Psoriatic arthritis L40.50 ; Attention deficit disorder (ADD) in adult F98.8 ; Obesity (BMI 30-39.9) E66.9 and BMI 35.0-35.9,adult Z68.35 [address] [facility] [address] [place] [address] 03/28/2024 GHASSAN LICEA [address] [facility] [address] [place] [address] [place] [address] 05/02/2024 GHASSAN LICEA [address] [place] [address] [place] [address] 08/06/[address] [facility] [address] [place] [address] [place] [address] 10/02/2024 GHASSAN LICEA [address] [place] [address] [place] [address] 08/29/2024 GHASSAN LICEA [address] [place] [address] [place] [address] 08/30/2024 GHASSAN LICEA [address] [place] [address] [place] [address] 10/02/2024 GHASSAN LICEA [address] [place] [address] [place] [address] 10/12/2024 GHASSAN LICEA Obesity (BMI 30-39.9 ) E66.9 Assessments Encounter Date Diagnosis (ICD Code) Assessment Notes Treatment Notes Treatment Clinical Notes Section Notes 03/13/2024 Left upper quadrant pain (ICD-10 - R10.12) Angela is a [id number] who presents to the office today for new patient evaluation. Patient is welcomed to the practice. They are coming from [facility] in [place], [place]. Last complete physical exam with labs [...] is exacerbated with sitting up and moving dlaf-wf-ocvd when she is lying down in bed. [...] monitor. # Hypothyroidism: The patient follows with [facility] in [facility]. Will order new TSH at [...] Dictation was accomplished with the use of Latinda voice recognition software, which is prone to medical misidentifications and grammatical errors. This are unintentional and the practitioner does try to identify and correct these, but some could still be present. Please do not hesitate to contact practitioner for clarification. 03/13/2024 Attention deficit disorder (ADD) in adult (ICD-10 - F98.8) Angela is a [id number] who presents to the office today for new patient evaluation. Patient is welcomed to the practice. They are coming from [facility] in [place], [place]. Last complete physical exam with labs [...] is exacerbated with sitting up and moving mcev-wv-mpjr when she is lying down in bed. [...] monitor. # Hypothyroidism: The patient follows with [facility] in [facility]. Will order new TSH at [...] Dictation was accomplished with the use of Latinda voice recognition software, which is prone to [...] pain exacerbated with sitting up and moving znvb-vf-qxyp while she is supine. Physical exam at [...] infarction in her father, he had his [place] when he was 42 and to repeat [...] time. # Psoriatic arthritis: Patient follows with [facility] in [place]. Recently started on Skyrizi 150 mg injection. Will continue to monitor. Please follow-up with dermatology. # Hypothyroidism: The patient follows with [facility] in [facility]. TSH drawn through endocrinology and [...] log exercise and discussed fitness Apps like Chekkt.compal or Cronometer which can help keep log [...] Dictation was accomplished with the use of Latinda voice recognition software, which is prone to [...] tablet daily. # Tachycardia: Patient follows with [facility] for ongoing management of tachycardia. Patient had Holter monitor performed, patient reports primary rhythm of sinus tachycardia, no evidence of SVT or atrial fibrillation. She is now on metoprolol tartrate 25 mg once daily. Reports baseline heart rate between 99 to [address] angio stress test next week in [place]. Following up with cardiology next month. Will request last office notes and diagnostics. Blood pressure is elevated in office today 146/94 with heart rate of 113. Patient reports increased stress at this time, typically she is normotensive. Without chest pain or shortness of breath in office. Will continue to monitor. # Hypothyroidism: Patient follows with [facility]. Diagnosed with hypothyroidism in her early 20s. TSH on 03/15/2024 at 1.64 within normal limits. Continue levothyroxine 75 mcg 1 capsule in the morning on empty stomach before other medications. # Psoriatic arthritis: Patient follows with [facility]. Continue Skyrizi 150 mg subcutaneous injection [...] Dictation was accomplished with the use of Latinda voice recognition software, which is prone to [...] pain exacerbated with sitting up and moving ryvi-bs-lxqw while she is supine. Physical exam at [...] infarction in her father, he had his [place] when he was 44 and to repeat [...] time. # Psoriatic arthritis: Patient follows with [facility] in [place]. Recently started on Skyrizi 150 mg injection. Will continue to monitor. Please follow-up with dermatology. # Hypothyroidism: The patient follows with [facility] in [facility]. TSH drawn through endocrinology and [...] log exercise and discussed fitness Apps like Chekkt.compal or Cronometer which can help keep log [...] Dictation was accomplished with the use of Latinda voice recognition software, which is prone to medical misidentifications and grammatical errors. This are unintentional and the practitioner does try to identify and correct these, but some could still be present. Please do not hesitate to contact practitioner for clarification. 10/02/2024 Coronary artery disease involving [place] coronary artery of [place] heart without angina pectoris (ICD-10 - I25.10) [...] tablet daily. # Tachycardia: Patient follows with [facility] for ongoing management of tachycardia. Patient had Holter monitor performed, patient reports primary rhythm of sinus tachycardia, no evidence of SVT or atrial fibrillation. She is now on metoprolol tartrate 25 mg once daily. Reports baseline heart rate between 99 to [address] angio stress test next week in [place]. Following up with cardiology next month. Will request last office notes and diagnostics. Blood pressure is elevated in office today 146/94 with heart rate of 113. Patient reports increased stress at this time, typically she is normotensive. Without chest pain or shortness of breath in office. Will continue to monitor. # Hypothyroidism: Patient follows with [facility]. Diagnosed with hypothyroidism in her early 20s. TSH on 03/15/2024 at 1.64 within normal limits. Continue levothyroxine 75 mcg 1 capsule in the morning on empty stomach before other medications. # Psoriatic arthritis: Patient follows with [facility]. Continue Skyrizi 150 mg subcutaneous injection [...] Dictation was accomplished with the use of Latinda voice recognition software, which is prone to [...] tablet daily. # Tachycardia: Patient follows with [facility] for ongoing management of tachycardia. Patient had Holter monitor performed, patient reports primary rhythm of sinus tachycardia, no evidence of SVT or atrial fibrillation. She is now on metoprolol tartrate 25 mg once daily. Reports baseline heart rate between 99 to [address] angio stress test next week in [place]. Following up with cardiology next month. Will request last office notes and diagnostics. Blood pressure is elevated in office today 146/94 with heart rate of 113. Patient reports increased stress at this time, typically she is normotensive. Without chest pain or shortness of breath in office. Will continue to monitor. # Hypothyroidism: Patient follows with [facility]. Diagnosed with hypothyroidism in her early 20s. TSH on 03/15/2024 at 1.64 within normal limits. Continue levothyroxine 75 mcg 1 capsule in the morning on empty stomach before other medications. # Psoriatic arthritis: Patient follows with [facility]. Continue Skyrizi 150 mg subcutaneous injection [...] Dictation was accomplished with the use of Latinda voice recognition software, which is prone to [...] pain exacerbated with sitting up and moving vkgh-yn-gjsl while she is supine. Physical exam at [...] infarction in her father, he had his [place] when he was 42 and to repeat [...] time. # Psoriatic arthritis: Patient follows with [facility] in [place]. Recently started on Skyrizi 150 mg injection. Will continue to monitor. Please follow-up with dermatology. # Hypothyroidism: The patient follows with [facility] in [facility]. TSH drawn through endocrinology and [...] log exercise and discussed fitness Apps like Carritus or PeptiVirometer which can help keep log off calories [...] Dictation was accomplished with the use of Latinda voice recognition software, which is prone to medical misidentifications and grammatical errors. This are unintentional and the practitioner does try to identify and correct these, but some could still be present. Please do not hesitate to contact practitioner for clarification. 03/13/2024 Acquired hypothyroidism (ICD-10 - E03.9) Angela is a [id number]-[id number] who presents to the office today for new patient evaluation. Patient is welcomed to the practice. They are coming from [facility] in [place], [place]. Last complete physical exam with labs [...] is exacerbated with sitting up and moving juez-cg-mimu when she is lying down in bed. [...] monitor. # Hypothyroidism: The patient follows with [facility] in [facility]. Will order new TSH at [...] Dictation was accomplished with the use of Latinda voice recognition software, which is prone to medical misidentifications and grammatical errors. This are unintentional and the practitioner does try to identify and correct these, but some could still be present. Please do not hesitate to contact practitioner for clarification. 03/13/2024 Vitamin D deficiency (ICD-10 - E55.9) Angela is a onwxnc86-urbx-awu who presents to the office today for new patient evaluation. Patient is welcomed to the practice. They are coming from [facility] in [place], [place]. Last complete physical exam with labs [...] is exacerbated with sitting up and moving avaa-tu-rowq when she is lying down in bed. [...] monitor. # Hypothyroidism: The patient follows with [facility] in [facility]. Will order new TSH at [...] Dictation was accomplished with the use of Latinda voice recognition software, which is prone to [...] pain exacerbated with sitting up and moving ciyr-xp-fref while she is supine. Physical exam at [...] infarction in her father, he had his [place] when he was 42 and to repeat [...] time. # Psoriatic arthritis: Patient follows with [facility] in [place]. Recently started on Skyrizi 150 mg injection. Will continue to monitor. Please follow-up with dermatology. # Hypothyroidism: The patient follows with [facility] in [facility]. TSH drawn through endocrinology and [...] log exercise and discussed fitness Apps like Carritus or PeptiVirometer which can help keep log off calories [...] Dictation was accomplished with the use of Latinda voice recognition software, which is prone to [...] tablet daily. # Tachycardia: Patient follows with [facility] for ongoing management of tachycardia. Patient had Holter monitor performed, patient reports primary rhythm of sinus tachycardia, no evidence of SVT or atrial fibrillation. She is now on metoprolol tartrate 25 mg once daily. Reports baseline heart rate between 99 to [address] angio stress test next week in [place]. Following up with cardiology next month. Will request last office notes and diagnostics. Blood pressure is elevated in office today 146/94 with heart rate of 113. Patient reports increased stress at this time, typically she is normotensive. Without chest pain or shortness of breath in office. Will continue to monitor. # Hypothyroidism: Patient follows with [facility]. Diagnosed with hypothyroidism in her early 20s. TSH on 03/15/2024 at 1.64 within normal limits. Continue levothyroxine 75 mcg 1 capsule in the morning on empty stomach before other medications. # Psoriatic arthritis: Patient follows with [facility]. Continue Skyrizi 150 mg subcutaneous injection [...] Dictation was accomplished with the use of Latinda voice recognition software, which is prone to [...] tablet daily. # Tachycardia: Patient follows with [facility] for ongoing management of tachycardia. Patient had Holter monitor performed, patient reports primary rhythm of sinus tachycardia, no evidence of SVT or atrial fibrillation. She is now on metoprolol tartrate 25 mg once daily. Reports baseline heart rate between 99 to [address] angio stress test next week in [place]. Following up with cardiology next month. Will request last office notes and diagnostics. Blood pressure is elevated in office today 146/94 with heart rate of 113. Patient reports increased stress at this time, typically she is normotensive. Without chest pain or shortness of breath in office. Will continue to monitor. # Hypothyroidism: Patient follows with [facility]. Diagnosed with hypothyroidism in her early 20s. TSH on 03/15/2024 at 1.64 within normal limits. Continue levothyroxine 75 mcg 1 capsule in the morning on empty stomach before other medications. # Psoriatic arthritis: Patient follows with [facility]. Continue Skyrizi 150 mg subcutaneous injection [...] Dictation was accomplished with the use of Latinda voice recognition software, which is prone to medical misidentifications and grammatical errors. This are unintentional and the practitioner does try to identify and correct these, but some could still be present. Please do not hesitate to contact practitioner for clarification. 03/13/2024 Obesity (BMI 30-39.9) (ICD-10 - E66.9) Angela is a [id number] who presents to the office today for new patient evaluation. Patient is welcomed to the practice. They are coming from [facility] in [place], [place]. Last complete physical exam with labs [...] is exacerbated with sitting up and moving hlgi-gk-jxrr when she is lying down in bed. [...] monitor. # Hypothyroidism: The patient follows with [facility] in [facility]. Will order new TSH at [...] Dictation was accomplished with the use of Latinda voice recognition software, which is prone to [...] pain exacerbated with sitting up and moving plbo-qd-ijxj while she is supine. Physical exam at [...] infarction in her father, he had his [place] when he was 42 and to repeat [...] time. # Psoriatic arthritis: Patient follows with [facility] in [place]. Recently started on Skyrizi 150 mg injection. Will continue to monitor. Please follow-up with dermatology. # Hypothyroidism: The patient follows with [facility] in [facility]. TSH drawn through endocrinology and [...] log exercise and discussed fitness Apps like Chekkt.compal or PeptiVirometer which can help keep log off calories [...] Dictation was accomplished with the use of Latinda voice recognition software, which is prone to [...] pain exacerbated with sitting up and moving pxwu-ir-ccev while she is supine. Physical exam at [...] infarction in her father, he had his [place] when he was 42 and to repeat [...] time. # Psoriatic arthritis: Patient follows with [facility] in [place]. Recently started on Skyrizi 150 mg injection. Will continue to monitor. Please follow-up with dermatology. # Hypothyroidism: The patient follows with [facility] in [facility]. TSH drawn through endocrinology and [...] log exercise and discussed fitness Apps like Chekkt.compal or PeptiVirometer which can help keep log off calories [...] Dictation was accomplished with the use of Latinda voice recognition software, which is prone to [...] tablet daily. # Tachycardia: Patient follows with [facility] for ongoing management of tachycardia. Patient had Holter monitor performed, patient reports primary rhythm of sinus tachycardia, no evidence of SVT or atrial fibrillation. She is now on metoprolol tartrate 25 mg once daily. Reports baseline heart rate between 99 to [address] angio stress test next week in [place]. Following up with cardiology next month. Will request last office notes and diagnostics. Blood pressure is elevated in office today 146/94 with heart rate of 113. Patient reports increased stress at this time, typically she is normotensive. Without chest pain or shortness of breath in office. Will continue to monitor. # Hypothyroidism: Patient follows with [facility]. Diagnosed with hypothyroidism in her early 20s. TSH on 03/15/2024 at 1.64 within normal limits. Continue levothyroxine 75 mcg 1 capsule in the morning on empty stomach before other medications. # Psoriatic arthritis: Patient follows with [facility]. Continue Skyrizi 150 mg subcutaneous injection [...] Dictation was accomplished with the use of Latinda voice recognition software, which is prone to [...] tablet daily. # Tachycardia: Patient follows with [facility] for ongoing management of tachycardia. Patient had Holter monitor performed, patient reports primary rhythm of sinus tachycardia, no evidence of SVT or atrial fibrillation. She is now on metoprolol tartrate 25 mg once daily. Reports baseline heart rate between 99 to [address] angio stress test next week in [place]. Following up with cardiology next month. Will request last office notes and diagnostics. Blood pressure is elevated in office today 146/94 with heart rate of 113. Patient reports increased stress at this time, typically she is normotensive. Without chest pain or shortness of breath in office. Will continue to monitor. # Hypothyroidism: Patient follows with [facility]. Diagnosed with hypothyroidism in her early 20s. TSH on 03/15/2024 at 1.64 within normal limits. Continue levothyroxine 75 mcg 1 capsule in the morning on empty stomach before other medications. # Psoriatic arthritis: Patient follows with [facility]. Continue Skyrizi 150 mg subcutaneous injection [...] Dictation was accomplished with the use of Latinda voice recognition software, which is prone to [...] pain exacerbated with sitting up and moving lclx-fb-bvay while she is supine. Physical exam at [...] infarction in her father, he had his [place] when he was 42 and to repeat [...] time. # Psoriatic arthritis: Patient follows with [facility] in [place]. Recently started on Skyrizi 150 mg injection. Will continue to monitor. Please follow-up with dermatology. # Hypothyroidism: The patient follows with [facility] in [facility]. TSH drawn through endocrinology and [...] log exercise and discussed fitness Apps like Chekkt.compal or PeptiVirometer which can help keep log off calories [...] Dictation was accomplished with the use of Latinda voice recognition software, which is prone to [...] tablet daily. # Tachycardia: Patient follows with [facility] for ongoing management of tachycardia. Patient had Holter monitor performed, patient reports primary rhythm of sinus tachycardia, no evidence of SVT or atrial fibrillation. She is now on metoprolol tartrate 25 mg once daily. Reports baseline heart rate between 99 to [address] angio stress test next week in [place]. Following up with cardiology next month. Will request last office notes and diagnostics. Blood pressure is elevated in office today 146/94 with heart rate of 113. Patient reports increased stress at this time, typically she is normotensive. Without chest pain or shortness of breath in office. Will continue to monitor. # Hypothyroidism: Patient follows with [facility]. Diagnosed with hypothyroidism in her early 20s. TSH on 03/15/2024 at 1.64 within normal limits. Continue levothyroxine 75 mcg 1 capsule in the morning on empty stomach before other medications. # Psoriatic arthritis: Patient follows with [facility]. Continue Skyrizi 150 mg subcutaneous injection [...] Dictation was accomplished with the use of Latinda voice recognition software, which is prone to [...] comorbidities. # Psoriatic arthritis: Patient follows with [facility] in [place]. Recently started on Skyrizi 150 mg injection. Will continue to monitor. Please follow-up with dermatology. # Hypothyroidism: The patient follows with [facility] in [facility]. TSH drawn through endocrinology and [...] Dictation was accomplished with the use of Latinda voice recognition software, which is prone to medical misidentifications and grammatical errors. This are unintentional and the practitioner does try to identify and correct these, but some could still be present. Please do not hesitate to contact practitioner for clarification. Plan Of Treatment Pending Test Test Name Order Date CT Abd and Pelvis w Contrast 03/13/2024 LIPID PANEL, STANDARD 03/13/2024 URINALYSIS, COMPLETE 03/13/2024 TSH 03/13/2024 VITAMIN D,25-OH,TOTAL,IA 03/13/2024 Next Appt Details Provider Name:GHASSAN LICEA , 04/16/2025 11:15:00 AM, [address] [facility], [facility] [address], [place], [address], Insurance Providers Payer Name Payer Address Payer Phone Subscriber Number Group Number Insured Name Patient Relationship to Insured Coverage Start Date Coverage End Date Blue Benefits [place] [address] [address] [place] [address] [id number] Angela Encarnacion Self - patient is the insured Medical (General) History Medical History History ICD Code high cholesterol weight gain/loss thyroid disease skin disease Hospitalization History Reason Date(Month/Year) breast argumentation 2012 right knee arthroscopy 2014
--- OUTSIDE RECORDS SUMMARY | 2024-10-30 14:49 | XMS_ITS | Data Portability ---
Author Organization [place] [facility] [place] [place] Address [address] [place] [address] Assessment Encounter Date Assessment Date Assessment LastModified [...] examination, recommended tests/diagnostic imaging, and treatment plan. [email or web address] Not available 06/04/2024 14:39:13 10/06/2024 10/06/2024 39-year-old [...] more view 2024 025 [email or web address] [facility], [address], [place], [address], 10/06/2024 10:03:23 XR, knee, 3 view 2023 024 [email or web address] [facility], [address], [place], [address], 02/09/2024 12:22:04 Medication Orders lidocaine (PF) 10 mg/mL (1 %) injection solution 2024 025 [email or web address] [id number], [address] [facility], [place], [address], 10/06/2024 10:03:23 triamcino lone acetonide 40 mg/mL suspensio n for injection 2024 025 [email or web address] [id number], [address] [place], [address], 10/06/2024 10:03:23 lidocaine (PF) 10 mg/mL (1 %) injection solution 2023 024 [email or web address] 1 [id number], [address] [place], [address], 06/04/2024 16:10:20 triamcino lone acetonide 40 mg/mL suspensio n for injection 2023 024 [email or web address] 1 [id number], [address] [place], [address], 06/04/2024 16:10:20 lidocaine (PF) 100 mg/5 mL (2 %) injection syringe 2023 024 [id number], [address] [place], [address], 06/04/2024 15:36:32 triamcino lone acetonide 40 mg/mL suspensio n for injection 2023 024 [email or web address] [id number], [address] [place], [address], 06/04/2024 15:36:34 Patient TargetsNo targets recorded. Patient Instructions Encounter Date Encounter Id Patient Instructions Last Modified By Organization Details Last Modified Time 02/09/2024 [id number] 3 views of the right knee were obtained today 02/09/2024 in the [place] office. There are moderate degenerative postsurgical changes In the patellofemoral and medial compartments. Perhaps slight patella andrea. Patella tracks centrally. No acute fracture or dislocation appreciated. 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 Interpreted by: BENJI Coe Not available 02/09/2024 14:16:30 10/06/2024 [id number] Three-view x-ray study of right third finger [...] right knee due to and following trauma 1403707527 Active [address], [place], [address], [place] [facility], P 4 13:58:42 Triggering of digit 639325318 Active [address], [place], [address], [place] - [facility], P 5 09:40:44 Problem Notes None recorded. Procedures Surgical History Date Name Laterality Status Provider Name and Address Organization Details Recorded Time 5 BLW Trigger Finger Injection completed [address], [place], [address], [place] [facility], [facility] 10/06/2024 09:39:19 4 LES trigger finger/De Quervain's injection completed [address], [place], [address], [place] [facility], [facility] 06/04/2024 14:37:49 4 SAB Knee Inj w/o-US completed [address], [place], [address], [place] [facility] 02/09/2024 10:55:09 operative procedure on knee completed [facility] - [facility], P 06/04/2024 14:05:00 Imaging Results Imaging Date [...] Not available Not available 06/04/2024 2582 RxNorm [facility], [place] [facility], P 14:00:06 Medications Name Sig Start Date [...] Updated DateTime 10/06/2024 160.02 cm 31.9 kg/m2 02761.63 g Georgiana Lopez [place] - [facility], [facility] 10/06/2024 09:07:56 Social History None recorded. [...] SNOMED-CT Code Diagnosis ICD10 Code Diagnosis Note [id number] KEI FISHER PA-C [facility] [address] [place] [phone] 02/09/2024 10:20:49 02/09/2024 11:00:35 Pain of right knee region 7910939665 40348 M25.561 Gonarthros is of right knee due to and following trauma 6534158083 M17.31 History of operative procedure on knee 507516393 Z98.890 right knee arthroscop ic lateral release, chondropla sty 2016, Dr. Zimmerman, [employer] [id number] CHRISTIANO VERGARA PA-C [facility] [address] [place] [address] 06/04/2024 12:55:33 06/04/2024 14:24:56 Triggering of digit 516461317 M65.332 [id number] KAITY ROBERSON PA-C [facility] [address] [place] [address] 10/06/2024 08:57:05 10/06/2024 09:48:07 Pain in finger of right hand 2036115085 96540 M79.644 Triggering of digit 2399 54783 M65.331 Health Concerns Section Related Observation LastModified by Organization Detai ls LastModified Time None Recorded Concern Status LastModified by Organization Details LastModified Time None Recorded Advance Directives Directive None Recorded Payers Encounter Date Sequence Insurance Name Policy Number Policy Jones Covered Member ID Jones Member ID Guarantor Name 02/09/2024 1 [place] [id number] A Angela Swistak [id number] Angela Swistak 06/04/2024 1 [place] [id number] A Angela Swistak [id number] Angela Swistak 10/06/2024 1 [id number] Angela Swistak [id number] Angela Swistak Notes Date Note Type [...] this in [address] Zimmerman at [facility]. Operative report indicates a right knee [...] KEI FISHER PA-C [address], [place], [address], [place] [facility] 02/09/2024 14:20:18 06/04/2024 text/html Patient is [...] CHRISTIANO VERGARA PA-C [address], [place], [address], [place] [facility] 06/04/2024 14:40:33 10/06/2024 text/html 39-year-old hill [...] KAITY ROBERSON PA-C [address], [place], [address], [place] [facility] 10/06/2024 10:03:20 OBGyn Episode No OBEpisode recorded.
--- OUTSIDE RECORDS SUMMARY | 2024-10-30 14:49 | XMS_ITS ---
Author Organization [facility] Address [address] [place] [address] Care Team Providers Care Inventory Associate And Driver Name Role Phone GHASSAN LICEA Unavailable [phone] Encounters Encounter Location Date Provider Diagnosis [place] [address] [address] 10/09/2024 GHASSAN LICEA Plan Of Treatment Next Appt Details Provider Name:GHASSAN LICEA , 04/16/2025 11:15:00 AM, [address] [place] [address], [place], [address], Progress Notes * JENIFERCarolina VELAZCORupaliB:1984 (39 yo F)Acc No.[id number]:10/09/2024 Progress Notes Patient:Angela CONTRERAS Provider:NIDIA LICEA :1985???Age:39 Y???Sex:Female D ate:10/09/2024 Address:[address] [place], [place] [id number] Subjective: * Chief Complaints: * ??? * Medical History:? Objective: * Vitals:? Assessment: Plan: * Treatment: * Billing Information: * Visit Code:? * Procedure Codes:? Care Plan Details* * Electronic signature of SALOME LICEA PA-C, [id number] on 10/30/2024 at 02:49 PM EDT Sign off status: Pending * Provider:NIDIA LICEA Date:? Generated for Minal wang/Anisha/eTmeenasmitting on:?10/30/2024 02:49 PM EDT
--- OUTSIDE RECORDS SUMMARY | 2024-10-30 14:49 | XMS_ITS | Encounter Summary ---
Author Organization [facility] Address [address] [place] [address] Care Team Providers Care Lathmaker Name Role Phone Herson Pack MD Primary Care Provide r Encounter Details Date Type Department Care Team (Late st Contact Info) Description 08/27/2024 Scanned Document [address] [place] [address] Radiology, Scan Social History Tobacco Use [...] on filedocumented in this encounter Care Teams Lathmaker Relationship Specialty Start Date End Date Herson Pack MD [address] [facility] 1 [facility] [place] [address] PCP - General 06/22/22 documented as of this encounter
== END 2024-10-30 14:19 | disposition home or self-care (01) ==
LOC: HO.HCS 13:39
PROVIDERS: PCP Internal Medicine
DX: R00.0 Tachycardia, unspecified (principal); E78.5 Hyperlipidemia, unspecified
CPT/HCPCS: 99214

== ENCOUNTER 2024-11-26 15:06 | Outpatient (REF) | payer OTHER, SELFPAY ==
[2024-11-26 15:32] LABS: MANUAL DIFF FLAG NO
[2024-11-26 15:34] LABS: Basophils Absolute Auto 0.1 X10*3/uL (0.0-0.2); Basophils Percent Auto 0.7 % (0-2); Eosinophils Absolute Auto 0.1 X10*3/uL (0.0-0.4); Eosinophils Percent Auto 1.4 % (0-4); Hematocrit 41.5 % (37.0-47.0); Hemoglobin 14.1 g/dl (12.0-16.0); Imm Gran Abs Auto 0.03 X10*3/uL (0.00-0.03); Imm Gran Pct Auto 0.3 % (0.0-0.4); Lymphocytes Absolute Auto 2.8 X10*3/uL (1.2-4.9); Lymphocytes Percent Auto 30.9 % (20-40); Mean Corpuscular Hemoglobin 29.5 pg (27.0-33.0); Mean Corpuscular Volume 86.8 fL (80.0-98.0); Mean Platelet Volume 8.8 fL (9.4-12.3); Monocytes Absolute Auto 0.6 X10*3/uL (0.1-1.2); Monocytes Percent Auto 6.1 % (2-11); Neutrophils Absolute Auto 5.5 x10*3/uL (2.0-8.3); Neutrophils Percent Auto 60.6 % (45-73); Platelet Count 367 X10*3/uL (160-400); Red Blood Count 4.78 X10*6/uL (4.20-5.50); Red Cell Distribution Width 13.1 % (11.0-16.0); White Blood Count 9.1 X10*3/uL (4.8-10.8)
[2024-11-26 15:58] LABS: Alanine Aminotransferase 23 U/L (0-31); Albumin Level 4.6 g/dL (3.5-5.0); Alkaline Phosphatase 63 U/L (39-117); Anion Gap 11 (12-20); Aspartate Amino Transferase 19 U/L (5-31); Bilirubin Total 0.1 mg/dL (0.0-1.0); Blood Urea Nitrogen 12 mg/dL (9-16); Calcium 9.4 mg/dL (8.4-10.2); Carbon Dioxide 26 mmol/L (22-29); Chloride 107 mmol/L (96-108); Estimated Glomerular Filt Rate > 60; Glucose Random 86 mg/dL (60-115); Iron 45 mcg/dL (30-160); Percent Iron Saturation 17 % (15-50); Potassium 4.4 mmol/L (3.3-5.1); Sodium 140 mmol/L (135-145); Total Iron Binding Capacity 269 mcg/dL (228-428); Total Protein 7.3 g/dL (6.5-8.0); Unsaturated Iron Binding 224 ug/dL
[2024-11-26 16:08] LABS: Ferritin 39 ng/mL (10-122); Thyroid Stimulating Hormone 2.46 uIU/mL (0.32-4.0)
[2024-11-26 16:22] LABS: Folate 12.9 ng/mL (> or = 4.0); Vitamin B12 609 pg/mL (200-900)
--- OUTSIDE RECORDS SUMMARY | 2024-11-26 16:55 | XMS_ITS | Clinical Summary ---
Author Organization [facility] Address [address] [place] [address] Care Team Providers Care Trousseau Consultant Name Role Phone Herson Pack MD Primary [...] Td or Tdap) 09/20/2021 012 Influenza Vaccine (Season Ended) 2025 Pneumococcal Vaccine Aged Out No long er eligible based on patient's age to complete this topic RSV Ped < 20 months Aged Out No longe r eligible based on patient's age to complete this topic Care Teams Trousseau Consultant Relationship Specialty Start Date End Date Herson Pack MD [address] [place] [address] PCP - General Pie Crust Mixer 09/20/22
[2024-11-27 17:42] LABS: Vitamin D 25-OH Total 34.3 ng/mL (>30)
== END 2024-11-26 15:07 | disposition home or self-care (01) ==
LOC: HO.LAB 15:06
PROVIDERS: Nurse Practitioner Family; Visit Provider Internal Medicine Medical Oncology
DX: E55.9 Vitamin D deficiency, unspecified (principal)
CPT/HCPCS: 36415; 80053; 82306; 82607; 82728; 82746; 83540; 84443; 85025

== ENCOUNTER 2025-01-09 11:01 | Outpatient (AMB) | payer OTHER, SELFPAY ==
--- NOTE | 2025-01-09 11:13 | A.OFFVIS_ITS ---
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 States her finger is catching and locking for the last 3 years. Hx of trigger injection, last injection was on 06/05/24 with [facility] [place] with good results. Patient states she is interested in injection. 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 She complains of bilateral middle finger trigger fingers, L>R. She says this has been present intermittently for ~3 years now, and she has been managing with injections. Her left middle finger was last injected on 06/05/24 at an outside clinic, with good relief, but this is now bothersome and painful for her, and is her chief complaint today. She would like a repeat injection today. Her right middle finger was last injected in October at an outside clinic, and is not particularly bothersome at this time. She denies any numbness and tingling. She denies any other treatment options. 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 She has Psoriatic arthritis and is on Skyrizi, an immunosuppressant. She says she receives this once every 3 months, and was injected recently. 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 Sexual orientation: Straight/Heterosexual Gender identity: Female Female Reproductive History Menstrual Age of Menarche: 15 Review of Systems Const All systems reviewed & are unremarkable except as noted in HPI and below Physical Exam Vital Signs: BMI result Body Mass Index 31.1 Const General: cooperative, healthy appearing and no acute distress Orientation/consciousness: patient oriented x3 HEENT Head: Yes normocephalic and Yes atraumatic Eyes EOM: EOMs intact bilaterally Resp Effort & Inspection: normal respiratory effort and able to speak in complete sentences Cardio Jugular venous distension: no JVD Skin General skin exam: turgor normal Rashes: no rashes Neuro General: patient oriented x3 Extrem Other: Evaluation of Left Upper Extremity: The patient is alert, oriented, and in no acute distress Neuro: Median, Ulnar, Radial nerves motor and sensory intact Vascular: Cap refill brisk ROM: She can make a fist and extend all her digits Visible & palpable locking & catching of the middle finger Tender over the middle finger a1 ema Skin: No lacerations or abrasions. General: No Ecchymosis. No Erythema or evidence of infection. Psych Appearance: grossly normal Affect: normal affect Attitude: cooperative Office Procedures AMB Fracture Care Details: No fracture, injection Fracture Billing Code: Fracture Billing Code Assessment & Plan Assessment & Plan (1) Trigger middle finger of left hand: Code(s): M65.332 - Trigger finger, left middle finger Category: Medical (2) Trigger middle finger of right hand: Code(s): M65.331 - Trigger finger, right middle finger Category: Medical (3) Psoriatic arthritis: Code(s): L40.50 - Arthropathic psoriasis, unspecified Category: Medical Plan Assessment & Plan: 1. Left middle finger trigger finger Hx of injection at outside clinic: 06/05/24 I educated her about this condition I discussed operative and non-operative treatment options The patient would like to proceed with an injection She will perform finger ROM exercises at home She will speak with her Bed Placement Coordinator concerning stopping her Skyrizi in order to consider surgical intervention for her trigger fingers. I expect that we will be able to proceed with surgery when at the end of her 3 month injection cycle. Injection #1: The risks and benefits of a steroid injection including but not limited to risk of damage to blood vessels, nerves, tendons, infection, skin bleaching, failure to improve symptoms, increased pain, and possible need for further injections or other intervention were discussed with the patient and the patient wishes to proceed with the steroid injection. Once consent was obtained, I sterilely prepped the area over the A1 ema of the flexor tendon sheath of the Left middle finger. I then injected the flexor tendon sheath with a combination of 1 mL of dexamethasone (4mg/ml), and 1% lidocaine. The patient tolerated the procedure well with no complications. If the patient continues to have locking and catching 4-6 weeks following this injection, they may call to schedule appointment to discuss alternative treatment options Follow-up prn 2. Right middle finger trigger finger Recently had an injection at an outside clinic, done sometime in October She will follow up in 1 month to discuss possible surgery Scribed for Kaci Souza MD by Brian Samaniego, certified medical technician assistant, on 01/09/25 at 11:25 AM, EST. Coding Level of Care Code New Pt Level 4 (51354) Diagnoses Trigger middle finger of left hand M65.332 Trigger middle finger of right hand M65.331 Psoriatic arthritis L40.50 CPT Codes Fracture Care - Fracture Billing Code: Fracture Billing Code ([id number])
[2025-01-09 11:15] VITALS: BMI 31.1
--- OUTSIDE RECORDS SUMMARY | 2025-01-09 12:08 | XMS_ITS | Clinical Summary ---
Author Organization [facility] Address [address] [place] [address] Care Team Providers Care Company Accountant Name Role Phone Herson Pack MD Primary [...] 66 10/09/2024 8:45 AM EDT Temperature 36.9 C (98.4 F) 12/24/2022 4:15 PM EDT Respiratory Rate 18 10/09/2024 8:45 AM EDT [...] Pap Smear (Ages 21-65) 2008 COVID-19 Vaccine (2023-2 5 season) 2024 09/20/2020, 08/29/2020 Influenza Vaccine 01/11/2025 HPV Vaccines Aged Out No longer eligi ble based on patient's age to complete this topic Pneumococcal Vaccine: Pediatric (0-5 Years) and At-Risk Patients (6 to 49 Years) Aged Out No longer eligible b ased on patient's age to complete this topic Insurance [facility] OUT [facility] - O BLUE CROSS OUT OF STATE - PPO Care Teams Company Accountant Relationship Specialty Start Date End Date Herson Pack MD [address] [place] [address] [address] [place] [address] PCP - General 06/22/22
--- OUTSIDE RECORDS SUMMARY | 2025-01-09 12:08 | XMS_ITS ---
Author Name [facility] History of Medication Use Medication Directions Dispensed Refills Start Date End Date Stat iohexol (OMNIPAQUE) 350 mg/mL injection 80 mL 80 mL, Intravenous, Once in imaging, contrast, Starting on Tue10/09/24 at 0956, For 1 dose, Radiology Appointment 10/09/2024 5 completed lidocaine (PF) 10 mg/mL (1 %) injection solution Take 0.5 mL by injection route. 06/04/2024 active triamcinolone acetonide 40 mg/mL suspension for injection Take 20 mg by injection route. 02/09/2024 active spironolactone (ALDACTONE) 25 MG tablet 12/23/2022 active Tirosint 50 MCG Cap Take 1 capsule by mouth daily. 12/22/2022 active Azstarys 52.3-10.4 MG Cap Take 1 tablet by mouth daily. 12/09/2022 active metroNIDAZOLE (FLAGYL) 500 MG tablet Take 1 tablet (500 mg total) by mouth 2 (two) times a day. Take with meals or food to reduce stomach upset. 11/25/2021 active cycloSPORINE MODIFIED (NEORAL) 100 MG capsule 03/10/2019 3 aborted Fluocinolone Acetonide Scalp 0.01 % Oil APPLY OIL TWICE A DAY 01/18/2019 3 aborted [facility] D3 1000 units capsule Take by mouth daily. 01/18/2019 active ciprofloxacin (CILOXAN) 0.3 % ophthalmic solution INSTILL 1-2 DROPS EVERY 4 HOURS INTO AFFECTED EYE 12/08/2018 3 aborted thyroid (ARMOUR) 15 MG tablet Take 15 mg by mouth daily. 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 2024-02-09 ProblemAct [facility] Triggering of digit active 2024-10-06 ProblemAct [facility] Encounters Encounter Type Encounter Reason Primary Diagnosis Location Date Ambulatory [facility] 12/07/2024 Ambulatory [facility] 11/01/2024 Ambulatory Abnormal findings on diagnostic imaging of heart and coronary circulation Abnormal findings on diagnostic imaging of heart and coronary circulation [facility] 10/09/2024 Ambulatory Precordial pain Precordial pain [facility] 10/09/2024 Ambulatory [facility] 06/29/2024 Ambulatory [facility] 06/29/2024 Ambulatory [facility] 02/21/2024 Ambulatory [facility] 02/10/2024 Ambulatory [facility] 02/09/2024 Ambulatory [facility] 02/09/2024 Ambulatory [facility] 02/09/2024 Ambulatory [facility] 02/09/2024 Ambulatory [facility] 02/09/2024 Ambulatory Acute pharyngiti s, unspecified [facility] 12/24/2022 Ambulatory Other specified noninflammatory disorders of vagina [facility] 11/20/2021 Care Team Organization Name Specialty Phone Email Start Date End Da leena [facility] 04/07/2023 [facility] HERSON PACK Primary Care 12/24/20222024 [facility] Herson Pack Primary Care 12/24/20222022 [facility] PCP,No Primary Care 11/20/2021 11/08/2024 [facility] NO PCP Primary Care 11/20/2021 11/20/2021
--- OUTSIDE RECORDS SUMMARY | 2025-01-09 12:08 | XMS_ITS | Clinical Summary ---
Author Organization [facility] ter Address [address] [place] [address] Phone Care Team Providers Care Experimental Physicist Name Role Phone Brenna Pack MD Primary [...] Surgery Date Site/Laterality Comments COLONOSCOPY 08/30/2007 PROCEDURE: SD COLONOSCOPY FLX DX W/COLLJ SPEC WHEN PFRMD; [...] (2 - Td or Tdap) 09/20/2021 09/21/2011 HIV Screening 07/15/2023 Hepatitis C Screening 07/15/2023 Social Influencers of Health Screening 07/15/2023 COVID-19 Vaccine (1 - 2023-2 5 season) 2024 Depression Screening 06/13/2024 Influenza Vaccine (#1) 2025 HPV Vaccines Completed 04/01/2008, 11/24/2007, 09/22/2007 [...] 5 Years) and At-Risk Patients (6 to 49 Years) Aged Out No longer eligible b ased on patient's age to complete this topic RSV Immunization Patients Under 20 months Aged Out No longer eligible b ased on patient's age to complete this topic Varicella Vaccines Aged Out No longer eligible based on patient's age to complete this topic Care Teams Experimental Physicist Relationship Specialty Start Date End Date Brenna Pack MD [address] [place] [address] [place] [address] PCP - General 09/20/22
--- OUTSIDE RECORDS SUMMARY | 2025-01-09 12:08 | XMS_ITS | Clinical Summary ---
Author Organization [facility] Address [address] [place] [address] Care Team Providers Care Sourcing Associate Name Role Phone Herson Pack MD [...] or Tdap) 09/20/2021 012 Influenza Vaccine (#1) 2025 Pneumococcal Vaccine Aged Out No long er eligible based on patient's age to complete this topic RSV Ped < 20 months Aged Out No longe r eligible based on patient's age to complete this topic Care Teams Sourcing Associate Relationship Specialty Start Date End Date Herson Pack MD [address] [place] [address] PCP - General Machine Spreader 09/20/22
--- OUTSIDE RECORDS SUMMARY | 2025-01-09 12:08 | XMS_ITS | Patient Health Record ---
[facility] Organization [facility] Address [address] [place] [address] Care Team Providers Care Teacher Of The Handicapped Name Role Phone ANUJAALYSSAGHASSAN Unavailable [phone] Allergies Allergen (clinical drug ingredient) Drug/Non Drug Allergy documented on EMR Reaction Allergy Type Onset Date Status clindamycin Clindamycin hives Drug Allergy Act manfred Results Component Value Reference Range Notes COPY(IES) SENT TO: Reviewed date:03/15/2024 01:10:29 PM Interpretation: Performing Lab: Notes/Report: PATIENT UNABLE TO VOID; ADVISED TO RETURN FOR COLLECTION. COPY(IES) SENT TO: [facility] CHAVEZ [address] [place] [address] CT Abdomen Pelvis W Cont Reviewed date:03/28/2024 02:21:20 PM Interpretation: Performing Lab: Notes/Report: Original Ordering Provider: GHASSAN LICEA PA-C [facility] CBC (INCLUDES DIFF/PLT) Reviewed date:03/15/2024 01:10:03 PM Interpretation: Performing Lab:NL2, [facility] [id number] [id number] Julian Lemon Notes/Report: PATIENT UNABLE TO VOID; [...] MPV 9.5 7.5-12.5 fL ABSOLUTE NEUTROPHILS 3686 [id number] cells/uL ABSOLUTE LYMPHOCYTES 2298 850-3900 cells/uL ABSOLUTE MONOCYTES 571 200-950 cells/uL ABSOLUTE EOSINOPHILS 184 15-500 cells/uL ABSOLUTE BASOPHILS 61 0-200 cells/uL NEUTROPHILS 54.2 LYMPHOCYTES 33.8 MONOCYTES 8.4 EOSINOPHILS 2.7 BASOPHILS 0.9 COMPREHENSIVE METABOLIC PANE L Reviewed date:03/15/2024 01:10:23 PM Interpretation: Performing Lab:NL2, [employer] [facility] [id number] [facility] Julian Lemon Notes/Report: PATIENT UNABLE TO VOID; [...] 19 6-29 U/L Reason For Referral Reason [facility]anna Lillian Diagnosis 1 Tachycardia (R00.0) Referral Organization [facility] [address] Referring Provider First Name GHASSAN Referring Provider Last Name ANUJA Referring Provider Speciality Internal M edicine Referred Provider Specialty Cardiology General Notes Jacqeulyn Ortega 03/14/2024 01:22:21 PM > Referral faxed to [facility] [place], p: [phone] f: [phone] Clinical Notes Cristopher Mora 05/2024 04:19:39 PM > Scheduled for 05/21 at 4 pm. Pt aware Referral Priority Routine Medications Medication SIG (Take, Route, Frequency, Duration) Notes Start Date End Date Status Zepbound 10 MG/0.5ML Inject 10 mg Subcut aneous weekly; Duration: 28 days 10/02/2024 Active Clobetasol Propionate 0.05 % 1 application Externally Twice a day Active Skyrizi 150 MG/ML 1 mL Subcutaneous Active Tirosint 75 MCG 1 capsule in the mor kendy on an empty stomach Orally Once a day Active Vitamin D3 2400 UNIT/ML as directed Active Rosuvastatin Calcium 5 MG 1 tablet Orall y Once a day; Duration: 90 days 08/07/2024 Active Adderall 30 MG 1 tablet Orally Twic e a day Active Metoprolol Tartrate 25 MG Oral; Duration: 90 Days Active Social History Tobacco use other than smoking: Question Answer Notes Are you an other tobacco user? Yes Problems Problem Type SNOMED Code ICD Code Onset Dates Problem Status W/U Status Risk Notes Problem Mixed hyperlipidemia (888745139) Mixed hyperlipidemia (E78.2) Active confirmed Problem Left upper quadrant pain (274767936) Left upper quadrant pain (R10.12) Active confirmed Problem Lipid screening (013349277) Encounter for screening for lipoid disorders (Z13.220) Active confirmed Problem Acquired hypothyroidism (011288750) Acquired hypothyroidism (E03.9) Active confirmed Problem Psoriatic arthritis (441793342) Psoriatic arthritis (L40.50) Active confirmed Problem Adult health examination (138453641) Adult general medical exam (Z00.00) Active confirmed Problem Vitamin D deficiency (37957733) Vitamin D deficiency (E55.9) Active confirmed Problem Obesity (405122412) Obesity (BMI 30-39.9) (E66.9) Active confirmed Problem 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 (960190271079043) Coronary artery disease involving ewiiaapaayp coronary 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 (I25.10) Active confirmed Problem Obese class II (314930707351688) BMI 35.0-35.9,adult (Z68.35) Active confirmed Problem Adult attention deficit hyperactivity disorder (disorder) (426730717) Attention deficit disorder (ADD) in adult (F98.8) Active confirmed Problem Tachycardia (2772433) Tachycardia (R00.0) Active confirmed Problem Endocrine/metaboli c screening (967846757) Encounter for screening for endocrine disorder (Z13.29) Active confirmed Vital Signs Heart Rate 113 /min 10/02/2024 Oximetry 99 % 10/02/2024 Blood pressure diastolic 94 mm Hg 10/02/2024 Height 61 in 10/02/2024 Blood pressure systolic 146 mm Hg 10/02/2024 Weight 190 lbs 10/02/2024 BMI 35.9 kg/m2 10/02/2024 Encounters Encounter Location Date Provider Diagnosis [facility] [address] [address] 03/13/2024 GHASSAN LICEA Left upper quadrant pain R10.12 ; Attention deficit disorder (ADD) in adult F98.8 ; Acquired hypothyroidism E03.9 ; Vitamin D deficiency E55.9 and Obesity (BMI 30-39.9) E66.9 [facility] [address] [address] 04/12/2024 GHASSAN LICEA Adult general medica l exam Z00.00 ; Attention deficit disorder (ADD) in adult F98.8 ; Acquired hypothyroidism E03.9 ; Obesity (BMI 30-39.9) E66.9 ; Left upper quadrant pain R10.12 ; Moderate mixed hyperlipidemia not requiring statin therapy E78.2 and Psoriatic arthritis L40.50 [facility] [address] [address] 10/02/2024 GHASSAN LICEA Mixed hyperlipidemia E78.2 ; Coronary artery disease involving ewiiaapaayp coronary 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 I25.10 ; Tachycardia R00.0 ; Acquired hypothyroidism E03.9 ; Psoriatic arthritis L40.50 ; Attention deficit disorder (ADD) in adult F98.8 ; Obesity (BMI 30-39.9) E66.9 and BMI 35.0-35.9,adult Z68.35 [facility] [address] [place] [address] 03/28/2024 GHASSAN BIRKS [facility] [address] [place] [address] 05/02/2024 GHASSAN BIRKS [facility] [address] [place] [address] 08/06/2024 GHASSAN BIRKS [facility] [address] [place] [address] 10/02/2024 GHASSAN BIRKS [facility] [address] [place] [address] 08/29/2024 GHASSAN BIRKS [facility] [address] [place] [address] 08/30/2024 GHASSAN BIRKS [facility] [address] [place] [address] 10/02/2024 GHASSAN BIRKS [facility] [address] [place] [address] 10/12/2024 GHASSAN BIRKS Obesity (BMI 30-39.9 ) E66.9 [facility] [address] [place] [address] 11/27/2024 GHASSAN BIRKS Obesity (BMI 30-39.9 ) E66.9 [facility] [address] [place] [address] 01/07/2025 GHASSAN BIRKS Obesity (BMI 30-39.9 ) E66.9 [facility] [address] [place] [address] 01/08/2025 GHASSAN BIRKS Obesity (BMI 30-39.9 ) E66.9 Assessments Encounter Date Diagnosis (ICD Code) Assessment Notes Treatment Notes Treatment Clinical Notes Section Notes 03/13/2024 Left upper quadrant pain (ICD-10 - R10.12) Angela is a iahfzj36-tghb-vkz who presents to the office today for new patient evaluation. Patient is welcomed to the practice. They are coming from [facility] in [place], [place]. Last complete physical exam with [...] is exacerbated with sitting up and moving cpnf-he-yjux when she is lying down in bed. [...] monitor. # Hypothyroidism: The patient follows with [facility] in [facility]. Will order new TSH at [...] Dictation was accomplished with the use of [employer] voice recognition software, which is prone to medical misidentifications and grammatical errors. This are unintentional and the practitioner does try to identify and correct these, but some could still be present. Please do not hesitate to contact practitioner for clarification. 03/13/2024 Attention deficit disorder (ADD) in adult (ICD-10 - F98.8) Angela is a [id number] who presents to the office today for new patient evaluation. Patient is welcomed to the practice. They are coming from [facility] in [place], [place]. Last complete physical exam with [...] is exacerbated with sitting up and moving vxtm-mb-qqst when she is lying down in bed. [...] monitor. # Hypothyroidism: The patient follows with [facility] in [facility]. Will order new TSH at [...] Dictation was accomplished with the use of [employer] voice recognition software, which is prone to [...] pain exacerbated with sitting up and moving auro-ol-bmba while she is supine. Physical exam at [...] infarction in her father, he had his IN when he was 42 and to repeat [...] time. # Psoriatic arthritis: Patient follows with [facility] in [place]. Recently started on Skyrizi 150 mg injection. Will continue to monitor. Please follow-up with dermatology. # Hypothyroidism: The patient follows with [facility] in [facility]. TSH drawn through endocrinology and [...] log exercise and discussed fitness Apps like [employer] or [employer]. [employer] which can help keep log off calories [...] Dictation was accomplished with the use of [employer] voice recognition software, which is prone to [...] tablet daily. # Tachycardia: Patient follows with [facility] for ongoing management of tachycardia. Patient had Holter monitor performed, patient reports primary rhythm of sinus tachycardia, no evidence of SVT or atrial fibrillation. She is now on metoprolol tartrate 25 mg once daily. Reports baseline heart rate between 99 to [address] angio stress test next week in [place]. Following up with cardiology next month. Will request last office notes and diagnostics. Blood pressure is elevated in office today 146/94 with heart rate of 113. Patient reports increased stress at this time, typically she is normotensive. Without chest pain or shortness of breath in office. Will continue to monitor. # Hypothyroidism: Patient follows with [facility]. Diagnosed with hypothyroidism in her early 20s. TSH on 03/15/2024 at 1.64 within normal limits. Continue levothyroxine 75 mcg 1 capsule in the morning on empty stomach before other medications. # Psoriatic arthritis: Patient follows with [facility]. Continue Skyrizi 150 mg subcutaneous injection [...] Dictation was accomplished with the use of [employer] voice recognition software, which is prone to [...] pain exacerbated with sitting up and moving obxx-nl-exxe while she is supine. Physical exam at [...] infarction in her father, he had his IN when he was 44 and to repeat [...] time. # Psoriatic arthritis: Patient follows with [facility] in [place]. Recently started on Skyrizi 150 mg injection. Will continue to monitor. Please follow-up with dermatology. # Hypothyroidism: The patient follows with [facility] in [facility]. TSH drawn through endocrinology and [...] log exercise and discussed fitness Apps like [employer] or [employer]. [employer]. [employer] which can help keep log off calories [...] Dictation was accomplished with the use of [employer] voice recognition software, which is prone to medical misidentifications and grammatical errors. This are unintentional and the practitioner does try to identify and correct these, but some could still be present. Please do not hesitate to contact practitioner for clarification. 10/02/2024 Coronary artery disease involving ewiiaapaayp coronary 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 (ICD-10 - I25.10) [...] tablet daily. # Tachycardia: Patient follows with [facility] for ongoing management of tachycardia. Patient had Holter monitor performed, patient reports primary rhythm of sinus tachycardia, no evidence of SVT or atrial fibrillation. She is now on metoprolol tartrate 25 mg once daily. Reports baseline heart rate between 99 to [address] angio stress test next week in [place]. Following up with cardiology next month. Will request last office notes and diagnostics. Blood pressure is elevated in office today 146/94 with heart rate of 113. Patient reports increased stress at this time, typically she is normotensive. Without chest pain or shortness of breath in office. Will continue to monitor. # Hypothyroidism: Patient follows with [facility]. Diagnosed with hypothyroidism in her early 20s. TSH on 03/15/2024 at 1.64 within normal limits. Continue levothyroxine 75 mcg 1 capsule in the morning on empty stomach before other medications. # Psoriatic arthritis: Patient follows with [facility]. Continue Skyrizi 150 mg subcutaneous injection [...] Dictation was accomplished with the use of [employer] voice recognition software, which is prone to medical misidentifications and grammatical errors. This are unintentional and the practitioner does try to identify and correct these, but some could still be present. Please do not hesitate to contact practitioner for clarification. 10/12/2024 Obesity (BMI 30-39.9) (ICD-10 - E66.9) 11/27/2024 Obesity (BMI 30-39.9) (ICD-10 - E66.9) 01/07/2025 Obesity (BMI 30-39.9) (ICD-10 - E66.9) 01/08/2025 Obesity (BMI 30-39.9) (ICD-10 - E66.9) 10/02/2024 [...] tablet daily. # Tachycardia: Patient follows with [facility] for ongoing management of tachycardia. Patient had Holter monitor performed, patient reports primary rhythm of sinus tachycardia, no evidence of SVT or atrial fibrillation. She is now on metoprolol tartrate 25 mg once daily. Reports baseline heart rate between 99 to [address] angio stress test next week in [place]. Following up with cardiology next month. Will request last office notes and diagnostics. Blood pressure is elevated in office today 146/94 with heart rate of 113. Patient reports increased stress at this time, typically she is normotensive. Without chest pain or shortness of breath in office. Will continue to monitor. # Hypothyroidism: Patient follows with [facility]. Diagnosed with hypothyroidism in her early 20s. TSH on 03/15/2024 at 1.64 within normal limits. Continue levothyroxine 75 mcg 1 capsule in the morning on empty stomach before other medications. # Psoriatic arthritis: Patient follows with [facility]. Continue Skyrizi 150 mg subcutaneous injection [...] Dictation was accomplished with the use of [employer] voice recognition software, which is prone to [...] pain exacerbated with sitting up and moving vedk-ob-uiik while she is supine. Physical exam at [...] infarction in her father, he had his IN when he was 42 and to repeat [...] time. # Psoriatic arthritis: Patient follows with [facility] in [place]. Recently started on Skyrizi 150 mg injection. Will continue to monitor. Please follow-up with dermatology. # Hypothyroidism: The patient follows with [facility] in [facility]. TSH drawn through endocrinology and [...] log exercise and discussed fitness Apps like [employer] or [employer] which can help keep log [...] Dictation was accomplished with the use of [employer] voice recognition software, which is prone to medical misidentifications and grammatical errors. This are unintentional and the practitioner does try to identify and correct these, but some could still be present. Please do not hesitate to contact practitioner for clarification. 03/13/2024 Acquired hypothyroidism (ICD-10 - E03.9) Angela is a [id number]-lnbs-bml who presents to the office today for new patient evaluation. Patient is welcomed to the practice. They are coming from [facility] in [place], [place]. Last complete physical exam with [...] is exacerbated with sitting up and moving tomr-pz-mzlk when she is lying down in bed. [...] monitor. # Hypothyroidism: The patient follows with [facility] in [facility]. Will order new TSH at [...] Dictation was accomplished with the use of [employer] voice recognition software, which is prone to medical misidentifications and grammatical errors. This are unintentional and the practitioner does try to identify and correct these, but some could still be present. Please do not hesitate to contact practitioner for clarification. 03/13/2024 Vitamin D deficiency (ICD-10 - E55.9) Angela is a -thnf-eql who presents to the office today for new patient evaluation. Patient is welcomed to the practice. They are coming from [facility] in [place], [place]. Last complete physical exam with [...] is exacerbated with sitting up and moving deas-nk-mdwt when she is lying down in bed. [...] monitor. # Hypothyroidism: The patient follows with [facility] in [facility]. Will order new TSH at [...] Dictation was accomplished with the use of [employer] voice recognition software, which is prone to [...] pain exacerbated with sitting up and moving syos-nd-leex while she is supine. Physical exam at [...] infarction in her father, he had his IN when he was 42 and to repeat [...] time. # Psoriatic arthritis: Patient follows with [facility] in [place]. Recently started on Skyrizi 150 mg injection. Will continue to monitor. Please follow-up with dermatology. # Hypothyroidism: The patient follows with [facility] in [facility]. TSH drawn through endocrinology and [...] log exercise and discussed fitness Apps like [employer] or W. [employer]. Norton & [employer]ometer which can help keep log off calories [...] Dictation was accomplished with the use of [employer] voice recognition software, which is prone to [...] tablet daily. # Tachycardia: Patient follows with [facility] for ongoing management of tachycardia. Patient had Holter monitor performed, patient reports primary rhythm of sinus tachycardia, no evidence of SVT or atrial fibrillation. She is now on metoprolol tartrate 25 mg once daily. Reports baseline heart rate between 99 to [address] angio stress test next week in [place]. Following up with cardiology next month. Will request last office notes and diagnostics. Blood pressure is elevated in office today 146/94 with heart rate of 113. Patient reports increased stress at this time, typically she is normotensive. Without chest pain or shortness of breath in office. Will continue to monitor. # Hypothyroidism: Patient follows with [facility]. Diagnosed with hypothyroidism in her early 20s. TSH on 03/15/2024 at 1.64 within normal limits. Continue levothyroxine 75 mcg 1 capsule in the morning on empty stomach before other medications. # Psoriatic arthritis: Patient follows with [facility]. Continue Skyrizi 150 mg subcutaneous injection [...] Dictation was accomplished with the use of [employer] voice recognition software, which is prone to [...] tablet daily. # Tachycardia: Patient follows with [facility] for ongoing management of tachycardia. Patient had Holter monitor performed, patient reports primary rhythm of sinus tachycardia, no evidence of SVT or atrial fibrillation. She is now on metoprolol tartrate 25 mg once daily. Reports baseline heart rate between 99 to [address] angio stress test next week in [place]. Following up with cardiology next month. Will request last office notes and diagnostics. Blood pressure is elevated in office today 146/94 with heart rate of 113. Patient reports increased stress at this time, typically she is normotensive. Without chest pain or shortness of breath in office. Will continue to monitor. # Hypothyroidism: Patient follows with [facility]. Diagnosed with hypothyroidism in her early 20s. TSH on 03/15/2024 at 1.64 within normal limits. Continue levothyroxine 75 mcg 1 capsule in the morning on empty stomach before other medications. # Psoriatic arthritis: Patient follows with [facility]. Continue Skyrizi 150 mg subcutaneous injection [...] Dictation was accomplished with the use of [employer] voice recognition software, which is prone to medical misidentifications and grammatical errors. This are unintentional and the practitioner does try to identify and correct these, but some could still be present. Please do not hesitate to contact practitioner for clarification. 03/13/2024 Obesity (BMI 30-39.9) (ICD-10 - E66.9) Angela is a yiifun25-lcas-azw who presents to the office today for new patient evaluation. Patient is welcomed to the practice. They are coming from [facility] in [place], [place]. Last complete physical exam with [...] is exacerbated with sitting up and moving ovdf-hz-kolv when she is lying down in bed. [...] monitor. # Hypothyroidism: The patient follows with [facility] in [facility]. Will order new TSH at [...] Dictation was accomplished with the use of [employer] voice recognition software, which is prone to [...] pain exacerbated with sitting up and moving pnol-ew-rgkr while she is supine. Physical exam at [...] infarction in her father, he had his IN when he was 42 and to repeat [...] time. # Psoriatic arthritis: Patient follows with [facility] in [place]. Recently started on Skyrizi 150 mg injection. Will continue to monitor. Please follow-up with dermatology. # Hypothyroidism: The patient follows with [facility] in [facility]. TSH drawn through endocrinology and [...] log exercise and discussed fitness Apps like [employer]pal or W. [employer]. Norton & [employer]ometer which can help keep log off calories [...] Dictation was accomplished with the use of [employer] voice recognition software, which is prone to [...] pain exacerbated with sitting up and moving xxwe-vg-wjxb while she is supine. Physical exam at [...] infarction in her father, he had his IN when he was 42 and to repeat [...] time. # Psoriatic arthritis: Patient follows with [facility] in [place]. Recently started on Skyrizi 150 mg injection. Will continue to monitor. Please follow-up with dermatology. # Hypothyroidism: The patient follows with [facility] in [facility]. TSH drawn through endocrinology and [...] log exercise and discussed fitness Apps like [employer] or W. [employer]. [employer]ometer which can help keep log off calories [...] Dictation was accomplished with the use of [employer] voice recognition software, which is prone to [...] tablet daily. # Tachycardia: Patient follows with [facility] for ongoing management of tachycardia. Patient had Holter monitor performed, patient reports primary rhythm of sinus tachycardia, no evidence of SVT or atrial fibrillation. She is now on metoprolol tartrate 25 mg once daily. Reports baseline heart rate between 99 to [address] angio stress test next week in [place]. Following up with cardiology next month. Will request last office notes and diagnostics. Blood pressure is elevated in office today 146/94 with heart rate of 113. Patient reports increased stress at this time, typically she is normotensive. Without chest pain or shortness of breath in office. Will continue to monitor. # Hypothyroidism: Patient follows with [facility]. Diagnosed with hypothyroidism in her early 20s. TSH on 03/15/2024 at 1.64 within normal limits. Continue levothyroxine 75 mcg 1 capsule in the morning on empty stomach before other medications. # Psoriatic arthritis: Patient follows with [facility]. Continue Skyrizi 150 mg subcutaneous injection [...] Dictation was accomplished with the use of [employer] voice recognition software, which is prone to [...] tablet daily. # Tachycardia: Patient follows with [facility] for ongoing management of tachycardia. Patient had Holter monitor performed, patient reports primary rhythm of sinus tachycardia, no evidence of SVT or atrial fibrillation. She is now on metoprolol tartrate 25 mg once daily. Reports baseline heart rate between 99 to [address] angio stress test next week in [place]. Following up with cardiology next month. Will request last office notes and diagnostics. Blood pressure is elevated in office today 146/94 with heart rate of 113. Patient reports increased stress at this time, typically she is normotensive. Without chest pain or shortness of breath in office. Will continue to monitor. # Hypothyroidism: Patient follows with [facility]. Diagnosed with hypothyroidism in her early 20s. TSH on 03/15/2024 at 1.64 within normal limits. Continue levothyroxine 75 mcg 1 capsule in the morning on empty stomach before other medications. # Psoriatic arthritis: Patient follows with [facility]. Continue Skyrizi 150 mg subcutaneous injection [...] Dictation was accomplished with the use of [employer] voice recognition software, which is prone to [...] pain exacerbated with sitting up and moving [id number] while she is supine. Physical exam at [...] infarction in her father, he had his IN when he was 42 and to repeat [...] time. # Psoriatic arthritis: Patient follows with [facility] in [place]. Recently started on Skyrizi 150 mg injection. Will continue to monitor. Please follow-up with dermatology. # Hypothyroidism: The patient follows with [facility] in [facility]. TSH drawn through endocrinology and [...] log exercise and discussed fitness Apps like [employer] or Cronometer which can help keep log [...] Dictation was accomplished with the use of [employer] voice recognition software, which is prone to [...] tablet daily. # Tachycardia: Patient follows with [facility] for ongoing management of tachycardia. Patient had Holter monitor performed, patient reports primary rhythm of sinus tachycardia, no evidence of SVT or atrial fibrillation. She is now on metoprolol tartrate 25 mg once daily. Reports baseline heart rate between 99 to [address] angio stress test next week in [place]. Following up with cardiology next month. Will request last office notes and diagnostics. Blood pressure is elevated in office today 146/94 with heart rate of 113. Patient reports increased stress at this time, typically she is normotensive. Without chest pain or shortness of breath in office. Will continue to monitor. # Hypothyroidism: Patient follows with [facility]. Diagnosed with hypothyroidism in her early 20s. TSH on 03/15/2024 at 1.64 within normal limits. Continue levothyroxine 75 mcg 1 capsule in the morning on empty stomach before other medications. # Psoriatic arthritis: Patient follows with [facility]. Continue Skyrizi 150 mg subcutaneous injection [...] Dictation was accomplished with the use of [employer] voice recognition software, which is prone to [...] comorbidities. # Psoriatic arthritis: Patient follows with [facility] in [place]. Recently started on Skyrizi 150 mg injection. Will continue to monitor. Please follow-up with dermatology. # Hypothyroidism: The patient follows with [facility] in [facility]. TSH drawn through endocrinology and [...] Dictation was accomplished with the use of [employer] voice recognition software, which is prone to [...] Name:GHASSAN LICEA , 04/16/2025 11:15:00 AM, [address] [facility], [address], [place], [address], Insurance Providers Payer Name Payer Address Payer Phone Subscriber Number Group Number Insured Name Patient Relationship to Insured Coverage Start Date Coverage End Date [place] [address] [address] [place] [address] [id number] Angela Encarnacion Self - patient is the insured Medical (General) History Medical History History ICD Code high cholesterol weight gain/loss thyroid disease skin disease Hospitalization History Reason Date(Month/Year) breast argumentation 2012 right knee arthroscopy 2014
== END 2025-01-09 11:53 | disposition home or self-care (01) ==
PROVIDERS: Visit Provider Orthopaedic Surgery
DX: M65.332 Trigger finger, left middle finger (principal); M65.331 Trigger finger, right middle finger; L40.50 Arthropathic psoriasis, unspecified
CPT/HCPCS: 20550; 99204

== ENCOUNTER → 2025-01-09 11:01 | Outpatient (BNVA) | payer OTHER, SELFPAY | PROVIDERS: Visit Provider Orthopaedic Surgery | DX: M65.332 Trigger finger, left middle finger (principal); M65.331 Trigger finger, right middle finger | CPT/HCPCS: 20550; J1100; J2003 ==

== ENCOUNTER 2025-02-12 11:43 | Outpatient (AMB) | payer OTHER, SELFPAY ==
[2025-02-12 11:51] VITALS: BMI 31.1
--- NOTE | 2025-02-12 11:51 | A.OFFVIS_ITS ---
Vital Signs 02/12/25 11:51 Height 5 ft 2 in Weight 170 lb BMI 31.1 Intake Visit Reasons: OV-discuss Trigger finger surgery-one month F/U Intake Note: Angela is a 39 year old right hand dominant woman who presents today for a follow up visit and to discuss surgery for her left middle finger, trigger finger. At her last visit it was said she will speak with her sales service professional concerning stopping her Skyrizi in order to consider surgical intervention for her trigger fingers. Hx of injection on 09/20/24 and patient reports per sales service professional, she may have surgery and continue to take her medication however she has an upcoming appt on 03/05/25 and states she will mentioned it one more time. Patient reports she would like like to move forward with surgery. Allergies clindamycin (CLINDAMYCIN) Allergy (Unknown, Verified 02/12/25 12:02) UNKNOWN HPI HPI OV-discuss Trigger finger surgery-one month F/U: Details: Angela is a 39 year old right hand dominant woman who returns to discuss her left middle trigger finger. She was last seen and injected on 01/09/25 She complains of bilateral middle finger trigger fingers, L>R. She says this has been present intermittently for ~3 years now, and she has been managing with injections. She says she continues to have catching of her left middle finger which did not improve following her injection. She would like to discuss possible surgery. Her right middle finger was last injected in October at an outside clinic, and is not particularly bothersome at this time. She denies any numbness and tingling. She denies any other treatment options. 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 She has Psoriatic arthritis and is on Skyrizi, an immunosuppressant, which she receives from Dermatology. She says she was told that she does not need to hold this medication for a minor procedure. She is supposed to be seen by Derm on 03/05/25. She says she receives this once every 3 months, and is due at the beginning of April. [facility] Medical History IUD (intrauterine device) in place Fibroids Abnormal Pap smear of cervix ADD (attention deficit disorder) Depression Vitamin D deficiency Psoriatic arthritis Hypothyroidism Surgical History H/O breast augmentation H/O LEEP Hx of knee surgery Family History Father Heart disease High cholesterol HTN (hypertension) Mother High cholesterol Hypothyroidism Social History Alcohol intake: current Alcohol intake frequency: holidays/special occasions only Patient Tobacco Use Status: Never used Tobacco Current occupational status: employed 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 Sexual orientation: Straight/Heterosexual Gender identity: Female Female Reproductive History Menstrual Age of Menarche: 15 Review of Systems Const All systems reviewed & are unremarkable except as noted in HPI and below Physical Exam Vital Signs: BMI result Body Mass Index 31.1 Const General: no acute distress and alert Orientation/consciousness: patient oriented x3 Neuro General: patient oriented x3 Extrem Other: Evaluation of Left Upper Extremity: The patient is alert, oriented, and in no acute distress Neuro: Median, Ulnar, Radial nerves motor and sensory intact Vascular: Cap refill brisk ROM: She can make a fist and extend all her digits Visible & palpable locking & catching of the middle finger Tender over the middle finger a1 ema Psych Appearance: grossly normal Affect: normal affect Attitude: cooperative Assessment & Plan Assessment & Plan (1) Trigger middle finger of left hand: Code(s): M65.332 - Trigger finger, left middle finger Category: Medical (2) Trigger middle finger of right hand: Code(s): M65.331 - Trigger finger, right middle finger Category: Medical (3) Psoriatic arthritis: Code(s): L40.50 - Arthropathic psoriasis, unspecified Category: Medical Plan Assessment & Plan: 1. Left middle finger trigger finger, S/P injection Date of injection: 01/09/25 Hx of injection at outside clinic: 06/05/24 I educated her about this condition I discussed operative and non-operative treatment options She found no relief from her most recent injection The patient would like to proceed with surgery She is on Skyrizi for Psoriatic arthritis. Her Bellperson says she does not need to stop this medication for minor procedures. She is getting in Mid-March and is due for her next injection the first week of April. She would like surgery when she is back from her Wedding The risks and benefits of operative treatment were discussed with the patient and the patient wishes to proceed with surgery. These risks include, but are not limited to risk of damage to blood vessels, nerves, tendons, infection, recurrence, incomplete relief of preoperative symptoms, persistent pain, possible need for further surgery and the risks associated with regional blocks and anesthesia. The plan is to take the patient to the operating room sometime on either 04/11 or 04/15 for the following procedures: 1. Left middle finger trigger release, under local All of the preoperative paperwork including the consent was reviewed today. All the patient's questions were answered. The patient understands that they will be contacted by our decorator street and building soon to schedule this procedure She denies Diabetes, blood thinners, asthma, heart, lung, kidney issues She will need to delay her next Skyrizi injection until after her sutures are removed. She is agreeable to this. 2. Right middle finger trigger finger Recently had an injection at an outside clinic, done sometime in October No complaints today Scribed for Kaci Souza MD by Brian Samaniego, medical office professional instructor, on 02/12/25 at 12:00 PM EST. Coding Level of Care Code Est Pt Level 4 (77864) Diagnoses Trigger middle finger of left hand M65.332 Trigger middle finger of right hand M65.331 Psoriatic arthritis L40.50
--- OUTSIDE RECORDS SUMMARY | 2025-02-12 13:16 | XMS_ITS | Encounter Summary ---
Author Organization [facility] Address [address] [place] [address] Care Team Providers Care Director Of Enterprise Strategy Name Role Phone Herson Pack MD Primary Care Provide r Encounter Details Date Type Department Care Team (Late st Contact Info) Description 08/27/2024 Scanned Document [address] [place] [id number] Radiology, Scan Social History Tobacco Use [...] on filedocumented in this encounter Care Teams Director Of Enterprise Strategy Relationship Specialty Start Date End Date Herson Pack MD [address] [facility] 1 [facility] [place] [address] PCP - General 06/22/22 documented as of this encounter
--- OUTSIDE RECORDS SUMMARY | 2025-02-12 13:16 | XMS_ITS | Clinical Summary ---
Author Organization [facility] ter Address [address] [place] [address] Phone Care Team Providers Care Certified Dietary Manager Name Role Phone Brenna Pack MD Primary Care Provider [phone] Allergies Active Allergy Reactions Criticality Noted Date [...] Surgery Date Site/Laterality Comments COLONOSCOPY 08/30/2007 PROCEDURE: CT COLONOSCOPY FLX DX W/COLLJ SPEC WHEN PFRMD; [...] age to complete this topic Care Teams Certified Dietary Manager Relationship Specialty Start Date End Date Brenna Pack MD [address] [place] [address] [place] [address] PCP - General 09/20/22
--- OUTSIDE RECORDS SUMMARY | 2025-02-12 13:16 | XMS_ITS | Clinical Summary ---
Author Organization [facility] Address [address] [place] [address] Care Team Providers Care Complaints Coordinator Name Role Phone Herson Pack MD Primary [...] age to complete this topic Care Teams Complaints Coordinator Relationship Specialty Start Date End Date Herson Pack MD [address] [place] [id number] PCP - General Tile Erector 09/20/22
--- OUTSIDE RECORDS SUMMARY | 2025-02-12 13:16 | XMS_ITS | Clinical Summary ---
Author Organization [facility] Address [address] [place] [address] Care Team Providers Care Welding Machine Operator Submerged Arc Name Role Phone Herson Pack MD Primary [...] series) 2006 Pap Smear (Ages 21-65) 2008 HPV Vaccines (1 - 3-dose SCD M series) 2014 COVID-19 Vaccine ( - 2023-2 5 season) 2024 09/20/2020, 08/29/2020 Influenza Vaccine 01/11/2025 Pneumococcal Vaccine: Pediatric (0-5 Years) and At-Risk Patients (6 to 49 Years) Aged Out No longer eligible b ased on patient's age to complete this topic Insurance [facility] OUT STATE - PPO BLUE CROSS OUT OF STATE - PPO Care Teams Welding Machine Operator Submerged Arc Relationship Specialty Start Date End Date Herson Pack MD [address] [place] [address] [address] [place] [address] PCP - General 06/22/22
== END 2025-02-12 12:39 | disposition home or self-care (01) ==
LOC: HO.HOS 11:43
PROVIDERS: Visit Provider Orthopaedic Surgery
DX: M65.332 Trigger finger, left middle finger (principal); M65.331 Trigger finger, right middle finger; L40.50 Arthropathic psoriasis, unspecified
CPT/HCPCS: 99214

== ENCOUNTER 2025-05-06 10:26 | Day surgery (SDC) | payer OTHER, SELFPAY ==
--- NOTE | 2025-05-06 10:42 | P.OP_ITS ---
Operative Note Operative Note Date of Service: 05/06/25 Narrative: Operative Note Preop diagnosis: 1. Left middle finger Trigger finger Postop diagnosis: Same Procedure: 1. Left middle finger A1 ema release Surgeon: Kaci Souza MD Accounting Analyst: None Anesthesia: local block using 1% lidocaine with epinephrine Findings: No locking or catching after A1 ema release EBL: Less than 5 mL Tourniquet time: None Specimens: None Complications: None Disposition: Brought to recovery room in stable condition Plan: Follow-up for 10-14 days for wound check and suture removal Indications: The patient is 40 years old, with a left middle finger trigger finger that has been unresponsive to nonoperative management. The risks and benefits of operative treatment including but not limited to risk of damage to blood vessels, nerves, tendons, infection, persistent pain, persistent symptoms, recurrence or possible need for additional surgery were discussed with the patient and the patient wishes to proceed with surgery. Procedure: Once consent was obtained a local block was performed in the preop area using a combination of 1% lidocaine with epinephrine. The patient was then brought back to the operating suite and placed on the operative table in supine position. The left upper extremity was prepped and draped in a standard surgical fashion. Once assured that we had a good block, a 1.5 cm oblique incision was made centered over the A1 ema of the left middle finger . The incision was made through the skin to the subcutaneous tissues using a #15 blade. Careful dissection was made down to the level of the A1 ema using tenotomy scissors, with care being taken to protect the nearby neurovascular structures. A longitudinal incision was made in the A1 ema 1st using a #15 blade, then using tenotomy scissors under direct visualization. The A1 ema was noted to be thickened. Following our A1 ema release, we no longer saw any locking or catching of the digit with flexion and extension. Once satisfied with our A1 pu lley release the wound was copiously irrigated with normal saline and hemostasis was obtained with a brief period of local pressure. The skin edges were reapproximated with some 5.0 nylon suture material and a sterile dressing was applied. The patient appears to have tolerated the procedure well and with no complications. All digits were well vascularized at the conclusion of the case.
--- NOTE | 2025-05-06 10:42 | MHC.SHP ---
Pre-Procedural Eval Section A - 24 Hr Update-Section A only Date of Service: 05/06/25 The patient is an INPATIENT: No Changes since office visit: No Cold of Flu in the past 2 weeks, No New Medical Problems, No Changes in Medication and No Patient answered all questions The patient has been examined within 24 hours of the surgical procedure. The History & Physical has been completed within 30 days and I have reviewed it.: Yes Section B - Complete if H&P > 30 days Chief Complaint: Trigger finger, left middle finger Allergies: Allergies Allergy/AdvReac Type Severity Reaction Status Date / Time clindamycin (CLINDAMYCIN) Allergy Unknown UNKNOWN Verified 02/12/25 12:02 Plan Diagnosis/Plan: Unchanged I have reviewed the history and physical and performed a pertinent physical examination on my patient. No changes have occurred unless specified. Time Spent With Patient Time: Total time managing care of this patient today ____ minutes.
[2025-05-06 10:55] VITALS: BMI 31.1
[2025-05-06 11:02] VITALS: BP 137/88; PULSE 117; RESP 18; TEMP 36.7; O2SAT 97
[2025-05-06 13:19] VITALS: BP 122/88; PULSE 109; RESP 16; O2SAT 98
== END 2025-05-06 13:20 | disposition home or self-care (01) ==
PROVIDERS: Visit Provider Orthopaedic Surgery
PROC: (CPT 26055; principal; 2025-05-06 12:10)
DX: M65.332 Trigger finger, left middle finger (principal); L40.50 Arthropathic psoriasis, unspecified; E55.9 Vitamin D deficiency, unspecified; E03.9 Hypothyroidism, unspecified; F32.A Depression, unspecified; Z79.620 Long term (current) use of immunosuppressive biologic; Z79.899 Other long term (current) drug therapy; Z88.1 Allergy status to other antibiotic agents; Z98.890 Other specified postprocedural states
CPT/HCPCS: 26055; J0165; J2003; J2004

== ENCOUNTER → 2025-05-06 10:26 | Outpatient (BNV) | payer OTHER, SELFPAY | PROVIDERS: Visit Provider Orthopaedic Surgery | DX: M65.332 Trigger finger, left middle finger (principal) | CPT/HCPCS: 26055 ==

== ENCOUNTER 2025-05-20 15:18 | Outpatient (AMB) | payer OTHER, SELFPAY ==
[2025-05-20 15:26] VITALS: BMI 31.1
--- NOTE | 2025-05-20 15:26 | MHC.OFFVIS ---
Vital Signs 05/20/25 15:26 Height 5 ft 2 in Weight 170 lb BMI 31.1 Intake Visit Reasons: PO-Lt MF Trigger Release 05/06/25 Intake Note: Angela is a 40 year old right hand dominant female who presents today for her first Post-operative Visit status post Left Middle Trigger Finger Release, DOS: 05/06/[address] Souza. Patient reports she is doing well. Denies numbness, tingling, finger locking. Patient is not taking any pain medications at this time. Patient has returned to work without problems. Sutures removed and steri strips applied. Allergies clindamycin (CLINDAMYCIN) Allergy (Unknown, Verified 05/06/25 11:04) UNKNOWN HPI HPI PO-Lt MF Trigger Release 05/06/25: Details: Angela is a 40 year old right hand dominant female who presents today for her first Post-operative Visit status post Left Middle Trigger Finger Release, DOS: 05/06/[address] Souza. Patient reports she is doing well. Denies numbness, tingling, finger locking. Patient is not taking any pain medications at this time. Patient has returned to work without problems. Sutures removed and steri strips applied. PFSH Medical History IUD (intrauterine device) in place Fibroids Abnormal Pap smear of cervix ADD (attention deficit disorder) Depression Vitamin D deficiency Psoriatic arthritis Hypothyroidism Surgical History H/O breast augmentation H/O LEEP Hx of knee surgery Family History Father Heart disease High cholesterol HTN (hypertension) Mother High cholesterol Hypothyroidism Social History Are you a primary ocular care technologist to a significant other at home: No Do you presently have visiting nurse or other home services: No Alcohol intake: current Alcohol intake frequency: holidays/special occasions only Patient Tobacco Use Status: Never used Tobacco Current occupational status: employed 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 Neuro: Normal sensation of the tips of all digits of the left hand at this time Vascular: Cap refill brisk Pain: No tenderness to palpation about the incision site over A1 ema of the left middle finger No pain with range of motion of the left middle finger ROM: Patient is able to make a closed fist and extend all digits of the left hand fully and without difficulty Skin: Well approximated and well healing incision site over the A1 ema of the left middle finger No lacerations or abrasions. General: No ecchymosis, erythema, or evidence of infection. Psych: Appears grossly normal Affect normal Attitude cooperative Assessment & Plan Assessment & Plan (1) Trigger middle finger of left hand: Code(s): M65.332 - Trigger finger, left middle finger Category: Medical Plan 1. Status post left middle finger trigger release DOS 05/06/2025 With good symptomatic resolution postoperatively Patient appears to be recovering well postoperatively Patient is educated about the typical recovery course No under water times one-week, 2 lb weight limit x2 weeks Patient appears to be recovering very well, and requires no further acute follow-up with us postoperatively Patient is educated and worrisome signs and symptoms, and should call us if they experience any of these, including but not limited to redness, swelling, increased pain, and discharge Patient understands this and is amenable to this plan Coding Level of Care Code Global (03002) Diagnoses Trigger middle finger of left hand M65.332
--- OUTSIDE RECORDS SUMMARY | 2025-05-21 00:49 | XMS_ITS | Clinical Summary ---
Author Organization [facility] ter Address [address] [place] [address] Phone Care Team Providers Care Educational Guidance Counselor Name Role Phone Brenna Pack MD Primary Care Provider [phone] Allergies Active Allergy Reactions Criticality Noted Date [...] Surgery Date Site/Laterality Comments COLONOSCOPY 08/30/2007 PROCEDURE: ID COLONOSCOPY FLX DX W/COLLJ SPEC WHEN PFRMD; [...] 07/15/2023 Social Influencers of Health Screening 07/15/2023 Depression Screening 06/13/2024 COVID-19 Vaccine (1 - 2024-2 6 season) 2025 Influenza Vaccine (#1) 2025 RSV Immunization Adult Patients (1 - 1-dose 75+ series) 2062 HPV Vaccines Completed 04/01/2008, 11/24/2007, 09/22/2007 MMR [...] age to complete this topic Care Teams Educational Guidance Counselor Relationship Specialty Start Date End Date Brenna Pack MD [address] [place] [address] [place] [address] PCP - General 09/20/22
--- OUTSIDE RECORDS SUMMARY | 2025-05-21 00:49 | XMS_ITS | Clinical Summary ---
Author Organization [facility] Address [address] [place] [address] Care Team Providers Care Clerk To Justice Name Role Phone Herson Pack MD Primary [...] Pap Smear (Ages 21-65) 2008 Influenza Vaccine 01/11/2025 COVID-19 Vaccine (3 - 2024-2 6 season) 2025 09/20/2020, 08/29/2020 HPV Vaccines (No Doses Required) Completed Pneumococcal Vaccine: Pediatric (0-5 Years) and At-Risk Patients (6 to 49 Years) Aged Out No longer eligible b ased on patient's age to complete this topic Insurance [facility] - PPO BLUE CROSS OUT OF STATE - PPO Care Teams Clerk To Justice Relationship Specialty Start Date End Date Herson Pack MD [address] [place] [address] [address] [place] [address] PCP - General 06/22/22
--- OUTSIDE RECORDS SUMMARY | 2025-05-21 00:49 | XMS_ITS | Clinical Summary ---
Author Organization [facility] Prior to 11/10/24 Address [address] [place] [address] Care Team Providers Care Manager College Name Role Phone Herson Pack MD Primary Care Provide r Allergies Active Allergy Reactions Criticality Noted Date Comments Clindamycin Anaphylaxis,Hives High 12/19/2009 hives Medications Medication Sig Dispensed Refills Start Date End Date Status Cholecalciferol 50 MCG (1999 [place]) CHEW Chew by mouth. 0 Active Mydayis [...] age to complete this topic Care Teams Manager College Relationship Specialty Start Date End Date Herson Pack MD [address] [place] [id number] PCP - General Mine Development Engineer 09/20/22
--- OUTSIDE RECORDS SUMMARY | 2025-05-21 00:49 | XMS_ITS | Data Portability ---
Author Organization [place] [facility] Bonilla Ovalles [place] Address [address] [place] [address] Assessment Encounter Date Assessment Date Assessment LastModified [...] examination, recommended tests/diagnostic imaging, and treatment plan. [email or web address] Not available 06/04/2024 14:39:13 10/06/2024 10/06/2024 39-year-old [...] None recorded. Surgeries None recorded. Imaging XR, finger(s), 2 or more view 2024 025 [email or web address] [facility], [address], [place], [address], 5 10:03:23 XR, knee, 3 view 2023 024 [email or web address] 2 [facility], [address], [place], [address], 4 12:22:04 Medication Orders lidocaine (PF) 10 mg/mL (1 %) injection solution 2024 025 [email or web address] [id number], [address] [facility], [place], [address], 5 10:03:23 triamcinolo ne acetonide 40 mg/mL suspension for injection 2024 025 [email or web address] [id number], [address] [place], [address], 5 10:03:23 lidocaine (PF) 10 mg/mL (1 %) injection solution 2023 024 [facility] 21 [facility][id number], [address] [place], [address], 4 16:10:20 triamcinolo ne acetonide 40 mg/mL suspension for injection 2023 024 [facility] 21 [id number], [address] [place], [address], 4 16:10:20 lidocaine (PF) 100 mg/5 mL (2 %) injection syringe 2023 024 [facility] [address] [facility][id number], [address] [place], [address], 4 15:36:32 triamcinolo ne acetonide 40 mg/mL suspension for injection 2023 024 [facility] [address] [facility]24[facility], [address] [place], [address], 4 15:36:34 Patient TargetsNo targets recorded. Patient Instructions Encounter Date Encounter Id Patient Instructions Last Modified By Organization Details Last Modified Time 02/09/2024 [id number] views of the right knee were obtained today 02/09/2024 in the [place] office. There are moderate degenerative postsurgical changes In the patellofemoral and medial compartments. Perhaps slight patella andrea. Patella tracks centrally. No acute fracture or dislocation appreciated. 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 Interpreted by: BENJI CoeiniRosemarie Not available 02/09/2024 14:16:30 10/06/2024 [id number] Three-view x-ray study of right third finger [...] right knee due to and following trauma 1694259862 Active [address], [place], [address], [place] [facility] 4 13:58:42 Triggering of digit 240970714 Active [address], [place], [address], [place] [facility] 5 09:40:44 Problem Notes None recorded. Procedures Surgical History Date Name Laterality Status Provider Name and Address Organization Details Recorded Time 5 BLW Trigger Finger Injection completed [address], [place], [address], [place] [facility] 10/06/2024 09:39:19 4 LES trigger finger/De Quervain's injection completed [address], [place], [address], [place] [facility] 06/04/2024 14:37:49 4 SAB Knee Inj w/o-US completed [address], [place], [address], [place] [facility] 02/09/2024 10:55:09 operative procedure on knee completed Lacy Suarez [facility] 06/04/2024 14:05:00 Imaging Results None recorded. Procedure Notes None recorded. Medical Equipment None Reported. Allergies Allergen ID Allergen Name Allergen Category Reaction Reaction Severity Criticality Documentation Date Start Date Code Code System Note Provider Name and Address Organization Details Recorded Time clindamyc in Not available Not available Not available Not available 06/04/2024 2582 RxNorm Lacy miranda, [place] [facility] 14:00:06 Medications Name Sig Start Date [...] Updated DateTime 10/06/2024 160.02 cm 31.9 kg/m2 09134.63 g Georgiana Lopez [place] [facility] 10/06/2024 09:07:56 Social History None recorded. [...] 06/04/2024 14:03:07 Mother Hypercholest erolemia Not available 12/23/ 2024 14:03:41 Father Diabetes mellitus Not available 2023 [...] Diagnosis SNOMED-CT Code Diagnosis ICD10 Code Diagnosis IMO Codes Diagnosis Note [id number] KEI FISHER PA-C [facility] [address] [place] [address] 02/09/2024 10:20:49 02/09/2024 11:00:35 Pain of right knee region 6165153785 12545 M25.561 [id number] Gonarthros is of right knee due to and following trauma 2718929112 M17.31 6007725 History of operative procedure on knee 749239197 Z98.890 985898 right knee arthroscop ic lateral release, chondropla sty 2016, Dr. Zimmerman, [facility] [id number] CHRISTIANO VERGARA PA-C [facility] [address] [address] 06/04/2024 12:55:33 06/04/2024 14:24:56 Triggering of digit 904212284 M65.017 3105126 [id number] KAITY ROBERSON PA-C [facility] [address] [place] [address] 10/06/2024 08:57:05 10/06/2024 09:48:07 Pain in finger of right hand 5680500037 99751 M79.644 511186 Triggering of digit 2399 70854 M65.765 4148412 Health Concerns Section Related Observation LastModified by Organization Detai ls LastModified Time None Recorded Concern Status LastModified by Organization Details LastModified Time None Recorded Advance Directives Directive None Recorded Payers Insurance Date Sequence Insurance Name Policy Number Policy Jones Covered Member ID Jones Member ID Guarantor Name 10/06/2024 1 [place]: [facility] [id number] Angela Encarnacion [id number] Angela Encarnacion 10/06/2024 1 [place]: [facility] [id number] A Angela Encarnacion [id number] Angela Encarnacion Notes Date Note Type Note Provider Name and Address Organization Details Recorded Time 02/09/2024 text/html ROS as noted in the HPI Pleasant 38-year-old female presents to the urgent care today for evaluation of acute on chronic right knee pain and swelling. 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 She had surgery for this in [address] Zimmerman at [facility]. Operative report indicates a right knee [...] KEI FISHER PA-C [address], [place], [address], [place] [facility] 02/09/2024 14:20:18 06/04/2024 text/html ROS as noted in the HPI Patient is a 39-year-old female who presents [...] CHRISTIANO VERGARA PA-C [address], [place], [address], [facility] - [facility] 06/04/2024 14:40:33 10/06/2024 text/html 39-year-old female presents to orthopedic urgent care with chief [...] KAITY ROBERSON PA-C [address], [place], [address], [facility] - [facility] 10/06/2024 10:03:20 OBGyn Episode No OBEpisode recorded.
--- OUTSIDE RECORDS SUMMARY | 2025-05-21 00:49 | XMS_ITS | Data Portability ---
Author Organization GIBRAN Urrutia [email or web address], [facility] Address [address] [address] Assessment No assessment recorded. Plan of Treatment Reminders Order Date Submit Date Provider Last Modified By Organization Details Last Modified Time Details Appointments PHONE CALL 2024 11:00A M DR. URRUTIA Not available Not available Not available Lab None recorded . Referral None recorded . Procedures None recorded . Surgeries None recorded . Imaging None recorded . Medication Orders dextroam phetamin e-amphet amine 30 mg tablet 2024 025 [facility][id number], [address] [place], [address], 11/29/2024 09:19:25 dextroam phetamin e-amphet amine ER 30 mg 24hr capsule, extend release 2024 025 [facility]2476, [address] [place], [address], 11/29/2024 09:19:25 Patient TargetsNo targets recorded. Patient InstructionsNo instructions recorded. Reason for Referral None Reported. Results Created Date Observation Date Name Description Value Unit Range Abnormal Flag Note LastModifiedBy Organization Detail LastModifiedTime 09/13/1909/11/2024 US, pelvi s No observ ation record ed. [address], [address], 09/17/2024 15:15:22 09/21/19 25 09/11/2024 US, abdom en + pelvi s No observ ation record ed. lzanette [address], [place], [address], 09/25/2024 12:14:07 Result Notes None recorded. Problems Name Problem SNOMED Code Status Onset Date Resolution Date Notes Provider Name and Address Organization Details Recorded Time Hypothyroidism 46681524 Active 2020 Not Available [facility] 19:26:20 Attention deficit hyperactivity disorder, combined type 71131036 Active 2020 Not Available [facility] 19:26:20 Problem Notes None recorded. Medical Equipment None Reported. Allergies Allergen ID Allergen Name Allergen Category Reaction Reaction Severity Criticality Documentation Date Start Date Code Code System Note Provider Name and Address Organization Details Recorded Time 3249 clindamyc in Not available anaphylax is hives Not available Not available [facility] 05/02/20252009 2582 RxNorm hives Not Available [facility] - External Data Service - prod 5 10:48:08 Medications Name Sig Start Date Stop Date Status Note LastModified by Organization Details LastModified Time doxycycline hyclate 100 mg capsule TAKE 1 CAPSULE BY MOUTH TWICE A DAY FOR 7 DAYS 07/28 completed Not Available Not Available Not Available ofloxacin 0.3 % eye drops PLEASE SEE ATTACHED FOR DETAILED DIRECTION S active Not Available Not Available No t Available fluconazole 150 mg tablet TAKE 1 TABLET BY MOUTH ONCE FOR 1 DAY 11/13 completed Not Available Not Available Not Available tretinoin 0.025 % topical cream Apply [...] Not Available Not Available Not Avai lable [place] Thyroid 15 mg tablet TAKE 1 TABLET [...] MOUTH EVERY 12 HOURS FOR 10 DAYS 11/01 completed Not Available Not Available Not Available azithromyci n 500 mg tablet TAKE 2 TABLETS BY MOUTH AT ONCE 11/01 completed Not Available Not Available Not Available escitalopra m 10 mg tablet TAKE [...] TAKE 1 CAPSULE BY MOUTH EVERY DAY 11/01 completed Not Available Not Available Not Available Paxlovid 300 mg (150 mg x 2)-100 mg tablets in a dose pack TAKE 3 TABLETS BY MOUTH TWICE A DAY FOR 5 DAYS 09/20 completed Not Available Not Available Not Available Vtama 1 % topical cream APPLY TO AFFECTED AREA(S) ONCE A DAY active Not Available Not Available No t Available Auvelity 45 mg-105 mg tablet, extended release active Not Available Not Available Not Available Vitals None Recorded Social History None recorded. Functional Status None recorded. Mental Status None recorded. Family History Nothing Reported. Medical History No medical history recorded. Gynecological HistoryNo gynecological history recorded. Obstetrics History GPAL:G 0 P 0 0 0 0 Immunizations Vaccine Type Date Status Note Provider Scott pabon and Address Organization Details Recorded Time COVID-19, mRNA, LNP-S, PF, 30 mcg/0.3 mL dose 09/20/2020 completed GIBRAN Llamas [facility] 11/07/2020 13:36:37 Past Encounters Encounter ID Performer Location Encounter Start Date Encounter Closed Date Diagnosis/Indication Diagnosis SNOMED-CT Code Diagnosis ICD10 Code Diagnosis IMO Codes Diagnosis Note [id number] Herson Urrutia MD Main Office [address] [address] 09/19/2023 10:35:09 09/19/2023 13:27:03 Attention deficit hyperactivity disorder, combined type 74423021 F90.2 Patient has no complaints her ADHD is well managed. Depressive disorder 3548 9007 F32.9 Patient states since starting Auvelity [...] it may be more seasonal depression . [id number] Herson Urrutia MD Main Office [address] [address] 11/13/2024 08:56:36 11/13/2024 09:18:26 Review of medication 916718326 Z79.899 [id number] A routine drug utilizatio n review was performed via the data available on the [facility] t's Prescripti on Monitoring Program (CORE CARRIER) for the patient. I reviewed the importance of adequate treatment compliance with the patient, and encouraged them to continue to make appropriat e lifestyle changes to help support their pharmacolo gic treatment. I counseled the patient about the expected benefits and possible adverse effects of their medication , as well as the risks of abuse/misu se. I will continue the patient on their current regimen (Adderall ER 30mg QD and Adderall 30mg QD), and reassess at their next visit for the ongoing need and benefit of their medication . The patient verbalized their understand ing and agreement with this plan. They will return to the office for a quarterly medication check in 3 months. Attention deficit hyperactivity disorder, combined type 45108002 F90.2 Patient has no complaints her ADHD is well managed. Health Concerns Section Related Observation LastModified by Organization Detai ls LastModified Time None Recorded Concern Status LastModified by Organization Details LastModified Time None Recorded Advance Directives Directive None Recorded Payers Insurance Date Sequence Insurance Name Policy Number Policy Jones Covered Member ID Jones Member ID Guarantor Name 04/30/2020 1 *SELF PAY* Cristina kelseymatthew Alejandrastjamarcus 05/18/2023 1 [employer] (POS) [id number] Angela Alejandrastak [id number] Angela Alejandrastak 12/10/2024 1 [place] [id number] Angela Alejandrastak [id number] Angela Encarnacion Notes Date Note Type Note Provider Name and Address Organization Details Recorded Time 09/19/2023 text/html Anxiety/Depressi onRepor robert by PatientHPIFor associated symptoms, patient reportsweight gain (___ lbs) (patient states after starting auvelity she has noticed some minor weight gain.)andinsomnia (patient states since starting auvelity she has been lacking sleep.)but reportsdenies homicidal ideations,no significant weight loss,no visual/auditory hallucinations,no delusions,no shortness of breath,mood good,no anxiety,no crying spells,no panic,no isolation,appetite good,energy good,no apathy, andmaintaining functionality. For quality, patient reportssymptoms improved. For severity, patient reportsdenies suicidal ideations,able to maintain relationships, anddoes not interfere with activities of daily living. For duration, patient reportsstablizing. For context, patient reportsno major life stressors. For modifying factors, patient reportscounselling,soci al support, andmedications as directed. ADHD (newly diagnosed)Reported by PatientHPIFor organization, patient reportsgood organization. For appetite, patient reportsnormal appetiteandno binge eating. For mood, patient reportsstable. For sleep, patient reportsgoodandadequate sleep, not tired at school/work. For attention, patient reportsable to focus. For hyperactivity, patient reportsis not hyperactiveanddoes not fidget/squirm. For impulsivity, patient reportsis not impulsive. For tasking, patient reportsable to initiate tasks,able to complete tasks,able to move on to the next task, andmulti-tasking. For impairment, patient reports(normal) activities of daily livingand(normal) poor work performance. Herson Urrutia MD [address], [place], [address], [facility] 09/21/2023 08:01:08 11/13/2024 text/html ROS as noted in the HPI Essence presents today for her Quarterly medication check. 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 Essence saw her [facility] MODEL in September and scheduled her mammogram. This visit was completed via telehealth, with the patient participating from their home. Consent was obtained from the patient to conduct this visit via telehealth.The patient presents today in follow up for evaluation and management of ADHD. They are currently prescribed:dextroamphet amine-amphetamine ER 30mg QDdextroamphemtamine-am phetamine 30mg QD They report good compliance to their treatment regimen. The symptoms of their condition are improving, as compared to their last visit with our office. The patient completed the requested pre-visit laboratory/imaging exams. They report the following side effects from their medication(s):none. They report the following additional complaints at this visit:none. Herson Urrutia MD [address], [place], [address], [facility] 11/29/2024 09:19:24 OBGyn Episode No OBEpisode recorded.
--- OUTSIDE RECORDS SUMMARY | 2025-05-21 00:49 | XMS_ITS | Encounter Summary ---
Author Organization [facility] Address [address] [place] [address] Care Team Providers Care Fur Plucker Name Role Phone Herson Pack MD Primary Care Provide r Encounter Details Date Type Department Care Team (Late st Contact Info) Description 08/27/2024 Scanned Document [address] [place] [phone] Radiology, Scan Social History Tobacco Use [...] on filedocumented in this encounter Care Teams Fur Plucker Relationship Specialty Start Date End Date Herson Pack MD [address] [facility] 1 [facility] [place] [address] PCP - General 06/22/22 documented as of this encounter
== END 2025-05-20 16:01 | disposition home or self-care (01) ==
LOC: HO.HOS 15:19
DX: M65.332 Trigger finger, left middle finger (principal)
CPT/HCPCS: 99024